=== PATIENT | female | born 1950 | race Caucasian/White ===

== ENCOUNTER → 2016-08-02 | Outpatient (CLI) | payer MEDICARE ==
[2016-08-02 09:26] LABS: ALT 51 U/L (9-52); AST 27 U/L (14-36); Alkaline Phosphatase 58 U/L (38-126); Anion Gap 11 mmol/L; Blood Urea Nitrogen 23 mg/dL (7-17); Calcium 9.6 mg/dL (8.4-10.2); Carbon Dioxide 30 mmol/L (22-30); Chloride 100 mmol/L (98-107); Cholesterol 153 mg/dL (<200); Glucose 103 mg/dL (74-99); HDL Cholesterol 51 mg/dL (40-60); Non-African American GFR(MDRD) >60 (>60 ml/min/1.73 sqM); Potassium 5.1 mmol/L (3.5-5.1); Sodium 141 mmol/L (137-145); Total Bilirubin 1.3 mg/dL (0.2-1.3); Triglycerides 165 mg/dL (<150)
== END | disposition home or self-care (01) ==
LOC: LABWHC1 07:16
PROVIDERS: ATTEND Internal Medicine
DX: Z00.00 Encounter for general adult medical examination without abnormal findings (principal); E78.5 Hyperlipidemia, unspecified; E55.9 Vitamin D deficiency, unspecified
CPT/HCPCS: 36415; 80053; 80061; 82306

== ENCOUNTER → 2017-03-31 | Outpatient (CLI) | payer MEDICARE ==
--- NOTE | 2017-03-31 09:34 | WWHP ---
[facility] - HISTORY AND PHYSICAL DATE OF SERVICE: 03/31/2017 CHIEF COMPLAINT: The patient is here for her routine gynecologic exam and mammogram. HPI: This is a 67-year-old G0 with an LMP of 1999, who is status post ROMAIN for benign reasons. The patient is without gynecologic complaints. PAST MEDICAL HISTORY: Elevated cholesterol, chronic hypertension, diverticulosis, chronic back problems and osteopenia. MEDICATIONS: 1. Atorvastatin 20 mg daily. 2. Lisinopril 10/12.5 mg daily. 3. Aspirin 81 mg daily. 4. Multivitamin 1 daily. 5. Vitamin D 1000 units daily/. 6. Ltkf-uti-fndxwzz pain medications p.r.n. ALLERGIES: Allergies to AMOXICILLIN, SULFA, AUGMENTIN, DOXYCYCLINE, and CIPRO. PAST SURGICAL HISTORY: ROMAIN in 1999, breast biopsy in the past, colonoscopies in 2003 and 2013. 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 SOCIAL HISTORY: She denies tobacco and drug use and has about 3 alcohol containing drinks per week. 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 REVIEW OF SYSTEMS: Weight has been stable. She denies respiratory, cardiac or GI problems. She denies maltreatment or falling. : She denies any significant problems with urinary leakage. PHYSICAL EXAM: Blood pressure 139/85, height 4 feet 9 inches, weight 148 pounds, temperature 98.3, pulse 84. This is a short-statured, well-nourished white female who is alert and oriented x3, in no acute distress. HEENT: Within normal limits. NECK: Supple without mass or thyromegaly. CHEST AND LUNGS: Clear to auscultation. HEART: Regular rate and rhythm. Breasts are without mass or discharge. There is central nipple inversion, which she states she has had this for many years. Axillary exam is negative for adenopathy. BACK: Negative for CVA tenderness. ABDOMEN: Mildly obese, soft, nontender, without palpable masses. PELVIC EXAM: External genitalia reveals moderate atrophy without lesions. Vagina reveals gypt-iq-svqhqdlk atrophy without lesions. There is no evidence of prolapse. Bimanual exam is negative for mass or tenderness. Rectovaginal exam is negative for mass or tenderness and is negative for occult blood. EXTREMITIES: Nontender. IMPRESSION: 1. A 67-year-old menopausal female, status post ROMAIN for benign reasons with normal gynecologic exam. 2. History of osteopenia. PLAN: 1. Pap smears have been discontinued. 2. Self breast examination was discussed. 3. Mammogram will be done today. 4. Osteoporosis prevention was discussed. She states she had a bone density test in 2016, which she believes showed osteopenia and this was done through Dr. Enciso. 5. She did get a flu shot just recently. 6. She will return in 1 year. MMODL / IJN: [id number] /
--- NOTE | 2017-03-31 10:50 | MM ---
Reason for exam: screening (asymptomatic). Last mammogram was performed 1 year ago. History: Patient is postmenopausal and is nulliparous. Benign left US cyst aspiration of the left breast, October 25, 2007. Benign US left CoreBiopsy of both breasts, October 25, 2007. Took estrogen for 3 years beginning at age 49. Physical Findings: A clinical breast exam by your physician is recommended on an annual basis and results should be correlated with mammographic findings. MG 3D Screening Mammo W/Cad Bilateral CC and MLO view(s) were taken. Prior study comparison: March 25, 2016, bilateral MG 3d screening mammo w/cad. February 27, 2015, bilateral MG screening mammo w CAD. The breast tissue is heterogeneously dense. This may lower the sensitivity of mammography. Previous mammotome biopsy in the left breast. There is no discrete abnormality. ASSESSMENT: Benign, BI-RAD 2 RECOMMENDATION: Routine screening mammogram of both breasts in 1 year.
== END ==
LOC: WWCWWP 08:24
PROVIDERS: ATTEND Obstetrics & Gynecology
DX: Z12.31 Encounter for screening mammogram for malignant neoplasm of breast (principal)
CPT/HCPCS: 77063; G0202

== ENCOUNTER → 2017-08-17 | Outpatient (CLI) | payer MEDICARE ==
[2017-08-17 07:34] LABS: Basophils % (A) 0 %; Eosinophils # (A) 0.4 k/uL (0-0.7); Eosinophils % (A) 5 %; HCT 44.5 % (34.0-46.0); HGB 14.4 gm/dL (11.4-16.0); Lymphocytes # (A) 1.7 k/uL (1.0-4.8); Lymphocytes % (A) 22 %; MCH 30.2 pg (25.0-35.0); MCHC 32.4 g/dL (31.0-37.0); MCV 93.2 fL (80.0-100.0); Mean Platelet Volume 6.9; Monocytes # (A) 0.4 k/uL (0-1.0); Monocytes % (A) 5 %; Neutrophils % (A) 66 %; Platelet Count 204 k/uL (150-450); RBC 4.78 m/uL (3.80-5.40); RDW 12.3 % (11.5-15.5); WBC 7.6 k/uL (3.8-10.6)
[2017-08-17 07:46] LABS: ALT 29 U/L (9-52); AST 19 U/L (14-36); Alkaline Phosphatase 63 U/L (38-126); Anion Gap 13 mmol/L; Blood Urea Nitrogen 19 mg/dL (7-17); Calcium 9.6 mg/dL (8.4-10.2); Carbon Dioxide 31 mmol/L (22-30); Chloride 100 mmol/L (98-107); Cholesterol 138 mg/dL (<200); Glucose 122 mg/dL (74-99); HDL Cholesterol 52 mg/dL (40-60); LDL Cholesterol,Calculated 65 mg/dL (0-99); Potassium 4.6 mmol/L (3.5-5.1); Sodium 144 mmol/L (137-145); Total Bilirubin 1.2 mg/dL (0.2-1.3); Total Protein 6.5 g/dL (6.3-8.2); Triglycerides 104 mg/dL (<150)
== END | disposition home or self-care (01) ==
LOC: LABWHC1 07:06
PROVIDERS: ATTEND Internal Medicine
DX: Z00.00 Encounter for general adult medical examination without abnormal findings (principal); E78.5 Hyperlipidemia, unspecified; I10 Essential (primary) hypertension; E55.9 Vitamin D deficiency, unspecified
CPT/HCPCS: 36415; 80053; 80061; 82306; 85025

== ENCOUNTER → 2018-03-11 | Outpatient (CLI) | payer MEDICARE ==
--- NOTE | 2018-03-11 10:15 | US ---
EXAMINATION TYPE: US abdomen complete DATE OF EXAM: 03/11/2018 COMPARISON: US 08/30/2015, CT 02/06/2014 CLINICAL HISTORY: R10.9 ABD PAIN. Indigestion, RUQ pain EXAM MEASUREMENTS: Liver Length: 15.9 cm Gallbladder Wall: 0.2 cm CBD: 0.4 cm Spleen: 7.8 cm Right Kidney: 11.4 x 3.4 x 4.0 cm Left Kidney: 9.8 x 4.3 x 3.7 cm Pancreas: Anechoic area visualized within the pancreatic head measuring 0.9 x 0.5 x 0.7 cm Liver: Cystic area visualized left lobe measuring 1.4 x 1.1 x 1.2 cm Gallbladder: wnl Evidence for sonographic Neri's sign: No CBD: wnl Spleen: Prominent hyperechoic area visualized measuring 0.6 x 0.4 x 0.5 Right Kidney: No hydronephrosis or masses seen Left Kidney: No hydronephrosis or masses seen Upper IVC: wnl Abd Aorta: wnl as visualized, slightly limited due to bowel gas Images of pancreas show nonspecific 7 mm anechoic area possible thin-walled cyst or pseudocyst in the pancreatic head not clearly seen on prior CT. Visualized portion of aorta shows no aneurysmal change . IVC is seen near hepatic dome. Visualized liver is heterogeneous with 1.2 cm simple appearing cyst left hepatic lobe redemonstrated. Gallbladder is seen without shadowing mobile gallstones. Common bile duct measures within normal escobar its. Both kidneys are normal in size. No suspicious solid or cystic mass or hydronephrosis is present bila terally on images saved. Heterogeneous normal sized spleen is present. IMPRESSION: No suspicious acute finding is seen to account for patient's symptoms. Possible new 7 mm cyst or a thin-walled cystic lesion in region of pancreatic head could reflect small pseudocyst. Cons ider further investigation with pancreatic protocol CT or MRI to further evaluate and characterize.
== END ==
LOC: RADUSWWP 07:56
PROVIDERS: ATTEND Internal Medicine
DX: R10.9 Unspecified abdominal pain (principal)
CPT/HCPCS: 76700

== ENCOUNTER → 2018-04-27 | Outpatient (CLI) | payer MEDICARE ==
[2018-04-27 09:03] VITALS: BP 119/75; PULSE 80; TEMP 97.6; BMI 30.9
--- NOTE | 2018-04-27 09:40 | P.HPOB ---
History of Present Illness H&P Date: 04/27/18 Chief Complaint: The patient is here for her routine gynecologic exam and mammogram. This is a 68-year-old G0 with an LMP of 1999. She is status post ROMAIN for uterine fibroids. The patient is without gynecologic complaints. Review of Systems She has lost 5 pounds over the last year. She denies respiratory, cardiac and G.I. problems. She denies maltreatment or problems with falling. : she denies any significant problems with urinary leakage. Past Medical History Past Medical History: Hyperlipidemia, Hypertension Additional Past Medical History / Comment(s): DIVERTICULOSIS. 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 She is status post hysterectomy for uterine fibroids. History of Any Multi-Drug Resistant Organisms: None Reported Past Surgical History: Hysterectomy (ROMAIN in 1999) Additional Past Surgical History / Comment(s): Colonoscopy 2013 (2nd). 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 - Past Family History Sister(s) Family Medical History: Cancer (Cervical cancer) Additional Family Medical History / Comment(s): Another sister had uterine fibroids. Medications and Allergies Home Medications Medication Instructions Recorded Confirmed Type Aspirin EC [Ecotrin] 81 mg PO DAILY 03/27/14 04/27/18 History Atorvastatin [Lipitor] 20 mg PO HS 03/27/14 04/27/18 History Multivitamins, Thera [Multivitamin] 1 each PO DAILY 03/27/14 04/27/18 History Lisinopril 10 mg PO DAILY 07/24/15 04/27/18 History Cholecalciferol [Vitamin D3] 1,000 unit PO DAILY 04/27/18 04/27/18 History Allergies Allergy/AdvReac Type Severity Reaction Status Date / Time amoxicillin [Amoxicillin] Allergy Unknown Diarrhea Verified 04/27/18 08:59 Penicillins Allergy Unknown Unknown Verified 04/27/18 08:59 amoxicillin trihydrate Allergy Unknown Verified 04/27/18 08:59 [From Augmentin] doxycycline Allergy Unknown Verified 04/27/18 08:59 phenazopyridine HCl Allergy Unknown Verified 04/27/18 08:59 [From Pyridium] potassium clavulanate Allergy Unknown Verified 04/27/18 08:59 [From Augmentin] Sulfa (Sulfonamide Allergy Unknown Verified 04/27/18 08:59 Antibiotics) Exam Vital Signs Temp Pulse BP 04/27/18 09:00 97.6 F 80 119/75 Intake and Output 04/26/18 04/27/18 04/27/18 22:59 06:59 14:59 Other: Weight 64.864 kg Height 4'9", weight 143 pounds, BMI 30.9. This is a short statured well-nourished white female who is alert and oriented times 3 in no acute distress. HEENT: Within normal limits. NECK: Supple without mass or thyromegaly. CHEST AND LUNGS: Clear to auscultation. HEART: Regular rate and rhythm. BREASTS: Are without mass or discharge. There is bilateral central nipple inversion which she states this has been that way for many years. AXILLARY EXAM: Negative for adenopathy. BACK: Negative for CVA tenderness. ABDOMEN: Soft, nontender, without palpable masses. PELVIC EXAM: External genitalia appears normal mild to moderate atrophy. Vagina appears normal with moderate atrophy. There is no evidence of prolapse. Bimanual examination is negative for mass or tenderness. RECTAL EXAM: Rectovaginal exam is negative for mass or tenderness and is negative for occult blood. There is moderate stool in the rectum. EXTREMITIES: Nontender. IMPRESSION: 1. 68-year-old menopausal female status post ROMAIN for benign reasons with normal gynecologic exam. 2. History of osteopenia, followed by Dr. Enciso PLAN: 1. Pap smears have been discontinued. 2. Self breast awareness was discussed with the patient. 3. Screening mammogram will be done today. 4. Osteoporosis prevention was discussed. She will continue to have bone density testing done through Dr. Enciso as she has done in the past. 5. She did receive for flu shot this fall. She also received her pneumonia vaccination. 6. She will return in one year.
--- NOTE | 2018-04-27 12:59 | MM ---
Reason for exam: screening (asymptomatic). Last mammogram was performed 1 year and 1 month ago. History: Patient is postmenopausal and is nulliparous. Benign left US cyst aspiration of the left breast, October 25, 2007. Benign US left CoreBiopsy of both breasts, October 25, 2007. Took estrogen for 3 years beginning at age 49. Physical Findings: A clinical breast exam by your physician is recommended on an annual basis and results should be correlated with mammographic findings. MG 3D Screening Mammo W/Cad Bilateral CC and MLO view(s) were taken. Prior study comparison: March 31, 2017, bilateral MG 3d screening mammo w/cad. March 25, 2016, bilateral MG 3d screening mammo w/cad. The breast tissue is heterogeneously dense. This may lower the sensitivity of mammography. There are benign appearing round dystrophic calcifications bilaterally. Previous mammotome biopsy in the left breast. There is no discrete abnormality. ASSESSMENT: Benign, BI-RAD 2 RECOMMENDATION: Routine screening mammogram of both breasts in 1 year.
== END | disposition home or self-care (01) ==
LOC: WWCWWP 08:35
PROVIDERS: ATTEND Obstetrics & Gynecology
DX: Z12.31 Encounter for screening mammogram for malignant neoplasm of breast (principal)
CPT/HCPCS: 77063; 77067

== ENCOUNTER → 2018-05-01 | Outpatient (CLI) | payer MEDICARE ==
--- NOTE | 2018-05-03 00:36 | MR ---
EXAMINATION TYPE: MR pancreas wo/w con DATE OF EXAM: 05/01/2018 COMPARISON: CT scan 02/06/2014. Ultrasound abdomen 03/11/2018. HISTORY: pancreatic cyst CONTRAST: Standard multiplanar, multisequence MRI departmental protocol utilizing 6.5 mL intravenous Gadavist g adolinium contrast. FINDINGS: The gallbladder has normal size and contour. I see no filling defect. Bile ducts are not di lated. There are multiple variable sized cysts in the head body and tail of the pancreas. The largest is towards the tail of the pancreas and measures 13 mm. There are 3 cysts near the tail of the pancr eas that measure 6 to 7 mm. There are several small cysts in the head of the pancreas and the largest measures 12 x 8 mm. The pancreatic duct is not dilated. The spleen shows no focal defect. Liver show s a 13 mm cyst in the anterior left lobe. There is no adrenal mass. Kidneys show no hydronephrosis. There is no sign of retroperitoneal adenopa thy. There is no evidence of ascites. Stomach appears normal. I see no pathologic enhancement. I see no evidence of a solid pancreatic mass. Kidneys show satisfactory contrast opacification. There is no hydronephrosis. IMPRESSION: Multiple simple cysts in the head body and tail of the pancreas. These are probably pseudocysts. No e vidence of solid pancreatic mass. No dilated ducts. The cysts appear new compared to old CT scan of . The appearance is consistent with old inflammatory disease.
== END ==
LOC: RADMRIMAIN 11:43
PROVIDERS: ATTEND Internal Medicine
DX: K86.2 Cyst of pancreas (principal)
CPT/HCPCS: 74183; A9585

== ENCOUNTER 2018-05-13 09:51 | Emergency (ER) | payer MEDICARE ==
[2018-05-13 09:59] VITALS: RESP 16
--- NOTE | 2018-05-13 10:19 | ED ---
General Adult HPI - General Chief complaint: Abdominal Pain Stated complaint: poss med reaction Source: patient Mode of arrival: ambulatory Limitations: no limitations - History of Present Illness Initial comments: Dictation was produced using [employer] dictation software. please excuse any grammatical, word or spelling errors. Chief Complaint: 68-year-old female with past medical history of pancreatic pseudocyst presents with epigastric abdominal pain. History of Present Illness: Patient is 68-year-old female past medical history of dyslipidemia, hypertension, pancreatic pseudocyst presents with epigastric pain. Patient states the pain began yesterday. 4 days ago patient was seen at a urgent care for which she was diagnosed with urinary tract infection based on urinary white blood cells. She was started on a seven- day course of Macrobid. She states that she follow up with her culture results and they were negative. Patient has been on Macrobid for approximately 3 days. Patient is taking Macrobid for however has never experienced any side effects. Patient states that the pain as epigastric radiating to her upper thoracic back area. She describes the pain as burning in sensation. No exacerbating or mitigating factors. The ROS documented in this emergency department record has been reviewed and confirmed by me. Those systems with pertinent positive or negative responses have been documented in the HPI. All other systems are other negative and/or noncontributory. - Related Data Home Medications Medication Instructions Recorded Confirmed Aspirin EC [Ecotrin] 81 mg PO DAILY 03/27/14 05/13/18 Atorvastatin [Lipitor] 20 mg PO HS 03/27/14 05/13/18 Multivitamins, Thera [Multivitamin] 1 tab PO DAILY 03/27/14 05/13/18 Lisinopril 10 mg PO DAILY 07/24/15 05/13/18 Cholecalciferol [Vitamin D3] 1,000 unit PO DAILY 04/27/18 05/13/18 Nitrofurantoin Monohyd/M-Cryst 100 mg PO Q12HR 05/13/18 05/13/18 [Macrobid] Allergies Allergy/AdvReac Type Severity Reaction Status Date / Time amoxicillin [Amoxicillin] Allergy Unknown Diarrhea Verified 05/13/18 10:29 Penicillins Allergy Unknown Unknown Verified 05/13/18 10:29 amoxicillin trihydrate Allergy Unknown Verified 05/13/18 10:29 [From Augmentin] doxycycline Allergy Unknown Verified 05/13/18 10:29 phenazopyridine HCl Allergy Unknown Verified 05/13/18 10:29 [From Pyridium] potassium clavulanate Allergy Unknown Verified 05/13/18 10:29 [From Augmentin] Sulfa (Sulfonamide Allergy Unknown Verified 05/13/18 10:29 Antibiotics) Review of Systems ROS Statement: Those systems with pertinent positive or pertinent negative responses have been documented in the HPI. ROS Other: All systems not noted in ROS Statement are negative. Past Medical History Past Medical History: Hyperlipidemia, Hypertension Additional Past Medical History / Comment(s): DIVERTICULOSIS. 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 She is status post hysterectomy for uterine fibroids. History of Any Multi-Drug Resistant Organisms: None Reported Past Surgical History: Hysterectomy Additional Past Surgical History / Comment(s): Colonoscopy 2013 (2nd). Past Anesthesia/Blood Transfusion Reactions: No Reported Reaction Past Psychological History: No Psychological Hx Reported Smoking Status: Never smoker Past Alcohol Use History: Occasional Past Drug Use History: None Reported - Past Family History Sister(s) Family Medical History: Cancer (Cervical cancer) Additional Family Medical History / Comment(s): Another sister had uterine fibroids. General Exam - General Exam Comments Initial Comments: PHYSICAL EXAM: General Impression: Alert and oriented x3, not in acute distress HEENT: Normocephalic atraumatic, extra-ocular movements intact, pupils equal and reactive to light bilaterally, mucous membranes moist. Cardiovascular: Heart regular rate and rhythm, S1&S2 audible, no murmurs, rubs or gallops Chest: Lungs clear to auscultation bilaterally, no rhonchi, no wheeze, no rales Abdomen: Bowel sounds present, abdomen soft, non-tender, non-distended, no organomegaly Musculoskeletal: Pulses present and equal in all extremities, no peripheral edema Motor: Power 5/5 bilaterally, no focal deficits noted Neurological: CN II-XII grossly intact, no focal motor or sensory deficits noted Skin: Intact with no visualized rashes Psych: Normal affect and mood Limitations: no limitations Course Vital Signs 05/13/18 09:55 Temperature 98.4 F Pulse Rate 82 Respiratory 16 Rate Blood Pressure 150/78 O2 Sat by Pulse 98 Oximetry Medical Decision Making - Medical Decision Making ED course: 68-year-old female with chief complaint of epigastric abdominal pain that radiates to the back. She does have a history of pancreatic pseudocyst. 4 days ago she was started on Macrobid for urinary white blood cells. Vital signs upon arrival are within acceptable limits. Patient reports that she checked her culture results which were negative.Laboratory evaluation obtained. CBC, CMP, lipase, urinalysis is all within normal limits. Patient's glucose is elevated at 194. Patient does have a non-gap alkalosis that is mild. Patient however not having any nausea or vomiting or diarrhea symptoms. Discussed patient that her labs appear normal. More history was obtained. Patient states that she has some burning pain to her left back is worse with movement. Her symptoms aren't typical for cardiac process. Cardiac enzymes are negative. EKG was obtained showing nonspecific T- wave changes. 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 Patient told to stop using her Macrobid. She still to follow-up with her primary care physician. Bicycle back to the emergency department with worsening symptoms. Patient understandable agreeable to plan. Patient is agreeable to take Tylenol urine symptoms. EKG interpretation: Ventricular rate 75, normal sinus rhythm, KS interval 142, care is 82, QTc 442. No KS prolongation, no QTC prolongation, nonspecific T- wave inversion in aVL Overall, this EKG is unremarkable - Lab Data Result diagrams: 05/13/18 10:24 05/13/18 10:24 Lab Results 05/13/18 05/13/18 05/13/18 Range/Units 10:24 10:24 10:24 WBC 6.0 (3.8-10.6) k/uL RBC 4.81 (3.80-5.40) m/uL Hgb 15.1 (11.4-16.0) gm/dL Hct 44.7 (34.0-46.0) % MCV 92.9 (80.0-100.0) fL MCH 31.4 (25.0-35.0) pg MCHC 33.8 (31.0-37.0) g/dL RDW 12.9 (11.5-15.5) % Plt Count 220 (150-450) k/uL Neutrophils % 66 % Lymphocytes % 22 % Monocytes % 5 % Eosinophils % 5 % Basophils % 0 % Neutrophils # 4.0 (1.3-7.7) k/uL Lymphocytes # 1.3 (1.0-4.8) k/uL Monocytes # 0.3 (0-1.0) k/uL Eosinophils # 0.3 (0-0.7) k/uL Basophils # 0.0 (0-0.2) k/uL Sodium 140 (137-145) mmol/L Potassium 4.7 (3.5-5.1) mmol/L Chloride 101 (98-107) mmol/L Carbon Dioxide 32 H (22-30) mmol/L Anion Gap 7 mmol/L BUN 22 H (7-17) mg/dL Creatinine 0.75 (0.52-1.04) mg/dL Est GFR (CKD-EPI)AfAm >90 (>60 ml/min/1.73 sqM) Est GFR (CKD-EPI)NonAf 82 (>60 ml/min/1.73 sqM) Glucose 194 H (74-99) mg/dL Calcium 10.1 (8.4-10.2) mg/dL Total Bilirubin 0.9 (0.2-1.3) mg/dL AST 24 (14-36) U/L ALT 34 (9-52) U/L Alkaline Phosphatase 52 (38-126) U/L Troponin I <0.012 (0.000-0.034) ng/mL Total Protein 7.2 (6.3-8.2) g/dL Albumin 4.3 (3.5-5.0) g/dL Lipase 39 (23-300) U/L Urine Color Urine Appearance (Clear) Urine pH (5.0-8.0) Ur Specific [place] (1.001-1.035) Urine Protein (Negative) Urine Glucose (UA) (Negative) Urine Ketones (Negative) Urine Blood (Negative) Urine Nitrite (Negative) Urine Bilirubin (Negative) Urine Urobilinogen (<2.0) mg/dL Ur Leukocyte Esterase (Negative) 05/13/18 Range/Units 10:48 WBC (3.8-10.6) k/uL RBC (3.80-5.40) m/uL Hgb (11.4-16.0) gm/dL Hct (34.0-46.0) % MCV (80.0-100.0) fL MCH (25.0-35.0) pg MCHC (31.0-37.0) g/dL RDW (11.5-15.5) % Plt Count (150-450) k/uL Neutrophils % % Lymphocytes % % Monocytes % % Eosinophils % % Basophils % % Neutrophils # (1.3-7.7) k/uL Lymphocytes # (1.0-4.8) k/uL Monocytes # (0-1.0) k/uL Eosinophils # (0-0.7) k/uL Basophils # (0-0.2) k/uL Sodium (137-145) mmol/L Potassium (3.5-5.1) mmol/L Chloride (98-107) mmol/L Carbon Dioxide (22-30) mmol/L Anion Gap mmol/L BUN (7-17) mg/dL Creatinine (0.52-1.04) mg/dL Est GFR (CKD-EPI)AfAm (>60 ml/min/1.73 sqM) Est GFR (CKD-EPI)NonAf (>60 ml/min/1.73 sqM) Glucose (74-99) mg/dL Calcium (8.4-10.2) mg/dL Total Bilirubin (0.2-1.3) mg/dL AST (14-36) U/L ALT (9-52) U/L Alkaline Phosphatase (38-126) U/L Troponin I (0.000-0.034) ng/mL Total Protein (6.3-8.2) g/dL Albumin (3.5-5.0) g/dL Lipase (23-300) U/L Urine Color Light Yellow Urine Appearance Clear (Clear) Urine pH 5.5 (5.0-8.0) Ur Specific [place] 1.012 (1.001-1.035) Urine Protein Negative (Negative) Urine Glucose (UA) 1+ H (Negative) Urine Ketones Negative (Negative) Urine Blood Negative (Negative) Urine Nitrite Negative (Negative) Urine Bilirubin Negative (Negative) Urine Urobilinogen <2.0 (<2.0) mg/dL Ur Leukocyte Esterase Negative (Negative) Disposition Clinical Impression: Medication side effect Disposition: HOME SELF-CARE Condition: Good Is patient prescribed a controlled substance at d/c from ED?: No Referrals: Dean Enciso MD [Primary Care Provider] - 1-2 days Time of Disposition: 12:14
[2018-05-13 10:45] LABS: Basophils % (A) 0 %; Eosinophils # (A) 0.3 k/uL (0-0.7); Eosinophils % (A) 5 %; HCT 44.7 % (34.0-46.0); HGB 15.1 gm/dL (11.4-16.0); Lymphocytes # (A) 1.3 k/uL (1.0-4.8); Lymphocytes % (A) 22 %; MCH 31.4 pg (25.0-35.0); MCHC 33.8 g/dL (31.0-37.0); MCV 92.9 fL (80.0-100.0); Mean Platelet Volume 7.2; Monocytes # (A) 0.3 k/uL (0-1.0); Monocytes % (A) 5 %; Neutrophils % (A) 66 %; Platelet Count 220 k/uL (150-450); RBC 4.81 m/uL (3.80-5.40); RDW 12.9 % (11.5-15.5)
[2018-05-13 11:05] LABS: ALT 34 U/L (9-52); AST 24 U/L (14-36); Albumin 4.3 g/dL (3.5-5.0); Alkaline Phosphatase 52 U/L (38-126); Anion Gap 7 mmol/L; Blood Urea Nitrogen 22 mg/dL (7-17); Calcium 10.1 mg/dL (8.4-10.2); Carbon Dioxide 32 mmol/L (22-30); Chloride 101 mmol/L (98-107); Glucose 194 mg/dL (74-99); Lipase 39 U/L (23-300); Potassium 4.7 mmol/L (3.5-5.1); Sodium 140 mmol/L (137-145); Total Bilirubin 0.9 mg/dL (0.2-1.3); Total Protein 7.2 g/dL (6.3-8.2)
[2018-05-13 11:20] LABS: Appearance,Urine Clear (Clear); Bilirubin,Urine Negative (Negative); Blood,Urine Negative (Negative); Color,Urine Light Yellow; Glucose,Urine (UA) 1+ (Negative); Ketones,Urine Negative (Negative); Leukocyte Esterase,Urine Negative (Negative); Nitrite,Urine Negative (Negative); PH, Urine 5.5 (5.0-8.0); Protein,Urine Negative (Negative); Specific Gravity,Urine 1.012 (1.001-1.035); Urobilinogen,Urine <2.0 mg/dL (<2.0)
[2018-05-13 12:40] VITALS: BP 124/70; PULSE 78; TEMP 97.8
== END 2018-05-13 12:40 | disposition home or self-care (01) ==
LOC: EC 09:51
DX: R10.13 Epigastric pain (principal); E87.3 Alkalosis; T37.8X5A Adverse effect of other specified systemic anti-infectives and antiparasitics, initial encounter; E78.5 Hyperlipidemia, unspecified; I10 Essential (primary) hypertension; Z87.19 Personal history of other diseases of the digestive system; Z87.42 Personal history of other diseases of the female genital tract; Z90.710 Acquired absence of both cervix and uterus; Z98.890 Other specified postprocedural states; Z79.82 Long term (current) use of aspirin; Z79.899 Other long term (current) drug therapy; Z88.0 Allergy status to penicillin; Z88.1 Allergy status to other antibiotic agents; Z88.2 Allergy status to sulfonamides; Z88.8 Allergy status to other drugs, medicaments and biological substances
CPT/HCPCS: 36415; 80053; 81003; 83690; 84484; 85025; 87086; 93005; 99284

== ENCOUNTER → 2018-07-13 | Outpatient (CLI) | payer MEDICARE ==
--- NOTE | 2018-07-13 18:44 | MR ---
EXAMINATION TYPE: MR lumbar spine wo con DATE OF EXAM: 07/13/2018 COMPARISON: Prior MRI lumbar spine 05/12/2015 HISTORY: Back pain radiating into buttocks TECHNIQUE: Multiplanar, multisequence images of the lumbar spine were acquired. L1-L2: Normal disc appearance without desiccation. No herniation, protrusion or disc bulging. No ca nal stenosis is present. Foramina are patent bilaterally. L2-L3: There is facet arthropathy change. No significant central stenosis. No significant foraminal e ncroachment. L3-L4: Posterior broad-based disc bulge causes mild anterior mass effect on the thecal sac. Facet art hropathy causes posterior lateral mass effect on the thecal sac, circumferential disc bulge encroache s somewhat on the right neural foramen. No significant central stenosis. L4-L5: Facet arthropathy with hypertrophy of the ligamentum flavum is present causing posterior later al mass effect on the thecal sac, mild lateral recess encroachment. No significant foraminal encroach ment. No central stenosis. L5-S1: Similar findings, there is loss of disc height and signal, posterior broad-based disc bulge is minimal. There is facet arthropathy with hypertrophy of the ligamentum flavum. Circumferential exten neno of endplate disc complex encroaches on the neural foramina. Lumbar segments are intact. No paraspinal masses are identified. Conus medullaris has a normal appe arance. Lumbar vertebral bodies show preserved height. Minimal anterolisthesis grade 1 L3-4. There is spondylosis with endplate discogenic marrow signal change at L5-S1, L3-4 greater than L2-3. L1 shows hemangioma as on prior. Disc heights fairly well maintained as on prior. IMPRESSION: Degenerative disc disease is not significantly changed. Multilevel facet arthropathy. Neural foramina l encroachment similar to prior exam.
== END | disposition home or self-care (01) ==
LOC: RADMRIMAIN 16:46
PROVIDERS: ATTEND Internal Medicine
DX: M51.36 Other intervertebral disc degeneration, lumbar region (principal); M46.86 Other specified inflammatory spondylopathies, lumbar region
CPT/HCPCS: 72148

== ENCOUNTER → 2018-07-14 | Outpatient (CLI) | payer MEDICARE ==
[2018-07-14 07:50] LABS: Blood Urea Nitrogen 27 mg/dL (7-17)
--- NOTE | 2018-07-14 09:42 | CT ---
EXAMINATION TYPE: CT abdomen pelvis w con DATE OF EXAM: 07/14/2018 COMPARISON: 02/06/2014 HISTORY: 68-year-old female LLQ pain TECHNIQUE: Contiguous axial scanning of the abdomen and pelvis following administration of 100 ml Iso jennifer 300 IV contrast. Delayed images through the kidneys and coronal/sagittal reconstructions perform ed. CT DLP: 851 mGycm Automated exposure control for dose reduction was used. FINDINGS: Heart normal size without pericardial effusion. Some strandy areas of atelectasis or scarring at the lung bases. There may be some minimal emphysematous change. No pleural effusion. Tiny hiatal hernia. Couple peripherally located areas of hypervascularity in the liver are unchanged and suggest areas of vascular shunting. Stable 1.3 cm cyst segment 3 left liver lobe. Portal venous system is patent. No biliary ductal dilatation. Gallbladder, adrenal glands, kidneys, spleen within normal limits. There is mild fatty atrophy of the pancreatic body and head. There is a new 1 cm cystic lesion at the junction of the pancreatic tail and body not seen previously. No suspicious enhancing masses. No dilated small bowel, free fluid, or free air. Normal appendix. Oral contrast progressed to the descending colon. There is sigmoid diverticulosis with focal wall thi ckening and mild surrounding inflammatory fat stranding at the mid sigmoid, for example, axial image 55. No mesenteric or retroperitoneal lymphadenopathy. Bladder urine distended. There is a new peripherally enhancing region adjacent to the right lateral m argin of the mid to distal sigmoid measuring approximately 2.3 x 1.7 cm, refer to axial images 59-62 and coronal image 53. This is near or at the region of the right fallopian tube. Some intrinsic fluid and tiny focus of air are present. There is some mild surrounding inflammation here. No pelvic lymphadenopathy. Uterus surgically absent. Both ovaries are visualized. Bones: Facet arthropathy lower lumbar spine and endplate spondylosis lower thoracic spine. No osseous destructive process. IMPRESSION: 1. SIGMOID DIVERTICULOSIS WITH FINDINGS SUGGESTING MILD ACUTE DIVERTICULITIS INVOLVING THE MIDSIGMOID . 2. ALONG THE RIGHT LATERAL WALL OF THE MID TO DISTAL SIGMOID, THERE IS A SECOND AREA OF INFLAMMATION CENTERED AROUND EITHER AN INFLAMED 2.3 CM DIVERTICULUM VERSUS A SMALL, PROBABLY CHRONIC, DIVERTICULAR ABSCESS. THIS AREA IS NEW COMPARED TO 02/06/2014 AND LOCATED NEAR OR AT THE REGION OF THE RIGHT FA LLOPIAN TUBE. CONSIDER IMAGING FOLLOW-UP WITH TREATMENT. DIRECT VISUALIZATION OF THE SIGMOID COLON AL SO RECOMMENDED FOLLOWING SUCCESSFUL TREATMENT. 3. NEW 1 CM CYSTIC LESION AT THE JUNCTION OF THE PANCREATIC TAIL AND BODY. SIX-MONTH FOLLOW-UP PANCRE MRI WITH MRCP RECOMMENDED. 4. SMALL HIATAL HERNIA.
== END | disposition home or self-care (01) ==
LOC: RADCTMAIN 07:03
PROVIDERS: ATTEND Internal Medicine
DX: K57.30 Diverticulosis of large intestine without perforation or abscess without bleeding (principal); K44.9 Diaphragmatic hernia without obstruction or gangrene; R10.9 Unspecified abdominal pain
CPT/HCPCS: 82565; 84520; 74177; 36415; Q9967

== ENCOUNTER 2018-07-20 08:19 | Inpatient (IN) | payer MEDICARE ==
[2018-07-20] MEDS ORDERED: SODIUM CHLORIDE 0.9% 1,000 ML IV STA (09:06)
--- NOTE | 2018-07-20 09:14 | ED ---
General Adult HPI - General Source: patient, RN notes reviewed Mode of arrival: ambulatory Limitations: no limitations <Albert Negrete - Last Filed: 07/20/18 11:41> <Yoseph Moran - Last Filed: 07/20/18 12:05> - General Chief complaint: Urogenital Stated complaint: HEMATURIA Time Seen by Provider: 07/20/18 08:55 - History of Present Illness Initial comments: Patient 68-year-old female presented to the emergency room today with a chief complaint of increased lower abdominal pain. She also states that she seems blood. Urine this morning. She admits to a history of diverticulitis. States she has been on ciprofloxacin for the past 6 days. Patient states she was on Flagyl but had to stop this as she broke out in a rash. She admits symptoms started approximately a month ago similar diverticulitis that she's had in the past and saw her family doctor for this and was on antibiotics. Patient states that she still having the same lower abdominal pain but noticed blood today and his reason for coming here to the emergency room. She currently rates her pain 5/10 but states she does not want anything for pain. Denies any other complaints at this time. Patient denies any recent fever, chills, shortness of breath, chest pain, back pain, numbness or tingling, dysuria or hematuria, headaches or visual changes, or any other complaints. (Albert Negrete) - Related Data Home Medications Medication Instructions Recorded Confirmed Aspirin EC [Ecotrin] 81 mg PO DAILY 03/27/14 07/20/18 Atorvastatin [Lipitor] 20 mg PO HS 03/27/14 07/20/18 Multivitamins, Thera [Multivitamin] 1 tab PO DAILY 03/27/14 07/20/18 Lisinopril 10 mg PO DAILY 07/24/15 07/20/18 Cholecalciferol [Vitamin D3] 1,000 unit PO DAILY 04/27/18 07/20/18 Ascorbic Acid [Vitamin C] 500 mg PO DAILY 07/20/18 07/20/18 Allergies Allergy/AdvReac Type Severity Reaction Status Date / Time amoxicillin [Amoxicillin] Allergy Unknown Diarrhea Verified 07/20/18 10:57 Penicillins Allergy Unknown Unknown Verified 07/20/18 10:57 amoxicillin trihydrate Allergy Unknown Verified 07/20/18 10:57 [From Augmentin] doxycycline Allergy Unknown Verified 07/20/18 10:57 metronidazole [From Flagyl] Allergy Rash/Hives Verified 07/20/18 10:57 nitrofurantoin Allergy Rash/Hives Verified 07/20/18 10:57 [From Macrobid] phenazopyridine HCl Allergy Unknown Verified 07/20/18 10:57 [From Pyridium] potassium clavulanate Allergy Unknown Verified 07/20/18 10:57 [From Augmentin] Sulfa (Sulfonamide Allergy Unknown Verified 07/20/18 10:57 Antibiotics) ciprofloxacin [From Cipro] AdvReac Joint Pain Verified 07/20/18 11:48 Review of Systems ROS Other: All systems not noted in ROS Statement are negative. <Albert Negrete - Last Filed: 07/20/18 11:41> ROS Other: All systems not noted in ROS Statement are negative. <Yoseph Moran - Last Filed: 07/20/18 12:05> ROS Statement: Those systems with pertinent positive or pertinent negative responses have been documented in the HPI. Past Medical History Past Medical History: Hyperlipidemia, Hypertension Additional Past Medical History / Comment(s): DIVERTICULOSIS. 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 cysts on pancreas PAST [employer] HISTORY: She has no history of STDs. She is status post hysterectomy for uterine fibroids. History of Any Multi-Drug Resistant Organisms: None Reported Past Surgical History: Hysterectomy Additional Past Surgical History / Comment(s): Colonoscopy 2014 (2nd). Past Anesthesia/Blood Transfusion Reactions: No Reported Reaction Past Psychological History: No Psychological Hx Reported Smoking Status: Never smoker Past Alcohol Use History: Occasional Past Drug Use History: None Reported - Past Family History Sister(s) Family Medical History: Cancer (Cervical cancer) Additional Family Medical History / Comment(s): Another sister had uterine fibroids. <Albert Negrete - Last Filed: 07/20/18 11:41> General Exam Limitations: no limitations <Albert Negrete - Last Filed: 07/20/18 11:41> <Yoseph Moran - Last Filed: 07/20/18 12:05> - General Exam Comments Initial Comments: General: The patient is awake and alert, in no distress, and does not appear acutely ill. Eye: There is normal conjunctiva bilaterally. No signs of icterus. Ears, nose, mouth and throat: There are moist mucous membranes and no oral lesions. Neck: The neck is supple, there is no tenderness or JVD. Cardiovascular: There is a regular rate and rhythm. No murmur, rub or gallop is appreciated. Respiratory: Lungs are clear to auscultation, respirations are non-labored, breath sounds are equal. No wheezes, stridor, rales, or rhonchi. Gastrointestinal: Abdomen soft on palpation. Mild tenderness left lower quadrant. No rebound, guarding or CVA tenderness. Musculoskeletal: Normal ROM, no tenderness. Neurological: A&O x 3. CN II-XII intact, There are no obvious motor or sensory deficits. Coordination appears grossly intact. Speech is normal. Skin: Skin is warm and dry and no rashes or lesions are noted. Psychiatric: Cooperative, appropriate mood & affect, normal judgment. (Albert Negrete) Course <Albert Negrete - Last Filed: 07/20/18 11:41> <Yoseph Moran - Last Filed: 07/20/18 12:05> Vital Signs 07/20/18 07/20/18 08:46 11:31 Temperature 98.4 F Pulse Rate 98 87 Respiratory 18 16 Rate Blood Pressure 147/86 131/72 O2 Sat by Pulse 96 98 Oximetry - Reevaluation(s) Reevaluation #1: 07/20/18 12:01 PA supervision: I proceeded [id number] evaluation patient did discuss findings with her. Patient does have diverticulitis did present with hematuria this morning. His CAT scan evidence of adhesion of the bowel to bladder wall. Impending fistula is considered. I did discuss the case with Dr. Grady the patient will be admitted with consultation by Dr. Reyna (Ysoeph Moran) Medical Decision Making - Lab Data Result diagrams: 07/20/18 09:35 07/20/18 09:35 <Albert Negrete - Last Filed: 07/20/18 11:41> - Lab Data Result diagrams: 07/20/18 09:35 07/20/18 09:35 <Yoseph Moran - Last Filed: 07/20/18 12:05> - Medical Decision Making Patient reexamined shows no signs of distress. States still having some discomfort in the lower abdomen. Patient be treated for diverticulitis currently on antibiotics of ciprofloxacin. Patient was advised by her physician that she may need to come for IV antibiotics as symptoms are not improving. Patient's CT shows improving sigmoid diverticulitis. There is no urinary bladder wall is probably area of chronic diverticular disease and urinary bladder wall adhesions. Case discussed with attending physician Dr. Moran did see patient at bedside. Patient will be admitted to the hospital for consult to surgery. (Albert Negrete) - Lab Data Lab Results 07/20/18 07/20/18 07/20/18 Range/Units 09:35 09:35 09:35 WBC 6.8 (3.8-10.6) k/uL RBC 4.78 (3.80-5.40) m/uL Hgb 14.9 (11.4-16.0) gm/dL Hct 43.8 (34.0-46.0) % MCV 91.5 (80.0-100.0) fL MCH 31.1 (25.0-35.0) pg MCHC 34.0 (31.0-37.0) g/dL RDW 13.4 (11.5-15.5) % Plt Count 249 (150-450) k/uL Neutrophils % 66 % Lymphocytes % 21 % Monocytes % 6 % Eosinophils % 4 % Basophils % 0 % Neutrophils # 4.5 (1.3-7.7) k/uL Lymphocytes # 1.5 (1.0-4.8) k/uL Monocytes # 0.4 (0-1.0) k/uL Eosinophils # 0.3 (0-0.7) k/uL Basophils # 0.0 (0-0.2) k/uL PT (9.0-12.0) sec INR (<1.2) APTT (22.0-30.0) sec Sodium 140 (137-145) mmol/L Potassium 4.3 (3.5-5.1) mmol/L Chloride 104 (98-107) mmol/L Carbon Dioxide 28 (22-30) mmol/L Anion Gap 8 mmol/L BUN 14 (7-17) mg/dL Creatinine 0.67 (0.52-1.04) mg/dL Est GFR (CKD-EPI)AfAm >90 (>60 ml/min/1.73 sqM) Est GFR (CKD-EPI)NonAf >90 (>60 ml/min/1.73 sqM) Glucose 117 H (74-99) mg/dL Plasma Lactic Acid Winston 1.3 (0.7-2.0) mmol/L Calcium 10.0 (8.4-10.2) mg/dL Total Bilirubin 0.7 (0.2-1.3) mg/dL AST 23 (14-36) U/L ALT 36 (9-52) U/L Alkaline Phosphatase 59 (38-126) U/L Total Protein 6.8 (6.3-8.2) g/dL Albumin 4.2 (3.5-5.0) g/dL Urine Color Urine Appearance (Clear) Urine pH (5.0-8.0) Ur Specific [place] (1.001-1.035) Urine Protein (Negative) Urine Glucose (UA) (Negative) Urine Ketones (Negative) Urine Blood (Negative) Urine Nitrite (Negative) Urine Bilirubin (Negative) Urine Urobilinogen (<2.0) mg/dL Ur Leukocyte Esterase (Negative) Urine RBC (0-5) /hpf Urine WBC (0-5) /hpf Urine Bacteria (None) /hpf Urine Mucus (None) /hpf 07/20/18 07/20/18 Range/Units 09:35 09:35 WBC (3.8-10.6) k/uL RBC (3.80-5.40) m/uL Hgb (11.4-16.0) gm/dL Hct (34.0-46.0) % MCV (80.0-100.0) fL MCH (25.0-35.0) pg MCHC (31.0-37.0) g/dL RDW (11.5-15.5) % Plt Count (150-450) k/uL Neutrophils % % Lymphocytes % % Monocytes % % Eosinophils % % Basophils % % Neutrophils # (1.3-7.7) k/uL Lymphocytes # (1.0-4.8) k/uL Monocytes # (0-1.0) k/uL Eosinophils # (0-0.7) k/uL Basophils # (0-0.2) k/uL PT 9.5 (9.0-12.0) sec INR 0.9 (<1.2) APTT 24.6 (22.0-30.0) sec Sodium (137-145) mmol/L Potassium (3.5-5.1) mmol/L Chloride (98-107) mmol/L Carbon Dioxide (22-30) mmol/L Anion Gap mmol/L BUN (7-17) mg/dL Creatinine (0.52-1.04) mg/dL Est GFR (CKD-EPI)AfAm (>60 ml/min/1.73 sqM) Est GFR (CKD-EPI)NonAf (>60 ml/min/1.73 sqM) Glucose (74-99) mg/dL Plasma Lactic Acid Winston (0.7-2.0) mmol/L Calcium (8.4-10.2) mg/dL Total Bilirubin (0.2-1.3) mg/dL AST (14-36) U/L ALT (9-52) U/L Alkaline Phosphatase (38-126) U/L Total Protein (6.3-8.2) g/dL Albumin (3.5-5.0) g/dL Urine Color Light Yellow Urine Appearance Clear (Clear) Urine pH 5.5 (5.0-8.0) Ur Specific [place] 1.007 (1.001-1.035) Urine Protein Negative (Negative) Urine Glucose (UA) Negative (Negative) Urine Ketones Negative (Negative) Urine Blood Moderate H (Negative) Urine Nitrite Negative (Negative) Urine Bilirubin Negative (Negative) Urine Urobilinogen <2.0 (<2.0) mg/dL Ur Leukocyte Esterase Large H (Negative) Urine RBC 11 H (0-5) /hpf Urine WBC 59 H (0-5) /hpf Urine Bacteria Rare H (None) /hpf Urine Mucus Rare H (None) /hpf Disposition Is patient prescribed a controlled substance at d/c from ED?: No Time of Disposition: 11:46 <Albert Negrete - Last Filed: 07/20/18 11:41> <Yoseph Moran - Last Filed: 07/20/18 12:05> Clinical Impression: Diverticulitis, Failure of outpatient treatment Disposition: ADMITTED IP TO THIS [facility] Condition: Good
[2018-07-20 09:56] LABS: Basophils % (A) 0 %; Eosinophils # (A) 0.3 k/uL (0-0.7); Eosinophils % (A) 4 %; HCT 43.8 % (34.0-46.0); HGB 14.9 gm/dL (11.4-16.0); Lymphocytes # (A) 1.5 k/uL (1.0-4.8); Lymphocytes % (A) 21 %; MCH 31.1 pg (25.0-35.0); MCV 91.5 fL (80.0-100.0); Mean Platelet Volume 6.9; Monocytes # (A) 0.4 k/uL (0-1.0); Monocytes % (A) 6 %; Neutrophils # (A) 4.5 k/uL (1.3-7.7); Neutrophils % (A) 66 %; Platelet Count 249 k/uL (150-450); RBC 4.78 m/uL (3.80-5.40); RDW 13.4 % (11.5-15.5); WBC 6.8 k/uL (3.8-10.6)
[2018-07-20 10:02] LABS: Appearance,Urine Clear (Clear); Bacteria,Urine Rare /hpf; Bilirubin,Urine Negative (Negative); Blood,Urine Moderate (Negative); Color,Urine Light Yellow; Glucose,Urine (UA) Negative (Negative); Ketones,Urine Negative (Negative); Leukocyte Esterase,Urine Large (Negative); Mucus,Urine Rare /hpf; Nitrite,Urine Negative (Negative); PH, Urine 5.5 (5.0-8.0); Protein,Urine Negative (Negative); RBC,Urine 11 /hpf (0-5); Specific Gravity,Urine 1.007 (1.001-1.035); Urobilinogen,Urine <2.0 mg/dL (<2.0)
[2018-07-20 10:04] LABS: INR 0.9 (<1.2); Partial Thromboplastin Time 24.6 sec (22.0-30.0); Prothrombin Time 9.5 sec (9.0-12.0)
[2018-07-20 10:05] LABS: ALT 36 U/L (9-52); AST 23 U/L (14-36); Albumin 4.2 g/dL (3.5-5.0); Alkaline Phosphatase 59 U/L (38-126); Anion Gap 8 mmol/L; Blood Urea Nitrogen 14 mg/dL (7-17); Carbon Dioxide 28 mmol/L (22-30); Chloride 104 mmol/L (98-107); Glucose 117 mg/dL (74-99); Potassium 4.3 mmol/L (3.5-5.1); Sodium 140 mmol/L (137-145); Total Bilirubin 0.7 mg/dL (0.2-1.3); Total Protein 6.8 g/dL (6.3-8.2)
--- NOTE | 2018-07-20 10:47 | CT ---
EXAMINATION TYPE: CT abdomen pelvis w con DATE OF EXAM: 07/20/2018 COMPARISON: 07/14/2018 HISTORY: Gross hematuria and pelvic pain. CT DLP: 604.2 mGycm CONTRAST: CT scan of the abdomen and pelvis is performed without Oral Contrast and with IV Contrast, patient in jected with 100 mL of Isovue 300. FINDINGS: LUNG BASES-: No visible nodule. No infiltrate. Small hiatal hernia. LIVER/GB: No calcified gallstones. Simple cyst left hepatic lobe. Mild fatty hepatic infiltration. Biliary tree is of normal caliber. PANCREAS: No inflammation. Cystic lesion pancreatic body measuring 9.8 mm. No additional pancreatic lesions noted. SPLEEN: No splenic enlargement. No lesion seen. ADRENALS: No nodule. No thickening. KIDNEYS/BLADDER: No hydronephrosis. No nephrolithiasis. No distinct renal mass. Thickening of the urinary bladder wall possibly related to chronic area of inflammation sigmoid colon which resides dir ectly adjacent to the urinary bladder. BOWEL: Normal appendix. Improving features of sigmoid diverticulitis. Again noted adjacent to the uri nary bladder wall is a probable area of chronic diverticular disease with urinary bladder wall adhesi on. Impending fistulous communication should be considered clinically. No fistula is currently visual ized. GENITAL ORGANS: No gross abnormality. LYMPH NODES: No greater than 1cm abdominal or pelvic lymph nodes are appreciated. AORTA: No significant abnormality. OSSEOUS STRUCTURES: No significant abnormality is seen. OTHER: No significant additional abnormality is seen. IMPRESSION: 1. Improving features of sigmoid diverticulitis. Again noted adjacent to the urinary bladder wall is a probable area of chronic diverticular disease with urinary bladder wall adhesion. Impending fistulo us communication should be considered clinically. No fistula is currently visualized. 2. Urinary bladder wall thickening at the site of adhesion. 3. Nonspecific cystic pancreatic lesion. 4. Fatty liver with cystic hepatic change.
[2018-07-20] MEDS ORDERED: LEVOFLOXACIN 500MG-D5W PMX 500 MG in DEXTROSE/WATER 1 100ML.BAG IVPB STA (11:35)
[2018-07-20] MEDS ORDERED: MORPHINE SULFATE 4 MG/ML SYRINGE IV PRN (11:36)
[2018-07-20] MEDS ORDERED: ONDANSETRON 4 MG/2 ML VIAL IVP PRN (11:36)
[2018-07-20] MEDS ORDERED: SODIUM CHLORIDE 0.9% 1,000 ML IV ONE (11:36)
[2018-07-20] MEDS ORDERED: NALOXONE 0.4 MG/ML 1 ML VIAL IV PRN (11:36)
--- NOTE | 2018-07-20 15:46 | P.GSCN ---
History of Present Illness Consult date: 07/20/18 Reason for Consult: Diverticulitis History of present illness: Patient minute to the hospital with lower abdominal pain. Patient was treated for suspected diverticulitis in May. She was given Cipro at that time. Patient follow-up with her primary care physician in mid June with similar symptoms of lower abdominal pain. CAT scan was then ordered which confirmed diverticulitis. She took Cipro again from last through this Thursday. She was having a lot of side effects from her Cipro and a change in the prescription was scheduled to begin her symptoms increased and she came to the hospital. Describes nausea but no vomiting. Some constipation. No rectal bleeding. Last colonoscopy 2013 and she did have polyps at that time. Yesterday had a small bowel movement. She's been on liquids for the last several days. She came to the hospital with ongoing lower abdominal pain slightly to the right of midline and also some urinary symptoms. Last night she said she identified some blood in her urine and some mucus as well. Denies pneumaturia. She had a repeat CAT scan performed today. This was compared to the study from 07/14. There is now a small pericolonic air collection to the right of midline adjacent to the dome of the bladder. There is no air within the bladder however. Developing fistula was theorized. 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 Review of Systems The patient denies any acute changes in vision or hearing, no dysphagia or odynophagia, no chest pain or shortness of breath, no headache, no runny nose, no rectal bleeding or melena, no unexplained weight loss Past Medical History Past Medical History: Hyperlipidemia, Hypertension Additional Past Medical History / Comment(s): Diverticulitis, occasional low back pain, pancreatic cyst History of Any Multi-Drug Resistant Organisms: None Reported Past Surgical History: Hysterectomy Additional Past Surgical History / Comment(s): Colonoscopies/benign polypectomy , R carpal tunnel release/ganglion cystectomy, hysterectomy d/t fibroids. Past Anesthesia/Blood Transfusion Reactions: No Reported Reaction Smoking Status: Never smoker - Past Family History Sister(s) Family Medical History: Cancer Additional Family Medical History / Comment(s): Another sister had uterine fibroids. Mother Family Medical History: Dementia Additional Family Medical History / Comment(s): Mother of complications from her dementia at the age of 89yrs. Father Family Medical History: Coronary Artery Disease (CAD), Myocardial Infarction (RI ) Additional Family Medical History / Comment(s): Father at the age of 55yrs from heart complications. He had previously had a RI Medications and Allergies Home Medications Medication Instructions Recorded Confirmed Type Aspirin EC [Ecotrin] 81 mg PO DAILY 03/27/14 07/20/18 History Atorvastatin [Lipitor] 20 mg PO HS 03/27/14 07/20/18 History Multivitamins, Thera [Multivitamin] 1 tab PO DAILY 03/27/14 07/20/18 History Lisinopril 10 mg PO DAILY 07/24/15 07/20/18 History Cholecalciferol [Vitamin D3] 1,000 unit PO DAILY 04/27/18 07/20/18 History Ascorbic Acid [Vitamin C] 500 mg PO DAILY 07/20/18 07/20/18 History Allergies Allergy/AdvReac Type Severity Reaction Status Date / Time amoxicillin [Amoxicillin] Allergy Unknown Diarrhea Verified 07/20/18 10:57 metronidazole [From Flagyl] Allergy Rash/Hives Verified 07/20/18 10:57 nitrofurantoin Allergy Rash/Hives Verified 07/20/18 10:57 [From Macrobid] amoxicillin trihydrate AdvReac Severe Diarrhea Verified 07/20/18 12:37 [From Augmentin] doxycycline AdvReac Severe Diarrhea Verified 07/20/18 12:37 Penicillins AdvReac Severe Diarrhea Verified 07/20/18 12:37 phenazopyridine HCl AdvReac Severe Unknown Verified 07/20/18 12:37 [From Pyridium] potassium clavulanate AdvReac Severe Diarrhea Verified 07/20/18 12:35 [From Augmentin] Sulfa (Sulfonamide AdvReac Severe Diarrhea Verified 07/20/18 12:37 Antibiotics) ciprofloxacin [From Cipro] AdvReac Joint Pain Verified 07/20/18 11:48 Surgical - Exam Vital Signs Temp Pulse Resp BP Pulse Ox 98.4 F 98 18 147/86 96 07/20/18 08:46 07/20/18 08:46 07/20/18 08:46 07/20/18 08:46 07/20/18 08:46 Physical exam: General: Well-developed, well-nourished HEENT: Normocephalic, sclerae nonicteric Abdomen: Mild suprapubic tenderness, nondistended Extremities: No edema Neuro: Alert and oriented Results - Labs 07/20/18 09:35 07/20/18 09:35 Abnormal Lab Results - Last 24 Hours (Table) 07/20/18 07/20/18 Range/Units 09:35 09:35 Glucose 117 H (74-99) mg/dL Urine Blood Moderate H (Negative) Ur Leukocyte Esterase Large H (Negative) Urine RBC 11 H (0-5) /hpf Urine WBC 59 H (0-5) /hpf Urine Bacteria Rare H (None) /hpf Urine Mucus Rare H (None) /hpf Diabetes panel 07/20/18 Range/Units 09:35 Sodium 140 (137-145) mmol/L Potassium 4.3 (3.5-5.1) mmol/L Chloride 104 (98-107) mmol/L Carbon Dioxide 28 (22-30) mmol/L BUN 14 (7-17) mg/dL Creatinine 0.67 (0.52-1.04) mg/dL Glucose 117 H (74-99) mg/dL Calcium 10.0 (8.4-10.2) mg/dL AST 23 (14-36) U/L ALT 36 (9-52) U/L Alkaline Phosphatase 59 (38-126) U/L Total Protein 6.8 (6.3-8.2) g/dL Albumin 4.2 (3.5-5.0) g/dL Calcium panel 07/20/18 Range/Units 09:35 Calcium 10.0 (8.4-10.2) mg/dL Albumin 4.2 (3.5-5.0) g/dL Pituitary panel 07/20/18 Range/Units 09:35 Sodium 140 (137-145) mmol/L Potassium 4.3 (3.5-5.1) mmol/L Chloride 104 (98-107) mmol/L Carbon Dioxide 28 (22-30) mmol/L BUN 14 (7-17) mg/dL Creatinine 0.67 (0.52-1.04) mg/dL Glucose 117 H (74-99) mg/dL Calcium 10.0 (8.4-10.2) mg/dL Adrenal panel 07/20/18 Range/Units 09:35 Sodium 140 (137-145) mmol/L Potassium 4.3 (3.5-5.1) mmol/L Chloride 104 (98-107) mmol/L Carbon Dioxide 28 (22-30) mmol/L BUN 14 (7-17) mg/dL Creatinine 0.67 (0.52-1.04) mg/dL Glucose 117 H (74-99) mg/dL Calcium 10.0 (8.4-10.2) mg/dL Total Bilirubin 0.7 (0.2-1.3) mg/dL AST 23 (14-36) U/L ALT 36 (9-52) U/L Alkaline Phosphatase 59 (38-126) U/L Total Protein 6.8 (6.3-8.2) g/dL Albumin 4.2 (3.5-5.0) g/dL Assessment and Plan (1) Diverticulitis Narrative/Plan: CAT scan findings and clinical scenario discussed in detail with the patient and her . At this time agree with liquid diet only. Await infectious disease recommendations regarding IV antibiotics. Hopefully with the use of antibiotics can settle this case of diverticulitis down to the point that a colonoscopy can be performed on a semi-electively basis. Following that we'll likely recommend sigmoid resection. We'll monitor her urinary symptoms in the meanwhile. Current Visit: Yes Status: Acute Code(s): K57.92 - DVTRCLI OF INTEST, PART UNSP, W/O PERF OR ABSCESS W/O BLEED SNOMED Code(s): 021575583
[2018-07-20] MEDS: ACETAMINOPHEN TAB 325 MG TAB PO PRN ×2 (15:49→21:49)
--- NOTE | 2018-07-20 15:49 | P.HPIM ---
History of Present Illness H&P Date: 07/20/18 The patient is a 68 yo F with a PMH of HTN, HLD, and diverticulosis with multiple bouts of diverticulitis presented to the ED after noticing blood in her urine. The patient notes that for the past few weeks, she has been experiencing a sharp/burning lower abdominal pain associated with diarrhea. She was evaluated by her PCP and underwent a CT scan of abdomen on 07/14/18 which revealed diverticulitis and she was started on Cipro and Flagyl though due to lapse in communication, she was only taking Ciprofloxacin. After a few doses, she developed joint pains and contacted her PCP who then switched her Cefdinir ( though the patient hadn't filled the prescription yet). This morning, she continued to have a 5/10 abdominal pain when she noticed her urine to be pink which prompted her to come to the ED. She denied fever, chills, dysuria, chest pain, SOB, nausea, or vomiting. She endorsed diarrhea with the abdominal pain which is typical of her prior bouts of diverticulitis. In the ED the patient had a comprehensive w/u with Abd/pelvis CT which revealed diverticulitis with impending bladder fistula formation. UA revealed moderate blood, large LE, 11 RBCs, and 59 WBCs. CBC showed a WBC 6.8 and Hgb 14.9. She was subsequently admitted to Medicine for failure of outpatient therapy. Review of Systems Pertinent positives and negatives as discussed in HPI, a complete review of systems was performed and all other systems are negative. Past Medical History Past Medical History: Hyperlipidemia, Hypertension Additional Past Medical History / Comment(s): Diverticulitis, occasional low back pain, pancreatic cyst History of Any Multi-Drug Resistant Organisms: None Reported Past Surgical History: Hysterectomy Additional Past Surgical History / Comment(s): Colonoscopies/benign polypectomy , R carpal tunnel release/ganglion cystectomy, hysterectomy d/t fibroids. Past Anesthesia/Blood Transfusion Reactions: No Reported Reaction Smoking Status: Never smoker - Past Family History Sister(s) Family Medical History: Cancer Additional Family Medical History / Comment(s): Another sister had uterine fibroids. Mother Family Medical History: Dementia Additional Family Medical History / Comment(s): Mother of complications from her dementia at the age of 89yrs. Father Family Medical History: Coronary Artery Disease (CAD), Myocardial Infarction (CT ) Additional Family Medical History / Comment(s): Father at the age of 55yrs from heart complications. He had previously had a CT Medications and Allergies Home Medications Medication Instructions Recorded Confirmed Type Aspirin EC [Ecotrin] 81 mg PO DAILY 03/27/14 07/20/18 History Atorvastatin [Lipitor] 20 mg PO HS 03/27/14 07/20/18 History Multivitamins, Thera [Multivitamin] 1 tab PO DAILY 03/27/14 07/20/18 History Lisinopril 10 mg PO DAILY 07/24/15 07/20/18 History Cholecalciferol [Vitamin D3] 1,000 unit PO DAILY 04/27/18 07/20/18 History Ascorbic Acid [Vitamin C] 500 mg PO DAILY 07/20/18 07/20/18 History Allergies Allergy/AdvReac Type Severity Reaction Status Date / Time amoxicillin [Amoxicillin] Allergy Unknown Diarrhea Verified 07/20/18 10:57 metronidazole [From Flagyl] Allergy Rash/Hives Verified 07/20/18 10:57 nitrofurantoin Allergy Rash/Hives Verified 07/20/18 10:57 [From Macrobid] amoxicillin trihydrate AdvReac Severe Diarrhea Verified 07/20/18 12:37 [From Augmentin] doxycycline AdvReac Severe Diarrhea Verified 07/20/18 12:37 Penicillins AdvReac Severe Diarrhea Verified 07/20/18 12:37 phenazopyridine HCl AdvReac Severe Unknown Verified 07/20/18 12:37 [From Pyridium] potassium clavulanate AdvReac Severe Diarrhea Verified 07/20/18 12:35 [From Augmentin] Sulfa (Sulfonamide AdvReac Severe Diarrhea Verified 07/20/18 12:37 Antibiotics) ciprofloxacin [From Cipro] AdvReac Joint Pain Verified 07/20/18 11:48 Physical Exam Vitals: Vital Signs Temp Pulse Pulse Resp BP BP Pulse Ox 07/20/18 12:45 97.9 F 74 18 145/83 97 07/20/18 12:19 98.6 F 07/20/18 11:31 87 16 131/72 98 07/20/18 08:46 98.4 F 98 18 147/86 96 Intake and Output 07/20/18 07/20/18 07/20/18 06:59 14:59 22:59 Other: # Voids 1 Weight 63.049 kg General: [non toxic], [no distress], [appears at stated age], [normal weight] Derm: [no unusual rashes/lesions] [no unusual ecchymoses], [warm], [dry] Head: [atraumatic], [normocephalic], [symmetric] Eyes: [EOMI], [no lid lag], [anicteric sclera], [pupils equal round reactive to light] ENT: [Nose and ears atraumatic], [no thrush], [no pharyngeal erythema] Neck: [No thyromegaly], [no cervical lymphadenopathy], [trachea midline], [ supple] Mouth: [no lip lesion], [mucus membranes moist] Cardiovascular: [S1S2 reg], [no murmur], [positive posterior tibial pulse bilateral], [no edema], [capillary refill less than 2 seconds] Lungs: [CTA bilateral], [no rhonchi, no rales] , [no accessory muscle use] Abdominal: [soft], [mild suprapubic tenderness], [no guarding], [no appreciable organomegaly], [normal bowel sounds] Ext: [no gross muscle atrophy], [muscle strength 5 out of 5 in all 4 extremities grossly], [no contractures], Neuro: [ CN II-XI grossly intact], [light touch intact all 4 extremities], [ finger to nose within normal limits], Psych: [Alert], [oriented], [appropriate affect] Results CBC & Chem 7: 07/20/18 09:35 07/20/18 09:35 Labs: Abnormal Lab Results - Last 24 Hours (Table) 07/20/18 07/20/18 Range/Units 09:35 09:35 Glucose 117 H (74-99) mg/dL Urine Blood Moderate H (Negative) Ur Leukocyte Esterase Large H (Negative) Urine RBC 11 H (0-5) /hpf Urine WBC 59 H (0-5) /hpf Urine Bacteria Rare H (None) /hpf Urine Mucus Rare H (None) /hpf Thrombosis Risk Factor Assmnt - Choose All That Apply Any of the Below Risk Factors Present?: Yes Each Factor Represents 1 point: Obesity (BMI >25) Other Risk Factors: Yes Each Risk Factor Represents 2 Points: Age 61-74 years Other congenital or acquired thrombophilia - If yes, enter type in comment: No Thrombosis Risk Factor Assessment Total Risk Factor Score: 3 Thrombosis Risk Factor Assessment Level: Moderate Risk Assessment and Plan Plan: Sigmoid diverticulitis w/ impending bladder fistula formation -Clear liquid diet for now -C/w NS 100 cc/hr -The patient is allergic to flagyl (hives) and possibly Cipro. Will start on single-agent Ertapenem 1 g qd. -ID and Surgery consults UTI, complicated -Start patient on Ertapenem. Will f/u Urine cultures. HTN, HLD -Resume home meds DVT//GI prophylaxis -Heparin -Protonix The patient is admitted with an anticipated greater than 2 midnight stay for evaluation of diverticulitis CODE STATUS:Full-code Discussed with: Patient Anticipated discharge date: 07/22/[address]: Home A total of 60 minutes was spent on the care of this complex patient more than 50 % of the time was spent in counseling and care coordination.
[2018-07-20] MEDS: HEPARIN SODIUM,PORCINE 5,000 UNIT/ML 1 ML VIAL SQ SCH ×2 (16:36→23:22)
[2018-07-20] MEDS: ERTAPENEM 1 GM in SODIUM CHLORIDE 0.9% 50 ML IVPB SCH (16:36)
[2018-07-20] MEDS ORDERED: ATORVASTATIN 20 MG TAB PO SCH (21:00)
[2018-07-21 06:21] LABS: Basophils % (A) 0 %; Eosinophils # (A) 0.3 k/uL (0-0.7); Eosinophils % (A) 7 %; HCT 40.3 % (34.0-46.0); HGB 12.7 gm/dL (11.4-16.0); Lymphocytes # (A) 1.7 k/uL (1.0-4.8); Lymphocytes % (A) 34 %; MCH 29.8 pg (25.0-35.0); MCHC 31.6 g/dL (31.0-37.0); MCV 94.4 fL (80.0-100.0); Mean Platelet Volume 6.3; Monocytes # (A) 0.3 k/uL (0-1.0); Monocytes % (A) 6 %; Neutrophils # (A) 2.6 k/uL (1.3-7.7); Neutrophils % (A) 49 %; Platelet Count 236 k/uL (150-450); RBC 4.27 m/uL (3.80-5.40); RDW 13.6 % (11.5-15.5); WBC 5.2 k/uL (3.8-10.6)
[2018-07-21 06:39] LABS: ALT 41 U/L (9-52); AST 26 U/L (14-36); Albumin 3.4 g/dL (3.5-5.0); Alkaline Phosphatase 51 U/L (38-126); Anion Gap 3 mmol/L; Blood Urea Nitrogen 9 mg/dL (7-17); Calcium 8.7 mg/dL (8.4-10.2); Carbon Dioxide 29 mmol/L (22-30); Chloride 109 mmol/L (98-107); Glucose 96 mg/dL (74-99); Potassium 4.3 mmol/L (3.5-5.1); Sodium 141 mmol/L (137-145); Total Bilirubin 0.8 mg/dL (0.2-1.3); Total Protein 5.7 g/dL (6.3-8.2)
[2018-07-21] MEDS: ACETAMINOPHEN TAB 325 MG TAB PO PRN ×2 (07:37→13:33)
--- NOTE | 2018-07-21 07:55 | CONS ---
CONSULTATION DATE OF SERVICE: 07/20/2018 REASON FOR CONSULTATION: Acute complicated sigmoid diverticulitis and antibiotic recommendation. HISTORY OF PRESENT ILLNESS: The patient is a 68-year-old female who apparently has been dealing with episode of acute sigmoid diverticulitis for more than a month now. The patient says she was initially treated with oral Cipro for complaint of left-sided abdominal pain, but the pain persisted and the patient did have a CT of abdomen and pelvis that was suggestive of acute diverticulitis and the patient was advised Cipro and Flagyl. However, the patient says she could not take the Flagyl because of side effects. The patient subsequently started having hematuria. With these symptoms, the patient was brought into the ER where the patient did have a CT of abdomen and pelvis which did show some improving features of sigmoid diverticulitis. However, again noticed adjacent to the bladder wall is a probable area of chronic diverticular disease with is a bladder wall adhesion. Impending fistulous communication should be considered. The patient subsequently has been admitted to the hospital. She was started on Invanz because of her multiple antibiotic allergies. ID was consulted for further recommendation regarding antibiotics. REVIEW OF SYSTEMS: Positive points have been mentioned in the HPI. Rest of the systems has been negative. PAST MEDICAL HISTORY: Diverticulitis, hypertension, hyperlipidemia, chronic back pain, pancreatitis. PAST SURGICAL HISTORY: Hysterectomy, colonoscopy, benign polypectomy, right carpal tunnel release, hysterectomy. SOCIAL HISTORY: No history of smoking, drinking or drug use. FAMILY HISTORY: with history of uterine fibroids. Mother history of dementia. Father history coronary artery disease. ALLERGIES: Allergies to AMOXICILLIN, METRONIDAZOLE, NITROFURANTOIN, DOXYCYCLINE, PENICILLIN, most of them with diarrhea or rash. MEDICATIONS: The patient is currently on Tylenol, aspirin, Lipitor, Invanz 1 gram daily, heparin, Zestril, Narcan and Zofran. PHYSICAL EXAMINATION: On examination, blood pressure 142/75 with a pulse of 74, temperature is 97.6. She is 98% on room air. General description is an elderly female lying in bed in no distress. No tachypnea or accessory muscle of respiration use. HEENT examination shows no pallor or scleral icterus. Oral mucous membrane is dry. No pharyngeal erythema or thrush. NECK: Trachea central. No thyromegaly. LUNGS: Unlabored breathing, clear to auscultation anteriorly. No wheeze or crackle. HEART: S1, S2. Regular rate and rhythm. No added sounds. ABDOMEN: Soft, nontender. No guarding, no rigidity. No organomegaly. EXTREMITIES: No edema of feet. SKIN EXAMINATION: No rash or mass palpable. NEUROLOGICAL: Patient is awake, alert, oriented x3. Mood and affect normal. LABS: Hemoglobin is 14.9, white count 6.8 with a BUN of 14, creatinine 0.67. Electrolytes have been normal. Liver enzymes are normal. UA has moderate blood, large leukocyte esterase. CT of abdomen and pelvis report as mentioned above. DIAGNOSTIC IMPRESSION AND PLAN: Patient with acute complicated sigmoid diverticulitis in this patient with concern for possible fistulous communication with the bladder with evidence of hematuria, but the patient denies passing any gas through urethra or any fecal matter in this who does have multiple antibiotic allergies that will limit the number of antibiotics that could be safely used mostly GI side effect. However, the patient seemed to be reluctant to take antibiotics. PLAN: 1. Invanz 1 gram IV piggyback. 2. Recommend obtaining a midline for outpatient IV Invanz 1 gram daily for at least 2 weeks. 3. Once antibiotic arranged and the patient has shown clinical improvement she will be able to go home from ID standpoint. Thank you for this consultation. Will follow this patient along with you. MMODL / IJN: [id number] /
--- NOTE | 2018-07-21 08:31 | P.PN ---
Subjective Progress Note Date: 07/21/18 Principal diagnosis: Diverticulitis Patient did well last night. Her pain is improved. No more urinary symptoms. Cultures pending. Today's labs are pending. She is afebrile. Tolerating clears. Small bowel movement and small amount of flatus. Objective - Vital Signs Vital signs: Vital Signs Temp 97.9 F 07/20/18 23:30 Pulse 72 07/20/18 23:30 Resp 16 07/20/18 23:30 BP 118/66 07/20/18 23:30 Pulse Ox 96 07/20/18 23:30 Intake & Output 07/20/18 07/21/18 07/21/18 18:59 06:59 18:59 Output Total 500 Balance -500 Weight 63.049 kg Output: Urine 500 Other: # Voids 1 2 - Exam Abdomen: Soft, nondistended, mild suprapubic tenderness - Labs CBC & Chem 7: 07/21/18 06:10 07/21/18 06:10 Labs: Abnormal Lab Results - Last 24 Hours (Table) 07/20/18 07/20/18 07/21/18 Range/Units 09:35 09:35 06:10 Chloride 109 H (98-107) mmol/L Glucose 117 H (74-99) mg/dL Total Protein 5.7 L (6.3-8.2) g/dL Albumin 3.4 L (3.5-5.0) g/dL Urine Blood Moderate H (Negative) Ur Leukocyte Esterase Large H (Negative) Urine RBC 11 H (0-5) /hpf Urine WBC 59 H (0-5) /hpf Urine Bacteria Rare H (None) /hpf Urine Mucus Rare H (None) /hpf Microbiology - Last 24 Hours (Table) 07/20/18 09:35 Urine Culture - Preliminary Urine,Voided Assessment and Plan (1) Diverticulitis Narrative/Plan: Continue antibiotics. Agree with plans for outpatient IV antibiotics. Will increase diet to full liquids. Will plan follow-up CAT scan 10-14 days postdischarge. Patient I will further discuss semi-elective sigmoid resection postdischarge. Current Visit: Yes Status: Acute Code(s): K57.92 - DVTRCLI OF INTEST, PART UNSP, W/O PERF OR ABSCESS W/O BLEED SNOMED Code(s): 026796932
[2018-07-21] MEDS: HEPARIN SODIUM,PORCINE 5,000 UNIT/ML 1 ML VIAL SQ SCH ×2 (08:57→16:30)
[2018-07-21] MEDS: ERTAPENEM 1 GM in SODIUM CHLORIDE 0.9% 50 ML IVPB SCH (08:58)
[2018-07-21] MEDS ORDERED: ASPIRIN 81 MG PO SCH (09:00)
[2018-07-21] MEDS ORDERED: LISINOPRIL 10 MG TAB PO SCH (09:00)
[2018-07-21 10:19] VITALS: TEMP 98
[2018-07-21] MEDS ORDERED: LEVOFLOXACIN 500MG-D5W PMX 500 MG in DEXTROSE/WATER 1 100ML.BAG IVPB SCH (12:00)
[2018-07-21 12:58] VITALS: BP 132/70; PULSE 71; RESP 20
--- NOTE | 2018-07-21 15:51 | P.DS ---
Providers Date of admission: 07/20/18 11:43 Expected date of discharge: 07/21/18 Attending physician: Laurie Parsons MD Consults: 07/20/18 11:36 Consult Physician Stat Consulting Provider: Albert Reyna Consult Reason/Comments: Diverticulitis Do you want consulting provider notified?: Yes 07/20/18 13:40 Consult Physician Stat Consulting Provider: Todd Ruiz Consult Reason/Comments: infection multiple antibiotic allergeis/ adverse reactions Do you want consulting provider notified?: Yes Consult Physician Urgent Consulting Provider: Todd Ruiz Consult Reason/Comments: UTI Do you want consulting provider notified?: Yes Primary care physician: [facility] Course: The patient is a 68 yo F with a PMH of HTN, HLD, and diverticulosis with multiple bouts of diverticulitis presented to the ED after noticing blood in her urine. The patient notes that for the past few weeks, she has been experiencing a sharp/burning lower abdominal pain associated with diarrhea. She was evaluated by her PCP and underwent a CT scan of abdomen on 07/14/18 which revealed diverticulitis and she was started on Cipro and Flagyl though due to lapse in communication, she was only taking Ciprofloxacin. After a few doses, she developed joint pains and contacted her PCP who then switched her Cefdinir ( though the patient hadn't filled the prescription yet). This morning, she continued to have a 5/10 abdominal pain when she noticed her urine to be pink which prompted her to come to the ED. She denied fever, chills, dysuria, chest pain, SOB, nausea, or vomiting. In the ED the patient had a comprehensive w/u with Abd/pelvis CT which revealed diverticulitis with impending bladder fistula formation. UA revealed moderate blood, large LE, 11 RBCs, and 59 WBCs. The patient was admitted to the medicine service for diverticulitis and UTI. Infectious disease was consulted and recommended ertapenem 1 g daily for 14 days. Surgery was consulted and recommended continued IV antibiotics with a plan to follow-up computed tomography scan 10-14 days after discharge and a possibility of a semi-elective sigmoid resection post discharged. The patient was seen and examined at the bedside. She was in good spirits and noted that her abdominal pain has resolved and her diarrhea has improved significantly. She tolerated of full liquid diet well. A midline was placed today, and the patient was arranged to receive her IV antibiotics at [facility]. She is presently stable and ready for discharge to home. Physical Examination General: Non-toxic, in no acute distress, appears stated age, normal weight HEENT: NC/AT, anicteric sclerae, moist conjunctiva, no lid-lag, PERRLA Cardiovascular: S1/S2 wnl, no murmurs, rubs, or gallops Lungs: Clear to auscultation, normal respiratory effort, no accessory muscle use Abdominal: Soft, non-tender, non-distended, no guarding, rebound, or rigidity Skin: Warm, dry Extremities: No edema or contractures Psychiatric: Alert and oriented to person, place and time, appropriate affect Neuro: CN II-XII grossly intact, Strength 5/5 in all 4 extremities, Speech intact, Sensation to light touch grossly intact throughout Discharge diagnosis: Sigmoid diverticulitis with impending bladder fistula formation;; hypertension; hyperlipidemia A total of 50 minutes of time were spent preparing this complex discharge summary. Pertinent Studies: As per HPI Procedures: As per HPI Patient Condition at Discharge: Good Plan - Discharge Summary Discharge Rx Participant: No New Discharge Prescriptions: New Ertapenem [INVanz] 1 gm IVPB Q24H #14 bag Continue Multivitamins, Thera [Multivitamin (formulary)] 1 tab PO DAILY Aspirin EC [Ecotrin Low Dose] 81 mg PO DAILY Atorvastatin [Lipitor] 20 mg PO HS Lisinopril 10 mg PO DAILY Cholecalciferol [Vitamin D3] 1,000 unit PO DAILY Ascorbic Acid [Vitamin C] 500 mg PO DAILY Discharge Medication List Aspirin EC [Ecotrin Low Dose] 81 mg PO DAILY 03/27/14 [History] Atorvastatin [Lipitor] 20 mg PO HS 03/27/14 [History] Multivitamins, Thera [Multivitamin (formulary)] 1 tab PO DAILY 03/27/14 [History ] Lisinopril 10 mg PO DAILY 07/24/15 [History] Cholecalciferol [Vitamin D3] 1,000 unit PO DAILY 04/27/18 [History] Ascorbic Acid [Vitamin C] 500 mg PO DAILY 07/20/18 [History] Ertapenem [INVanz] 1 gm IVPB Q24H #14 bag 07/21/18 [Rx] Follow up Appointment(s)/Referral(s): Albert Reyna MD [Medical Doctor] - 07/28/18 4:15 pm Dean Enciso MD [Primary Care Provider] - 07/26/18 9:45 am Todd Ruiz MD [STAFF PHYSICIAN] - 1 Week (OFFICE CLOSED DUE TO COLD SHOULD RESUME HOURS TOMORROW. ) Patient Instructions/Handouts: Diverticulitis (DC), Full Liquid Diet (DC), How to Care for Your Midline Catheter (DC) Activity/Diet/Wound Care/Special Instructions: Continue on full liquids as tolerated; advancing diet to regular slowing when your pain has resolved. Fluids are always encouraged. Practice good hand washing. Your appointment for your IVABX infusion of Invance will be at 12:30 at the [facility] at [facility]. If you have any questions regarding this please contact [phone]. Call your physician or return to ER if you have any questions comments concerns worsening returning symptoms that brought you to the ER, fever 101.1 or higher, not tolerating diet, not tolerating fluids. Discharge Disposition: HOME SELF-CARE
--- NOTE | 2018-07-21 17:16 | PN ---
PROGRESS NOTE DATE OF SERVICE: 07/21/2018. REASON FOR FOLLOWUP: Acute sigmoid diverticulitis with multiple antibiotic allergies. INTERVAL HISTORY: The patient is currently afebrile. She is breathing comfortably. The patient denies having any chest pain or shortness of breath or cough. Abdominal pain has improved. Denies any further hematuria. PHYSICAL EXAMINATION: Blood pressure 132/70 with a pulse of 71, temperature 98. She is 97% on room air. General description is an elderly female up in the room in no distress. RESPIRATORY SYSTEM: Unlabored breathing. Clear to auscultation anteriorly. HEART: S1, S2. Regular rate and rhythm. ABDOMEN: Soft. No tenderness. LABS: Blood culture has been negative. Urine culture negative. White count of 5.2. DIAGNOSTIC IMPRESSION AND PLAN: Patient with acute sigmoid diverticulitis with possible colorectal fistula. No evidence of any fistula communication. Patient's hematuria has resolved. Patient has multiple antibiotic allergies and was not very compliant with oral Cipro or Flagyl, either. Currently doing well on Invanz. She did take it today and will continue with Invanz 1 gram daily for 2 weeks with close outpatient followup. MMODL / IJN: [id number] /
== END 2018-07-21 16:32 | disposition home or self-care (01) | DRG 392 ==
LOC: EC 08:19 → 6PED 11:43
PROVIDERS: ADMIT Internal Medicine; ATTEND Internal Medicine
PROC: 05HF33Z Insertion of Infusion Device into Left Cephalic Vein, Percutaneous Approach (ICD-10-PCS; principal; 2018-07-21 14:00)
DX: K57.32 Diverticulitis of large intestine without perforation or abscess without bleeding (principal); N32.2 Vesical fistula, not elsewhere classified; N39.0 Urinary tract infection, site not specified; E78.5 Hyperlipidemia, unspecified; I10 Essential (primary) hypertension; I25.10 Atherosclerotic heart disease of native coronary artery without angina pectoris; Z79.82 Long term (current) use of aspirin; Z79.899 Other long term (current) drug therapy; Z80.49 Family history of malignant neoplasm of other genital organs; Z82.49 Family history of ischemic heart disease and other diseases of the circulatory system; Z86.010 Personal history of colon polyps; Z88.1 Allergy status to other antibiotic agents; Z88.3 Allergy status to other anti-infective agents; Z90.710 Acquired absence of both cervix and uterus; Z88.0 Allergy status to penicillin; Z88.2 Allergy status to sulfonamides; R31.9 Hematuria, unspecified; N32.89 Other specified disorders of bladder; M54.5 Low back pain; G89.29 Other chronic pain; Z82.0 Family history of epilepsy and other diseases of the nervous system
CPT/HCPCS: 36415; 74177; 80053; 81001; 83605; 85025; 85610; 85730; 87040; 87086; 96360; 96361; 99284

== ENCOUNTER 2018-07-23 09:46 | Emergency (ER) | payer MEDICARE ==
[2018-07-23 09:57] VITALS: RESP 18
[2018-07-23] MEDS ORDERED: SODIUM CHLORIDE 0.9% 1,000 ML IV STA (10:16)
--- NOTE | 2018-07-23 10:23 | ED ---
General Adult HPI <Luis Felipe Esteban - Last Filed: 07/23/18 12:02> - General Source: patient, RN notes reviewed Mode of arrival: ambulatory Limitations: no limitations <Jimbo Momin - Last Filed: 07/23/18 12:57> - General Chief complaint: Recheck/Abnormal Lab/Rx Stated complaint: complications diverticulitis Time Seen by Provider: 07/23/18 10:11 - History of Present Illness Initial comments: 68-year-old female presents emergency department for recheck of her diverticulitis. Patient was admitted and discharged on Thursday. Patient saw Dr. Reyna. Patient states that they discussed the possibility of a fistula at that time and states that this morning she urinated but stool came out. Patient states that she has a mild pain and she had she is on current antibiotic therapy through a midline at home. She reports no recent fevers or chills. She has had slight loose stools in which she believes is related to antibiotics. (Jimbo Momin) - Related Data Home Medications Medication Instructions Recorded Confirmed Aspirin EC [Ecotrin Low Dose] 81 mg PO DAILY 03/27/14 07/23/18 Atorvastatin [Lipitor] 20 mg PO HS 03/27/14 07/23/18 Multivitamins, Thera [Multivitamin 1 tab PO DAILY 03/27/14 07/23/18 (formulary)] Lisinopril 10 mg PO DAILY 07/24/15 07/23/18 Cholecalciferol [Vitamin D3] 1,000 unit PO DAILY 04/27/18 07/23/18 Ascorbic Acid [Vitamin C] 500 mg PO DAILY 07/20/18 07/23/18 Previous Rx's Medication Instructions Recorded Ertapenem [INVanz] 1 gm IVPB Q24H #14 bag 07/21/18 Allergies Allergy/AdvReac Type Severity Reaction Status Date / Time amoxicillin [Amoxicillin] Allergy Unknown Diarrhea Verified 07/23/18 10:29 metronidazole [From Flagyl] Allergy Rash/Hives Verified 07/23/18 10:29 nitrofurantoin Allergy Rash/Hives Verified 07/23/18 10:29 [From Macrobid] amoxicillin trihydrate AdvReac Severe Diarrhea Verified 07/23/18 10:29 [From Augmentin] doxycycline AdvReac Severe Diarrhea Verified 07/23/18 10:29 Penicillins AdvReac Severe Diarrhea Verified 07/23/18 10:29 phenazopyridine HCl AdvReac Severe Unknown Verified 07/23/18 10:29 [From Pyridium] potassium clavulanate AdvReac Severe Diarrhea Verified 07/23/18 10:29 [From Augmentin] Sulfa (Sulfonamide AdvReac Severe Diarrhea Verified 07/23/18 10:29 Antibiotics) ciprofloxacin [From Cipro] AdvReac Joint Pain Verified 07/23/18 10:29 Review of Systems ROS Other: All systems not noted in ROS Statement are negative. <Luis Felipe Esteban - Last Filed: 07/23/18 12:02> ROS Other: All systems not noted in ROS Statement are negative. <Jimbo Momin - Last Filed: 07/23/18 12:57> ROS Statement: Those systems with pertinent positive or pertinent negative responses have been documented in the HPI. Past Medical History Past Medical History: Hyperlipidemia, Hypertension Additional Past Medical History / Comment(s): Diverticulitis, occasional low back pain, pancreatic cyst possible bladder fissure History of Any Multi-Drug Resistant Organisms: None Reported Past Surgical History: Hysterectomy Additional Past Surgical History / Comment(s): Colonoscopies/benign polypectomy , R carpal tunnel release/ganglion cystectomy, hysterectomy d/t fibroids. Past Anesthesia/Blood Transfusion Reactions: No Reported Reaction Past Psychological History: No Psychological Hx Reported Smoking Status: Never smoker Past Alcohol Use History: None Reported Past Drug Use History: None Reported - Past Family History Sister(s) Family Medical History: Cancer Additional Family Medical History / Comment(s): Another sister had uterine fibroids. Mother Family Medical History: Dementia Additional Family Medical History / Comment(s): Mother of complications from her dementia at the age of 89yrs. Father Family Medical History: Coronary Artery Disease (CAD), Myocardial Infarction ([place] ) Additional Family Medical History / Comment(s): Father at the age of 55yrs from heart complications. He had previously had a [place] <Jimbo Momin - Last Filed: 07/23/18 12:57> General Exam Limitations: no limitations General appearance: alert, in no apparent distress Head exam: Present: atraumatic, normocephalic, normal inspection Respiratory exam: Present: normal lung sounds bilaterally. Absent: respiratory distress, wheezes, rales, rhonchi, stridor Cardiovascular Exam: Present: regular rate, normal rhythm, normal heart sounds. Absent: systolic murmur, diastolic murmur, rubs, gallop, clicks GI/Abdominal exam: Present: soft, tenderness (Mild lower abdominal tenderness), normal bowel sounds. Absent: distended, guarding, rebound, rigid Back exam: Absent: CVA tenderness (R), CVA tenderness (L) Neurological exam: Present: alert, oriented X3, CN II-XII intact Skin exam: Present: warm, dry, intact, normal color. Absent: rash <Jimbo Momin - Last Filed: 07/23/18 12:57> Course <Luis Felipe Esteban - Last Filed: 07/23/18 12:02> <Jimbo Momin - Last Filed: 07/23/18 12:57> Vital Signs 07/23/18 09:52 Temperature 98.5 F Pulse Rate 89 Respiratory 18 Rate Blood Pressure 163/84 O2 Sat by Pulse 97 Oximetry - Reevaluation(s) Reevaluation #1: 07/23/18 12:02 Patient was reevaluated by myself, Dr. Esteban. Patient resting comfortably in bed. Abdomen soft with minimal tenderness lower abdomen. Case was discussed in detail with Dr. Damian who is familiar with this patient and will come evaluate. He states this is not to be unexpected and he was suspicious of fistula. (Luis Felipe Esteban) Medical Decision Making - Lab Data Result diagrams: 07/23/18 11:00 07/23/18 11:02 <Luis Felipe Esteban - Last Filed: 07/23/18 12:02> - Lab Data Result diagrams: 07/23/18 11:00 07/23/18 11:02 <Jimbo Momin - Last Filed: 07/23/18 12:57> - Medical Decision Making 60-year-old female presented for recheck of her diverticulitis. 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 Patient is currently on Invanz. Patient was evaluated Dr. Reyna her surgeon emergency Department who states that she can receive her Invanz now, be discharged home with close follow-up. ( Jimbo Momin) - Lab Data Lab Results 07/23/18 07/23/18 07/23/18 Range/Units 10:51 11:00 11:00 WBC 10.6 (3.8-10.6) k/uL RBC 4.89 (3.80-5.40) m/uL Hgb 15.2 (11.4-16.0) gm/dL Hct 45.1 (34.0-46.0) % MCV 92.2 (80.0-100.0) fL MCH 31.0 (25.0-35.0) pg MCHC 33.6 (31.0-37.0) g/dL RDW 13.6 (11.5-15.5) % Plt Count 286 (150-450) k/uL Neutrophils % 78 % Lymphocytes % 13 % Monocytes % 5 % Eosinophils % 3 % Basophils % 0 % Neutrophils # 8.3 H (1.3-7.7) k/uL Lymphocytes # 1.4 (1.0-4.8) k/uL Monocytes # 0.5 (0-1.0) k/uL Eosinophils # 0.3 (0-0.7) k/uL Basophils # 0.0 (0-0.2) k/uL Sodium (137-145) mmol/L Potassium (3.5-5.1) mmol/L Chloride (98-107) mmol/L Carbon Dioxide (22-30) mmol/L Anion Gap mmol/L BUN (7-17) mg/dL Creatinine (0.52-1.04) mg/dL Est GFR (CKD-EPI)AfAm (>60 ml/min/1.73 sqM) Est GFR (CKD-EPI)NonAf (>60 ml/min/1.73 sqM) Glucose (74-99) mg/dL Plasma Lactic Acid Winston 1.1 (0.7-2.0) mmol/L Calcium (8.4-10.2) mg/dL Total Bilirubin (0.2-1.3) mg/dL AST (14-36) U/L ALT (9-52) U/L Alkaline Phosphatase (38-126) U/L Total Protein (6.3-8.2) g/dL Albumin (3.5-5.0) g/dL Lipase (23-300) U/L Urine Color Yellow Urine Appearance Cloudy H (Clear) Urine pH 6.0 (5.0-8.0) Ur Specific [place] 1.004 (1.001-1.035) Urine Protein Negative (Negative) Urine Glucose (UA) Negative (Negative) Urine Ketones Trace H (Negative) Urine Blood Trace H (Negative) Urine Nitrite Negative (Negative) Urine Bilirubin Negative (Negative) Urine Urobilinogen <2.0 (<2.0) mg/dL Ur Leukocyte Esterase Large H (Negative) Urine RBC 1 (0-5) /hpf Urine WBC 15 H (0-5) /hpf Urine WBC Clumps Few H (None) /hpf Ur Squamous Epith Cells <1 (0-4) /hpf Amorphous Sediment Moderate H (None) /hpf Urine Bacteria Rare H (None) /hpf Urine Mucus Rare H (None) /hpf 07/23/18 Range/Units 11:02 WBC (3.8-10.6) k/uL RBC (3.80-5.40) m/uL Hgb (11.4-16.0) gm/dL Hct (34.0-46.0) % MCV (80.0-100.0) fL MCH (25.0-35.0) pg MCHC (31.0-37.0) g/dL RDW (11.5-15.5) % Plt Count (150-450) k/uL Neutrophils % % Lymphocytes % % Monocytes % % Eosinophils % % Basophils % % Neutrophils # (1.3-7.7) k/uL Lymphocytes # (1.0-4.8) k/uL Monocytes # (0-1.0) k/uL Eosinophils # (0-0.7) k/uL Basophils # (0-0.2) k/uL Sodium 140 (137-145) mmol/L Potassium 4.7 (3.5-5.1) mmol/L Chloride 103 (98-107) mmol/L Carbon Dioxide 28 (22-30) mmol/L Anion Gap 9 mmol/L BUN 12 (7-17) mg/dL Creatinine 0.73 (0.52-1.04) mg/dL Est GFR (CKD-EPI)AfAm >90 (>60 ml/min/1.73 sqM) Est GFR (CKD-EPI)NonAf 85 (>60 ml/min/1.73 sqM) Glucose 99 (74-99) mg/dL Plasma Lactic Acid Winston (0.7-2.0) mmol/L Calcium 10.0 (8.4-10.2) mg/dL Total Bilirubin 1.3 (0.2-1.3) mg/dL AST 53 H (14-36) U/L ALT 63 H (9-52) U/L Alkaline Phosphatase 61 (38-126) U/L Total Protein 6.8 (6.3-8.2) g/dL Albumin 4.4 (3.5-5.0) g/dL Lipase 45 (23-300) U/L Urine Color Urine Appearance (Clear) Urine pH (5.0-8.0) Ur Specific [place] (1.001-1.035) Urine Protein (Negative) Urine Glucose (UA) (Negative) Urine Ketones (Negative) Urine Blood (Negative) Urine Nitrite (Negative) Urine Bilirubin (Negative) Urine Urobilinogen (<2.0) mg/dL Ur Leukocyte Esterase (Negative) Urine RBC (0-5) /hpf Urine WBC (0-5) /hpf Urine WBC Clumps (None) /hpf Ur Squamous Epith Cells (0-4) /hpf Amorphous Sediment (None) /hpf Urine Bacteria (None) /hpf Urine Mucus (None) /hpf Disposition <Luis Felipe Esteban - Last Filed: 07/23/18 12:02> Is patient prescribed a controlled substance at d/c from ED?: No <Jimbo Momin - Last Filed: 07/23/18 12:57> Clinical Impression: Diverticulitis Disposition: HOME SELF-CARE Condition: Stable Instructions (If sedation given, give patient instructions): Diverticulitis (ED ) Additional Instructions: Please return to the Emergency Department if symptoms worsen or any other concerns. Referrals: Dean Enciso MD [Primary Care Provider] - 1-2 days Albert Reyna MD [Medical Doctor] - 1-2 days
[2018-07-23 11:20] LABS: Basophils % (A) 0 %; Eosinophils # (A) 0.3 k/uL (0-0.7); Eosinophils % (A) 3 %; HCT 45.1 % (34.0-46.0); HGB 15.2 gm/dL (11.4-16.0); Lymphocytes # (A) 1.4 k/uL (1.0-4.8); Lymphocytes % (A) 13 %; MCHC 33.6 g/dL (31.0-37.0); MCV 92.2 fL (80.0-100.0); Mean Platelet Volume 7.2; Monocytes # (A) 0.5 k/uL (0-1.0); Monocytes % (A) 5 %; Neutrophils # (A) 8.3 k/uL (1.3-7.7); Neutrophils % (A) 78 %; Platelet Count 286 k/uL (150-450); RBC 4.89 m/uL (3.80-5.40); RDW 13.6 % (11.5-15.5); WBC 10.6 k/uL (3.8-10.6)
[2018-07-23 11:29] LABS: Amorphous Sediment,Urine Moderate /hpf; Appearance,Urine Cloudy (Clear); Bacteria,Urine Rare /hpf; Bilirubin,Urine Negative (Negative); Blood,Urine Trace (Negative); Color,Urine Yellow; Glucose,Urine (UA) Negative (Negative); Ketones,Urine Trace (Negative); Leukocyte Esterase,Urine Large (Negative); Mucus,Urine Rare /hpf; Nitrite,Urine Negative (Negative); Protein,Urine Negative (Negative); RBC,Urine 1 /hpf (0-5); Specific Gravity,Urine 1.004 (1.001-1.035); Squamous Epithelial Cell,Urine <1 /hpf (0-4); Urobilinogen,Urine <2.0 mg/dL (<2.0); WBC,Urine 15 /hpf (0-5)
[2018-07-23 11:34] LABS: ALT 63 U/L (9-52); AST 53 U/L (14-36); Albumin 4.4 g/dL (3.5-5.0); Alkaline Phosphatase 61 U/L (38-126); Anion Gap 9 mmol/L; Blood Urea Nitrogen 12 mg/dL (7-17); Carbon Dioxide 28 mmol/L (22-30); Chloride 103 mmol/L (98-107); Glucose 99 mg/dL (74-99); Lipase 45 U/L (23-300); Potassium 4.7 mmol/L (3.5-5.1); Sodium 140 mmol/L (137-145); Total Bilirubin 1.3 mg/dL (0.2-1.3); Total Protein 6.8 g/dL (6.3-8.2)
[2018-07-23] MEDS ORDERED: ERTAPENEM 1 GM in SODIUM CHLORIDE 0.9% 50 ML IVPB STA (12:53)
[2018-07-23] MEDS ORDERED: LOPERAMIDE 2 MG CAP PO STA (12:54)
[2018-07-23] MEDS ORDERED: LORazepam 2 MG/ML INJ IM STA (13:38)
--- NOTE | 2018-07-23 13:46 | P.GSCN ---
History of Present Illness Consult date: 07/23/18 Reason for Consult: Colovesical fistula History of present illness: Patient presents to the ER this morning because of noticing both air and some liquid stool-appearing fluid coming from the bladder. Patient was having diarrhea that began last night. Patient is on IV antibiotics at home for diverticulitis and a suspected developing fistula. Her pain is no different than when she left the hospital and is actually fairly well-controlled. Denies fevers. White blood cell count here as normal. Urinalysis does appear suspicious for fistula or infection. Again she does feel some pneumaturia at this time that she did not feel prior to her recent hospitalization. She is receiving Invanz daily at home. Review of Systems The patient denies any acute changes in vision or hearing, no dysphagia or odynophagia, no chest pain or shortness of breath, no headache, no runny nose, no rectal bleeding or melena, no unexplained weight loss Past Medical History Past Medical History: Hyperlipidemia, Hypertension Additional Past Medical History / Comment(s): Diverticulitis, occasional low back pain, pancreatic cyst possible bladder fissure History of Any Multi-Drug Resistant Organisms: None Reported Past Surgical History: Hysterectomy Additional Past Surgical History / Comment(s): Colonoscopies/benign polypectomy , R carpal tunnel release/ganglion cystectomy, hysterectomy d/t fibroids. Past Anesthesia/Blood Transfusion Reactions: No Reported Reaction Past Psychological History: No Psychological Hx Reported Smoking Status: Never smoker Past Alcohol Use History: None Reported Past Drug Use History: None Reported - Past Family History Sister(s) Family Medical History: Cancer Additional Family Medical History / Comment(s): Another sister had uterine fibroids. Mother Family Medical History: Dementia Additional Family Medical History / Comment(s): Mother of complications from her dementia at the age of 89yrs. Father Family Medical History: Coronary Artery Disease (CAD), Myocardial Infarction ([place] ) Additional Family Medical History / Comment(s): Father at the age of 55yrs from heart complications. He had previously had a [place] Medications and Allergies Home Medications Medication Instructions Recorded Confirmed Type Aspirin EC [Ecotrin Low Dose] 81 mg PO DAILY 03/27/14 07/23/18 History Atorvastatin [Lipitor] 20 mg PO HS 03/27/14 07/23/18 History Multivitamins, Thera [Multivitamin 1 tab PO DAILY 03/27/14 07/23/18 History (formulary)] Lisinopril 10 mg PO DAILY 07/24/15 07/23/18 History Cholecalciferol [Vitamin D3] 1,000 unit PO DAILY 04/27/18 07/23/18 History Ascorbic Acid [Vitamin C] 500 mg PO DAILY 07/20/18 07/23/18 History Ertapenem [INVanz] 1 gm IVPB Q24H #14 bag 07/21/18 07/23/18 Rx Allergies Allergy/AdvReac Type Severity Reaction Status Date / Time amoxicillin [Amoxicillin] Allergy Unknown Diarrhea Verified 07/23/18 10:29 metronidazole [From Flagyl] Allergy Rash/Hives Verified 07/23/18 10:29 nitrofurantoin Allergy Rash/Hives Verified 07/23/18 10:29 [From Macrobid] amoxicillin trihydrate AdvReac Severe Diarrhea Verified 07/23/18 10:29 [From Augmentin] doxycycline AdvReac Severe Diarrhea Verified 07/23/18 10:29 Penicillins AdvReac Severe Diarrhea Verified 07/23/18 10:29 phenazopyridine HCl AdvReac Severe Unknown Verified 07/23/18 10:29 [From Pyridium] potassium clavulanate AdvReac Severe Diarrhea Verified 07/23/18 10:29 [From Augmentin] Sulfa (Sulfonamide AdvReac Severe Diarrhea Verified 07/23/18 10:29 Antibiotics) ciprofloxacin [From Cipro] AdvReac Joint Pain Verified 07/23/18 10:29 Surgical - Exam Vital Signs Temp Pulse Resp BP Pulse Ox 98.5 F 89 18 163/84 97 07/23/18 09:52 07/23/18 09:52 07/23/18 09:52 07/23/18 09:52 07/23/18 09:52 Results - Labs 07/23/18 11:00 07/23/18 11:02 Abnormal Lab Results - Last 24 Hours (Table) 07/23/18 07/23/18 07/23/18 Range/Units 10:51 11:00 11:02 Neutrophils # 8.3 H (1.3-7.7) k/uL AST 53 H (14-36) U/L ALT 63 H (9-52) U/L Urine Appearance Cloudy H (Clear) Urine Ketones Trace H (Negative) Urine Blood Trace H (Negative) Ur Leukocyte Esterase Large H (Negative) Urine WBC 15 H (0-5) /hpf Urine WBC Clumps Few H (None) /hpf Amorphous Sediment Moderate H (None) /hpf Urine Bacteria Rare H (None) /hpf Urine Mucus Rare H (None) /hpf Diabetes panel 07/23/18 Range/Units 11:02 Sodium 140 (137-145) mmol/L Potassium 4.7 (3.5-5.1) mmol/L Chloride 103 (98-107) mmol/L Carbon Dioxide 28 (22-30) mmol/L BUN 12 (7-17) mg/dL Creatinine 0.73 (0.52-1.04) mg/dL Glucose 99 (74-99) mg/dL Calcium 10.0 (8.4-10.2) mg/dL AST 53 H (14-36) U/L ALT 63 H (9-52) U/L Alkaline Phosphatase 61 (38-126) U/L Total Protein 6.8 (6.3-8.2) g/dL Albumin 4.4 (3.5-5.0) g/dL Calcium panel 07/23/18 Range/Units 11:02 Calcium 10.0 (8.4-10.2) mg/dL Albumin 4.4 (3.5-5.0) g/dL Pituitary panel 07/23/18 Range/Units 11:02 Sodium 140 (137-145) mmol/L Potassium 4.7 (3.5-5.1) mmol/L Chloride 103 (98-107) mmol/L Carbon Dioxide 28 (22-30) mmol/L BUN 12 (7-17) mg/dL Creatinine 0.73 (0.52-1.04) mg/dL Glucose 99 (74-99) mg/dL Calcium 10.0 (8.4-10.2) mg/dL Adrenal panel 07/23/18 Range/Units 11:02 Sodium 140 (137-145) mmol/L Potassium 4.7 (3.5-5.1) mmol/L Chloride 103 (98-107) mmol/L Carbon Dioxide 28 (22-30) mmol/L BUN 12 (7-17) mg/dL Creatinine 0.73 (0.52-1.04) mg/dL Glucose 99 (74-99) mg/dL Calcium 10.0 (8.4-10.2) mg/dL Total Bilirubin 1.3 (0.2-1.3) mg/dL AST 53 H (14-36) U/L ALT 63 H (9-52) U/L Alkaline Phosphatase 61 (38-126) U/L Total Protein 6.8 (6.3-8.2) g/dL Albumin 4.4 (3.5-5.0) g/dL Assessment and Plan (1) Diverticulitis Narrative/Plan: Clinical scenario discussed in detail with the patient and her family. Currently already on IV antibiotics. Would like to hold off on urgent surgical intervention as it would likely require Lagos's procedure. We'll continue IV antibiotics at home. No need for admission currently. The patient is actually quite comfortable with the idea being discharged from the emergency department. She will follow-up in the office in 1-2 weeks. Current Visit: Yes Status: Acute Code(s): K57.92 - DVTRCLI OF INTEST, PART UNSP, W/O PERF OR ABSCESS W/O BLEED SNOMED Code(s): 804015561
[2018-07-23 14:34] VITALS: BP 143/76; PULSE 87; TEMP 98.9
== END 2018-07-23 14:33 | disposition home or self-care (01) ==
LOC: EC 09:46
DX: K57.92 Diverticulitis of intestine, part unspecified, without perforation or abscess without bleeding (principal); I10 Essential (primary) hypertension; E78.5 Hyperlipidemia, unspecified; Z79.82 Long term (current) use of aspirin; Z79.899 Other long term (current) drug therapy; Z88.0 Allergy status to penicillin; Z88.1 Allergy status to other antibiotic agents; Z88.2 Allergy status to sulfonamides
CPT/HCPCS: 36415; 80053; 83605; 83690; 85025; 81001; 87040; 87086; 99284; 96365; 96361 ×3; J1335

== ENCOUNTER → 2018-08-10 | Outpatient (CLI) | payer MEDICARE ==
[2018-08-10 16:18] LABS: Blood Urea Nitrogen 18 mg/dL (7-17)
--- NOTE | 2018-08-11 09:52 | CT ---
EXAMINATION TYPE: CT pelvis w con DATE OF EXAM: 08/10/2018 COMPARISON: 07/20/2018 and 07/14/2018 HISTORY: Diverticulitis. Follow-up exam. CT DLP: 578 mGycm Automated exposure control for dose reduction was used. CONTRAST: CT scan of the pelvis was performed with IV Contrast, patient injected with 100ml mL of Isovue 300. [facility] protocol. FINDINGS: The previously seen 1 cm left hepatic cyst is similar to the prior. Mild degree hepatic steatosis is also partially visualized. Visualized portions of the spleen, adrenal glands, gallbladder, and kidney s are unchanged from the prior exams. Within the pancreas there is a 1.0 cm cystic lesion in the pancreatic body without ductal dilatation. Mild pancreatic parenchymal atrophy is noted. This dominant cyst was noted on the prior MRI dated . Multiple smaller cysts at the head of the pancreas are detailed on the prior MRI and better appreciated on that examination. There is continued improvement in degree of the resolving acute diverticulitis in comparison to the p rior of 07/20/2018. There is near complete resolution of the pericolonic fat stranding and adjacent fa scial thickening. No pericolonic abscess or pneumoperitoneum are identified. Uterus appears surgically absent. Ovaries are noted. Abdominal aorta is of normal course and caliber. No dilated bowel is seen. No greater than 1 cm short axis lymph node in the visualized portions of th e abdomen or pelvis. Osseous structures are intact with mild multilevel degenerative change. The prev iously seen urinary bladder wall thickening has resolved. IMPRESSION: 1. NEAR COMPLETE RESOLUTION OF THE PREVIOUSLY SEEN ACUTE DIVERTICULITIS. THERE REMAINS MINIMAL DANDRE LONIC INFILTRATE FAT STRANDING AND SIGMOID BOWEL WALL THICKENING. COLONOSCOPY COULD BE CONSIDERED IF NOT RECENTLY PERFORMED TO EXCLUDE UNDERLYING MUCOSAL NEOPLASM. NO PERICOLONIC ABSCESS OR PNEUMOPERITO NEUM. 2. REDEMONSTRATION OF HEPATIC STEATOSIS, SIMPLE HEPATIC CYST, PANCREATIC CYST FOR WHICH SURVEILLANCE WITH FOLLOW-UP MRCP IN 12 MONTHS IS RECOMMENDED, AND RESOLVED URINARY BLADDER THICKENING THAT WAS LIK KAROLINE REACTIVE.
== END ==
LOC: RADCTMAIN 15:40
PROVIDERS: ATTEND Surgery
DX: K57.92 Diverticulitis of intestine, part unspecified, without perforation or abscess without bleeding (principal); K76.89 Other specified diseases of liver; K86.2 Cyst of pancreas
CPT/HCPCS: 82565; 84520; 72193; 36415; Q9967

== ENCOUNTER → 2018-08-19 | Outpatient (CLI) | payer MEDICARE ==
[2018-08-19 11:15] LABS: HCT 42.5 % (34.0-46.0); MCH 30.8 pg (25.0-35.0); MCHC 32.9 g/dL (31.0-37.0); MCV 93.7 fL (80.0-100.0); Platelet Count 246 k/uL (150-450); RBC 4.53 m/uL (3.80-5.40); RDW 13.6 % (11.5-15.5); WBC 13.2 k/uL (3.8-10.6)
[2018-08-19 11:26] LABS: Potassium 4.6 mmol/L (3.5-5.1)
== END | disposition home or self-care (01) ==
LOC: LABPAT 09:59
PROVIDERS: ATTEND Internal Medicine Geriatric Medicine
DX: Z01.812 Encounter for preprocedural laboratory examination (principal); K57.92 Diverticulitis of intestine, part unspecified, without perforation or abscess without bleeding; Z90.49 Acquired absence of other specified parts of digestive tract
CPT/HCPCS: 36415; 80051; 85027; 86850; 86900; 86901

== ENCOUNTER 2018-08-26 12:46 | Day surgery (SDC) | payer MEDICARE ==
[2018-08-23 13:37] VITALS: BMI 29.8
[~2018-08-26 12:46] MED LIST: LACTATED RINGERS 1,000 ML IV SCH; LIDOCAINE 1% 20 ML VIAL (10MG/ML) FOR IV START INTRADERMA PRN
[2018-08-26 13:17] VITALS: RESP 18; TEMP 98.4
[2018-08-26] MEDS ORDERED: LIDOCAINE 1% INJ 10MG/ML (20 ML MDV) ONE (14:30)
[2018-08-26] MEDS ORDERED: PROPOFOL 10 MG/ML 20 ML VIAL IV ONE (14:30)
--- NOTE | 2018-08-26 14:58 | P.PCN ---
Date of Procedure: 08/26/18 Procedure(s) Performed: PREOPERATIVE DIAGNOSIS: Change in bowel habits, suspected colovesical fistula POSTOPERATIVE DIAGNOSIS: Diverticulosis PROCEDURE: Colonoscopy ANESTHESIA: MAC SURGEON: Albert Reyna M.D. SPECIMENS: None ENDOSCOPIC PROCEDURE: The patient was placed on the endoscopy table in the left decubitus position. The Olympus colonoscope was inserted into the anus and passed under direct visualization to the base of the cecum. The appendiceal orifice was visualized. From that point the scope was slowly withdrawn inspecting all surfaces carefully. There were no neoplastic inflammatory or polypoid lesions throughout the cecum, ascending, transverse, descending, sigmoid and rectum. There was moderate left-sided diverticulosis noted. In the mid sigmoid there was one area where there was a tiny bit of purulence seen at the orifice of one of the diverticulum. This was likely the site of recent fistula formation. Digital rectal examination was normal. Digital vaginal examination likewise normal posteriorly. The patient was taken to the recovery room in stable condition per anesthesia guidelines. RECOMMENDATIONS: We'll proceed with planned sigmoid resection tomorrow.
[2018-08-26 15:43] VITALS: BP 116/76; PULSE 73
[2018-08-26] MEDS ORDERED: LACTATED RINGERS 1,000 ML IV ONE (15:51)
[2018-08-26] MEDS ORDERED: IV FLUID CONTINUATION 1,000 ML IV ONE (15:51)
== END 2018-08-26 15:53 | disposition home or self-care (01) ==
LOC: ORWHC2ENDO 12:46
PROVIDERS: ATTEND Surgery
DX: R19.4 Change in bowel habit (principal); K57.30 Diverticulosis of large intestine without perforation or abscess without bleeding; Z88.1 Allergy status to other antibiotic agents; Z88.0 Allergy status to penicillin; Z88.2 Allergy status to sulfonamides; Z88.8 Allergy status to other drugs, medicaments and biological substances; Z79.82 Long term (current) use of aspirin; Z79.899 Other long term (current) drug therapy; Z82.49 Family history of ischemic heart disease and other diseases of the circulatory system; Z86.010 Personal history of colon polyps; Z80.49 Family history of malignant neoplasm of other genital organs; E78.5 Hyperlipidemia, unspecified
CPT/HCPCS: 45378; J2001; J2704

== ENCOUNTER 2018-08-27 09:08 | Inpatient (IN) | payer MEDICARE ==
[~2018-08-27 09:08] MED LIST changes: +DEXAMETHASONE SOD PHOSPHATE 10 MG/ML 1 ML VIAL IV ONE; +HEPARIN SODIUM,PORCINE 5,000 UNIT/ML 1 ML VIAL SQ ONE; +HYDROmorphone 0.5 MG/0.5 ML SYRINGE IVP PRN; -LACTATED RINGERS 1,000 ML IV SCH; -LIDOCAINE 1% 20 ML VIAL (10MG/ML) FOR IV START INTRADERMA PRN; +MIDAZOLAM 2 MG/2 ML VIAL IV PRN; +ONDANSETRON 4 MG/2 ML VIAL IVP ONE; +ceFAZolin IN SWFI 2 GM/20 ML SYRINGE IVP ONE; +metroNIDAZOLE-NS PMX 500 MG in SALINE 1 100ML.BAG IVPB ONE
[2018-08-27] MEDS ORDERED: ALVIMOPAN 12 MG CAPSULE PO ONE (10:44)
[2018-08-27] MEDS ORDERED: ERTAPENEM 1 GM in SODIUM CHLORIDE 0.9% 50 ML IVPB STA (10:49)
[2018-08-27] MEDS ORDERED: LIDOCAINE 1% 20 ML VIAL (10MG/ML) FOR IV START INTRADERMA ONE (10:50)
[2018-08-27] MEDS: LACTATED RINGERS 1,000 ML IV SCH ×2 (10:50→17:23)
[2018-08-27] MEDS ORDERED: diphenhydrAMINE 50 MG/ML 1 ML VIAL IVP PRN (11:12)
[2018-08-27] MEDS ORDERED: ROPIVACAINE 250 MG, HYDROMORPHONE (PF) 5 MG in SODIUM CHLORIDE 0.9% 200 ML EPIDURAL PRN (11:12)
[2018-08-27] MEDS ORDERED: NALOXONE 0.4 MG/ML 1 ML VIAL IV PRN (11:12)
[2018-08-27] MEDS ORDERED: ONDANSETRON 4 MG/2 ML VIAL IVP PRN (11:12)
[2018-08-27] MEDS ORDERED: NEOSTIGMINE 1 MG/ML 10 ML VIAL ONE (11:13)
[2018-08-27] MEDS ORDERED: SUCCINYLCHOLINE CHLORIDE 100 MG/5 ML SYR IV ONE (11:13)
[2018-08-27] MEDS ORDERED: ePHEDrine SULFATE/0.9% NACL/PF 50 MG/5 ML SYRINGE IV ONE (11:13)
[2018-08-27] MEDS ORDERED: GLYCOPYRROLATE 0.2 MG/ML 2 ML VIAL ONE (11:13)
[2018-08-27] MEDS ORDERED: GLUCAGON 1 MG/ML VIAL ONE (11:13)
[2018-08-27] MEDS ORDERED: LIDOCAINE 1% INJ 10MG/ML (20 ML MDV) ONE (11:13)
[2018-08-27] MEDS ORDERED: ALBUMIN HUMAN 5% (25gm) 500 ML VIAL IVPB ONE (11:13)
[2018-08-27] MEDS ORDERED: fentaNYL (PF) 50 MCG/ML 2 ML AMP ONE (11:13)
[2018-08-27] MEDS ORDERED: PROPOFOL 10 MG/ML 20 ML VIAL IV ONE (11:13)
[2018-08-27] MEDS ORDERED: PHENYLEPHRINE-0.9% NACL SYG 1 MG/10 ML SYRINGE ONE (11:13)
[2018-08-27] MEDS ORDERED: ROCURONIUM BROMIDE 10 MG/ML 10 ML VIAL IV ONE (11:13)
[2018-08-27] MEDS ORDERED: MIDAZOLAM 2 MG/2 ML VIAL ONE (11:13)
[2018-08-27] MEDS ORDERED: LACTATED RINGERS 1,000 ML IV ONE ×4 (12:05→13:39)
[2018-08-27] MEDS ORDERED: HYDROmorphone 1 MG/ML 1 ML SYRINGE IVP PRN (15:11)
[2018-08-27] MEDS ORDERED: METOCLOPRAMIDE 5 MG/ML 2 ML VIAL IVP PRN (15:11)
--- NOTE | 2018-08-27 15:21 | P.OP ---
Date of Procedure: 08/27/18 Procedure(s) Performed: PREOPERATIVE DIAGNOSIS: Colovesical fistula POSTOPERATIVE DIAGNOSIS: Same PROCEDURE: Low anterior resection, mobilization splenic flexure SURGEON: Maribell EBL: 50 mL ANESTHESIA: General COMPLICATIONS: None OPERATIVE PROCEDURE: Patient was placed on the operative table in the supine pos ition. The patient was placed under general anesthesia. The patient was then placed in lithotomy. The abdomen was prepped and draped in usual sterile fashion. A vertical incision was made extending above the umbilicus. This was later lengthened superiorly slightly further for mobilization of the splenic flexure purpose. The fascia was divided as well. The Bookwalter retractor was utilized. The sigmoid colon densely adherent to the anterior lower pelvic wall. This was able to be mobilized using both blunt dissection and electrocautery. An actual visible fistulous communication to the bladder or vaginal cuff was not seen but this appeared to be the site of the abnormality. The area of inflammation was fairly extensive and involved the distal 1/2-2/3 of the sigmoid colon. It should be noted that this patient sigmoid colon was not very redundant. Once I had mobilization down to the proximal rectum I realized that the anticipated staple line proximally would not have sufficient length to reach the pelvis. At that time again the incision was lengthened and the splenic flexure was fully mobilized using electrocautery and the in seal device. No bleeding was encountered during that portion of the procedure. We now had excellent length. I made a small vertical colotomy proximal to the inflamed segment. The dilator was used. Even the 25 EEA dilator was not fitting within the proximal bowel. The patient's bowel overall was relatively narrowed and this did not appear secondary to inflammatory change. Glucagon was utilized as the patient was having some spasticity of the colon. This actually helped fairly significantly. The 25 sizer was then able to be advanced without difficulty. I placed the 25 anvil proximally into the bowel. The sharp adapter was connected to the anvil. The bowel was then divided using a linear 75 stapler. The anvil was brought out just adjacent to the staple line using the sharp adapter. Later a 3-0 silk pursestring was placed at the exit site of the anvil. The mesentery of the sigmoid colon was divided using the in seal device. Once we reached the rectum the rectum was divided using a contour stapler. The area was irrigated. No bleeding was seen. The stapler was then inserted into the anus and brought up to the staple line. The obturator was brought out just anterior to the staple line. The 2 portions of the stapler were connected to one another and subsequently tightened and fired. The bowel was clamped proximal to the anastomosis. The rigid sigmoidoscope was utilized to fill the anastomotic site nicely with air. There was saline in the pelvis at this time. No evidence of leak was seen. The abdomen was irrigated with saline. The liver, stomach, visualized colon, and small bowel appeared normal. The midline fascia was then reapproximated using 3 separate double-stranded #1 PDS sutures. The subcutaneous tissues were closed using 3-0 Vicryl sutures. The skin was then closed using jose. Sterile dressings and an abdominal binder were then applied. DISPOSITION: Stable to recovery room
[2018-08-27] MEDS: D5-0.45% NACL WITH KCL 20MEQ/L 1,000 ML IV SCH (17:41)
[2018-08-27] MEDS: HEPARIN SODIUM,PORCINE 5,000 UNIT/ML 1 ML VIAL SQ SCH (17:42)
[2018-08-27] MEDS: ALVIMOPAN 12 MG CAPSULE PO SCH (21:28)
[2018-08-27] MEDS: FAMOTIDINE 20 MG/2 ML VIAL IV SCH (21:28)
[2018-08-28] MEDS: HEPARIN SODIUM,PORCINE 5,000 UNIT/ML 1 ML VIAL SQ SCH ×4 (00:27→23:27)
[2018-08-28] MEDS: D5-0.45% NACL WITH KCL 20MEQ/L 1,000 ML IV SCH ×2 (00:28→08:58)
[2018-08-28] MEDS: FAMOTIDINE 20 MG/2 ML VIAL IV SCH ×2 (08:58→19:59)
[2018-08-28] MEDS: ALVIMOPAN 12 MG CAPSULE PO SCH ×2 (08:58→19:58)
--- NOTE | 2018-08-28 09:29 | P.PN ---
Progress Note - Text Progress Note Date: 08/28/18 This is a 68-year-old female who is status post low anterior resection for colovesical fistula. Patient is doing fairly well. She has minimal colitis of pain. On exam her vital signs are stable. Her abdomen soft. Incision site is clean dry and intact. There is no evidence of bowel function. Status post low anterior section. Patient will continue sips of clears. Her epidural will continue. She'll be observed closely.
[2018-08-28 09:38] LABS: Basophils % (A) 0 %; Eosinophils % (A) 0 %; HCT 38.1 % (34.0-46.0); HGB 12.3 gm/dL (11.4-16.0); Lymphocytes % (A) 6 %; MCH 31.3 pg (25.0-35.0); MCHC 32.3 g/dL (31.0-37.0); Mean Platelet Volume 7.2; Monocytes # (A) 0.8 k/uL (0-1.0); Monocytes % (A) 5 %; Neutrophils # (A) 13.8 k/uL (1.3-7.7); Neutrophils % (A) 88 %; Platelet Count 239 k/uL (150-450); RBC 3.93 m/uL (3.80-5.40); RDW 13.6 % (11.5-15.5); WBC 15.7 k/uL (3.8-10.6)
[2018-08-28 10:10] LABS: Calcium 8.8 mg/dL (8.4-10.2); Potassium 5.6 mmol/L (3.5-5.1)
[2018-08-28] MEDS ORDERED: ENALAPRILAT 1.25 MG/ML 1 ML VIAL IVP PRN (11:10)
[2018-08-28] MEDS ORDERED: hydrOXYzine HCL 50 MG/ML 1 ML VIAL IM PRN (11:10)
[2018-08-28] MEDS: DEXTROSE 5%-0.45% NACL 1,000 ML IV SCH ×2 (13:00→22:29)
--- NOTE | 2018-08-28 13:16 | P.CONS ---
History of Present Illness - Reason for Consult Consult date: 08/28/18 Medical management - History of Present Illness This is a 68-year-old female patient of Dr. Jackson with past medical history of hypertension, hyperlipidemia, diverticulitis. Patient had a recent hospitalization in June for diverticulitis. She has now been brought in under the care of Dr. Reyna status post low anterior resection for colovesical fistula. Patient denies having any nausea. She does complain of some reflux which she is on Pepcid. Epidural remains in place as well as Roberto catheter. SCDs in place for DVT prophylaxis. Incentive spirometry in place. Review of Systems All systems: negative Constitutional: Denies anorexia, Denies chills, Denies fever, Denies weakness, Denies weight loss Eyes: denies blurred vision, denies pain Ears, nose, mouth and throat: Denies dysphagia, Denies headache, Denies nasal congestion, Denies nasal discharge, Denies sore throat, Denies vertigo Cardiovascular: Denies chest pain, Denies decreased exercise tolerance, Denies dyspnea on exertion, Denies lightheadedness, Denies shortness of breath, Denies syncope Respiratory: Denies cough, Denies cough with sputum, Denies dyspnea, Denies exc essive sputum, Denies hemoptysis, Denies home oxygen, Denies wheezing Gastrointestinal: Reports dyspepsia, Reports heartburn, Denies abdominal pain, Denies diarrhea, Denies nausea, Denies vomiting Genitourinary: Denies dysuria, Denies hematuria Musculoskeletal: Denies frequent falls, Denies myalgias Integumentary: Reports wounds, Denies pruritus, Denies rash Neurological: Denies aphasia, Denies change in mentation, Denies change in speech, Denies confusion, Denies head injury, Denies headaches, Denies numbness, Denies seizures, Denies weakness Psychiatric: Denies anxiety, Denies depression Endocrine: Denies fatigue, Denies weight change Past Medical History Past Medical History: Hyperlipidemia, Hypertension Additional Past Medical History / Comment(s): Diverticulitis, occasional low back pain, 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 Past Anesthesia/Blood Transfusion Reactions: No Reported Reaction Past Psychological History: No Psychological Hx Reported Additional Psychological History / Comment(s): Pt resides with her spouse. She is independent. Smoking Status: Never smoker Past Alcohol Use History: Rare Additional Past Alcohol Use History / Comment(s): The patient has been a lifelong nonsmoker, no illicit drug use, no marijuana use, no alcohol use. Past Drug Use History: None Reported - Past Family History Sister(s) Family Medical History: Cancer Additional Family Medical History / Comment(s): Another sister had uterine fibroids. Mother Family Medical History: Dementia Additional Family Medical History / Comment(s): Mother of complications from her dementia at the age of 89yrs. Father Family Medical History: Coronary Artery Disease (CAD), Myocardial Infarction ([place]) Additional Family Medical History / Comment(s): Father at the age of 55yrs from heart complications. He had previously had a [place] Medications and Allergies Home Medications Medication Instructions Recorded Confirmed Type Aspirin EC [Ecotrin Low Dose] 81 mg PO DAILY 03/27/14 08/27/18 History Atorvastatin [Lipitor] 20 mg PO HS 03/27/14 08/27/18 History Multivitamins, Thera [Multivitamin 1 tab PO DAILY 03/27/14 08/27/18 History (formulary)] Lisinopril 10 mg PO DAILY 07/24/15 08/27/18 History Cholecalciferol [Vitamin D3] 1,000 unit PO DAILY 04/27/18 08/27/18 History Ascorbic Acid [Vitamin C] 500 mg PO DAILY 07/20/18 08/27/18 History Allergies Allergy/AdvReac Type Severity Reaction Status Date / Time amoxicillin [Amoxicillin] Allergy Unknown Diarrhea Verified 08/27/18 15:57 metronidazole [From Flagyl] Allergy Rash/Hives Verified 08/27/18 15:57 nitrofurantoin Allergy Rash/Hives Verified 08/27/18 15:57 [From Macrobid] amoxicillin trihydrate AdvReac Severe Diarrhea Verified 08/27/18 15:57 [From Augmentin] doxycycline AdvReac Severe Diarrhea Verified 08/27/18 15:57 Penicillins AdvReac Severe Diarrhea Verified 08/27/18 15:57 phenazopyridine HCl AdvReac Severe Unknown Verified 08/27/18 15:57 [From Pyridium] potassium clavulanate AdvReac Severe Diarrhea Verified 08/27/18 15:57 [From Augmentin] Sulfa (Sulfonamide AdvReac Severe Diarrhea Verified 08/27/18 15:57 Antibiotics) ciprofloxacin [From Cipro] AdvReac Joint Pain Verified 08/27/18 15:57 Physical Exam Vitals: Vital Signs Temp Pulse Pulse Resp BP Pulse Ox 08/28/18 07:50 97.7 F 103 H 99/62 93 L 08/28/18 05:30 92 90/60 08/28/18 00:10 98.9 F 100 16 96/53 93 L 08/27/18 19:55 97.5 F L 95 14 100/63 99 08/27/18 18:15 87 101/64 08/27/18 18:00 91 99/62 08/27/18 17:45 92 103/65 08/27/18 17:30 89 96/50 08/27/18 17:15 92 104/56 08/27/18 16:45 92 106/65 08/27/18 16:00 93 108/66 08/27/18 15:56 91 16 109/56 95 08/27/18 15:41 87 16 109/55 100 08/27/18 15:30 92 108/66 08/27/18 15:26 88 16 115/59 100 08/27/18 15:15 97.5 F L 96 16 105/65 93 L 08/27/18 15:11 89 16 118/58 100 08/27/18 14:56 97.9 F 83 14 116/58 100 Intake and Output 08/27/18 08/28/18 08/28/18 22:59 06:59 14:59 Intake Total 645 1250 95 Output Total 40 525 Balance 605 725 95 Intake: IV 405 Intake, IV Titration 1250 95 Amount D5-0.45% NaCl with KCl 1250 20Meq/l 1,000 ml @ 125 mls/hr IV .Q8H [facility] Rx#: [id number] Ropivacaine 250 mg 95 Hydromorphone (Pf) 5 mg In Sodium Chloride 0.9% 200 ml @ Per Protocol EPIDURAL .Q0M PRN Rx#: [id number] Oral 240 Output: Urine 40 525 Other: Voiding Method Indwelling Catheter Indwelling Catheter Gen: This is a 68-year-old female. She is resting in bed appears to be comfortable and in no acute distress. Family members are at bedside. HEENT: Head is atraumatic, normocephalic. Pupils equal, round. Sclerae is anicteric. NECK: Supple. No JVD. No lymphadenopathy. No thyromegaly. LUNGS: Clear to auscultation. No wheezes or rhonchi. No intercostal retractio ns. HEART: Regular rate and rhythm. No murmur. ABDOMEN: Soft. Bowel sounds are hypoactive. No masses. Mild generalized tenderness. EXTREMITIES: No pedal edema. No calf tenderness. SCDs in place. NEUROLOGICAL: Patient is awake, alert and oriented x3. Cranial nerves 2 through 12 are grossly intact. Results CBC & Chem 7: 08/28/18 09:11 08/28/18 09:11 Labs: Abnormal Lab Results - Last 24 Hours (Table) 08/28/18 08/28/18 Range/Units 09:11 09:11 WBC 15.7 H (3.8-10.6) k/uL Neutrophils # 13.8 H (1.3-7.7) k/uL Sodium 134 L (137-145) mmol/L Potassium 5.6 H (3.5-5.1) mmol/L Glucose 147 H (74-99) mg/dL Assessment and Plan Plan: 1. Colovesical fistula status post low anterior resection, postop day #1. Patient is currently on epidural for pain control, Robreto catheter in place, clear liquid diet, incentive spirometry. 2. Hypertension. Blood pressures are currently on the low side and lisinopril 10 mg daily will be held for now. 3. Hyperlipidemia. Patient is normally on Lipitor 20 mg at bedtime, on hold. 4. GI prophylaxis. Pepcid IV twice daily. 5. DVT prophylaxis. SCDs, early ambulation. Discharge plan: home Impression and plan of care have been directed as dictated by the signing physician. Nabila Morley nurse practitioner acting as scribe for signing physician.
--- NOTE | 2018-08-28 19:16 | P.PN ---
Progress Note - Text Progress Note Date: 08/28/18 Postoperative day #1 status post low anterior resection ,epidural catheter pl aced for postoperative analgesia, patient doing well epidural site okay, patient currently on combination of epidural infusion solution of Ropivacaine 0.0625% and Dilaudid 20 g per mL the infusion rate at 6 ml per hour , patient had no motor deficit ,epidural site okay , vital signs stable ,VAS 2-3/10 , Assessment and plan= post operative day #1 patient doing well ,pain well controlled , there is no anesthesia related complications
[2018-08-29 08:53] LABS: Anion Gap 5 mmol/L; Blood Urea Nitrogen 13 mg/dL (7-17); Calcium 8.6 mg/dL (8.4-10.2); Carbon Dioxide 26 mmol/L (22-30); Chloride 104 mmol/L (98-107); Glucose 96 mg/dL (74-99); Potassium 4.3 mmol/L (3.5-5.1); Sodium 135 mmol/L (137-145)
[2018-08-29] MEDS: ALVIMOPAN 12 MG CAPSULE PO SCH ×2 (08:53→21:07)
[2018-08-29] MEDS: HEPARIN SODIUM,PORCINE 5,000 UNIT/ML 1 ML VIAL SQ SCH ×3 (08:53→23:26)
[2018-08-29] MEDS: FAMOTIDINE 20 MG/2 ML VIAL IV SCH ×2 (08:53→21:07)
[2018-08-29 08:56] LABS: Basophils % (A) 0 %; Eosinophils # (A) 0.1 k/uL (0-0.7); Eosinophils % (A) 0 %; HCT 35.3 % (34.0-46.0); HGB 11.3 gm/dL (11.4-16.0); Lymphocytes % (A) 8 %; MCH 30.5 pg (25.0-35.0); MCHC 31.9 g/dL (31.0-37.0); MCV 95.7 fL (80.0-100.0); Mean Platelet Volume 6.8; Monocytes # (A) 1.1 k/uL (0-1.0); Monocytes % (A) 9 %; Neutrophils # (A) 10.9 k/uL (1.3-7.7); Neutrophils % (A) 82 %; Platelet Count 221 k/uL (150-450); RBC 3.69 m/uL (3.80-5.40); RDW 13.7 % (11.5-15.5); WBC 13.2 k/uL (3.8-10.6)
[2018-08-29] MEDS: LACTATED RINGERS 1,000 ML IV SCH (11:15)
[2018-08-29] MEDS: DEXTROSE 5%-0.45% NACL 1,000 ML IV SCH (11:27)
--- NOTE | 2018-08-29 11:58 | P.PN ---
Progress Note - Text Progress Note Date: 08/29/18 The patient is doing well. She still has had no bowel function. She is tolerating clears. On exam her vital signs are stable. Her abdomen soft. Incision site is clean dry intact. Epidural catheter will remain in until tomorrow. Dr. Damian will reevaluate the patient and. She'll continue clear liquids.
--- NOTE | 2018-08-29 12:17 | P.PN ---
Progress Note - Text Progress Note Date: 08/29/18 Postoperative day #2 , status post low anterior resection ,epidural catheter placed for postoperative analgesia, patient doing well epidural site okay, patient currently on combination of epidural infusion solution of Ropivacaine 0.0625% and Dilaudid 20 g per mL the infusion rate at 6 ml per hour , patient had no motor deficit ,epidural site okay , vital signs stable ,VAS 2- 3/10 , Assessment and plan= post operative day #2 , patient doing well ,pain well controlled , there is no anesthesia related complications
--- NOTE | 2018-08-29 14:54 | P.PN ---
Subjective This is a 68-year-old female patient of Dr. Jackson with past medical history of hypertension, hyperlipidemia, diverticulitis. Patient had a recent hospitalization in June for diverticulitis. She has now been brought in under the care of Dr. Reyna status post low anterior resection for colovesical fistula. Patient denies having any nausea. She does complain of some reflux which she is on Pepcid. Epidural remains in place as well as Roberto catheter. SCDs in place for DVT prophylaxis. Incentive spirometry in place. 08/29: Patient evaluated today, noted to be resting in bed comfortably, she reports pain is better controlled today, she continues with the epidural catheter for pain management. Patient has been ambulating in the hallway, she denies passing gas or having a bowel movement yet, bowel sounds are active, dressing shows some shadow drainge, abdomen is soft. She is tolerating a clear liquid diet without nausea or vomiting. WBCs 13.2, sodium 135, potassium 4.3, BUN 13, creatinine 0.78. She remains afebrile, heart rate in the 80s, blood pressure 109/65, 92% on room air. Incentive spirometer encouraged. Objective - Vital Signs Vital signs: Vital Signs Temp 98.3 F 08/29/18 07:20 Pulse 84 08/29/18 08:58 Resp 18 08/29/18 08:58 BP 109/65 08/29/18 07:20 Pulse Ox 92 L 08/29/18 07:20 Intake & Output 08/28/18 08/29/18 08/29/18 17:59 06:59 18:59 Intake Total 700 Output Total 900 Balance -200 Intake: Intake, IV Titration 700 Amount Dextrose 5%-0.45% NaCl 1, 000 ml @ 100 mls/hr IV . Q10H [facility] Rx#:[id number] Ropivacaine 250 mg Hydromorphone (Pf) 5 mg In Sodium Chloride 0.9% 200 ml @ Per Protocol EPIDURAL .Q0M PRN Rx#: [id number] Sodium Chloride 0.9% 1, 700 000 ml @ 100 mls/hr IV . Q10H [facility] Rx#:[id number] Oral Output: Urine 900 Uretheral (Roberto) Other: Voiding Method Indwelling Catheter - Exam Gen: This is a 68-year-old female. She is resting in bed appears to be comfortable and in no acute distress. HEENT: Head is atraumatic, normocephalic. Pupils equal, round. Sclerae is anicteric. NECK: Supple. No JVD. No lymphadenopathy. No thyromegaly. LUNGS: Clear to auscultation. No wheezes or rhonchi. No intercostal retractions. HEART: Regular rate and rhythm. No murmur. ABDOMEN: Soft. Bowel sounds are active. No masses. Mild generalized tenderness. Shadow drainage noted to dressing. Abdominal binder in place. EXTREMITIES: No pedal edema. No calf tenderness. SCDs in place. NEUROLOGICAL: Patient is awake, alert and oriented x3. Cranial nerves 2 through 12 are grossly intact. - Labs CBC & Chem 7: 08/29/18 08:01 08/29/18 08:01 Labs: Abnormal Lab Results - Last 24 Hours (Table) 08/29/18 08/29/18 Range/Units 08:01 08:01 WBC 13.2 H (3.8-10.6) k/uL RBC 3.69 L (3.80-5.40) m/uL Hgb 11.3 L (11.4-16.0) gm/dL Neutrophils # 10.9 H (1.3-7.7) k/uL Monocytes # 1.1 H (0-1.0) k/uL Sodium 135 L (137-145) mmol/L Assessment and Plan Plan: 1. Colovesical fistula status post low anterior resection, postop day #2. Patient is currently on epidural for pain control, Roberto catheter in place, clear liquid diet, incentive spirometry, and ambulation. 2. Hypertension. Continue Vasotec 1.25 mg IV push every 6 when necessary for SBP >160 3. Hyperlipidemia. Patient is normally on Lipitor 20 mg at bedtime, still on hold. 4. GI prophylaxis. Pepcid IV twice daily. 5. DVT prophylaxis. SCDs, early ambulation.
[2018-08-29] MEDS: SODIUM CHLORIDE 0.9% 1,000 ML IV SCH ×2 (19:01→21:08)
[2018-08-30] MEDS: LACTATED RINGERS 1,000 ML IV SCH (01:22)
[2018-08-30 08:14] LABS: Basophils % (A) 0 %; Eosinophils # (A) 0.2 k/uL (0-0.7); Eosinophils % (A) 2 %; HCT 35.3 % (34.0-46.0); HGB 11.5 gm/dL (11.4-16.0); Lymphocytes # (A) 1.2 k/uL (1.0-4.8); Lymphocytes % (A) 11 %; MCH 31.2 pg (25.0-35.0); MCHC 32.6 g/dL (31.0-37.0); MCV 95.5 fL (80.0-100.0); Mean Platelet Volume 7.5; Monocytes # (A) 0.8 k/uL (0-1.0); Monocytes % (A) 7 %; Neutrophils # (A) 8.8 k/uL (1.3-7.7); Neutrophils % (A) 80 %; Platelet Count 201 k/uL (150-450); RDW 13.5 % (11.5-15.5)
[2018-08-30 08:22] LABS: Sodium 139 mmol/L (137-145)
[2018-08-30 08:24] LABS: Anion Gap 5 mmol/L; Blood Urea Nitrogen 8 mg/dL (7-17); Carbon Dioxide 30 mmol/L (22-30); Chloride 104 mmol/L (98-107); Glucose 85 mg/dL (74-99); Potassium 4.4 mmol/L (3.5-5.1)
--- NOTE | 2018-08-30 09:08 | P.PN ---
Progress Note - Text Progress Note Date: 08/30/18 Postoperative day #3 , status post low anterior resection ,epidural catheter placed for postoperative analgesia, patient doing well epidural site okay, patient currently on combination of epidural infusion solution of Ropivacaine 0.0625% and Dilaudid 20 g per mL the infusion rate at 6 ml per hour , patient had no motor deficit ,epidural site okay , vital signs stable ,VAS 2- 3/10 , Assessment and plan= post operative day #3 , patient doing well ,pain well c ontrolled , there is no anesthesia related complications, discontinue epidural catheter to the afternoon or tomorrow morning
[2018-08-30] MEDS: ALVIMOPAN 12 MG CAPSULE PO SCH ×2 (09:50→20:51)
[2018-08-30] MEDS: HEPARIN SODIUM,PORCINE 5,000 UNIT/ML 1 ML VIAL SQ SCH ×2 (09:50→16:17)
[2018-08-30] MEDS: SODIUM CHLORIDE 0.9% 1,000 ML IV SCH ×3 (11:48→21:37)
[2018-08-30] MEDS: FAMOTIDINE 20 MG/2 ML VIAL IV SCH ×2 (11:48→20:51)
--- NOTE | 2018-08-30 12:04 | P.PN ---
Subjective Progress Note Date: 08/30/18 This is a 68-year-old female patient of Dr. Jackson with past medical history of hypertension, hyperlipidemia, diverticulitis. Patient had a recent hospitalization in June for diverticulitis. She has now been brought in under the care of Dr. Reyna status post low anterior resection for colovesical fistula. Patient denies having any nausea. She does complain of some reflux which she is on Pepcid. Epidural remains in place as well as Roberto catheter. SCDs in place for DVT prophylaxis. Incentive spirometry in place. 08/29: Patient evaluated today, noted to be resting in bed comfortably, she reports pain is better controlled today, she continues with the epidural catheter for pain management. Patient has been ambulating in the hallway, she denies passing gas or having a bowel movement yet, bowel sounds are active, dressing shows some shadow drainge, abdomen is soft. She is tolerating a clear liquid diet without nausea or vomiting. WBCs 13.2, sodium 135, potassium 4.3, BUN 13, creatinine 0.78. She remains afebrile, heart rate in the 80s, blood pressure 109/65, 92% on room air. Incentive spirometer encouraged. 08/30: The patient states she is not passing any gas but is burping quite frequently. She is taking pop and clear liquids only. She has positive bowel sounds and abdomen has mild generalized tenderness. She is complaining of gastric reflux and she is on Pepcid IV twice daily. Epidural and Roberto catheter remain in place. She has been afebrile, pulse ox 93% on room air, blood pressure 105/71, heart rate running in the 90s. White count is 11, hemoglobin 11.5, creatinine 0.77. Review Of Systems: Constitutional: No fever, no chills, no night sweats. No weight change. No weakness, fatigue or lethargy. No daytime sleepiness. EENT: No headache. No blurred vision or double vision, no loss of vision. No loss of Hearing, no ringing in the ears, no dizziness. No nasal drainage or congestion. No epistaxis. No sore throat. Lungs: No shortness of breath, cough, no sputum production. No wheezing. Cardiovascular: No chest pain, no lower extremity edema. No palpitations. No paroxysmal nocturnal dyspnea. No orthopnea. No lightheadedness or dizziness. No syncopal episodes. Abdominal: Reports abdominal pain. No nausea, vomiting. No diarrhea. No constipation. No bloody or tarry stools. Genitourinary: No dysuria, increased frequency, urgency. No urinary retention. Musculoskeletal: No myalgias. No muscle weakness, no gait dysfunction, no frequent falls. No back pain. No neck pain. Integumentary: Reports wounds, no lesions. No rash or pruritus. No unusual bruising. No change in hair or nails. Neurologic: No aphasia. No facial droop. No change in mentation. No head injury. No headache. No paralysis. No paresthesia. Psychiatric: No depression. No anxiety. No mood swings. Endocrine: No abnormal blood sugars. No weight change. No excessive sweating or thirst. No cold intolerance. No weight change. Objective - Vital Signs Vital signs: Vital Signs Temp 98.1 F 08/30/18 07:13 Pulse 92 08/30/18 07:13 Resp 14 08/30/18 00:24 BP 105/71 08/30/18 07:13 Pulse Ox 93 L 08/30/18 09:05 Intake & Output 08/29/18 08/30/18 08/30/18 18:59 06:59 18:59 Intake Total 700 1240 Output Total 900 550 Balance -200 690 Intake: Intake, IV Titration 700 1000 Amount Sodium Chloride 0.9% 1, 700 1000 000 ml @ 100 mls/hr IV . Q10H [facility] Rx#:[id number] Oral 240 Output: Urine 900 550 Other: Voiding Method Indwelling Catheter Indwelling Catheter Indwelling Catheter - Exam Gen: This is a 68-year-old female. She is resting in a recliner and appears to be comfortable and in no acute distress. HEENT: Head is atraumatic, normocephalic. Pupils equal, round. Sclerae is anicteric. NECK: Supple. No JVD. No lymphadenopathy. No thyromegaly. LUNGS: Clear to auscultation. No wheezes or rhonchi. No intercostal retractions. HEART: Regular rate and rhythm. No murmur. ABDOMEN: Soft. Bowel sounds are active. No masses. Mild generalized tenderness. Abdominal binder in place. EXTREMITIES: No pedal edema. No calf tenderness. SCDs in place. NEUROLOGICAL: Patient is awake, alert and oriented x3. Cranial nerves 2 through 12 are grossly intact. - Labs CBC & Chem 7: 08/30/18 06:40 08/30/18 06:40 Labs: Abnormal Lab Results - Last 24 Hours (Table) 08/30/18 Range/Units 06:40 WBC 11.0 H (3.8-10.6) k/uL RBC 3.70 L (3.80-5.40) m/uL Neutrophils # 8.8 H (1.3-7.7) k/uL Assessment and Plan Plan: 1. Colovesical fistula status post low anterior resection, postop day #3. Patient is currently on epidural for pain control, Roberto catheter in place, clear liquid diet, incentive spirometry. 2. Hypertension. Blood pressures are currently on the low side and lisinopril 10 mg daily will be held for now. Continue Vasotec IV as needed for systolic blood pressure greater than 160. 3. Hyperlipidemia. Patient is normally on Lipitor 20 mg at bedtime, on hold. 4. GI prophylaxis. Pepcid IV twice daily. 5. DVT prophylaxis. SCDs, early ambulation. Discharge plan: home Impression and plan of care have been directed as dictated by the signing physician. Nabila Morley nurse practitioner acting as scribe for signing physician.
--- NOTE | 2018-08-30 14:43 | P.PN ---
<Edna Redd Gareth - Last Filed: 08/30/18 14:35> Subjective Progress Note Date: 08/30/18 HISTORY OF PRESENT ILLNESS: 68-year-old female who underwent low anterior resection secondary to colovesicular fistula. She is POD #3. She states her pain is tolerable at this time. Denies passing flatus or BM. She reports heartburn and a lot of burping. Epidural is infusing. Patient has been up ambulating in the hallway. PHYSICAL EXAM: VITAL SIGNS: Currently stable. GENERAL: Well-developed in no acute distress. HEENT: No sclera icterus. Extraocular movements grossly intact. Moist buccal mucosa. Head is atraumatic, normocephalic. Hears conversational speech. No nasal d rainage. NECK: Supple without lymphadenopathy. CHEST: Non-labored respirations and equal bilateral excursions. CARDIOVASCULAR: Regular rate with regular rhythm. Palpable 2+ radial pulses. ABDOMEN: Soft. Nondistended. Dressing to abdomen with old bloody drainage. Positive bowel sounds. MUSCULOSKELETAL: No clubbing, cyanosis or edema. NEUROLOGIC: No focal or lateralizing signs. Cranial nerves II through XII grossly intact. PSYCH: Appropriate affect. Alert and oriented to person, place and time. SKIN: Well perfused. Good skin turgor. ASSESSMENT: 1. Colovesicular fistula, s/p low anterior resection PLAN: 1. Discontinue epidural 4 hours after last dose of heparin 2. Discontinue orourke catheter 3. Continue Entereg. Continue Reglan IV PRN. Continue Pepcid IV BID 4. Continue clear liquid diet until patient begins passing flatus 5. Increase activity as tolerated Nurse practitioner note has been reviewed by physician. Signing provider agrees with the documented findings, assessment, and plan of care. Objective - Vital Signs Vital signs: Vital Signs Temp 98.1 F 08/30/18 07:13 Pulse 92 08/30/18 07:13 Resp 14 08/30/18 00:24 BP 105/71 08/30/18 07:13 Pulse Ox 93 L 08/30/18 09:05 Intake & Output 08/29/18 08/30/18 08/30/18 18:59 06:59 18:59 Intake Total 700 1240 Output Total 900 550 720 Balance -200 690 -720 Intake: Intake, IV Titration 700 1000 Amount Sodium Chloride 0.9% 1, 700 1000 000 ml @ 100 mls/hr IV . Q10H [facility] Rx#:[id number] Oral 240 Output: Urine 900 550 720 Uretheral ([place]ke) 720 Other: Voiding Method Indwelling Catheter Indwelling Catheter Indwelling Catheter - Labs CBC & Chem 7: 08/30/18 06:40 08/30/18 06:40 Labs: Abnormal Lab Results - Last 24 Hours (Table) 08/30/18 Range/Units 06:40 WBC 11.0 H (3.8-10.6) k/uL RBC 3.70 L (3.80-5.40) m/uL Neutrophils # 8.8 H (1.3-7.7) k/uL <Albert Reyna - Last Filed: 08/30/18 17:22> Subjective As above. Patient doing well. Remove epidural today. Orourke catheter will come out tomorrow. Advance diet to full liquids. More gum chewing. More ambulation. Objective - Vital Signs Vital signs: Vital Signs Temp 98.3 F 08/30/18 14:54 Pulse 83 08/30/18 14:54 Resp 14 08/30/18 00:24 BP 136/73 08/30/18 14:54 Pulse Ox 95 08/30/18 14:54 Intake & Output 08/29/18 08/30/18 08/30/18 18:59 06:59 18:59 Intake Total 700 1240 800 Output Total 900 550 720 Balance -200 690 80 Intake: IV 800 Sodium Chloride 0.9% 1, 800 000 ml @ 100 mls/hr IV . Q10H [facility] Rx#:[id number] Intake, IV Titration 700 1000 Amount Sodium Chloride 0.9% 1, 700 1000 000 ml @ 100 mls/hr IV . Q10H [facility] Rx#:[id number] Oral 240 Output: Urine 900 550 720 Uretheral ([place]) 720 Other: Voiding Method Indwelling Catheter Indwelling Catheter Indwelling Catheter - Labs CBC & Chem 7: 08/30/18 06:40 08/30/18 06:40 Labs: Abnormal Lab Results - Last 24 Hours (Table) 08/30/18 Range/Units 06:40 WBC 11.0 H (3.8-10.6) k/uL RBC 3.70 L (3.80-5.40) m/uL Neutrophils # 8.8 H (1.3-7.7) k/uL
[2018-08-30] MEDS ORDERED: METOCLOPRAMIDE 5 MG/ML 2 ML VIAL IVP SCH (18:00)
[2018-08-30] MEDS: HYDROcodone/APAP 7.5-325MG 1 EACH TAB PO PRN ×2 (18:37→22:35)
[2018-08-30] MEDS: KETOROLAC 30 MG/ML 1 ML VIAL IVP SCH (19:19)
[2018-08-31] MEDS: KETOROLAC 30 MG/ML 1 ML VIAL IVP SCH ×5 (00:57→23:58)
[2018-08-31] MEDS: HEPARIN SODIUM,PORCINE 5,000 UNIT/ML 1 ML VIAL SQ SCH ×4 (00:58→23:58)
[2018-08-31] MEDS: LACTATED RINGERS 1,000 ML IV SCH (07:14)
[2018-08-31] MEDS: ALVIMOPAN 12 MG CAPSULE PO SCH ×2 (07:16→21:23)
[2018-08-31] MEDS: FAMOTIDINE 20 MG/2 ML VIAL IV SCH ×2 (07:16→21:23)
[2018-08-31] MEDS: SODIUM CHLORIDE 0.9% 1,000 ML IV SCH ×2 (07:16→22:18)
[2018-08-31] MEDS: HYDROcodone/APAP 7.5-325MG 1 EACH TAB PO PRN ×4 (09:52→22:22)
--- NOTE | 2018-08-31 11:40 | P.PN ---
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 She is POD #4. Patient reports passing flatus this morning. No BM. tolerating full liquid diet. Denies nausea. Epidural has been discontinued. Pain is tolerable at this time. WBC 11.0. Hemoglobin 11.5. PHYSICAL EXAM: VITAL SIGNS: Currently stable. GENERAL: Well-developed in no acute distress. HEENT: No sclera icterus. Extraocular movements grossly intact. Moist buccal mucosa. Head is atraumatic, normocephalic. Hears conversational speech. No nasal drainage. NECK: Supple without lymphadenopathy. CHEST: Non-labored respirations and equal bilateral excursions. CARDIOVASCULAR: Regular rate with regular rhythm. Palpable 2+ radial pulses. ABDOMEN: Soft. Nondistended. Dressing to abdomen noted. Positive bowel sounds. MUSCULOSKELETAL: No clubbing, cyanosis or edema. NEUROLOGIC: No focal or lateralizing signs. Cranial nerves II through XII grossly intact. PSYCH: Appropriate affect. Alert and oriented to person, place and time. SKIN: Well perfused. Good skin turgor. ASSESSMENT: 1. Colovesicular fistula, s/p low anterior resection PLAN: 1. Discontinue Roberto catheter 3. Continue Entereg. Continue Reglan IV PRN. Continue Pepcid IV BID 4. Continue full liquid diet 5. Increase activity as tolerated Nurse practitioner note has been reviewed by physician. Signing provider agrees with the documented findings, assessment, and plan of care. Objective - Vital Signs Vital signs: Vital Signs Temp 98.4 F 08/31/18 07:00 Pulse 78 08/31/18 07:00 Resp 12 08/31/18 07:00 BP 164/50 08/31/18 07:00 Pulse Ox 95 08/31/18 07:00 Intake & Output 08/30/18 08/31/18 08/31/18 18:59 06:59 18:59 Intake Total 800 Output Total 720 800 750 Balance 80 -800 -750 Intake: IV 800 Sodium Chloride 0.9% 1, 800 000 ml @ 100 mls/hr IV . Q10H [facility] Rx#:[id number] Output: Urine 720 800 750 Uretheral (Roberto) 720 750 Other: Voiding Method Indwelling Catheter Indwelling Catheter Indwelling Catheter # Voids 2 # Bowel Movements 1 - Labs CBC & Chem 7: 08/30/18 06:40 08/30/18 06:40 <Albert Reyna - Last Filed: 08/31/18 16:11> Subjective Patient doing well today. She had multiple loose stools. Tolerating diet. Pain is 4 out of 10. Labs not ordered today. We'll recheck labs tomorrow. Ambulate. Objective - Vital Signs Vital signs: Vital Signs Temp 98.6 F 08/31/18 15:00 Pulse 76 08/31/18 15:00 Resp 12 08/31/18 15:00 BP 162/84 08/31/18 15:00 Pulse Ox 95 08/31/18 15:00 Intake & Output 08/30/18 08/31/18 08/31/18 18:59 06:59 18:59 Intake Total 800 Output Total 720 800 750 Balance 80 -800 -750 Intake: IV 800 Sodium Chloride 0.9% 1, 800 000 ml @ 100 mls/hr IV . Q10H [facility] Rx#:[id number] Output: Urine 720 800 750 Uretheral (Roberto) 720 750 Other: Voiding Method Indwelling Catheter Indwelling Catheter Toilet # Voids 2 # Bowel Movements 1 - Labs CBC & Chem 7: 08/30/18 06:40 08/30/18 06:40
--- NOTE | 2018-08-31 14:49 | P.PN ---
Subjective Progress Note Date: 08/31/18 This is a 68-year-old female patient of Dr. Jackson with past medical history of hypertension, hyperlipidemia, diverticulitis. Patient had a recent hospitalization in June for diverticulitis. She has now been brought in under the care of Dr. Reyna status post low anterior resection for colovesical fistula. Patient denies having any nausea. She does complain of some reflux which she is on Pepcid. Epidural remains in place as well as Roberto catheter. SCDs in place for DVT prophylaxis. Incentive spirometry in place. 08/29: Patient evaluated today, noted to be resting in bed comfortably, she reports pain is better controlled today, she continues with the epidural catheter for pain management. Patient has been ambulating in the hallway, she denies passing gas or having a bowel movement yet, bowel sounds are active, dressing shows some shadow drainge, abdomen is soft. She is tolerating a clear liquid diet without nausea or vomiting. WBCs 13.2, sodium 135, potassium 4.3, BUN 13, creatinine 0.78. She remains afebrile, heart rate in the 80s, blood pressure 109/65, 92% on room air. Incentive spirometer encouraged. 08/30: The patient states she is not passing any gas but is burping quite frequently. She is taking pop and clear liquids only. She has positive bowel sounds and abdomen has mild generalized tenderness. She is complaining of gastric reflux and she is on Pepcid IV twice daily. Epidural and Roberto catheter remain in place. She has been afebrile, pulse ox 93% on room air, blood pressure 105/71, heart rate running in the 90s. White count is 11, hemoglobin 11.5, creatinine 0.77. 08/31: Patient is currently on full liquid diet and tolerating. She states she did pass gas and bowel movement this morning. Patient's epidural has been discontinued. Her pain is mostly controlled. Recommended the patient start taking yogurt. She has been afebrile, blood pressure 164/50, pulse ox 95% on room air, heart rate running in the 60s and 70s. White count is 11, hemoglobin 11.5, basic metabolic within normal limits. Roberto catheter to be removed today. Review Of Systems: Constitutional: No fever, no chills, no night sweats. No weight change. No weakness, fatigue or lethargy. EENT: No headache. No blurred vision or double vision, no loss of vision. No loss of Hearing, no ringing in the ears, no dizziness. No nasal drainage or congestion. No epistaxis. No sore throat. Lungs: No shortness of breath, cough, no sputum production. No wheezing. Cardiovascular: No chest pain, no lower extremity edema. No palpitations. No paroxysmal nocturnal dyspnea. No orthopnea. No lightheadedness or dizziness. No syncopal episodes. Abdominal: Reports abdominal pain. No nausea, vomiting. No diarrhea. No constipation. No bloody or tarry stools. Genitourinary: No dysuria, increased frequency, urgency. No urinary retention. Musculoskeletal: No myalgias. No muscle weakness, no gait dysfunction, no frequent falls. No back pain. No neck pain. Integumentary: Reports wounds, no lesions. No rash or pruritus. No unusual bruising. No change in hair or nails. Neurologic: No aphasia. No facial droop. No change in mentation. No head injury. No headache. No paralysis. No paresthesia. Psychiatric: No depression. No anxiety. No mood swings. Endocrine: No abnormal blood sugars. No weight change. No excessive sweating or thirst. No cold intolerance. No weight change. Objective - Vital Signs Vital signs: Vital Signs Temp 98.4 F 08/31/18 07:00 Pulse 78 08/31/18 07:00 Resp 12 08/31/18 07:00 BP 164/50 08/31/18 07:00 Pulse Ox 95 08/31/18 07:00 Intake & Output 08/30/18 08/31/18 08/31/18 18:59 06:59 18:59 Intake Total 800 Output Total 720 800 750 Balance 80 -800 -750 Intake: IV 800 Sodium Chloride 0.9% 1, 800 000 ml @ 100 mls/hr IV . Q10H [facility] Rx#:[id number] Output: Urine 720 800 750 Uretheral (Roberto) 720 750 Other: Voiding Method Indwelling Catheter Indwelling Catheter Indwelling Catheter - Exam Gen: This is a 68-year-old female. She is resting in a recliner and appears to be comfortable and in no acute distress. HEENT: Head is atraumatic, normocephalic. Pupils equal, round. Sclerae is anicteric. NECK: Supple. No JVD. No lymphadenopathy. No thyromegaly. LUNGS: Clear to auscultation. No wheezes or rhonchi. No intercostal retractions. HEART: Regular rate and rhythm. No murmur. ABDOMEN: Soft. Bowel sounds are active. No masses. Mild generalized tenderness. EXTREMITIES: No pedal edema. No calf tenderness. SCDs in place. NEUROLOGICAL: Patient is awake, alert and oriented x3. Cranial nerves 2 through 12 are grossly intact. - Labs CBC & Chem 7: 08/30/18 06:40 08/30/18 06:40 Assessment and Plan Plan: 1. Colovesical fistula status post low anterior resection, postop day #4. Epidural discontinued, Roberto catheter to be removed, full liquid diet to start at dinner, continue incentive spirometry. 2. Hypertension. Blood pressures are currently on the low side and lisinopril 10 mg daily will be held for now. Continue Vasotec IV as needed for systolic blood pressure greater than 160. 3. Hyperlipidemia. Patient is normally on Lipitor 20 mg at bedtime, on hold. 4. GI prophylaxis. Pepcid IV twice daily. 5. DVT prophylaxis. SCDs, early ambulation. Discharge plan: home Impression and plan of care have been directed as dictated by the signing physician. Nabila Morley nurse practitioner acting as scribe for signing physician.
[2018-08-31] MEDS: LISINOPRIL 10 MG TAB PO SCH (17:03)
[2018-09-01] MEDS: KETOROLAC 30 MG/ML 1 ML VIAL IVP SCH ×2 (05:55→12:21)
[2018-09-01] MEDS: HYDROcodone/APAP 7.5-325MG 1 EACH TAB PO PRN ×4 (05:56→21:00)
[2018-09-01] MEDS: LACTATED RINGERS 1,000 ML IV SCH (05:59)
[2018-09-01 07:32] LABS: Basophils % (A) 0 %; Eosinophils # (A) 0.6 k/uL (0-0.7); Eosinophils % (A) 7 %; HCT 35.7 % (34.0-46.0); HGB 11.6 gm/dL (11.4-16.0); Lymphocytes % (A) 12 %; MCH 30.7 pg (25.0-35.0); MCHC 32.6 g/dL (31.0-37.0); MCV 94.2 fL (80.0-100.0); Mean Platelet Volume 7.4; Monocytes # (A) 0.6 k/uL (0-1.0); Monocytes % (A) 7 %; Neutrophils # (A) 6.3 k/uL (1.3-7.7); Neutrophils % (A) 73 %; Platelet Count 213 k/uL (150-450); RBC 3.79 m/uL (3.80-5.40); RDW 13.5 % (11.5-15.5); WBC 8.6 k/uL (3.8-10.6)
[2018-09-01 07:48] LABS: Anion Gap 4 mmol/L; Blood Urea Nitrogen 6 mg/dL (7-17); Calcium 8.9 mg/dL (8.4-10.2); Carbon Dioxide 33 mmol/L (22-30); Chloride 103 mmol/L (98-107); Glucose 98 mg/dL (74-99); Potassium 3.8 mmol/L (3.5-5.1); Sodium 140 mmol/L (137-145)
[2018-09-01] MEDS: FAMOTIDINE 20 MG/2 ML VIAL IV SCH (08:32)
[2018-09-01] MEDS: ALVIMOPAN 12 MG CAPSULE PO SCH ×3 (08:33→20:34)
[2018-09-01] MEDS: LISINOPRIL 10 MG TAB PO SCH (08:33)
[2018-09-01] MEDS: HEPARIN SODIUM,PORCINE 5,000 UNIT/ML 1 ML VIAL SQ SCH ×3 (08:33→23:16)
[2018-09-01] MEDS: SODIUM CHLORIDE 0.9% 1,000 ML IV SCH (08:39)
--- NOTE | 2018-09-01 12:12 | P.PN ---
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 She is POD #5. Patient reports having multiple episodes of loose stools yesterday evening. She reports 3 loose stools this morning, but states overall it is improving. Tolerating low fiber diet. She did report some very mild nausea this morning, but states it may be secondary to the pain medications. Pain is tolerable at this time. WBC 8.6. Hemoglobin 11.6. She has been ambulating in the hallway. Vital signs are stable. PHYSICAL EXAM: VITAL SIGNS: Currently stable. GENERAL: Well-developed in no acute distress. HEENT: No sclera icterus. Extraocular movements grossly intact. Moist buccal mucosa. Head is atraumatic, normocephalic. Hears conversational speech. No nasal drainage. NECK: Supple without lymphadenopathy. CHEST: Non-labored respirations and equal bilateral excursions. CARDIOVASCULAR: Regular rate with regular rhythm. Palpable 2+ radial pulses. ABDOMEN: Soft. Nondistended. Dressing to abdomen noted. Positive bowel sounds. MUSCULOSKELETAL: No clubbing, cyanosis or edema. NEUROLOGIC: No focal or lateralizing signs. Cranial nerves II through XII grossly intact. PSYCH: Appropriate affect. Alert and oriented to person, place and time. SKIN: Well perfused. Good skin turgor. ASSESSMENT: 1. Colovesicular fistula, s/p low anterior resection PLAN: 1. Hold Entereg secondary to multiple loose stools 2. Patient may shower. Change dressing post shower 3. Continue low fiber diet. Patient encouraged to eat something small prior to taking [place]. Patient instructed to notify staff if nausea persists or worsens 4. Activity as tolerated. Patient encouraged to be OOB and ambulatory 5. Incentive spirometry Nurse practitioner note has been reviewed by physician. Signing provider agrees with the documented findings, assessment, and plan of care. Objective - Vital Signs Vital signs: Vital Signs Temp 97.4 F L 09/01/18 07:00 Pulse 99 09/01/18 07:00 Resp 18 09/01/18 08:00 BP 137/77 09/01/18 07:00 Pulse Ox 98 09/01/18 00:26 Intake & Output 0309/01/18 09/01/18 18:59 06:59 18:59 Intake Total 1620 Output Total 750 Balance -750 1620 Intake: Oral 1620 Output: Urine 750 Uretheral (Roberto) 750 Other: Voiding Method Toilet Toilet Toilet # Voids 2 # Bowel Movements 1 - Labs CBC & Chem 7: 09/01/18 06:54 09/01/18 06:54 Labs: Abnormal Lab Results - Last 24 Hours (Table) 09/01/18 09/01/18 Range/Units 06:54 06:54 RBC 3.79 L (3.80-5.40) m/uL Carbon Dioxide 33 H (22-30) mmol/L BUN 6 L (7-17) mg/dL <Albert Reyna - Last Filed: 09/01/18 18:36> Subjective As above. Patient doing well today. Continue low fiber diet. Ambulate. Antic ipate probable discharge tomorrow. Objective - Vital Signs Vital signs: Vital Signs Temp 98.7 F 09/01/18 15:00 Pulse 77 09/01/18 15:00 Resp 16 09/01/18 15:57 BP 143/79 09/01/18 15:00 Pulse Ox 96 09/01/18 15:00 Intake & Output 08/31/18 09/01/18 09/01/18 18:59 06:59 18:59 Intake Total 1620 Output Total 750 Balance -750 1620 Intake: Oral 1620 Output: Urine 750 Uretheral (Roberto) 750 Other: Voiding Method Toilet Toilet Toilet # Voids 2 2 # Bowel Movements 1 - Labs CBC & Chem 7: 09/01/18 06:54 09/01/18 06:54 Labs: Abnormal Lab Results - Last 24 Hours (Table) 09/01/18 09/01/18 Range/Units 06:54 06:54 RBC 3.79 L (3.80-5.40) m/uL Carbon Dioxide 33 H (22-30) mmol/L BUN 6 L (7-17) mg/dL
--- NOTE | 2018-09-01 14:02 | P.PN ---
Subjective Progress Note Date: 09/01/18 This is a 68-year-old female patient of Dr. Jackson with past medical history of hypertension, hyperlipidemia, diverticulitis. Patient had a recent hospitalization in June for diverticulitis. She has now been brought in under the care of Dr. Reyna status post low anterior resection for colovesical fistula. Patient denies having any nausea. She does complain of some reflux which she is on Pepcid. Epidural remains in place as well as Roberto catheter. SCDs in place for DVT prophylaxis. Incentive spirometry in place. 08/29: Patient evaluated today, noted to be resting in bed comfortably, she reports pain is better controlled today, she continues with the epidural catheter for pain management. Patient has been ambulating in the hallway, she denies passing gas or having a bowel movement yet, bowel sounds are active, dressing shows some shadow drainge, abdomen is soft. She is tolerating a clear liquid diet without nausea or vomiting. WBCs 13.2, sodium 135, potassium 4.3, BUN 13, creatinine 0.78. She remains afebrile, heart rate in the 80s, blood pressure 109/65, 92% on room air. Incentive spirometer encouraged. 08/30: The patient states she is not passing any gas but is burping quite frequently. She is taking pop and clear liquids only. She has positive bowel sounds and abdomen has mild generalized tenderness. She is complaining of gastric reflux and she is on Pepcid IV twice daily. Epidural and Roberto catheter remain in place. She has been afebrile, pulse ox 93% on room air, blood pressure 105/71, heart rate running in the 90s. White count is 11, hemoglobin 11.5, creatinine 0.77. 08/31: Patient is currently on full liquid diet and tolerating. She states she did pass gas and bowel movement this morning. Patient's epidural has been discontinued. Her pain is mostly controlled. Recommended the patient start taking yogurt. She has been afebrile, blood pressure 164/50, pulse ox 95% on room air, heart rate running in the 60s and 70s. White count is 11, hemoglobin 11.5, basic metabolic within normal limits. Roberto catheter to be removed today. 09/01: Patient has been afebrile, blood pressure 137/77, pulse ox 98% on room air, pulse running between 70s and 90s. The patient states that she has a little bit nauseated but thinks this is related to [place]. She is burping quite a bit today. She has had a bowel movement and passing flatus. She is currently on a low fiber diet. Lisinopril was resumed yesterday afternoon due to blood pressure rising. Sodium 141, chloride 3.8, CO2 33, chloride 103, BUN 6 and creatinine 0.77. White count 8.6, hemoglobin 11.6 and platelet count 213. Anticipate the patient will be ready for discharge next 24-48 hours. Review Of Systems: Constitutional: No fever, no chills, no night sweats. No weight change. No weakness, fatigue or lethargy. EENT: No headache. No blurred vision or double vision, no loss of vision. No loss of Hearing, no ringing in the ears, no dizziness. No nasal drainage or congestion. No epistaxis. No sore throat. Lungs: No shortness of breath, cough, no sputum production. No wheezing. Cardiovascular: No chest pain, no lower extremity edema. No palpitations. No paroxysmal nocturnal dyspnea. No orthopnea. No lightheadedness or dizziness. No syncopal episodes. Abdominal: Reports abdominal pain. No nausea, vomiting. No diarrhea. No constipation. No bloody or tarry stools. Genitourinary: No dysuria, increased frequency, urgency. No urinary retention. Musculoskeletal: No myalgias. No muscle weakness, no gait dysfunction, no frequent falls. No back pain. No neck pain. Integumentary: Reports wounds, no lesions. No rash or pruritus. No unusual bruising. No change in hair or nails. Neurologic: No aphasia. No facial droop. No change in mentation. No head injury. No headache. No paralysis. No paresthesia. Psychiatric: No depression. No anxiety. No mood swings. Endocrine: No abnormal blood sugars. No weight change. No excessive sweating or thirst. No cold intolerance. No weight change. Objective - Vital Signs Vital signs: Vital Signs Temp 97.4 F L 09/01/18 07:00 Pulse 99 09/01/18 07:00 Resp 18 09/01/18 08:00 BP 137/77 09/01/18 07:00 Pulse Ox 98 09/01/18 00:26 Intake & Output 08/31/18 09/01/18 09/01/18 18:59 06:59 18:59 Intake Total 1620 Output Total 750 Balance -750 1620 Intake: Oral 1620 Output: Urine 750 Uretheral (Roberto) 750 Other: Voiding Method Toilet Toilet Toilet # Voids 2 # Bowel Movements 1 - Exam Gen: This is a 68-year-old female. She is resting in a recliner and appears to be comfortable and in no acute distress. HEENT: Head is atraumatic, normocephalic. Pupils equal, round. Sclerae is anicteric. NECK: Supple. No JVD. No lymphadenopathy. No thyromegaly. LUNGS: Clear to auscultation. No wheezes or rhonchi. No intercostal retractions. HEART: Regular rate and rhythm. No murmur. ABDOMEN: Soft. Bowel sounds are active. No masses. Mild generalized tenderness. Dressing in place EXTREMITIES: No pedal edema. No calf tenderness. SCDs in place. NEUROLOGICAL: Patient is awake, alert and oriented x3. Cranial nerves 2 through 12 are grossly intact. - Labs CBC & Chem 7: 09/01/18 06:54 09/01/18 06:54 Labs: Abnormal Lab Results - Last 24 Hours (Table) 09/01/18 09/01/18 Range/Units 06:54 06:54 RBC 3.79 L (3.80-5.40) m/uL Carbon Dioxide 33 H (22-30) mmol/L BUN 6 L (7-17) mg/dL Assessment and Plan Plan: 1. Colovesical fistula status post low anterior resection, postop day #4. Epidural discontinued, Roberto catheter removed, full liquid diet to start at dinner, continue incentive spirometry. 2. Hypertension. Patient has been resumed on lisinopril 10 mg daily. Continue Vasotec IV as needed for systolic blood pressure greater than 160. 3. Hyperlipidemia. Patient is normally on Lipitor 20 mg at bedtime, on hold. 4. GI prophylaxis. Pepcid IV twice daily. 5. DVT prophylaxis. SCDs, early ambulation. Discharge plan: home in the next 24-48 hours Impression and plan of care have been directed as dictated by the signing physician. Nabila Morley nurse practitioner acting as scribe for signing physician.
[2018-09-01] MEDS ORDERED: diphenhydrAMINE 25 MG CAP PO PRN (15:08)
[2018-09-01] MEDS: FAMOTIDINE 20 MG TAB PO SCH (20:39)
[2018-09-02] MEDS: HYDROcodone/APAP 7.5-325MG 1 EACH TAB PO PRN ×3 (02:25→13:44)
[2018-09-02] MEDS: LISINOPRIL 10 MG TAB PO SCH (07:26)
[2018-09-02] MEDS: HEPARIN SODIUM,PORCINE 5,000 UNIT/ML 1 ML VIAL SQ SCH (07:26)
[2018-09-02] MEDS: ALVIMOPAN 12 MG CAPSULE PO SCH (07:27)
[2018-09-02] MEDS: FAMOTIDINE 20 MG TAB PO SCH (07:27)
[2018-09-02 07:50] VITALS: RESP 16
--- NOTE | 2018-09-02 12:47 | P.DS ---
<Edna Redd - Last Filed: 09/02/18 12:44> Providers Expected date of discharge: 09/02/18 Hospital Course: 68-year-old female who underwent low anterior resection secondary to colovesicular fistula. Patient did well postoperatively without any immediate complications. She has been tolerating oral intake and having bowel movements. Pain controlled with oral medications. Hemodynamically stable. WBC within normal limits. She is stable for discharge home today. Please see EMR for further hospital course details. Discharge diagnosis: 1. Colovesicular fistula, s/p low anterior resection Nurse practitioner note has been reviewed by physician. Signing provider agrees with the documented findings, assessment, and plan of care. Patient Condition at Discharge: Stable Plan - Discharge Summary Discharge Rx Participant: No New Discharge Prescriptions: New HYDROcodone/APAP 7.5-325MG [[place] 7.5-325] 1 tab PO Q4H PRN 3 Days #18 tab PRN Reason: Pain Docusate [Colace] 100 mg PO BID PRN #30 capsule PRN Reason: Constipation Continue Multivitamins, Thera [Multivitamin (formulary)] 1 tab PO DAILY Aspirin EC [Ecotrin Low Dose] 81 mg PO DAILY Atorvastatin [Lipitor] 20 mg PO HS Lisinopril 10 mg PO DAILY Cholecalciferol [Vitamin D3] 1,000 unit PO DAILY Ascorbic Acid [Vitamin C] 500 mg PO DAILY Discharge Medication List Aspirin EC [Ecotrin Low Dose] 81 mg PO DAILY 03/27/14 [History] Atorvastatin [Lipitor] 20 mg PO HS 03/27/14 [History] Multivitamins, Thera [Multivitamin (formulary)] 1 tab PO DAILY 03/27/14 [History] Lisinopril 10 mg PO DAILY 07/24/15 [History] Cholecalciferol [Vitamin D3] 1,000 unit PO DAILY 04/27/18 [History] Ascorbic Acid [Vitamin C] 500 mg PO DAILY 07/20/18 [History] Docusate [Colace] 100 mg PO BID PRN #30 capsule 09/02/18 [Rx] HYDROcodone/APAP 7.5-325MG [[place] 7.5-325] 1 tab PO Q4H PRN 3 Days #18 tab 09/02/18 [Rx] Follow up Appointment(s)/Referral(s): Albert Reyna MD [Medical Doctor] - 09/09/18 9:45 am Zelalem Jackson MD [Primary Care Provider] - 1 Week (Office is closed. Please call to set up appt.) Patient Instructions/Handouts: Diverticulitis (DC), Bowel Resection (DC) Activity/Diet/Wound Care/Special Instructions: Start probiotic at home. Sport socks for lower extremity edema. Low fiber diet. No driving while taking [place] No lifting over 10 pounds You may shower. No soaking or tub baths Very light activity until you are reevaluated at your follow up appointment with your surgeon Discharge Disposition: HOME SELF-CARE <Albert Reyna - Last Filed: 09/02/18 17:49> Providers Date of admission: 08/27/18 09:08 Attending physician: Albert Reyna Consults: 08/27/18 15:11 Consult Physician Routine Consulting Provider: Zelalem Jackson Consult Reason/Comments: Medical management Do you want consulting provider notified?: Yes Primary care physician: Zelalem Jackson Hospital Course: As above. Patient doing well at this time. Tolerating diet. She was discharged prior to my evaluation today. Follow-up one week.
[2018-09-02 14:39] VITALS: BP 157/81; PULSE 77; TEMP 99.1
--- NOTE | 2018-09-02 15:05 | P.PN ---
Subjective Progress Note Date: 09/02/18 This is a 68-year-old female patient of Dr. Jackson with past medical history of hypertension, hyperlipidemia, diverticulitis. Patient had a recent hospitalization in June for diverticulitis. She has now been brought in under the care of Dr. Reyna status post low anterior resection for colovesical fistula. Patient denies having any nausea. She does complain of some reflux which she is on Pepcid. Epidural remains in place as well as Roberto catheter. SCDs in place for DVT prophylaxis. Incentive spirometry in place. 08/29: Patient evaluated today, noted to be resting in bed comfortably, she reports pain is better controlled today, she continues with the epidural catheter for pain management. Patient has been ambulating in the hallway, she denies passing gas or having a bowel movement yet, bowel sounds are active, dressing shows some shadow drainge, abdomen is soft. She is tolerating a clear liquid diet without nausea or vomiting. WBCs 13.2, sodium 135, potassium 4.3, BUN 13, creatinine 0.78. She remains afebrile, heart rate in the 80s, blood pressure 109/65, 92% on room air. Incentive spirometer encouraged. 08/30: The patient states she is not passing any gas but is burping quite frequently. She is taking pop and clear liquids only. She has positive bowel sounds and abdomen has mild generalized tenderness. She is complaining of gastric reflux and she is on Pepcid IV twice daily. Epidural and Roberto catheter remain in place. She has been afebrile, pulse ox 93% on room air, blood pressure 105/71, heart rate running in the 90s. White count is 11, hemoglobin 11.5, creatinine 0.77. 08/31: Patient is currently on full liquid diet and tolerating. She states she did pass gas and bowel movement this morning. Patient's epidural has been discontinued. Her pain is mostly controlled. Recommended the patient start taking yogurt. She has been afebrile, blood pressure 164/50, pulse ox 95% on room air, heart rate running in the 60s and 70s. White count is 11, hemoglobin 11.5, basic metabolic within normal limits. Roberto catheter to be removed today. 09/01: Patient has been afebrile, blood pressure 137/77, pulse ox 98% on room air, pulse running between 70s and 90s. The patient states that she has a little bit nauseated but thinks this is related to [place]. She is burping quite a bit today. She has had a bowel movement and passing flatus. She is currently on a low fiber diet. Lisinopril was resumed yesterday afternoon due to blood pressure rising. Sodium 141, chloride 3.8, CO2 33, chloride 103, BUN 6 and creatinine 0.77. White count 8.6, hemoglobin 11.6 and platelet count 213. Anticipate the patient will be ready for discharge next 24-48 hours. 09/02: Patient is tolerating her diet. She denies any nausea. She states she's had 4 small bowel movements this morning. She denies having any fever or chills. No cough. She states she is feeling a little bit better each day. She has been afebrile, heart rate running in 70s and 80s, blood pressure 147/75, pulse ox 96% on room air. Anticipate she'll be ready for discharge later today. Review Of Systems: Constitutional: No fever, no chills, no night sweats. No weight change. No wea kness, fatigue or lethargy. EENT: No headache. No blurred vision or double vision, no loss of vision. No loss of Hearing, no ringing in the ears, no dizziness. No nasal drainage or congestion. No epistaxis. No sore throat. Lungs: No shortness of breath, cough, no sputum production. No wheezing. Cardiovascular: No chest pain, no lower extremity edema. No palpitations. No paroxysmal nocturnal dyspnea. No orthopnea. No lightheadedness or dizziness. No syncopal episodes. Abdominal: denies abdominal pain. No nausea, vomiting. No diarrhea. No constipation. No bloody or tarry stools. Genitourinary: No dysuria, increased frequency, urgency. No urinary retention. Musculoskeletal: No myalgias. No muscle weakness, no gait dysfunction, no frequent falls. No back pain. No neck pain. Integumentary: Reports wounds, no lesions. No rash or pruritus. No unusual bruising. No change in hair or nails. Neurologic: No aphasia. No facial droop. No change in mentation. No head injury. No headache. No paralysis. No paresthesia. Psychiatric: No depression. No anxiety. No mood swings. Endocrine: No abnormal blood sugars. No weight change. No excessive sweating or thirst. No cold intolerance. No weight change. Objective - Vital Signs Vital signs: Vital Signs Temp 99.2 F 09/02/18 06:57 Pulse 78 09/02/18 06:57 Resp 16 09/02/18 06:57 BP 147/75 09/02/18 06:57 Pulse Ox 96 09/02/18 06:57 Intake & Output 09/01/18 09/02/18 09/02/18 18:59 06:59 18:59 Intake Total 1080 Balance 1080 Intake: Oral 1080 Other: Voiding Method Toilet Toilet Toilet # Voids 2 2 1 - Exam Gen: This is a 68-year-old female. She is resting in a recliner. HEENT: Head is atraumatic, normocephalic. Pupils equal, round. Sclerae is an icteric. NECK: Supple. No JVD. No lymphadenopathy. No thyromegaly. LUNGS: Clear to auscultation. No wheezes or rhonchi. No intercostal retractions. HEART: Regular rate and rhythm. No murmur. ABDOMEN: Soft. Bowel sounds are active. No masses. Mild generalized tenderness. Dressing in place EXTREMITIES: No pedal edema. No calf tenderness. SCDs in place. NEUROLOGICAL: Patient is awake, alert and oriented x3. Cranial nerves 2 through 12 are grossly intact. - Labs CBC & Chem 7: 09/01/18 06:54 09/01/18 06:54 Assessment and Plan Plan: 1. Colovesical fistula status post low anterior resection, postop day #6. Epidural discontinued, Roberto catheter removed, continue incentive spirometry. 2. Hypertension. Patient has been resumed on lisinopril 10 mg daily. Continue Vasotec IV as needed for systolic blood pressure greater than 160. 3. Hyperlipidemia. Patient is normally on Lipitor 20 mg at bedtime, on hold. 4. GI prophylaxis. Pepcid IV twice daily. 5. DVT prophylaxis. SCDs, early ambulation. Discharge plan: home Impression and plan of care have been directed as dictated by the signing ph ysician. Nabila Morley nurse practitioner acting as scribe for signing physician.
[2018-09-02 15:27] VITALS: BMI 29.1
== END 2018-09-02 16:57 | disposition home or self-care (01) | DRG 982 ==
LOC: 2ORMAIN 09:08 → 4SSUR 14:41
PROVIDERS: ADMIT Surgery; ATTEND Surgery
PROC: 0DTN0ZZ Resection of Sigmoid Colon, Open Approach (ICD-10-PCS; principal; 2018-08-27 11:00)
DX: N32.1 Vesicointestinal fistula (principal); K57.92 Diverticulitis of intestine, part unspecified, without perforation or abscess without bleeding; E78.5 Hyperlipidemia, unspecified; I10 Essential (primary) hypertension; K21.9 Gastro-esophageal reflux disease without esophagitis; R11.0 Nausea; Z79.82 Long term (current) use of aspirin; Z79.899 Other long term (current) drug therapy; Z88.0 Allergy status to penicillin; Z88.1 Allergy status to other antibiotic agents; Z88.2 Allergy status to sulfonamides; Z88.8 Allergy status to other drugs, medicaments and biological substances; Z82.49 Family history of ischemic heart disease and other diseases of the circulatory system; Z80.9 Family history of malignant neoplasm, unspecified; Z82.0 Family history of epilepsy and other diseases of the nervous system; Z90.710 Acquired absence of both cervix and uterus
CPT/HCPCS: 36410; 76937; 80048; 85025; 86850; 86900; 86901; 88307; 94760

== ENCOUNTER → 2019-01-10 | Outpatient (CLI) | payer MEDICARE ==
[2019-01-10 14:54] VITALS: BP 165/81; PULSE 74; RESP 16
--- NOTE | 2019-01-10 16:04 | P.PAINCN ---
History of Present Illness - Reason for Consult Consult date: 01/10/19 - History of Present Illness This is a 68-year-old female patient referred by Dr. Vitale for chronic pain in low back with radiation to bilateral buttocks, right greater than left. Patient has been taking medications from primary care physician including [id number] Tylenol and Aleve medications with some relief. Patient denies adverse drug effects from medications. Patient also denies new-onset weakness, bowel/bladder incontinence, or any other signs or symptoms of cauda equina syndrome. There are no signs of acute intoxication, and no indications of medication diversion or overuse. She has had pain in the low back radiating to the buttocks for about 4 years. Pain began without any inciting event. Pain is worse with walking, sitting, overexertion. No relieving factors identified. She was evaluated [facility] and underwent some lumbar injections with some benefit approximately 3 years ago. She has also undergone bilateral greater trochanter injections, last done about 6 months ago with some benefit. She went to physical therapy over 1 year ago, and does home exercise program intermittently. Patient HAS NOT had surgery. In addition to above, 13-point review of systems is also negative for chest pain, shortness of breath, changes in vision, changes in hearing, new onset weakness, abdominal pain, diarrhea, extreme fatigue, malaise, fever, skin changes, homicidal or suicidal ideation, or bowel or bladder incontinence. Vital Signs: Reviewed in EMR GENERAL: Well appearing, in no acute distress PSYCH: Mood and affect is appropriate. Awake, alert, and oriented SKIN: Skin color, texture, turgor normal, no rashes or lesions HEENT: Normocephalic, atraumatic. EOM intact CV: No pedal edema RESP: Respirations are unlabored, no audible wheezing GI: Abdomen non-distended MUSCULOSKELETAL: Bilateral upper and lower extremity strength is normal and symmetric. No atrophy or tone abnormalities are noted. Lumbar spine: Straight leg raising in the sitting position is negative for radicular pain. No pain to palpation over the lumbar spine and paraspinous muscles. Negative for pain with facet loading and back extension/rotation. Normal range of motion without pain reproduction Buttocks: Tenderness to palpation over the PSIS, Alex test is positive bilaterally. Tenderness over bilateral ischial tuberosities Extremities: Peripheral joint ROM is full and pain free without obvious instability or laxity in all four extremities. No edema or skin discolorations noted. Gait: Gait is normal NEUR: Bilateral lower extremity coordination and muscle stretch reflexes are physiologic and symmetric. Negative clonus. No loss of sensation is noted. Cranial nerves are grossly intact. Imaging: MRI lumbar spine done on 07/13/2018 and Gerardo French shows multilevel facet arthropathy as well as disc bulges with mild neuroforaminal narrowing. Assessment: 1. Bilateral sacroiliitis 2. Bilateral ischial bursitis 3. Lumbar spondylosis without radiculopathy or myelopathy Plan: 1. Procedure: Will schedule bilateral SI joint injections. We discussed that this could potentially provide the patient with 3-4 months of relief, however if it gives her significant relief that is not sustained, would consider bilateral SI joint radiofrequency ablation. If no significant benefit from this, would consider bilateral ischial tuberosity bursa injections. 2. Counseling: The patient was counseled extensively on BODY MASS INDEX, EXERCISE. Specifically, the patient was instructed regarding the importance of weight control, and exercise in the context of both chronic pain and overall health. 3. Consultations: None 4. Investigations: MRI lumbar spine reviewed 5. Medications: H and can continue when necessary Tylenol and Aleve 6. Disposition: For procedure . 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 Bowel resection - August 2018 Past Anesthesia/Blood Transfusion Reactions: No Reported Reaction Past Psychological History: No Psychological Hx Reported Additional Psychological History / Comment(s): Pt resides with her spouse. She is independent. Smoking Status: Never smoker Past Alcohol Use History: Rare Additional Past Alcohol Use History / Comment(s): The patient has been a lifelong nonsmoker, no illicit drug use, no marijuana use, no alcohol use. Past Drug Use History: None Reported - Past Family History Sister(s) Family Medical History: Cancer Additional Family Medical History / Comment(s): Another sister had uterine fibroids. Mother Family Medical History: Dementia Additional Family Medical History / Comment(s): Mother of complications from her dementia at the age of 89yrs. Father Family Medical History: Coronary Artery Disease (CAD), Myocardial Infarction (WA) Additional Family Medical History / Comment(s): Father at the age of 55yrs from heart complications. He had previously had a [place] Medications and Allergies Home Medications Medication Instructions Recorded Confirmed Type Aspirin EC [Ecotrin Low Dose] 81 mg PO DAILY 03/27/14 08/27/18 History Atorvastatin [Lipitor] 20 mg PO HS 03/27/14 08/27/18 History Multivitamins, Thera [Multivitamin 1 tab PO DAILY 03/27/14 08/27/18 History (formulary)] Lisinopril 10 mg PO DAILY 07/24/15 08/27/18 History Cholecalciferol [Vitamin D3 (25 1,000 unit PO DAILY 04/27/18 08/27/18 History Mcg = 1000 Iu)] Ascorbic Acid [Vitamin C] 500 mg PO DAILY 07/20/18 08/27/18 History Docusate [Colace] 100 mg PO BID PRN #30 capsule 09/02/18 Rx HYDROcodone/APAP 7.5-325MG [Heiskell 1 tab PO Q4H PRN 3 Days #18 tab 09/02/18 Rx 7.5-325] Allergies Allergy/AdvReac Type Severity Reaction Status Date / Time amoxicillin [Amoxicillin] Allergy Unknown Diarrhea Verified 01/10/19 14:38 metronidazole [From Flagyl] Allergy Rash/Hives Verified 01/10/19 14:38 nitrofurantoin Allergy Rash/Hives Verified 01/10/19 14:38 [From Macrobid] amoxicillin trihydrate AdvReac Severe Diarrhea Verified 01/10/19 14:38 [From Augmentin] doxycycline AdvReac Severe Diarrhea Verified 01/10/19 14:38 Penicillins AdvReac Severe Diarrhea Verified 01/10/19 14:38 phenazopyridine HCl AdvReac Severe Unknown Verified 01/10/19 14:38 [From Pyridium] potassium clavulanate AdvReac Severe Diarrhea Verified 01/10/19 14:38 [From Augmentin] Sulfa (Sulfonamide AdvReac Severe Diarrhea Verified 01/10/19 14:38 Antibiotics) ciprofloxacin [From Cipro] AdvReac Joint Pain Verified 01/10/19 14:38 Physical Exam Vitals: Vital Signs Pulse Resp BP 01/10/19 14:39 74 16 165/81 Intake and Output 01/10/19 01/10/19 01/10/19 06:59 14:59 22:59 Other: Weight 60.781 kg PQRS Measure Charge Sheet Measure #130: Documentation of Current Meds in Medical Chart: Patient's medications documented in chart Measure #226: Tobacco Use: Screen & Cessation Intervention: Pt not a tobacco user Measure #111: Pneumonia Vaccination: Pneumococcal vaccine administered or previously received Measure #47: Advance Care Plan: Advance care planning discussed & documented, pt chose/unable to give Measure #412: Opioid Treatment Agreement: No documentation of signed opioid treatment agreement Measure #317: Preventitive Care & Scrn High Bld Press & F/U: Pre-hypertensive or hypertensive BP documented, pt will f/u with PCP Measure #128: Body Mass Index (BMI) Screening & Follow-up: BMI documented ABOVE normal parameters - f/u documented Measure #131: Pain Assessment & Follow-up: Pain positive & plan documented, Follow-up scheduled Measure #431: Unhealthy Alcohol Use Preventative Care & Scrn: Patient not identified as an unhealthy alcohol user PQRS Narrative: Smoking Status Never smoker Blood Pressure 165/81 Pain Intensity [Bilateral 5 Lower Back] Scale Used Numeric (1 - 10) Hx Alcohol Use (MH) Yes: social Home Medications: Ambulatory Orders Aspirin EC [Ecotrin Low Dose] 81 mg PO DAILY 03/27/14 Atorvastatin [Lipitor] 20 mg PO HS 03/27/14 Multivitamins, Thera [Multivitamin (formulary)] 1 tab PO DAILY 03/27/14 Lisinopril 10 mg PO DAILY 07/24/15 Cholecalciferol [Vitamin D3 (25 Mcg = 1000 Iu)] 1,000 unit PO DAILY 04/27/18 Ascorbic Acid [Vitamin C] 500 mg PO DAILY 07/20/18 Docusate [Colace] 100 mg PO BID PRN #30 capsule 09/02/18 HYDROcodone/APAP 7.5-325MG [Heiskell 7.5-325] 1 tab PO Q4H PRN 3 Days #18 tab 09/02/18
== END | disposition home or self-care (01) ==
LOC: PNWHC3 13:23
PROVIDERS: ATTEND Anesthesiology
DX: M46.1 Sacroiliitis, not elsewhere classified (principal); M47.816 Spondylosis without myelopathy or radiculopathy, lumbar region; M70.72 Other bursitis of hip, left hip; M70.71 Other bursitis of hip, right hip; E78.5 Hyperlipidemia, unspecified; Z79.82 Long term (current) use of aspirin; Z79.899 Other long term (current) drug therapy; Z88.0 Allergy status to penicillin; Z88.1 Allergy status to other antibiotic agents; Z88.2 Allergy status to sulfonamides; Z88.6 Allergy status to analgesic agent; Z88.8 Allergy status to other drugs, medicaments and biological substances
CPT/HCPCS: 99211

== ENCOUNTER → 2019-01-24 | Day surgery (SDC) | payer MEDICARE ==
[2019-01-19 11:59] VITALS: BMI 29.0
[~2019-01-24] MED LIST changes: -DEXAMETHASONE SOD PHOSPHATE 10 MG/ML 1 ML VIAL IV ONE; -HEPARIN SODIUM,PORCINE 5,000 UNIT/ML 1 ML VIAL SQ ONE; -HYDROmorphone 0.5 MG/0.5 ML SYRINGE IVP PRN; +IV FLUID CONTINUATION 1,000 ML IV ONE; +LACTATED RINGERS 1,000 ML IV SCH; -MIDAZOLAM 2 MG/2 ML VIAL IV PRN; -ONDANSETRON 4 MG/2 ML VIAL IVP ONE; -ceFAZolin IN SWFI 2 GM/20 ML SYRINGE IVP ONE; -metroNIDAZOLE-NS PMX 500 MG in SALINE 1 100ML.BAG IVPB ONE
[2019-01-24 10:23] VITALS: RESP 16; TEMP 97.9
[2019-01-24 11:36] VITALS: PULSE 70
--- NOTE | 2019-01-24 11:40 | P.PCN ---
Date of Procedure: 01/24/19 Procedure(s) Performed: Preoperative diagnoses: bilateral sacroilitis Postoperative diagnoses: bilateral sacroilitis. Procedure: bilateral sacroiliac joint steroid injection under fluoroscopic guidance. Surgeon: Guillermo Vieyra MD Anesthesia: [2 mL of 1% lidocaine and IV sedation per hospital guidelines] Fluoroscopy was used for the procedure and fluoroscopic images were saved to the radiology portion of the patient's chart. EBL: None Procedure indication: The patient had a history of severe chronic low back pain, diagnosed with sacroiliitis unresponsive to conservative treatment. Procedure description: The patient was seen and identified in the preoperative holding area, risks and benefits and alternative of the procedure and possible complications discussed with the patient, and patient agreed with the preceding, patient signed the consent, an IV was started, and vital signs were monitored and were stable throughout the procedure, patient was placed in the prone position on table and the lumbosacral area was prepped and draped with a sterile fashion, vital signs were closely monitored during the procedure, the fluoroscopy camera was placed in the contralateral oblique view on the bilateral sacroiliac joint and the lower part of the joint was identified . Then the skin and subcutaneous tissue was anesthetized using 2 mL of 1% lidocaine then a 22- gauge Quincke-type spinal needle advanced slowly under fluoroscopy and placed in the posterior and inferior border of the right sacroiliac joint, placement confirmed with AP and lateral view, and after appropriate needle placement confirmed and after negative aspiration for heme, 1 mL of Isovue 200 was injected revealing intra-articular spread. Then a solution consisting of 2 ml of ropivacaine 0.5% and 40 mg of Kenalog injected after negative aspiration, no paresthesia during the injection, no resistance to injection, and the needle was removed. The procedure was then repeated on the left side. Total of 80 mg of Kenalog was used for the procedure. Patient tolerated the procedure well without any complication. The patient was returned to supine position after the back was cleaned and a Band-Aid applied, the patient was transported to recovery room in stable condition and monitored for 30 minutes before being discharged home. The patient will follow up with the pain clinic in a few weeks
[2019-01-24 11:55] VITALS: BP 109/71
--- NOTE | 2019-01-24 11:57 | FL ---
EXAMINATION TYPE: FL guided pain mgmt statistic DATE OF EXAM: 01/24/2019 HISTORY: Flouroscopy time 20 seconds of fluoroscopy provided. IMPRESSION: 1. Fluoroscopy time.
== END ==
LOC: ORPAIN 08:44
PROVIDERS: ATTEND Anesthesiology
DX: G89.29 Other chronic pain (principal); M46.1 Sacroiliitis, not elsewhere classified; M70.72 Other bursitis of hip, left hip; M70.71 Other bursitis of hip, right hip; M47.816 Spondylosis without myelopathy or radiculopathy, lumbar region; E78.5 Hyperlipidemia, unspecified; I10 Essential (primary) hypertension; Z87.19 Personal history of other diseases of the digestive system; Z86.010 Personal history of colon polyps; Z90.49 Acquired absence of other specified parts of digestive tract; Z90.710 Acquired absence of both cervix and uterus; Z79.82 Long term (current) use of aspirin; Z79.899 Other long term (current) drug therapy; Z79.891 Long term (current) use of opiate analgesic; Z88.1 Allergy status to other antibiotic agents; Z88.0 Allergy status to penicillin; Z88.2 Allergy status to sulfonamides; Z88.8 Allergy status to other drugs, medicaments and biological substances; Z82.49 Family history of ischemic heart disease and other diseases of the circulatory system
CPT/HCPCS: J2250; J3301; J3010; Q9966; G0260; 99152; 99153

== ENCOUNTER → 2019-02-14 | Outpatient (CLI) | payer MEDICARE ==
[2019-02-14 11:39] VITALS: BP 143/68; PULSE 77; RESP 16
--- NOTE | 2019-02-14 12:12 | P.PAINPG ---
Subjective Progress Note Date: 02/14/19 This is a follow-up visit for this 68 years old female, with a chronic history of severe low back pain patient diagnosed with bilateral sacroiliitis and lumbar spondylosis with lumbar facet arthropathy, trochanteric bursitis, recently we have done bilateral sacroiliac joint steroid injections under fluoroscopy, patient reported that she had good pain relief, she is able to ambulate without any difficulty, she had minimal pain, she denies any motor or sensory deficit she denies any fever or night sweats which she denies any change in the bowel movements or urination. Objective - Vital Signs Vital signs: Vital Signs Temp Pulse 77 02/14/19 11:31 Resp 16 02/14/19 11:31 BP 143/68 02/14/19 11:31 Pulse Ox 99 02/14/19 11:31 Intake & Output 02/13/19 02/14/19 02/14/19 18:59 06:59 18:59 Weight 59.874 kg - Exam Physical Examinations : -Constitutiona : Cooperative , not in acute distress . -HEENT : nech : supple , no Lymphadenopathy , normal thyroid size . eyes : no ptosis , no icterus, no photophobia . ENT : normal of hearing , normal oropharynx , no Thrush . - Respiratory : Chest clear to auscultations Bilaterally , no wheezing , no Rhonchi . - Cardiovascula : regular rate and rhythem , S1 , S2 , no S3 , no S4. - Gastrointestina : abdomen soft no tenderness , bowel sounds , no organomegally . - Genitourinary : Defferred . - neurologic : Cranial nerve II to XII intact , no focal neurological deffecit . -psychatric : alert , oriented X 3 , appropriate affect , intact judgment and insight . -Lymphatic : no Lymphadenopathy . - musculoskeltal : Lumber spine moter stegnth lower extremities ,thigh and legs 5/5 Right side , 5/5 Left side deep tendon reflexes : normal Knee Jerk , normal ankle Jerk lumber facet Loading Test = negative bilaterally Range of motion of the lumbar spine Flexion 60 degrees, extension 30 degrees strait leg raising test = negative bilaterally Fabere test = negative bilaterally no tenderness over the Sacroiliac j oint on the R and L sides [place] test negative bilaterally. Seated flexion test negative bilaterally. Mild tenderness over the left trochanteric bursa Assessment and Plan Plan: Assessment AND PLAN= bilateral sacroiliitis Lumbar spondylosis with lumbar facet arthropathy. Left trochanteric bursitis. Patient had good result after bilateral sacroiliac joint steroid injection, pain improve significantly, Discussed with patient the option of doing a left trochanteric bursa steroid injection versus conservative treatment, Patient preferred to follow up in the pain clinic when necessary and she will use NSAID [id number] as needed Time with Patient: Less than 30 PQRS Measure Charge Sheet Measure #130: Documentation of Current Meds in Medical Chart: Patient's medications documented in chart Measure #226: Tobacco Use: Screen & Cessation Intervention: Pt not a tobacco user Measure #111: Pneumonia Vaccination: Pneumococcal vaccine administered or previously received Measure #47: Advance Care Plan: Advance care planning discussed & documented, pt chose/unable to give Measure #412: Opioid Treatment Agreement: No documentation of signed opioid treatment agreement Measure #408: Opioid Therapy Follow-up Evaluation: Patient had NO f/u eval minimum every 3 months during opioid therapy Measure #317: Preventitive Care & Scrn High Bld Press & F/U: Pre-hypertensive or hypertensive BP documented, pt will f/u with PCP Measure #128: Body Mass Index (BMI) Screening & Follow-up: BMI documented ABOVE normal parameters - f/u documented Measure #131: Pain Assessment & Follow-up: Pain positive & plan documented, Follow-up scheduled Measure #431: Unhealthy Alcohol Use Preventative Care & Scrn: Patient not identified as an unhealthy alcohol user PQRS Narrative: Smoking Status Never smoker Blood Pressure 143/68 Pain Intensity [Lower Buttock] 2 Hx Alcohol Use (MH) Yes: social Home Medications: Ambulatory Orders Aspirin EC [Ecotrin Low Dose] 81 mg PO DAILY 03/27/14 Atorvastatin [Lipitor] 20 mg PO HS 03/27/14 Multivitamins, Thera [Multivitamin (formulary)] 1 tab PO DAILY 03/27/14 Lisinopril 10 mg PO DAILY 07/24/15 Cholecalciferol [Vitamin D3 (25 Mcg = 1000 Iu)] 1,000 unit PO DAILY 04/27/18 Controlled Substance Measures - Controlled Substance Measures Is patient prescribed a controlled substance at discharge?: No
== END | disposition home or self-care (01) ==
LOC: PNWHC3 11:22
PROVIDERS: ATTEND Specialist
DX: M46.1 Sacroiliitis, not elsewhere classified (principal); M47.816 Spondylosis without myelopathy or radiculopathy, lumbar region; M46.96 Unspecified inflammatory spondylopathy, lumbar region; M70.62 Trochanteric bursitis, left hip; Z79.82 Long term (current) use of aspirin; Z79.899 Other long term (current) drug therapy
CPT/HCPCS: 99211

== ENCOUNTER → 2019-04-11 | Outpatient (CLI) | payer MEDICARE ==
[2019-04-11 08:02] LABS: Basophils % (A) 0 %; Eosinophils # (A) 0.6 k/uL (0-0.7); Eosinophils % (A) 9 %; HCT 42.6 % (34.0-46.0); Lymphocytes # (A) 1.9 k/uL (1.0-4.8); Lymphocytes % (A) 28 %; MCH 31.7 pg (25.0-35.0); MCHC 32.9 g/dL (31.0-37.0); MCV 96.2 fL (80.0-100.0); Mean Platelet Volume 6.5; Monocytes # (A) 0.4 k/uL (0-1.0); Monocytes % (A) 6 %; Neutrophils # (A) 3.6 k/uL (1.3-7.7); Neutrophils % (A) 54 %; Platelet Count 229 k/uL (150-450); RBC 4.43 m/uL (3.80-5.40); RDW 13.4 % (11.5-15.5); WBC 6.8 k/uL (3.8-10.6)
[2019-04-11 11:40] LABS: Hemoglobin A1C 5.8 % (4.0-6.0)
[2019-04-11 13:03] LABS: African American GFR (CKD) 87.2 (60.0-200.0); Albumin 4.1 g/dL (3.80-4.90); Albumin/Globulin Ratio 2.56 (1.60-3.17); Calcium 9.4 mg/dL (8.7-10.3); Chol/HDL Ratio 2.8; Globulin 1.6 g/dL (1.6-3.3); LDL Cholesterol,Calculated 65.6 mg/dL (0.0-131.0); Non-African American GFR(CKD) 75.2 (60.0-200.0); Total Protein 5.7 g/dL (6.2-8.2); VLDL Calculation 26.4 mg/dL (5.00-40.00)
== END | disposition home or self-care (01) ==
LOC: LABWHC1 07:06
PROVIDERS: ATTEND Internal Medicine Geriatric Medicine
DX: Z00.00 Encounter for general adult medical examination without abnormal findings (principal); I10 Essential (primary) hypertension; R79.9 Abnormal finding of blood chemistry, unspecified
CPT/HCPCS: 36415; 80053; 80061; 83036; 84443; 85025

== ENCOUNTER → 2019-06-13 | Outpatient (CLI) | payer OTHER ==
--- NOTE | 2019-06-13 15:16 | XR ---
Cervical spine HISTORY: Neck pain 7 views of the cervical spine No comparisons There is multilevel facet arthropathy present. Cervical vertebral bodies show preserved height. There is anterolisthesis grade 1 C5-6, retrolisthesis grade 1 C4-5. Disc spaces are relatively maintained. Mild multilevel spondylosis. No significant foraminal encroachment with exception of C5-6 on the lef t shows some mild encroachment. No fracture or subluxation. Prevertebral soft tissues are normal. IMPRESSION: Degenerative disc disease, facet arthropathy.
--- NOTE | 2019-06-13 15:20 | XR ---
Left shoulder HISTORY: Left shoulder pain 3 views of the left shoulder Distal acromion is downturned. Arthropathy is present at the acromioclavicular joint. Mild spurring i nferior glenoid. Left lung apex as visualized is normal. No fracture or dislocation. IMPRESSION: Osteoarthritis left acromion clavicular joint, correlate for impingement.
== END | disposition home or self-care (01) ==
LOC: RADXRMAIN 12:09
PROVIDERS: ATTEND Internal Medicine Geriatric Medicine
DX: M50.30 Other cervical disc degeneration, unspecified cervical region (principal); M46.92 Unspecified inflammatory spondylopathy, cervical region; M19.012 Primary osteoarthritis, left shoulder
CPT/HCPCS: 72050

== ENCOUNTER → 2019-06-21 | Outpatient (CLI) | payer MEDICARE ==
[2019-06-21 10:18] VITALS: BP 156/80; PULSE 77; RESP 16; TEMP 97.9
--- NOTE | 2019-06-21 11:10 | P.HPOB ---
History of Present Illness H&P Date: 06/21/19 Chief Complaint: The patient is here for her routine gynecologic exam and ma mmogram. This is a 69-year-old G0 with an LMP of 1999. She is status post ROMAIN for uterine fibroids. The patient is without gynecologic complaints. Review of Systems She has lost about 9 pounds over the past year. She believes most of the weight loss was related to her colon surgery done for diverticulitis. She denies respiratory, cardiac and G.I. problems. She denies maltreatment or problems with falling. : She is infrequently has slight urinary leakage with coughing or sneezing or if she does not to the bathroom in time. Past Medical History Past Medical History: Hyperlipidemia, Hypertension Additional Past Medical History / Comment(s): Diverticulosis, occasional low back pain, pancreatic cyst. 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 History of Any Multi-Drug Resistant Organisms: None Reported Past Surgical History: Bowel Resection, Hysterectomy Additional Past Surgical History / Comment(s): Colonoscopies(last 2018), R carpal tunnel release/ganglion cystectomy, ROMAIN for fibroids(1999). Bowel resection - August 2018 Past Anesthesia/Blood Transfusion Reactions: No Reported Reaction Past Psychological History: No Psychological Hx Reported Additional Psychological History / Comment(s): Pt resides with her spouse. She is independent. Smoking Status: Never smoker Past Alcohol Use History: Occasional (3. Weak) Additional Past Alcohol Use History / Comment(s): The patient has been a lifelong nonsmoker, no illicit drug use, no marijuana use, no alcohol use. Past Drug Use History: None Reported Additional History: She has been since 1969, but is not sexually active. 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 - Past Family History Sister(s) Family Medical History: Cancer Additional Family Medical History / Comment(s): Cervical cancer. Another sister had uterine fibroids. Mother Family Medical History: Dementia Additional Family Medical History / Comment(s): Mother of complications from her dementia at the age of 89yrs. Father Family Medical History: Coronary Artery Disease (CAD), Myocardial Infarction (ID) Additional Family Medical History / Comment(s): Father at the age of 55yrs from heart complications. He had previously had a ID Medications and Allergies Home Medications Medication Instructions Recorded Confirmed Type Aspirin EC [Ecotrin Low Dose] 81 mg PO DAILY 03/27/14 06/21/19 History Atorvastatin [Lipitor] 20 mg PO HS 03/27/14 06/21/19 History Multivitamins, Thera [Multivitamin 1 tab PO DAILY 03/27/14 06/21/19 History (formulary)] Lisinopril 10 mg PO DAILY 07/24/15 06/21/19 History Cholecalciferol [Vitamin D3 (25 1,000 unit PO DAILY 04/27/18 06/21/19 History Mcg = 1000 Iu)] Allergies Allergy/AdvReac Type Severity Reaction Status Date / Time amoxicillin [Amoxicillin] Allergy Unknown Diarrhea Verified 06/21/19 10:19 metronidazole [From Flagyl] Allergy Rash/Hives Verified 06/21/19 10:19 nitrofurantoin Allergy Rash/Hives Verified 06/21/19 10:19 [From Macrobid] amoxicillin trihydrate AdvReac Severe Diarrhea Verified 06/21/19 10:19 [From Augmentin] doxycycline AdvReac Severe Diarrhea Verified 06/21/19 10:19 Penicillins AdvReac Severe Diarrhea Verified 06/21/19 10:19 phenazopyridine HCl AdvReac Severe Unknown Verified 06/21/19 10:19 [From Pyridium] potassium clavulanate AdvReac Severe Diarrhea Verified 06/21/19 10:19 [From Augmentin] Sulfa (Sulfonamide AdvReac Severe Diarrhea Verified 06/21/19 10:19 Antibiotics) ciprofloxacin [From Cipro] AdvReac Joint Pain Verified 06/21/19 10:19 Exam Vital Signs Temp Pulse Resp BP Pulse Ox 06/21/19 10:12 97.9 F 77 16 156/80 99 Intake and Output 06/20/19 06/21/19 06/21/19 22:59 06:59 14:59 Other: Weight 63.049 kg Height 4 feet 9 inches, weight 139 pounds, BMI 30.1. This is a well-developed well-nourished short statured White female who is alert and oriented times 3 in no acute distress. HEENT: Within normal limits. NECK: Supple without mass or thyromegaly. CHEST AND LUNGS: Clear to auscultation. HEART: Regular rate and rhythm. BREASTS: Are without mass or discharge. Bilateral central nipple inversion is noted and the patient states she has had this most of her life. AXILLARY EXAM: Negative for adenopathy. BACK: Negative for CVA tenderness. ABDOMEN: Soft, nontender, without palpable masses. PELVIC EXAM: External genitalia appears normal with mild atrophy. Vagina appears normal of mild atrophy. There is no evidence of prolapse. Bimanual examination is negative for mass or tenderness. RECTAL EXAM: Rectovaginal exam is negative for mass or tenderness and is negative for occult blood. EXTREMITIES: Nontender. IMPRESSION: 1. 69-year-old menopausal female status post ROMAIN for benign reasons with normal gynecologic exam. 2. History of osteopenia. PLAN: 1. Pap smears have been discontinued. 2. Self breast awareness was discussed with the patient. 3. Screening mammogram will be done today. 4. Osteoporosis prevention was discussed. I have stressed the importance of adequate calcium, vitamin D and regular exercise. Recommended amounts of calcium and vitamin D were also discussed. She is no longer seeing Dr. Enciso and will no longer be doing bone density testing through him. She believes her last one was about 1-1/2 years ago. I have recommended that she do bone density test approximately 2-3 years after her last one. The order slip was given to the patient for this. 5. She did receive her flu shot this fall. 6. The patient was advised to return in 1-2 years for her well woman examination.
--- NOTE | 2019-06-23 14:32 | MM ---
Reason for exam: screening (asymptomatic). Last mammogram was performed 1 year and 2 months ago. History: Patient is postmenopausal and is nulliparous. Benign left US cyst aspiration of the left breast, October 25, 2007. Benign US left CoreBiopsy of both breasts, October 25, 2007. Took estrogen for 3 years beginning at age 49. Physical Findings: A clinical breast exam by your physician is recommended on an annual basis and results should be correlated with mammographic findings. MG 3D Screening Mammo W/Cad Bilateral CC and MLO view(s) were taken. Prior study comparison: April 27, 2018, bilateral MG 3d screening mammo w/cad. March 31, 2017, bilateral MG 3d screening mammo w/cad. The breast tissue is heterogeneously dense. This may lower the sensitivity of mammography. Previous mammotome biopsy in the left breast. 3D images suggest possible increasing underlying nodularity superior left breast. No clear persisting abnormality on the CC view. ASSESSMENT: Incomplete: need additional imaging evaluation, BI-RAD 0 RECOMMENDATION: Special view mammogram of the left breast. (3D) If lesion persists on supplemental views, image directed ultrasound is recommended. [facility] will attempt to contact patient to return for supplemental views and ultrasound if indicated.
== END | disposition home or self-care (01) ==
LOC: WWCWWP 09:43
PROVIDERS: ATTEND Obstetrics & Gynecology
DX: Z12.31 Encounter for screening mammogram for malignant neoplasm of breast (principal)
CPT/HCPCS: 77063; 77067

== ENCOUNTER → 2019-07-07 | Outpatient (CLI) | payer MEDICARE ==
--- NOTE | 2019-07-07 11:22 | MM ---
Reason for exam: additional evaluation requested from abnormal screening. Last mammogram was performed 1 month ago. History: Patient is postmenopausal and is nulliparous. Benign left US cyst aspiration of the left breast, October 25, 2007. Benign US left CoreBiopsy of both breasts, October 25, 2007. Took estrogen for 3 years beginning at age 49. Physical Findings: Nurse did not find any significant physical abnormalities on exam. MG 3D Work Up W/Cad LT Spot compression CC, spot compression MLO, and LM view(s) were taken of the left breast. Prior study comparison: June 21, 2019, bilateral MG 3d screening mammo w/cad. April 27, 2018, bilateral MG 3d screening mammo w/cad. The breast tissue is heterogeneously dense. This may lower the sensitivity of mammography. Left architectural distortion improves on spot CC but persists on ML and spot compression MLO 6cm from nipple. Ultrasound wll be performed. These results were verbally communicated with the patient and result sheet given to the patient on 07/07/19. ASSESSMENT: Incomplete: need additional imaging evaluation, BI-RAD 0 RECOMMENDATION: Ultrasound of the left breast. (upper outer quadrant)
--- NOTE | 2019-07-07 11:24 | USB ---
Reason for exam: additional evaluation requested from abnormal screening. History: Patient is postmenopausal and is nulliparous. Benign left US cyst aspiration of the left breast, October 25, 2007. Benign US left CoreBiopsy of both breasts, October 25, 2007. Took estrogen for 3 years beginning at age 49. US Breast Workup Limited LT Technologist: Kathia Arora Left limited breast ultrasound including focal area of concern, retroareolar and axilla demonstrates clump of ducts at 12 o'clock and a 1.3 x 0.5 x 1.7cm cluster of cysts at 12 o'clock. These results were verbally communicated with the patient and result sheet given to the patient on 07/07/19. ASSESSMENT: Probably benign, BI-RAD 3 RECOMMENDATION: Follow-up diagnostic mammogram of the left breast in 6 months.
--- NOTE | 2019-07-12 09:59 | P.PN ---
Progress Note - Text Progress Note Date: 07/12/19 OUTPATIENT FOLLOW-UP NOTE TEST(S)/RESULTS: The patient had a left breast workup following a mammogram done on 06/21/2019. The left breast workup done on 07/07/2019 was probably benign. The recommendation was for a follow-up diagnostic left mammogram in 6 months. METHOD OF NOTIFICATION: The patient was notified of this result verbally at the time of her workup on 07/07/2019. PATIENT COMMENTS: DIAGNOSIS: Probably benign left breast workup. DISCUSSION: PLAN: The order slip for a left diagnostic mammogram to be done in December 2019 was mailed to the patient.
== END | disposition home or self-care (01) ==
LOC: RADMAMWWP 08:57
PROVIDERS: ATTEND Obstetrics & Gynecology
DX: R92.8 Other abnormal and inconclusive findings on diagnostic imaging of breast (principal)
CPT/HCPCS: 77065; 76642; G0279; 77061

== ENCOUNTER → 2019-11-04 | Outpatient (CLI) | payer MEDICARE ==
[2019-11-04 09:36] LABS: Basophils % (A) 0 %; Eosinophils # (A) 0.5 k/uL (0-0.7); Eosinophils % (A) 8 %; HCT 46.1 % (34.0-46.0); HGB 14.5 gm/dL (11.4-16.0); Lymphocytes # (A) 1.7 k/uL (1.0-4.8); Lymphocytes % (A) 28 %; MCH 30.4 pg (25.0-35.0); MCHC 31.5 g/dL (31.0-37.0); MCV 96.3 fL (80.0-100.0); Mean Platelet Volume 7.8; Monocytes # (A) 0.3 k/uL (0-1.0); Monocytes % (A) 5 %; Neutrophils # (A) 3.4 k/uL (1.3-7.7); Neutrophils % (A) 56 %; Platelet Count 213 k/uL (150-450); RBC 4.79 m/uL (3.80-5.40); RDW 12.8 % (11.5-15.5); WBC 6.1 k/uL (3.8-10.6)
[2019-11-04 15:38] LABS: African American GFR (CKD) 87.2 (60.0-200.0); Albumin 4.3 g/dL (3.80-4.90); Albumin/Globulin Ratio 2.26 (1.60-3.17); Anion Gap 12.3 mmol/L (4.00-12.00); BUN/Creat Ratio 28.75 Ratio (12.00-20.00); Calcium 9.8 mg/dL (8.7-10.3); Carbon Dioxide 29.7 mmol/L (21.6-31.8); Chol/HDL Ratio 2.71; Globulin 1.9 g/dL (1.6-3.3); LDL Cholesterol,Calculated 58.8 mg/dL (0.0-131.0); Non-African American GFR(CKD) 75.2 (60.0-200.0); Total Bilirubin 1.5 mg/dL (0.3-1.2); Total Protein 6.2 g/dL (6.2-8.2); VLDL Calculation 28.2 mg/dL (5.00-40.00)
[2019-11-04 16:41] LABS: Hemoglobin A1C 5.8 % (4.0-6.0)
== END | disposition home or self-care (01) ==
LOC: LABWHC1 08:05
PROVIDERS: ATTEND Internal Medicine Geriatric Medicine
DX: E78.5 Hyperlipidemia, unspecified (principal); R73.9 Hyperglycemia, unspecified; K63.2 Fistula of intestine
CPT/HCPCS: 36415; 80053; 80061; 83036; 85025

== ENCOUNTER → 2020-03-26 | Outpatient (CLI) | payer MEDICARE ==
--- NOTE | 2020-03-26 14:50 | US ---
EXAMINATION TYPE: US pelvic complete DATE OF EXAM: 03/26/2020 COMPARISON: CT 07/20/2018 CLINICAL HISTORY: R10.2 Pelvic Pain. Pelvic pain x 1 week, frequency; uterus removed 1999; colon rese ction 2018 due to diverticulitis. TECHNIQUE: TV US. Transabdominal sonographic images of the pelvis were acquired; patient deferred T V US. Date of LMP: 1999 EXAM MEASUREMENTS: Uterus: surgically removed Endometrial Stripe: surgically removed Right Ovary: 1.4 x 1.7 x 1.1 cm Left Ovary: not well seen, approximately = 2.0 x 1.3 x 1.4cm. 1. Right Ovary: appears wnl 2. Left Ovary: left ovary ovary not well seen Spectral, color and waveform doppler imaging shows good arterial and venous flow within the right o vary; there is no evidence for ovarian torsion. Left ovary not seen with certainty. 3. Bilateral Adnexa: wnl 4. Posterior cul-de-sac: wnl 5. Bladder: appears well distended pre void, but abnormal post void volume = 91.7ml. Patient was not able to hold full bladder, thus ovaries were assessed immediately. IMPRESSION: 1. No definite acute process.
== END | disposition home or self-care (01) ==
LOC: RADUSWWP 13:58
PROVIDERS: ATTEND Internal Medicine Geriatric Medicine
DX: R10.2 Pelvic and perineal pain (principal)
CPT/HCPCS: 76856

== ENCOUNTER → 2020-03-28 | Outpatient (CLI) | payer MEDICARE ==
[2020-03-28 09:34] VITALS: BP 158/84; PULSE 86; RESP 18; TEMP 98.4
--- NOTE | 2020-03-28 10:07 | P.PAINPG ---
Subjective Progress Note Date: 03/28/20 This is a follow-up visit for this 70 years old female, with a chronic history of severe low back pain patient diagnosed with bilateral sacroiliitis and lumbar spondylosis with lumbar facet arthropathy, trochanteric bursitis, one year ago we have done bilateral sacroiliac joint steroid injections under fluoroscopy, patient reported that she had good pain relief, she is able to ambulate without any difficulty, and she had excellent relief for several months, currently the pain came back and she is having severe low back pain, mostly in the buttock area and radiated to the hips, she denies any motor or sensory deficit she denies any fever or night sweats which she denies any change in the bowel move ments or urination. Objective - Vital Signs Vital signs: Vital Signs Temp 98.4 F 03/28/20 09:31 Pulse 86 03/28/20 09:31 Resp 18 03/28/20 09:31 BP 158/84 03/28/20 09:31 Pulse Ox 98 03/28/20 09:31 - Exam Physical Examinations : -Constitutiona : Cooperative , not in acute distress . -HEENT : nech : supple , no Lymphadenopathy , normal thyroid size . : eyes : no ptosis , no icterus, no photophobia . - neurologic : Cranial nerve II to XII intact , no focal neurological deffecit . -psychatric : alert , oriented X 3 , appropriate affect , intact judgment and insight . -Lymphatic : no Lymphadenopathy . - musculoskeltal : Lumber spine moter stegnth lower extremities ,thigh and legs 5/5 Right side , 5/5 Left side deep tendon reflexes : normal Knee Jerk , normal ankle Jerk lumber facet Loading Test =positive Right , positive Left Range of motion of the lumbar spine Flexion 30 degrees, extension 10 degrees strait leg raising test = negative bilaterally Fabere test= negative bilaterally . tenderness over the Sacroiliac joint on the Right , and Left sides Gaenslen test= positive right ,and positive left . Seated flexion test= positive right ,and positive Left . Mild tenderness over the trochanteric bursa bilaterally Assessment and Plan Plan: Assessment AND PLAN= bilateral sacroiliitis Lumbar spondylosis with lumbar facet arthropathy. Left trochanteric bursitis. Patient could benefit from bilateral sacroiliac joint steroid injection. Time with Patient: Less than 30 PQRS Measure Charge Sheet Measure #130: Documentation of Current Meds in Medical Chart: Patient's medications documented in chart Measure #226: Tobacco Use: Screen & Cessation Intervention: Pt not a tobacco user Measure #111: Pneumonia Vaccination: Pneumococcal vaccine NOT administered or previously given Measure #412: Opioid Treatment Agreement: No documentation of signed opioid treatment agreement Measure #408: Opioid Therapy Follow-up Evaluation: Patient had NO f/u eval minimum every 3 months during opioid therapy Measure #317: Preventitive Care & Scrn High Bld Press & F/U: Pre-hypertensive or hypertensive BP documented, pt will f/u with PCP Measure #128: Body Mass Index (BMI) Screening & Follow-up: BMI documented ABOVE normal parameters - f/u documented Measure #131: Pain Assessment & Follow-up: Pain positive & plan documented, Follow-up scheduled Measure #431: Unhealthy Alcohol Use Preventative Care & Scrn: Patient not i dentified as an unhealthy alcohol user PQRS Narrative: Smoking Status Never smoker Blood Pressure 158/84 Pain Intensity [Lower Back] 6 Scale Used Numeric (1 - 10) Hx Alcohol Use (MH) Yes: social Home Medications: Ambulatory Orders Aspirin EC [Ecotrin Low Dose] 81 mg PO DAILY 03/27/14 Atorvastatin [Lipitor] 20 mg PO HS 03/27/14 Multivitamins, Thera [Multivitamin (formulary)] 1 tab PO DAILY 03/27/14 lisinopriL [Lisinopril] 10 mg PO DAILY 07/24/15 Cholecalciferol [Vitamin D3 (25 Mcg = 1000 Iu)] 1,000 unit PO DAILY 04/27/18 Acetaminophen [Tylenol Extra Strength] 500 mg PO Q6H PRN 03/21/20 Ibuprofen [Motrin Ib] 200 - 400 mg PO Q6H PRN 03/21/20 Controlled Substance Measures - Controlled Substance Measures Is patient prescribed a controlled substance at discharge?: No
== END | disposition home or self-care (01) ==
LOC: PNWHC3 09:22
PROVIDERS: ATTEND Specialist
DX: M47.816 Spondylosis without myelopathy or radiculopathy, lumbar region (principal); M46.1 Sacroiliitis, not elsewhere classified; M70.62 Trochanteric bursitis, left hip; Z79.83 Long term (current) use of bisphosphonates; Z79.899 Other long term (current) drug therapy; Z79.3 Long term (current) use of hormonal contraceptives
CPT/HCPCS: 99211

== ENCOUNTER → 2020-04-17 | Day surgery (SDC) | payer MEDICARE ==
[2020-04-13 15:59] VITALS: BMI 29.8
[~2020-04-17] MED LIST changes: +IOPAMIDOL M200 10 ML VIAL ONE; -IV FLUID CONTINUATION 1,000 ML IV ONE; +ROPIVACAINE 5MG/ML 20ML VIAL ONE; +methylPREDNISolone ACETATE 40 MG/ML 1 ML VIAL ONE
[2020-04-17 09:48] VITALS: TEMP 98.6
--- NOTE | 2020-04-17 10:05 | P.PCN ---
Date of Procedure: 04/17/20 Description of Procedure: Procedure: Sacroiliac joint injection bilateral Preoperative diagnosis: Sacroiliitis Postoperative diagnosis: Sacroiliitis Imaging: Fluoroscopy was used, images where saved to the medical record Complications: none Anesthesia: 1% lidocaine 5cc (local only) Description of the procedure: procedure risk and benefits discussed with the patient, including but not limited, risk of infection and bleeding, and allergic reaction to the medication and incomplete pain relief. Patient agreed and signed consent. Patient was taken to the room and placed in a prone position. Chlorhexidine was used to cleanse the skin. Under sterile conditions patient skin was anesthetized 1% lidocaine. Subcutaneous tissues were also anesthetized with a total 5 mL of 1% lidocaine. After that, a 25-gauge spinal needle was advanced through the anesthetized location under fluoroscopic guidance. Needle was advanced into the inferior p ortion of the sacroiliac joint. IV contrast was used to confirm spread within the joint. After adequate spread was achieved, 2.5 ML's of 0.5% ropivacaine with 40 mg of depomedrol was injected into the joint (20 mg in each joint). Patient tolerated the procedure well. Sent to the recovery room in stable condition. Patient will follow up as directed.
[2020-04-17 10:10] VITALS: BP 124/76; PULSE 85; RESP 17
--- NOTE | 2020-04-17 14:59 | FL ---
EXAMINATION TYPE: FL guided pain mgmt statistic DATE OF EXAM: 04/17/2020 CLINICAL HISTORY: Bilateral sacroiliac joint pain. TECHNIQUE: Fluoroscopy. COMPARISON: None. FINDINGS: Fluoroscopic guidance was provided during pain relief procedure performed by Dr. Nash. A total of 4 seconds of fluoroscopic time was utilized during the procedure and 2 spot images are ac quired. Images acquired shows needle localization at the level of inferior aspect of bilateral sacro iliac joints. IMPRESSION: As Above.
== END ==
LOC: ORPAIN 09:17
PROVIDERS: ATTEND Hospitalist
DX: M46.1 Sacroiliitis, not elsewhere classified (principal); Z90.710 Acquired absence of both cervix and uterus
CPT/HCPCS: J1030; Q9966; J2795; G0260

== ENCOUNTER → 2020-05-04 | Outpatient (CLI) | payer MEDICARE ==
--- NOTE | 2020-05-05 02:29 | MR ---
EXAMINATION TYPE: MR cervical spine wo con DATE OF EXAM: 05/04/2020 COMPARISON: None HISTORY: Neck pain, headaches, BUE numbness. Multiplanar multiecho imaging of the cervical spine was performed without contrast. Cervical vertebra have normal alignment. Disc spaces are fairly normal for age. Cervical spinal cord appears normal. There is no spinal stenosis. There is no evidence of cervical disc herniation. The po sterior elements are intact. There is mild hypertrophic multilevel facet arthropathy. There is 6 mm m ixed signal focus in the central gricelda. This has peripheral low signal and intermediate central signal on the T2 images. This also has peripheral low signal on the T1 images. This could be hemosiderin.. There is no mass effect. The remainder of exam is unremarkable. IMPRESSION: Cervical spine appears fairly normal for age. There is ordinary mild multilevel facet arthropathy. No spinal stenosis or cervical disc herniation. Small mixed signal lesion in the central gricelda could be a focus of old hemorrhagic lacunar infarct or vascular malformation.
== END | disposition home or self-care (01) ==
LOC: RADMRIMAIN 16:40
PROVIDERS: ATTEND Orthopaedic Surgery
DX: M47.812 Spondylosis without myelopathy or radiculopathy, cervical region (principal)
CPT/HCPCS: 72141

== ENCOUNTER → 2020-05-08 | Outpatient (CLI) | payer MEDICARE ==
[2020-05-08 14:55] LABS: African American GFR (CKD) 75.1 (60.0-200.0); Albumin 4.3 g/dL (3.80-4.90); Albumin/Globulin Ratio 2.39 (1.60-3.17); Anion Gap 6.8 mmol/L (4.00-12.00); BUN/Creat Ratio 24.44 Ratio (12.00-20.00); Calcium 9.9 mg/dL (8.7-10.3); Carbon Dioxide 30.2 mmol/L (21.6-31.8); Chol/HDL Ratio 2.9; Globulin 1.8 g/dL (1.6-3.3); LDL Cholesterol,Calculated 64.2 mg/dL (0.0-131.0); Non-African American GFR(CKD) 64.8 (60.0-200.0); Potassium 4.7 mmol/L (3.5-5.5); Total Bilirubin 1.4 mg/dL (0.2-1.2); Total Protein 6.1 g/dL (6.2-8.2); VLDL Calculation 34.8 mg/dL (5.00-40.00)
[2020-05-08 17:25] LABS: Hemoglobin A1C 5.9 % (4.0-6.0)
== END | disposition home or self-care (01) ==
LOC: LABWHC1 07:36
PROVIDERS: ATTEND Internal Medicine Geriatric Medicine
DX: E78.5 Hyperlipidemia, unspecified (principal); R73.9 Hyperglycemia, unspecified
CPT/HCPCS: 36415; 80053; 80061; 83036

== ENCOUNTER → 2020-08-13 | Outpatient (CLI) | payer MEDICARE ==
[2020-08-13 10:15] VITALS: BP 128/75; PULSE 73; RESP 18; TEMP 98.2
--- NOTE | 2020-08-13 10:23 | P.PN ---
Subjective Progress Note Date: 08/13/20 This is a 70-year-old lady with history of chronic lower back pain with radiation to the right leg down to the the patient had bilateral sacroiliac joint steroid injection on March however she did not feel improvement until April as she states. The patient then moved to a different house in June which exacerbated her back pain. Her more intense pain starts in the right buttock area and goes down to the right ankle. Her last MRI showed facet arthropathy and neuroforaminal stenosis at the L5-S1 level. Patient denies new-onset weakness, bowel/bladder incontinence, or any other signs or symptoms of cauda equina syndrome. There are no signs of acute into xication, and no indications of medication diversion or overuse. In addition to above, 13-point review of systems is also negative for chest pain, shortness of breath, changes in vision, changes in hearing, new onset weakness, abdominal pain, diarrhea, extreme fatigue, malaise, fever, skin changes, homicidal or suicidal ideation, or bowel or bladder incontinence. Vital Signs: Reviewed in EMR Gen: AAOx3, NAD HEENT: PERRLA,hearing grossly normal Pulm: resp unlabored Neck: supple, trachea midline Neuro exam of the lower extremities: Normal and symmetrical knee reflexes, absent ankle reflex bilaterally. Normal muscle strength bilaterally in the lower extremities. Straight leg raising test: Tripp's test: Range of motion of the lumbar spine: Facet loading test: Negative bilaterally Tenderness in the paravertebral musculature: No tenderness in the back area Neuro: CN II-XII grossly intact, Imaging: Reviewed in EMR/chart Assessment: Right lumbar radiculitis Lumbar DDD Lumbar spondylosis without radiculopathy Plan: 1. Explanation: Opioid and psychological risk scores were reviewed. Diagnoses, prognoses, and multiple treatment options including but not limited to physical therapy, interventional therapies, adjuvant medical therapies, narcotic medication therapies, and surgery were discussed with the patient and all questions were answered to the patient's satisfaction. 2. Opioid agreement: Signed with the patient and the patient is warned not to use opioids while driving or before driving and not to combine opioids with benzodiazepines or alcohol. 3. Counseling: The patient was counseled extensively on SMOKING CESSATION, BODY MASS INDEX, EXERCISE. Specifically, the patient was instructed regarding the importance of smoking cessation, obesity, and exercise in the context of both chronic pain and overall health. 4. Procedures: The patient may benefit from getting lumbar epidural steroid injection at the L4 5 or L5-S1 level in the right paramedian approach under fluoroscopic guidance however there is delay this procedure until 2 weeks after her second dose of Covid 19 vaccine. 5. Consultations: None 6. Investigations: None 7. Medications: None 8. Disposition: Proceed with the above-mentioned procedure 9. Maps were reviewed and were appropriate. Objective - Vital Signs Vital signs: Vital Signs Temp 98.2 F 08/13/20 10:09 Pulse 73 08/13/20 10:09 Resp 18 08/13/20 10:09 BP 128/75 08/13/20 10:09 Pulse Ox 97 08/13/20 10:09
== END | disposition home or self-care (01) ==
LOC: PNWHC3 09:54
PROVIDERS: ATTEND Anesthesiology
DX: M47.26 Other spondylosis with radiculopathy, lumbar region (principal); M51.16 Intervertebral disc disorders with radiculopathy, lumbar region
CPT/HCPCS: 99211

== ENCOUNTER → 2020-08-28 | Outpatient (CLI) | payer MEDICARE ==
--- NOTE | 2020-08-28 10:08 | MM ---
Reason for exam: additional evaluation requested from prior study. Last mammogram was performed 7 months ago. History: Patient is postmenopausal and is nulliparous. Benign left US cyst aspiration of the left breast, October 25, 2007. Benign US left CoreBiopsy of both breasts, October 25, 2007. Took estrogen for 3 years beginning at age 49. Physical Findings: Nurse did not find any significant physical abnormalities on exam. MG 3D Diag Mammo W/Cad ABEBA Bilateral CC and MLO view(s) were taken. Prior study comparison: January 20, 2020, left breast MG 3d diag mammo w/cad LT. July 07, 2019, left breast MG 3d work up w/cad LT. The breast tissue is heterogeneously dense. This may lower the sensitivity of mammography. No significant new findings when compared with previous films. These results were verbally communicated with the patient and result sheet given to the patient on 08/28/20. ASSESSMENT: Benign, BI-RAD 2 RECOMMENDATION: Routine screening mammogram of both breasts in 1 year.
== END ==
LOC: RADMAMWWP 08:47
PROVIDERS: ATTEND Obstetrics & Gynecology
DX: R92.8 Other abnormal and inconclusive findings on diagnostic imaging of breast (principal)
CPT/HCPCS: 77066; G0279; 77062

== ENCOUNTER 2020-09-18 07:53 | Day surgery (SDC) | payer MEDICARE ==
[~2020-09-18 07:53] MED LIST changes: -IOPAMIDOL M200 10 ML VIAL ONE; -ROPIVACAINE 5MG/ML 20ML VIAL ONE; -methylPREDNISolone ACETATE 40 MG/ML 1 ML VIAL ONE
[2020-09-18 08:17] VITALS: TEMP 98.8
[2020-09-18] MEDS ORDERED: methylPREDNISolone ACETATE 40 MG/ML 1 ML VIAL ONE (08:34)
[2020-09-18] MEDS ORDERED: ROPIVACAINE 5MG/ML 20ML VIAL ONE (08:34)
[2020-09-18] MEDS ORDERED: fentaNYL (PF) 50 MCG/ML 2 ML AMP ONE (08:34)
[2020-09-18] MEDS ORDERED: IOPAMIDOL M200 10 ML VIAL ONE (08:34)
[2020-09-18] MEDS ORDERED: MIDAZOLAM 2 MG/2 ML VIAL ONE (08:34)
--- NOTE | 2020-09-18 08:50 | P.PCN ---
Date of Procedure: 09/18/20 Surgeon: Tammy Gan Pathology: none sent Condition: stable Disposition: PACU Description of Procedure: PREOPERATIVE DIAGNOSIS: 1-Lumbar radiculopathy 2- Lumber Degenerative Disc Diseases. POSTOPERATIVE DIAGNOSIS: 1-Lumbar radiculopathy. 2-Lumbar Degenerative Disc Diseases PROCEDURE 1. Lumbar epidural steroid injection under fluoroscopic guidance at the L5-S1 level in the right paramedian approach. 2. Lumbar epidurogram. ANESTHESIA: Local with 1% lidocaine; and IV moderate conscious sedation with Versed and fentanyl EBL: Minimal PROCEDURE INDICATION: The patient with low back pain and radiculitis symptoms unresponsive to conservative treatment. Fluoroscopy was used to optimize visualization of the needle placement and to maximize safety. PROCEDURE DESCRIPTION / TECHNIQUE: The patient was seen and identified in the preoperative area. Risks, benefits, complications including but not limited to infections ,bleeding ,allergic reaction to the medications ,nerve damage and not complete pain relief , and alternatives were discussed with the patient. The patient agreed to proceed with the procedure and signed the consent. IV was started, and vital signs were stable. Patient was taken to the OR and time out was completed. The patient was placed in the prone position on procedure table and a pillow was placed under the abdomen to reduce lumbar lordosis. The lumbosacral area was prepped and draped in the usual sterile fashion with ChloraPrep.Patient was closely monitored during the procedure. Conscious sedation was used during the procedure to decrease patients anxiety. Vital signs were monitered during the entire procedure. Using anterior-posterior fluoroscopy, the L5-S1 interlaminar space was identified and the skin over this site was marked and then infiltrated with 1% lidocaine subcutaneously. Subsequently, a 20-gauge Tuohy epidural needle was inserted and advanced toward the epidural space using the Loss of resistance to air technique and guided by AP and lateral fluoroscopy. The correct needle position in the epidural space was verified with the injection of 1 mL of the water soluble contrast dye Omnipaque 180 contrast and observing an excellent epidurogram with the epidural spread of the dye, after negative aspiration for blood and CSF and in the absence of paresthesias. Again after negative aspiration, a 8 ml mixture containing 40 mg of Kenalog and 5 ml of preservative free Normal Saline, and 2 ml of preservative free ropivacaine 0.5% solution was injected and a washout of epidurogram was seen. Needle was withdrawn intact, skin was cleansed, and bandages were applied. patient tolerated procedure well and was transferred to PACU in stable condition.A copy of the needle placement picture was saved to the fluoroscopy machine. COMPLICATIONS: None DISPOSITION / PLANS: The patient was placed in a supine position and transferred to the recovery area in a stable condition for observation. There was no evidence of lower extremity motor or sensory deficit after the procedure. Patient was discharged from the recovery room after meeting discharge criteria. Home discharge instructions were given to the patient by the staff. The patient was reexamined prior to discharge. The patient will schedule a follow up in the clinic in 2-4 weeks.
[2020-09-18] MEDS ORDERED: IV FLUID CONTINUATION 750 ML IV ONE (08:57)
[2020-09-18 09:08] VITALS: RESP 20
[2020-09-18 09:28] VITALS: BP 99/60; PULSE 68
--- NOTE | 2020-09-18 14:34 | FL ---
Fluoroscopy HISTORY: Pain 5 seconds fluoroscopy time supplied to the referring clinician. 2 intraoperative C-arm images docume nt the procedure. See dictated report from anesthesia.
== END 2020-09-18 09:27 | disposition home or self-care (01) ==
LOC: ORPAIN 07:53
PROVIDERS: ATTEND Anesthesiology
DX: M51.16 Intervertebral disc disorders with radiculopathy, lumbar region (principal); I10 Essential (primary) hypertension
CPT/HCPCS: 62323; J2250; J1030; J3010; Q9966; J2795

== ENCOUNTER 2020-10-11 06:48 | Day surgery (SDC) | payer MEDICARE ==
[2020-10-09 09:20] VITALS: BMI 29.4
[2020-10-11] MEDS ORDERED: LACTATED RINGERS 1,000 ML IV SCH (07:00)
[2020-10-11 07:08] VITALS: TEMP 97.8
[2020-10-11] MEDS ORDERED: LACTATED RINGERS 1,000 ML IV ONE (07:09)
[2020-10-11] MEDS ORDERED: LIDOCAINE 1% (10MG/ML) FOR IV START INTRADERMA ONE (07:09)
[2020-10-11] MEDS ORDERED: IOPAMIDOL M200 10 ML VIAL ONE (07:40)
[2020-10-11] MEDS ORDERED: methylPREDNISolone ACETATE 40 MG/ML 1 ML VIAL ONE (07:40)
[2020-10-11] MEDS ORDERED: MIDAZOLAM 2 MG/2 ML VIAL ONE (07:40)
[2020-10-11] MEDS ORDERED: fentaNYL (PF) 50 MCG/ML 2 ML AMP ONE (07:40)
--- NOTE | 2020-10-11 07:56 | P.PCN ---
Date of Procedure: 10/11/20 Procedure(s) Performed: PREOPERATIVE DIAGNOSIS: 1- Lumbar Degenerative Disc Diseases 2-Lumbar radiculopathy POSTOPERATIVE DIAGNOSIS: Same as preop diagnosis. PROCEDURE 1. Lumbar epidural steroid injection under fluoroscopic guidance at the L4-5 level. (Fluoroscopy imaging was available in radiology department) 2. Lumbar epidurogram. ANESTHESIA: Local with 1% lidocaine 3 ml and , moderate sedation with intravenous Versed 2 mg ,and fentanyle 50 Mcg EBL: Minimal PROCEDURE INDICATION: The patient with low back pain and radiculitis symptoms unresponsive to conservative treatment. Fluoroscopy was used to optimize visualization of the needle placement and to maximize safety. PROCEDURE DESCRIPTION / TECHNIQUE: The patient was seen and identified in the preoperative area. Risks, benefits, complications including but not limited to infections ,bleeding ,allergic reaction to the medications ,nerve damage and not complete pain releife , and alternatives were discussed with the patient. The patient agreed to proceed with the procedure and signed the consent. IV was started, and vital signs were stable. Patient was taken to the OR and time out was completed. The patient was placed in the prone position on procedure table and a pillow was placed under the abdomen to reduce lumbar lordosis. The lumbosacral area was prepped and draped in the usual sterile fashion.ere closely monitored during the procedure. Conscious sedation was used during the procedure to decrease patients anxiety. Vital signs was monitered during the entire procedure. Using anterior-posterior fluoroscopy, the L4-5 interlaminar space was identified and the skin over this site was marked and then infiltrated with 1% lidocaine subcutaneously. Subsequently, a 20-gauge Tuohy epidural needle was inserted and advanced toward the epidural space using the ``Loss of resistance technique and guided by AP and lateral fluoroscopy. The correct needle position in the epidural space was verified with the injection of 2 mL of the water soluble contrast dye Isovue 200 contrast and observing an excellent epidurogram with the epidural spread of the dye, after negative aspiration for blood and CSF and in the absence of paresthesias. Again after negative aspiration, a 6 ml mixture containing 40 mg of Depo-medrol , and 2 ml of preservative free Normal Saline, and 2 ml of preservative free lidocaine 1% solution was injected and a washout of epidurogram was seen. Needle was withdrawn intact, skin was cleansed, and bandages were applied. COMPLICATIONS: None DISPOSITION / PLANS: The patient was placed in a supine position and transferred to the recovery area in a stable condition for observation. There was no evidence of lower extremity motor or sensory deficit after the procedure. Patient was discharged from the recovery room after meeting discharge criteria. Home discharge instructions were given to the patient by the staff. The patient was reexamined prior to discharge. The patient will schedule a follow up in the clinic in 2-4 weeks.
[2020-10-11 08:18] VITALS: BP 110/64; PULSE 63; RESP 14
[2020-10-11] MEDS ORDERED: IV FLUID CONTINUATION 1,000 ML IV ONE (08:18)
--- NOTE | 2020-10-11 09:42 | FL ---
Fluoroscopy HISTORY: Pain 3 seconds fluoroscopy time supplied to the referring clinician. 1 intraoperative C-arm images docume nt the procedure. See dictated report from anesthesia.
== END 2020-10-11 08:28 | disposition home or self-care (01) ==
LOC: ORPAIN 06:48
PROVIDERS: ATTEND Specialist
DX: M51.16 Intervertebral disc disorders with radiculopathy, lumbar region (principal); Z88.1 Allergy status to other antibiotic agents; Z88.8 Allergy status to other drugs, medicaments and biological substances
CPT/HCPCS: 62323; J2250; J1030; J3010; Q9966

== ENCOUNTER → 2020-11-01 | Outpatient (CLI) | payer MEDICARE ==
--- NOTE | 2020-11-01 13:39 | XR ---
EXAMINATION TYPE: XR thoracic spine complete DATE OF EXAM: 11/01/2020 COMPARISON: NONE HISTORY: Pain TECHNIQUE: 3 views submitted FINDINGS: Alignment is anatomic. There is no compression deformities. Hypertrophic and degenerative change of the spine. No compression deformities. Subsegmental changes involving the right lower lobe. IMPRESSION: 1. Moderate to severe multilevel degenerative disc disease. 2. Frontal view there is subsegmental patchy consolidation along the right heart border consider foll ow-up chest x-ray.
== END | disposition home or self-care (01) ==
LOC: RADXRMAIN 13:06
PROVIDERS: ATTEND Internal Medicine Geriatric Medicine
DX: M51.34 Other intervertebral disc degeneration, thoracic region (principal)
CPT/HCPCS: 72072

== ENCOUNTER → 2020-11-07 | Outpatient (CLI) | payer MEDICARE ==
--- NOTE | 2020-11-07 10:16 | P.PN ---
Subjective Progress Note Date: 11/07/20 This is a 7-year-old lady with history of chronic lower back pain and radia tion down the right leg. The patient had epidural steroid injections and right sacroiliac joint steroid injection which helped her significantly. Her pain has improved by at least 60% as she states. She does get fluctuations in her pain. She tries to walk at least 1 mile every day. Physical therapy a few years ago. Patient denies new-onset weakness, bowel/bladder incontinence, or any other si gns or symptoms of cauda equina syndrome. There are no signs of acute intoxication, and no indications of medication diversion or overuse. In addition to above, 13-point review of systems is also negative for chest pain, shortness of breath, changes in vision, changes in hearing, new onset weakness, abdominal pain, diarrhea, extreme fatigue, malaise, fever, skin changes, homicidal or suicidal ideation, or bowel or bladder incontinence. Vital Signs: Reviewed in EMR Gen: AAOx3, NAD HEENT: PERRLA,hearing grossly normal Pulm: resp unlabored Neck: supple, trachea midline Neuro exam of the lower extremities: Normal bilaterally Straight leg raising test: Negative bilaterally Tripp's test: Range of motion of the lumbar spine: Facet loading test: Tenderness in the paravertebral musculature: Soft tenderness in the lumbar paravertebral musculature Neuro: CN II-XII grossly intact, Imaging: Reviewed in EMR/chart Assessment: Lumbar DDD Right lumbar radiculopathy Lumbar spondylosis without myelopathy Plan: 1. Explanation: Opioid and psychological risk scores were reviewed. Diagnoses, prognoses, and multiple treatment options including but not limited to physical therapy, interventional therapies, adjuvant medical therapies, narcotic medication therapies, and surgery were discussed with the patient and all questions were answered to the patient's satisfaction. 2. Opioid agreement: Signed with the patient and the patient is warned not to use opioids while driving or before driving and not to combine opioids with benzodiazepines or alcohol. 3. Counseling: The patient was counseled extensively on SMOKING CESSATION, BODY MASS INDEX, EXERCISE. Specifically, the patient was instructed regarding the importance of smoking cessation, obesity, and exercise in the context of both chronic pain and overall health. 4. Procedures: None for now 5. Consultations: None 6. Investigations: None 7. Medications: None prescribed 8. Disposition: Return to clinic as needed. When the patient gets any exacerbation of her pain and depending on her symptoms we'll decide what type of injection will be of benefit to her. 9. Maps were reviewed and were appropriate.
== END ==
CPT/HCPCS: 99211

== ENCOUNTER → 2020-12-06 | Outpatient (CLI) | payer MEDICARE ==
--- NOTE | 2020-12-07 06:48 | MR ---
EXAMINATION TYPE: MR thoracic spine wo con DATE OF EXAM: 12/06/2020 COMPARISON: Thoracic spine x-ray November 01, 2020 HISTORY: Mid back pain for 2 years. TECHNIQUE: Multiplanar, multisequence imaging of thoracic spine is performed without contrast FINDINGS: Spinal cord shows normal course, caliber, and signal as it courses the thoracic spine. Ve rtebral body heights and alignment are satisfactory. Disc space heights fairly well maintained. Mild to moderate multilevel anterior spurring. There is hemangioma involving the superior T10 vertebral s agittal image 10 and central L1 vertebra. No large posterior disc herniations identified on sagittal images. Review of the axial images shows no significant spinal canal stenosis or neural foraminal narrowing a t any thoracic level. Visualized portion of the thorax and upper abdomen show no suspicious incident al abnormality. IMPRESSION: [id number] multilevel spurring. No significant disc herniation.
== END | disposition home or self-care (01) ==
LOC: RADMRIMAIN 16:32
PROVIDERS: ATTEND Internal Medicine Geriatric Medicine
DX: M46.04 Spinal enthesopathy, thoracic region (principal)
CPT/HCPCS: 72146

== ENCOUNTER → 2021-01-04 | Outpatient (CLI) | payer MEDICARE ==
[2021-01-04 15:14] LABS: Basophils # (A) 0.01 X 10*3/uL (0.00-0.10); Basophils % (A) 0.2 %; Eosinophils # (A) 0.39 X 10*3/uL (0.04-0.35); Eosinophils % (A) 7.4 %; HGB 13.9 g/dL (12.0-15.0); Lymphocytes # (A) 1.81 X 10*3/uL (0.90-5.00); Lymphocytes % (A) 34.3 %; MCH 31.6 pg (27.0-32.0); MCHC 32.3 g/dL (32.0-37.0); MCV 97.7 fL (80.0-97.0); Mean Platelet Volume 10.6 fL (9.5-12.2); Monocytes # (A) 0.52 X 10*3/uL (0.20-1.00); Monocytes % (A) 9.9 %; Neutrophils # (A) 2.53 X 10*3/uL (1.80-7.70); Platelet Count 203 X 10*3/uL (140-440); RDW 12.5 % (11.5-14.5); WBC 5.27 X 10*3/uL (4.50-10.00)
[2021-01-04 18:56] LABS: Hemoglobin A1C 5.6 % (4.0-6.0)
[2021-01-04 22:57] LABS: African American GFR (CKD) 86.6 (60.0-200.0); Albumin 4.4 g/dL (3.80-4.90); Albumin/Globulin Ratio 2.59 (1.60-3.17); Anion Gap 9.4 mmol/L (4.00-12.00); BUN/Creat Ratio 32.5 Ratio (12.00-20.00); Calcium 9.4 mg/dL (8.7-10.3); Carbon Dioxide 28.6 mmol/L (21.6-31.8); Chol/HDL Ratio 2.63; Globulin 1.7 g/dL (1.6-3.3); LDL Cholesterol,Calculated 53.6 mg/dL (0.0-131.0); Non-African American GFR(CKD) 74.7 (60.0-200.0); Potassium 5.3 mmol/L (3.5-5.5); Total Bilirubin 1.3 mg/dL (0.3-1.2); Total Protein 6.1 g/dL (6.2-8.2); VLDL Calculation 26.4 mg/dL (5.00-40.00)
[2021-01-04 23:06] LABS: T4, Free (Free Thyroxine) 1.1 ng/dL (0.80-1.80)
== END | disposition home or self-care (01) ==
LOC: LABWHC1 08:58
PROVIDERS: ATTEND Internal Medicine Geriatric Medicine
DX: B02.9 Zoster without complications (principal); E78.5 Hyperlipidemia, unspecified; R73.9 Hyperglycemia, unspecified; E03.9 Hypothyroidism, unspecified
CPT/HCPCS: 36415; 80053; 80061; 83036; 84439; 84443; 85025

== ENCOUNTER → 2021-05-31 | Outpatient (CLI) | payer MEDICARE ==
--- NOTE | 2021-05-31 16:12 | BD ---
EXAMINATION TYPE: Axial Bone Density DATE OF EXAM: 05/31/2021 COMPARISON: NONE CLINICAL HISTORY: Height: 56.5 IN Weight: 140 LBS FRAX RISK QUESTIONS: Family History (Parent hip fracture): YES MOTHER RISK FACTORS HISTORY OF: Active: YES Postmenopausal woman: PARTIAL HYST AGE 50 Take estrogen and/or progesterone medications: NOT NOW TOOK FOR 1 YEAR MEDICATIONS: Additional Medications: MULTI VIT, VIT D, CALCIUM, LISINOPRIL, ATORVASTATIN, GABAPENTIN, EYE DROPS EXAM MEASUREMENTS: Bone mineral densitometry was performed using the [employer]. Bone mineral density as measured about the Lumbar spine is: ----- L1-L4(G/cm2): 1.091 T Score Values are as follows: ----- L2: -1.2 ----- L3: -0.8 ----- L4: -0.5 ----- L1-L4: -0.7 Bone mineral density BASELINE Bone mineral density about the R hip (g/cm2): 0.717 Bone mineral density about the L hip (g/cm2): 0.771 T Score values are as follows: -----R Neck: -2.3 -----L Neck: -1.9 -----R Total: -0.8 -----L Total: -0.2 Bone mineral density BASELINE IMPRESSION: Osteopenia (T Score between -2.5 and -1). There is slightly increased risk of fracture and the patient may be considered for treatment. Re-Screen 2-5 years. NOTE: T-SCORE=SD OF THE YOUNG ADULT MEAN.
== END | disposition home or self-care (01) ==
LOC: RADBDWWP 08:34
PROVIDERS: ATTEND Internal Medicine Geriatric Medicine
DX: M81.0 Age-related osteoporosis without current pathological fracture (principal); M85.80 Other specified disorders of bone density and structure, unspecified site
CPT/HCPCS: 77080

== ENCOUNTER → 2021-10-15 | Outpatient (CLI) | payer MEDICARE ==
[2021-10-15 14:08] VITALS: BP 149/79; PULSE 74; RESP 12; TEMP 98.4
--- NOTE | 2021-10-15 14:47 | P.HPOB ---
History of Present Illness H&P Date: 10/15/21 Chief Complaint: The patient is here for her routine gynecologic exam and ma mmogram. This is a 71-year-old G0 with an LMP of 1999. The patient is status post ROMAIN for uterine fibroids. The patient is without gynecologic complaints. Review of Systems The patient has lost 5 pounds over the last 2 years. She denies respiratory, cardiac, or G.I. problems. Past Medical History Past Medical History: Hyperlipidemia, Hypertension Additional Past Medical History / Comment(s): Diverticulosis, low back pain, pancreatic cyst,shingles 3-2019. 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 History of Any Multi-Drug Resistant Organisms: None Reported Past Surgical History: Bowel Resection, Hysterectomy Additional Past Surgical History / Comment(s): Colonoscopies(last 2018), R carpal tunnel release/ganglion cystectomy, ROMAIN for fibroids(1999). Bowel resection - August 2018, PA[facility] PROCEDURE Past Anesthesia/Blood Transfusion Reactions: No Reported Reaction Past Psychological History: No Psychological Hx Reported Additional Psychological History / Comment(s): Pt resides with her spouse. She is independent. Smoking Status: Never smoker Past Alcohol Use History: Occasional (2 per week) Additional Past Alcohol Use History / Comment(s): The patient has been a lifelong nonsmoker, no illicit drug use, no marijuana use Past Drug Use History: None Reported Additional History: She has been since 1970 but is not sexually active. 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 She currently works remotely. - Past Family History Mother Family Medical History: Dementia Additional Family Medical History / Comment(s): Mother of complications from her dementia at the age of 89yrs. Father Family Medical History: Coronary Artery Disease (CAD), Myocardial Infarction (WA) Additional Family Medical History / Comment(s): Father at the age of 55yrs from heart complications. He had previously had a [place] Medications and Allergies Home Medications Medication Instructions Recorded Confirmed Type Aspirin EC [Ecotrin Low Dose] 81 mg PO DAILY 03/27/14 10/15/21 History Atorvastatin [Lipitor] 20 mg PO HS 03/27/14 10/15/21 History Multivitamins, Thera [Multivitamin 1 tab PO DAILY 03/27/14 10/15/21 History (formulary)] lisinopriL [Lisinopril] 10 mg PO DAILY 07/24/15 10/15/21 History Cholecalciferol [Vitamin D3 (25 1,000 unit PO DAILY 04/27/18 10/15/21 History Mcg = 1000 Iu)] Acetaminophen [Tylenol Extra 500 mg PO Q6H PRN 03/21/20 10/15/21 History Strength] Ascorbic Acid [Vitamin C] 500 mg PO DAILY 09/14/20 10/15/21 History Latanoprost/Pf [Latanoprost 0.005% 1 drop BOTH EYES HS 09/14/20 10/15/21 History Eye Drop] Timolol Maleate/Pf [Timoptic 0.25% 1 drop BOTH EYES DAILY 09/14/20 10/15/21 History Ocudose] Allergies Allergy/AdvReac Type Severity Reaction Status Date / Time amoxicillin [Amoxicillin] Allergy Unknown Diarrhea Verified 10/15/21 13:57 metronidazole [From Flagyl] Allergy Rash/Hives Verified 10/15/21 13:57 nitrofurantoin Allergy Rash/Hives Verified 10/15/21 13:57 [From Macrobid] amoxicillin trihydrate AdvReac Severe Diarrhea Verified 10/15/21 13:57 [From Augmentin] doxycycline AdvReac Severe Diarrhea Verified 10/15/21 13:57 Penicillins AdvReac Severe Diarrhea Verified 10/15/21 13:57 phenazopyridine HCl AdvReac Severe jittery Verified 10/15/21 13:57 [From Pyridium] feeling potassium clavulanate AdvReac Severe Diarrhea Verified 10/15/21 13:57 [From Augmentin] Sulfa (Sulfonamide AdvReac Severe Diarrhea Verified 10/15/21 13:57 Antibiotics) ciprofloxacin [From Cipro] AdvReac Joint Pain Verified 10/15/21 13:57 Exam Vital Signs Temp Pulse Resp BP Pulse Ox 10/15/21 14:00 98.4 F 74 12 149/79 99 Intake and Output 10/14/21 10/15/21 10/15/21 22:59 06:59 14:59 Other: Weight 60.781 kg Height 4 feet 8 inches, weight 134 pounds, BMI 30.0. This is a short statured well-nourished white female who is alert and oriented times 3 in no acute distress. HEENT: Within normal limits. NECK: Supple without mass or thyromegaly. CHEST AND LUNGS: Clear to auscultation. HEART: Regular rate and rhythm. BREASTS: Are without mass or discharge. Nipples are inverted bilaterally. The patient states it has been this way for many years. AXILLARY EXAM: Negative for adenopathy. BACK: Negative for CVA tenderness. ABDOMEN: Soft, nontender, without palpable masses. PELVIC EXAM: External genitalia appears normal with mild to moderate atrophy. Vagina appears normal with mild to moderate atrophy. There is no evidence of prolapse. Bimanual examination is negative for mass or tenderness. RECTAL EXAM: Rectovaginal exam is negative for mass or tenderness and is negative for occult blood. EXTREMITIES: Nontender. IMPRESSION: 1. 71-year-old menopausal female status post ROMAIN for benign reasons, with normal gynecologic exam. 2. History of osteopenia. PLAN: 1. Pap smears have been discontinued. 2. Self breast awareness was discussed with the patient. We have also discussed symptoms associated with inflammatory breast cancer. 3. Screening mammogram will be done today. 4. Osteoporosis prevention was discussed. I have stressed the importance of adequate calcium, vitamin D and regular exercise. Recommended amounts of calcium and vitamin D were also discussed. Bone density done on 05/31/2021 showed osteopenia. We will plan on repeating bone density testing in approximately 1-1/2-2 years. 5. She has completed her Covid vaccination and has received 2 booster shots. 6. The patient was advised to return in 1-2 years for her well woman ex amination.
--- NOTE | 2021-10-16 14:18 | MM ---
Reason for exam: screening (asymptomatic). Last mammogram was performed 1 year and 2 months ago. History: Patient is postmenopausal and is nulliparous. Benign left US cyst aspiration of the left breast, October 25, 2007. Benign US left CoreBiopsy of both breasts, October 25, 2007. Took estrogen for 3 years beginning at age 49. Physical Findings: A clinical breast exam by your physician is recommended on an annual basis and results should be correlated with mammographic findings. MG 3D Screening Mammo W/Cad Bilateral CC and MLO view(s) were taken. Prior study comparison: August 28, 2020, bilateral MG 3d diag mammo w/cad ABEBA. January 20, 2020, left breast MG 3d diag mammo w/cad LT. The breast tissue is heterogeneously dense. This may lower the sensitivity of mammography. There are benign appearing round, dystrophic calcifications bilaterally. Previous mammotome biopsy in the left breast. There is no discrete abnormality. ASSESSMENT: Benign, BI-RAD 2 RECOMMENDATION: Routine screening mammogram of both breasts in 1 year.
== END | disposition home or self-care (01) ==
LOC: WWCWWP 13:44
PROVIDERS: ATTEND Obstetrics & Gynecology
DX: Z12.31 Encounter for screening mammogram for malignant neoplasm of breast (principal)
CPT/HCPCS: 77063; 77067

== ENCOUNTER → 2022-01-22 | Outpatient (CLI) | payer MEDICARE ==
[2022-01-22 10:29] LABS: Basophils # (A) 0 X 10*3/uL (0.00-0.10); Basophils % (A) 0 %; Eosinophils # (A) 0 X 10*3/uL (0.04-0.35); Eosinophils % (A) 0 %; HCT 45.6 % (37.2-46.3); Immature Grans, Automated 0.4 %; Lymphocytes % (A) 18.1 %; MCH 31.2 pg (27.0-32.0); MCHC 32.9 g/dL (32.0-37.0); MCV 94.8 fL (80.0-97.0); Mean Platelet Volume 10.3 fL (9.5-12.2); Monocytes # (A) 0.62 X 10*3/uL (0.20-1.00); Monocytes % (A) 8.6 %; NRBC Per 100 WBC 0 /100 WBCS (0.0-0.0); Neutrophils # (A) 5.23 X 10*3/uL (1.80-7.70); Neutrophils % (A) 72.9 %; Platelet Count 243 X 10*3/uL (140-440); RBC 4.81 X 10*6/uL (4.10-5.20); RDW 12.6 % (11.5-14.5); WBC 7.18 X 10*3/uL (4.50-10.00)
[2022-01-22 10:46] LABS: ALT 23 U/L (8-44); AST 15 U/L (13-35); African American GFR (CKD) 79.8 (60.0-200.0); Albumin 4.3 g/dL (3.8-4.9); Albumin/Globulin Ratio 2.01 (1.60-3.17); Alkaline Phosphatase 54 U/L (41-126); BUN/Creat Ratio 32.43 Ratio (12.00-20.00); Blood Urea Nitrogen 27.6 mg/dL (9.0-27.0); Calcium 9.5 mg/dL (8.7-10.3); Carbon Dioxide 28.6 mmol/L (20.0-27.5); Chloride 102 mmol/L (96-109); Chol/HDL Ratio 2.75 Ratio; Globulin 2.1 g/dL (1.6-3.3); Glucose 128 mg/dL (70-110); LDL Cholesterol,Calculated 77.9 mg/dL (0.0-131.0); Non-African American GFR(CKD) 68.8 (60.0-200.0); Potassium 5.3 mmol/L (3.5-5.5); Sodium 139 mmol/L (135-145); Total Protein 6.4 g/dL (6.2-8.2)
== END | disposition home or self-care (01) ==
LOC: LABWHC1 06:58
PROVIDERS: ATTEND Internal Medicine Geriatric Medicine
DX: M79.2 Neuralgia and neuritis, unspecified (principal); E78.5 Hyperlipidemia, unspecified; R73.9 Hyperglycemia, unspecified
CPT/HCPCS: 36415; 80053; 80061; 83036; 84443; 85025

== ENCOUNTER → 2022-05-27 | Outpatient (CLI) | payer MEDICARE ==
[2022-05-27 10:44] LABS: Basophils # (A) 0.01 X 10*3/uL (0.00-0.10); Basophils % (A) 0.2 %; Eosinophils # (A) 0.54 X 10*3/uL (0.04-0.35); Eosinophils % (A) 9.4 %; HCT 44.6 % (37.2-46.3); HGB 14.7 g/dL (12.0-15.0); Immature Grans, Automated 0.3 %; Lymphocytes # (A) 1.86 X 10*3/uL (0.90-5.00); Lymphocytes % (A) 32.3 %; MCH 32.1 pg (27.0-32.0); MCV 97.4 fL (80.0-97.0); Mean Platelet Volume 9.9 fL (9.5-12.2); Monocytes # (A) 0.48 X 10*3/uL (0.20-1.00); Monocytes % (A) 8.3 %; NRBC Per 100 WBC 0 /100 WBCS (0.0-0.0); Neutrophils # (A) 2.85 X 10*3/uL (1.80-7.70); Neutrophils % (A) 49.5 %; Platelet Count 236 X 10*3/uL (140-440); RBC 4.58 X 10*6/uL (4.10-5.20); RDW 12.6 % (11.5-14.5); WBC 5.76 X 10*3/uL (4.50-10.00)
[2022-05-27 11:02] LABS: ALT 27 U/L (8-44); AST 18 U/L (13-35); African American GFR (CKD) 85.4 (60.0-200.0); Albumin 4.4 g/dL (3.8-4.9); Alkaline Phosphatase 55 U/L (41-126); Blood Urea Nitrogen 19.2 mg/dL (9.0-27.0); Calcium 9.8 mg/dL (8.7-10.3); Carbon Dioxide 28.8 mmol/L (20.0-27.5); Chloride 100 mmol/L (96-109); Chol/HDL Ratio 2.77 Ratio; Glucose 117 mg/dL (70-110); LDL Cholesterol,Calculated 71.1 mg/dL (0.0-131.0); Non-African American GFR(CKD) 73.7 (60.0-200.0); Potassium 4.7 mmol/L (3.5-5.5); Sodium 139 mmol/L (135-145); Total Protein 6.4 g/dL (6.2-8.2)
== END | disposition home or self-care (01) ==
LOC: LABWHC1 06:57
PROVIDERS: ATTEND Internal Medicine Geriatric Medicine
DX: E78.5 Hyperlipidemia, unspecified (principal); G62.9 Polyneuropathy, unspecified; R73.9 Hyperglycemia, unspecified
CPT/HCPCS: 36415; 80053; 80061; 83036; 84443; 85025

== ENCOUNTER 2022-09-30 07:16 | Day surgery (SDC) | payer MEDICARE ==
[2022-09-30 07:43] VITALS: TEMP 98
[2022-09-30] MEDS ORDERED: ROPIVACAINE 5 MG/ML 20 ML AMPULE ONE (08:03)
[2022-09-30] MEDS ORDERED: MIDAZOLAM 2 MG/2 ML VIAL ONE (08:03)
[2022-09-30] MEDS ORDERED: IOPAMIDOL M200 10 ML VIAL ONE (08:03)
[2022-09-30] MEDS ORDERED: methylPREDNISolone ACETATE 40 MG/ML 1 ML VIAL ONE (08:03)
[2022-09-30] MEDS ORDERED: fentaNYL (PF) 50 MCG/ML 2 ML AMP ONE (08:03)
[2022-09-30] MEDS ORDERED: LACTATED RINGERS 1,000 ML IV ONE (08:22)
--- NOTE | 2022-09-30 08:32 | P.PCN ---
Date of Procedure: 09/30/22 Description of Procedure: Procedure: Sacroiliac joint injection bilateral Preoperative diagnosis: Sacroiliitis Postoperative diagnosis: Sacroiliitis Imaging: Fluoroscopy was used, images where saved to the medical record Complications: none ANESTHESIA: Medication Administered by: Nurse Sedation Type: Moderate sedation Sedation Supervision start time: 808 Sedation Supervision end time: 815 Description of the procedure: procedure risk and benefits discussed with the patient, including but not limited, risk of infection and bleeding, and allergic reaction to the medication and incomplete pain relief. Patient agreed and signed consent. Patient was taken to the room and placed in a prone position. Chlorhexidine was used to cleanse the skin. Under sterile conditions patient skin was anesthetized 1% lidocaine. Subcutaneous tissues were also anesthetized with a total 5 mL of 1% lidocaine. After that, a 22-gauge spinal needle was advanced through the anesthetized location under fluoroscopic guidance. Needle was advanced into the inferior portion of the sacroiliac joint. IV contrast was used to confirm spread within the joint. After adequate spread was achieved, 2.5 ML's of 0.5% ropivacaine with 40 mg of depomedrol was injected into the joint (steroid split between both sides if bilateral). Patient tolerated the procedure well. Sent to the recovery room in stable condition. Patient will follow up as directed.
[2022-09-30 08:41] VITALS: BP 109/66; PULSE 63; RESP 16
--- NOTE | 2022-09-30 09:03 | FL ---
EXAMINATION TYPE: FL guided pain mgmt statistic DATE OF EXAM: 09/30/2022 HISTORY: Fluoroscopy time 6 seconds of fluoroscopy provided. [id number]. IMPRESSION: 1. Fluoroscopy time.
== END 2022-09-30 08:45 | disposition home or self-care (01) ==
LOC: ORPAIN 07:16
PROVIDERS: ATTEND Hospitalist
DX: M46.1 Sacroiliitis, not elsewhere classified (principal); Z88.8 Allergy status to other drugs, medicaments and biological substances
CPT/HCPCS: J2250; J1030; J3010; Q9966; J2795; G0260

== ENCOUNTER → 2022-10-21 | Outpatient (CLI) | payer MEDICARE ==
[2022-10-21 10:40] VITALS: BP 135/79; PULSE 68; RESP 17; TEMP 97.9
--- NOTE | 2022-10-21 11:50 | P.HPOB ---
History of Present Illness H&P Date: 10/21/22 Chief Complaint: The patient is here for her routine gynecologic exam and ma mmogram. This is a 72-year-old G0 with an LMP of 1999. She is status post RMOAIN for uterine fibroids. She is without gynecologic complaints. Review of Systems The patient has gained 3 pounds over the last year. She denies respiratory, cardiac, or G.I. problems. Past Medical History Past Medical History: Hyperlipidemia, Hypertension Additional Past Medical History / Comment(s): Diverticulosis, low back pain, pancreatic cyst,shingles 3-2019. 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 History of Any Multi-Drug Resistant Organisms: None Reported Past Surgical History: Bowel Resection, Hysterectomy Additional Past Surgical History / Comment(s): Colonoscopies(last 2018), R carpal tunnel release/ganglion cystectomy, ROMAIN for fibroids(1999). Bowel resection - August 2018, PAIN CLINIC PROCEDURE Past Anesthesia/Blood Transfusion Reactions: No Reported Reaction Past Psychological History: No Psychological Hx Reported Additional Psychological History / Comment(s): Pt resides with her spouse. She is independent. Smoking Status: Never smoker Past Alcohol Use History: Occasional (2 per week) Additional Past Alcohol Use History / Comment(s): The patient has been a lifelong nonsmoker, no illicit drug use, no marijuana use Past Drug Use History: None Reported Additional History: She has been since 1970 but is not sexually active. 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 - Past Family History Mother Family Medical History: Dementia Additional Family Medical History / Comment(s): Mother of complications from her dementia at the age of 89yrs. Father Family Medical History: Coronary Artery Disease (CAD), Myocardial Infarction (AK) Additional Family Medical History / Comment(s): Father at the age of 55yrs from heart complications. He had previously had a AK Medications and Allergies Home Medications Medication Instructions Recorded Confirmed Type Aspirin EC [Ecotrin Low Dose] 81 mg PO DAILY 03/27/14 10/21/22 History Atorvastatin [Lipitor] 20 mg PO HS 03/27/14 10/21/22 History Multivitamins, Thera [Multivitamin 1 tab PO DAILY 03/27/14 10/21/22 History (formulary)] lisinopriL [Lisinopril] 10 mg PO DAILY 07/24/15 10/21/22 History Cholecalciferol [Vitamin D3 (25 1,000 unit PO DAILY 04/27/18 10/21/22 History Mcg = 1000 Iu)] Acetaminophen [Tylenol Extra 500 mg PO Q6H PRN 03/21/20 10/21/22 History Strength] Ascorbic Acid [Vitamin C] 500 mg PO DAILY 09/14/20 10/21/22 History Latanoprost/Pf [Latanoprost 0.005% 1 drop BOTH EYES HS 09/14/20 10/21/22 History Eye Drop] Timolol Maleate/Pf [Timoptic 0.25% 1 drop BOTH EYES DAILY 09/14/20 10/21/22 History Ocudose] Allergies Allergy/AdvReac Type Severity Reaction Status Date / Time amoxicillin [Amoxicillin] Allergy Unknown Diarrhea Verified 10/21/22 10:37 metronidazole [From Flagyl] Allergy Rash/Hives Verified 10/21/22 10:37 nitrofurantoin Allergy Rash/Hives Verified 10/21/22 10:37 [From Macrobid] amoxicillin trihydrate AdvReac Severe Diarrhea Verified 10/21/22 10:37 [From Augmentin] doxycycline AdvReac Severe Diarrhea Verified 10/21/22 10:37 Penicillins AdvReac Severe Diarrhea Verified 10/21/22 10:37 phenazopyridine HCl AdvReac Severe jittery Verified 10/21/22 10:37 [From Pyridium] feeling potassium clavulanate AdvReac Severe Diarrhea Verified 10/21/22 10:37 [From Augmentin] Sulfa (Sulfonamide AdvReac Severe Diarrhea Verified 10/21/22 10:37 Antibiotics) ciprofloxacin [From Cipro] AdvReac Joint Pain Verified 10/21/22 10:37 Exam Vital Signs Temp Pulse Resp BP Pulse Ox 10/21/22 10:37 97.9 F 68 17 135/79 98 Intake and Output 10/20/22 10/21/22 10/21/22 22:59 06:59 14:59 Other: Weight 62.142 kg Height 4 feet 8 inches, weight 137 pounds, BMI 30.7. This is a well-developed well-nourished white female who is alert and oriented times 3 in no acute distress. HEENT: Within normal limits. NECK: Supple without mass or thyromegaly. CHEST AND LUNGS: Clear to auscultation. HEART: Regular rate and rhythm. BREASTS: Are without mass or discharge. There is bilateral nipple inversion which the patient states she has had most of her life. AXILLARY EXAM: Negative for adenopathy. BACK: Negative for CVA tenderness. ABDOMEN: Soft, nontender, without palpable masses. PELVIC EXAM: External genitalia appears normal with mild to moderate atrophy. Vagina appears normal with mild to moderate atrophy. There is no evidence of prolapse. Bimanual examination is negative for mass or tenderness. RECTAL EXAM: Rectovaginal exam is negative for mass or tenderness and is negative for occult blood. EXTREMITIES: Nontender. IMPRESSION: 1. 72-year-old menopausal female status post ROMAIN for benign reasons, with normal gynecologic exam. 2. History of osteopenia. PLAN: 1. Pap smears have been discontinued. 2. Self breast awareness was discussed with the patient. We have also discussed symptoms associated with inflammatory breast cancer. 3. Screening mammogram was done today. 4. Osteoporosis prevention was discussed. I have stressed the importance of adequate calcium, vitamin D and regular exercise. Recommended amounts of calcium and vitamin D were also discussed. We will plan on doing a bone density test next year since her last one was on 05/31/2021. 5. The patient was advised to return in 1-2 years for her well woman examination.
--- NOTE | 2022-10-22 09:33 | MM ---
Reason for Exam: Screening (asymptomatic). Last mammogram was performed 1 year(s) and 1 month(s) ago. Patient History: Menarche at age 11. Patient has no children. Hysterectomy at age 49. Postmenopausal. Estrogen for 3 years from age 49 until age 52. 10/25/2007, Benign Cyst Aspiration on the left side. 10/25/2007, Bilateral Benign Core Biopsy. Risk Values: Mary 5 year model risk: 2.5%. NCI Lifetime model risk: 6.6%. Prior Study Comparison: 01/20/2020 Left Diagnostic Mammogram, [facility]. 08/28/2020 Bilateral Diagnostic Mammogram, [facility]. 10/15/2021 Bilateral Screening Mammogram, [facility]. Tissue Density: The breast tissue is heterogeneously dense. This may lower the sensitivity of mammography. Findings: Analyzed By CAD. Mammotome biopsy clip in the left breast upper outer aspect is redemonstrated. There are some scattered benign-appearing tiny round calcifications throughout the bilateral breasts redemonstrated. There is no suspicious new group of microcalcifications or new suspicious mass in either breast. Overall Assessment: Benign, BI-RAD 2 Management: Screening Mammogram of both breasts in 1 year. . Patient should continue monthly self-breast exams. A clinical breast exam by your physician is recommended on an annual basis. This exam should not preclude additional follow-up of suspicious palpable abnormalities. Note on Mary scores and lifetime risk: 1. A Mary score greater than 3% is considered moderate risk. If this is the case, consider specialist referral to assess eligibility for a risk reducing agent. 2. If overall lifetime risk for the development of breast cancer is 20% or higher, the patient may qualify for future screening with alternating mammogram and breast MRI. Electronically signed and approved by: Roberto Carlos Nicole M.D.
== END | disposition home or self-care (01) ==
LOC: RADMAMWWP 10:14
PROVIDERS: ATTEND Obstetrics & Gynecology
DX: Z12.31 Encounter for screening mammogram for malignant neoplasm of breast (principal); Z78.0 Asymptomatic menopausal state
CPT/HCPCS: 77063; 77067

== ENCOUNTER 2022-11-01 18:42 | Inpatient (IN) | payer MEDICARE ==
[2022-11-01] MEDS ORDERED: SODIUM CHLORIDE 0.9% 1,000 ML IV STA (20:22)
[2022-11-01] MEDS ORDERED: ONDANSETRON 4 MG/2 ML VIAL IVP STA (20:22)
[2022-11-01] MEDS ORDERED: diphenhydrAMINE 50 MG/ML 1 ML VIAL IVP STA (20:22)
[2022-11-01] MEDS ORDERED: SODIUM CHLORIDE 0.9% 500 ML 500 ML IV STA (20:22)
--- NOTE | 2022-11-01 20:23 | ED ---
Dizziness HPI - General Chief Complaint: Dizziness Stated Complaint: Dizzy Time Seen by Provider: 11/01/22 19:51 Source: patient, RN notes reviewed, old records reviewed Mode of arrival: wheelchair Limitations: no limitations - History of Present Illness Initial Comments: This 72-year-old female to the emergency department for evaluation of dizziness son onset of vertiginous room spinning nausea and the symptoms began at dinner tonight. The symptoms persisted at home that she was feeding her dog she began to fall and prolonged and unable to maintain her balance. Patient was then brought to the hospital by her who states patient cannot stand up without assistance patient does suffer from high blood pressure high cholesterol and no history of CVA or ME. No travel history sick contacts no trauma no fever. Patient has no history of similar complaint MD Complaint: dizziness, lightheadedness, difficulty walking -: hour(s) Timing: sudden onset Description: sense of movement, "room spinning", lightheadedness History of Same: No History of Trauma: No Severity: severe Worsens With: movement Associated Symptoms: ataxia - Related Data Home Medications Medication Instructions Recorded Confirmed Aspirin EC [Ecotrin Low Dose] 81 mg PO DAILY 03/27/14 11/01/22 Atorvastatin [Lipitor] 20 mg PO HS 03/27/14 11/01/22 Multivitamins, Thera [Multivitamin 1 tab PO DAILY 03/27/14 11/01/22 (formulary)] lisinopriL [Lisinopril] 10 mg PO DAILY 07/24/15 11/01/22 Latanoprost/Pf [Latanoprost 0.005% 1 drop BOTH EYES HS 09/14/20 11/01/22 Eye Drop] Cholecalciferol [Vitamin D3 (25 25 mcg PO DAILY 11/01/22 11/01/22 Mcg = 1000 Iu)] timoloL maleate [timoloL maleate 1 applic BOTH EYES DAILY 11/01/22 11/01/22 0.25%] Previous Rx's Medication Instructions Recorded Famotidine [Pepcid] 20 mg PO BID #14 tablet 11/02/22 Fluticasone Nasal Startex [Flonase 1 spray EA NOSTRIL DAILY #16 gm 11/02/22 Nasal Startex] Meclizine [Antivert] 25 mg PO TID #30 tab 11/02/22 methylPREDNISolone Dose Pack 4 mg PO DIRECTED #21 tab 11/02/22 [Medrol Dose Pack] Allergies Allergy/AdvReac Type Severity Reaction Status Date / Time amoxicillin [Amoxicillin] Allergy Unknown Diarrhea Verified 11/01/22 21:58 metronidazole [From Flagyl] Allergy Rash/Hives Verified 11/01/22 21:58 nitrofurantoin Allergy Rash/Hives Verified 11/01/22 21:58 [From Macrobid] amoxicillin trihydrate AdvReac Severe Diarrhea Verified 11/01/22 21:58 [From Augmentin] doxycycline AdvReac Severe Diarrhea Verified 11/01/22 21:58 Penicillins AdvReac Severe Diarrhea Verified 11/01/22 21:58 phenazopyridine HCl AdvReac Severe jittery Verified 11/01/22 21:58 [From Pyridium] feeling potassium clavulanate AdvReac Severe Diarrhea Verified 11/01/22 21:58 [From Augmentin] Sulfa (Sulfonamide AdvReac Severe Diarrhea Verified 11/01/22 21:58 Antibiotics) ciprofloxacin [From Cipro] AdvReac Joint Pain Verified 11/01/22 21:58 Review of Systems ROS Statement: Those systems with pertinent positive or pertinent negative responses have been documented in the HPI. ROS Other: All systems not noted in ROS Statement are negative. Past Medical History Past Medical History: Hyperlipidemia, Hypertension Additional Past Medical History / Comment(s): Diverticulosis, low back pain, pancreatic cyst,shingles -2019. 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 History of Any Multi-Drug Resistant Organisms: None Reported Past Surgical History: Bowel Resection, Hysterectomy Additional Past Surgical History / Comment(s): Colonoscopies(last 2018), R carpal tunnel release/ganglion cystectomy, ROMAIN for fibroids(1999). Bowel resection - August 2018, PAIN CLINIC PROCEDURE Past Anesthesia/Blood Transfusion Reactions: No Reported Reaction Past Psychological History: No Psychological Hx Reported Smoking Status: Never smoker Past Alcohol Use History: Occasional Past Drug Use History: None Reported - Past Family History Mother Family Medical History: Dementia Additional Family Medical History / Comment(s): Mother of complications from her dementia at the age of 89yrs. Father Family Medical History: Coronary Artery Disease (CAD), Myocardial Infarction (ME) Additional Family Medical History / Comment(s): Father at the age of 55yrs from heart complications. He had previously had a ME General Exam Limitations: no limitations General appearance: alert, in no apparent distress Head exam: Present: atraumatic, normocephalic, normal inspection Eye exam: Present: normal appearance, PERRL, EOMI, nystagmus. Absent: scleral icterus, conjunctival injection, periorbital swelling ENT exam: Present: normal exam, mucous membranes moist Neck exam: Present: normal inspection. Absent: tenderness, meningismus, lymphadenopathy Respiratory exam: Present: normal lung sounds bilaterally. Absent: respiratory distress, wheezes, rales, rhonchi, stridor Cardiovascular Exam: Present: regular rate, normal rhythm, normal heart sounds. Absent: systolic murmur, diastolic murmur, rubs, gallop, clicks GI/Abdominal exam: Present: soft, normal bowel sounds. Absent: distended, tenderness, guarding, rebound, rigid Extremities exam: Present: normal inspection, full ROM, normal capillary refill. Absent: tenderness, pedal edema, joint swelling, calf tenderness Back exam: Present: normal inspection Neurological exam: Present: alert, oriented X3, CN II-XII intact Psychiatric exam: Present: normal affect, normal mood Skin exam: Present: warm, dry, intact, normal color. Absent: rash Course Vital Signs 11/01/22 11/01/22 11/01/22 18:47 20:14 20:30 Temperature 97.7 F Pulse Rate 73 85 Pulse Rate [ Pulse Oximetery ] Respiratory 18 18 Rate Blood Pressure 183/88 182/96 182/96 Blood Pressure [Left Arm] O2 Sat by Pulse 97 97 Oximetry 11/01/22 11/01/22 11/01/22 21:00 21:30 22:00 Temperature Pulse Rate 80 79 79 Pulse Rate [ Pulse Oximetery ] Respiratory 12 16 18 Rate Blood Pressure 159/82 155/80 141/76 Blood Pressure [Left Arm] O2 Sat by Pulse 99 97 Oximetry 11/01/22 11/01/22 11/01/22 22:36 23:00 23:11 Temperature 97.9 F Pulse Rate 93 92 84 Pulse Rate [ Pulse Oximetery ] Respiratory 16 20 18 Rate Blood Pressure 151/77 151/77 142/74 Blood Pressure [Left Arm] O2 Sat by Pulse 96 94 L 94 L Oximetry 11/01/22 11/02/22 11/02/22 23:56 00:00 01:00 Temperature 97.9 F Pulse Rate 83 92 Pulse Rate [ 88 Pulse Oximetery ] Respiratory 16 16 40 H Rate Blood Pressure 138/72 124/62 Blood Pressure 138/72 [Left Arm] O2 Sat by Pulse 95 94 L 95 Oximetry 11/02/22 11/02/22 11/02/22 02:00 02:04 03:00 Temperature 97.9 F Pulse Rate 72 80 Pulse Rate [ 88 Pulse Oximetery ] Respiratory 15 16 18 Rate Blood Pressure 116/55 148/75 Blood Pressure 138/72 [Left Arm] O2 Sat by Pulse 94 L 95 95 Oximetry 11/02/22 11/02/22 11/02/22 03:20 04:00 05:00 Temperature 98 F Pulse Rate 73 67 Pulse Rate [ 76 Pulse Oximetery ] Respiratory 18 16 15 Rate Blood Pressure 123/62 129/70 Blood Pressure 148/75 [Left Arm] O2 Sat by Pulse 97 94 L 93 L Oximetry 11/02/22 11/02/22 11/02/22 06:00 07:00 07:09 Temperature Pulse Rate 72 67 68 Pulse Rate [ Pulse Oximetery ] Respiratory 16 13 18 Rate Blood Pressure 126/62 Blood Pressure [Left Arm] O2 Sat by Pulse 94 L 99 Oximetry 11/02/22 11/02/22 11/02/22 08:00 08:38 09:00 Temperature 98.6 F Pulse Rate 71 71 69 Pulse Rate [ Pulse Oximetery ] Respiratory 9 L 18 16 Rate Blood Pressure 150/81 150/81 Blood Pressure [Left Arm] O2 Sat by Pulse 98 96 Oximetry 11/02/22 11/02/22 11/02/22 10:00 11:00 12:00 Temperature Pulse Rate 72 67 68 Pulse Rate [ Pulse Oximetery ] Respiratory 18 18 16 Rate Blood Pressure 139/74 142/72 132/80 Blood Pressure [Left Arm] O2 Sat by Pulse 98 98 97 Oximetry 11/02/22 11/02/22 11/02/22 13:00 14:00 15:00 Temperature Pulse Rate 66 64 72 Pulse Rate [ Pulse Oximetery ] Respiratory 16 18 18 Rate Blood Pressure 124/75 126/74 140/68 Blood Pressure [Left Arm] O2 Sat by Pulse 96 96 99 Oximetry - Reevaluation(s) Reevaluation #1: 11/01/22 22:33 Medical records reviewed Reevaluation #2: 11/01/22 22:33 No improvement symptoms patient is unable to amply without ataxia Reevaluation #3: 11/01/22 22:34 Patient informed results questions answered Reevaluation #4: 11/01/22 22:33 Was pt. sent in by a medical professional or institution? @ -no Did you speak to anyone other than the patient for history? @ -no Did you review nursing and triage notes? @ -agree Were old charts reviewed? @ -no Differential Diagnosis? @ -prior EKG interpreted by me (3pts min.)? @ -yes X-rays interpreted by me (1pt min.)? @ -no CT interpreted by me (1pt min.)? @ -no U/S interpreted by me (1pt. min.)? @ -no What testing was considered but not performed? (CT, X-rays, U/S, labs)? Why? @ -no What meds were considered but not given? Why? @ -no Did you discuss the management of the patient with other professionals? @ -no Did you reconcile home meds? @ -no Was smoking cessation discussed for >3mins.? @ -no Was critical care preformed (if so, how long)? @ -no Were there social determinants of health that impacted care today? How? (Homelessness, low income, unemployed, alcoholism, drug addiction, transportation, low edu. Level, literacy, decrease access to med. care, intermediate, rehab)? @ -no Was there de-escalation of care discussed even if they declined? (Discuss DNR or withdrawal of care, Hospice)? @ -no What co-morbidities impacted this encounter? (DM, HTN, Smoking, COPD, CAD, Cancer, CVA, Hep., AIDS, mental health diagnosis, sleep apnea, morbid obesity)? @ -none Was patient admitted / discharged? @ -admit Undiagnosed new problem with uncertain prognosis? @ -no Drug Therapy requiring intensive monitoring for toxicity (Heparin, Nitro, Insulin, Cardizem)? @ -no Were any procedures done? @ -no Diagnosis/symptom? @ -Vertigo Acute, or Chronic, or Acute on Chronic? @ -acute Uncomplicated (without systemic symptoms) or Complicated (systemic symptoms)? @ -uncomplicated Side effects of treatment? @ -no Exacerbation, Progression, or Severe Exacerbation] @ -no Poses a threat to life or bodily function? @ -no Reevaluation #5: 11/01/22 22:33 Differential Altered Mental Status: Hypoglycemia, DKA, hypercapnia, ETOH, overdose, CO poisoning, trauma, myxedema coma, HTN encephalopathy, infection, encephalitis, psychosis, intercranial hemorrhage, hepatic encephalopathy, meningitis, CVA, this is not meant to be an all-inclusive list - Consultations Consultation #1: Spoke with [facility] michael for admission EKG Findings - EKG Comments: EKG Findings:: EKG is sinus 75. AL 150 QRS 90 QTC 414 Medical Decision Making - Medical Decision Making 72-year-old female with persistent vertigo, positive nystagmus and ataxia, concern is for CVA cause of central vertigo. Patient be admitted for neurology evaluation - Lab Data Result diagrams: 11/02/22 05:18 11/02/22 05:18 Lab Results 11/01/22 11/01/22 11/01/22 Range/Units 20:25 20:25 20:25 WBC 8.3 (3.8-10.6) k/uL RBC 4.63 (3.80-5.40) m/uL Hgb 14.9 (11.4-16.0) gm/dL Hct 44.6 (34.0-46.0) % MCV 96.3 (80.0-100.0) fL MCH 32.2 (25.0-35.0) pg MCHC 33.4 (31.0-37.0) g/dL RDW 12.5 (11.5-15.5) % Plt Count 223 (150-450) k/uL MPV 8.0 Neutrophils % 72 % Lymphocytes % 19 % Monocytes % 5 % Eosinophils % 3 % Basophils % 0 % Neutrophils # 5.9 (1.3-7.7) k/uL Lymphocytes # 1.5 (1.0-4.8) k/uL Monocytes # 0.4 (0-1.0) k/uL Eosinophils # 0.3 (0-0.7) k/uL Basophils # 0.0 (0-0.2) k/uL PT 9.8 (9.0-12.0) sec INR 0.9 (<1.2) Sodium 137 (137-145) mmol/L Potassium 4.0 (3.5-5.1) mmol/L Chloride 99 (98-107) mmol/L Carbon Dioxide 29 (22-30) mmol/L Anion Gap 9 mmol/L BUN 22 H (7-17) mg/dL Creatinine 0.71 (0.52-1.04) mg/dL Est GFR (CKD-EPI)AfAm >90 (>60 ml/min/1.73 sqM) Est GFR (CKD-EPI)NonAf 86 (>60 ml/min/1.73 sqM) Glucose 155 H (74-99) mg/dL Calcium 9.4 (8.4-10.2) mg/dL Total Bilirubin 1.1 (0.2-1.3) mg/dL AST 32 (14-36) U/L ALT 41 H (4-34) U/L Alkaline Phosphatase 55 (38-126) U/L Troponin I (0.000-0.034) ng/mL Total Protein 6.8 (6.3-8.2) g/dL Albumin 4.5 (3.5-5.0) g/dL 11/01/22 Range/Units 20:25 WBC (3.8-10.6) k/uL RBC (3.80-5.40) m/uL Hgb (11.4-16.0) gm/dL Hct (34.0-46.0) % MCV (80.0-100.0) fL MCH (25.0-35.0) pg MCHC (31.0-37.0) g/dL RDW (11.5-15.5) % Plt Count (150-450) k/uL MPV Neutrophils % % Lymphocytes % % Monocytes % % Eosinophils % % Basophils % % Neutrophils # (1.3-7.7) k/uL Lymphocytes # (1.0-4.8) k/uL Monocytes # (0-1.0) k/uL Eosinophils # (0-0.7) k/uL Basophils # (0-0.2) k/uL PT (9.0-12.0) sec INR (<1.2) Sodium (137-145) mmol/L Potassium (3.5-5.1) mmol/L Chloride (98-107) mmol/L Carbon Dioxide (22-30) mmol/L Anion Gap mmol/L BUN (7-17) mg/dL Creatinine (0.52-1.04) mg/dL Est GFR (CKD-EPI)AfAm (>60 ml/min/1.73 sqM) Est GFR (CKD-EPI)NonAf (>60 ml/min/1.73 sqM) Glucose (74-99) mg/dL Calcium (8.4-10.2) mg/dL Total Bilirubin (0.2-1.3) mg/dL AST (14-36) U/L ALT (4-34) U/L Alkaline Phosphatase (38-126) U/L Troponin I <0.012 (0.000-0.034) ng/mL Total Protein (6.3-8.2) g/dL Albumin (3.5-5.0) g/dL - Radiology Data Radiology results: report reviewed (CT brain negative for acute disease), image reviewed Disposition Clinical Impression: Vertigo Disposition: ADMITTED IP TO THIS [facility] Condition: Stable Is patient prescribed a controlled substance at d/c from ED?: No Time of Disposition: 20:15
[2022-11-01 20:55] LABS: Basophils % (A) 0 %; Eosinophils # (A) 0.3 k/uL (0-0.7); Eosinophils % (A) 3 %; HCT 44.6 % (34.0-46.0); HGB 14.9 gm/dL (11.4-16.0); Lymphocytes # (A) 1.5 k/uL (1.0-4.8); Lymphocytes % (A) 19 %; MCH 32.2 pg (25.0-35.0); MCHC 33.4 g/dL (31.0-37.0); MCV 96.3 fL (80.0-100.0); Monocytes # (A) 0.4 k/uL (0-1.0); Monocytes % (A) 5 %; Neutrophils # (A) 5.9 k/uL (1.3-7.7); Neutrophils % (A) 72 %; Platelet Count 223 k/uL (150-450); RBC 4.63 m/uL (3.80-5.40); RDW 12.5 % (11.5-15.5); WBC 8.3 k/uL (3.8-10.6)
--- NOTE | 2022-11-01 20:58 | CT ---
EXAMINATION TYPE: CT brain wo con DATE OF EXAM: 11/01/2022 COMPARISON: None HISTORY: dizziness and blurred vision CT DLP: 1141.[address] of the brain was performed. The ventricles, basal cisterns and sulci overlying the cerebral convexities demonstrate mild enlargem ent. There is no evidence for intracranial hemorrhage or sulcal effacement. There is decreased attenuation about the periventricular white matter and deep white matter of both c erebral hemispheres, compatible with chronic small vessel ischemia. Differential diagnosis does inclu de demyelination. No mass effects are seen.No midline shift. Osseous calvarium is intact. If symptoms persist consider MRI. IMPRESSION: 1. Age related atrophic and chronic small vessel ischemic change without acute intracranial process s een at this time.
[2022-11-01 21:10] LABS: INR 0.9 (<1.2); Prothrombin Time 9.8 sec (9.0-12.0)
[2022-11-01 21:43] LABS: ALT 41 U/L (4-34); AST 32 U/L (14-36); African American GFR (CKD) >90 (>60 ml/min/1.73 sqM); Albumin 4.5 g/dL (3.5-5.0); Alkaline Phosphatase 55 U/L (38-126); Anion Gap 9 mmol/L; Blood Urea Nitrogen 22 mg/dL (7-17); Calcium 9.4 mg/dL (8.4-10.2); Carbon Dioxide 29 mmol/L (22-30); Chloride 99 mmol/L (98-107); Glucose 155 mg/dL (74-99); Non-African American GFR(CKD) 86 (>60 ml/min/1.73 sqM); Sodium 137 mmol/L (137-145); Total Bilirubin 1.1 mg/dL (0.2-1.3); Total Protein 6.8 g/dL (6.3-8.2)
[2022-11-01] MEDS ORDERED: NALOXONE 0.4 MG/ML 1 ML VIAL IV PRN (21:48)
[2022-11-01] MEDS ORDERED: ONDANSETRON 4 MG/2 ML VIAL IVP PRN (21:48)
[2022-11-01] MEDS ORDERED: MORPHINE SULFATE 4 MG/ML SYRINGE IV PRN (21:48)
[2022-11-01] MEDS ORDERED: ASPIRIN 325 MG TAB PO STA (22:01)
[2022-11-02] MEDS ORDERED: ACETAMINOPHEN TAB 325 MG TAB PO PRN (01:15)
[2022-11-02 03:20] VITALS: RESP 18
[2022-11-02 05:43] LABS: Basophils % (A) 0 %; Eosinophils # (A) 0.2 k/uL (0-0.7); Eosinophils % (A) 4 %; HCT 38.7 % (34.0-46.0); HGB 12.8 gm/dL (11.4-16.0); Lymphocytes # (A) 1.7 k/uL (1.0-4.8); Lymphocytes % (A) 30 %; MCH 32.4 pg (25.0-35.0); MCHC 33.1 g/dL (31.0-37.0); MCV 97.7 fL (80.0-100.0); Mean Platelet Volume 7.8; Monocytes # (A) 0.4 k/uL (0-1.0); Monocytes % (A) 7 %; Neutrophils # (A) 3.2 k/uL (1.3-7.7); Neutrophils % (A) 56 %; Platelet Count 198 k/uL (150-450); RBC 3.96 m/uL (3.80-5.40); RDW 12.7 % (11.5-15.5); WBC 5.7 k/uL (3.8-10.6)
[2022-11-02 05:57] LABS: ALT 32 U/L (4-34); AST 25 U/L (14-36); African American GFR (CKD) >90 (>60 ml/min/1.73 sqM); Albumin 3.4 g/dL (3.5-5.0); Alkaline Phosphatase 42 U/L (38-126); Anion Gap 7 mmol/L; Blood Urea Nitrogen 23 mg/dL (7-17); Calcium 8.5 mg/dL (8.4-10.2); Carbon Dioxide 29 mmol/L (22-30); Chloride 102 mmol/L (98-107); Glucose 121 mg/dL (74-99); Lipase 35 U/L (23-300); Magnesium 1.8 mg/dL (1.6-2.3); Non-African American GFR(CKD) 80 (>60 ml/min/1.73 sqM); Phosphorus 3.4 mg/dL (2.5-4.5); Potassium 3.7 mmol/L (3.5-5.1); Sodium 138 mmol/L (137-145); Total Bilirubin 0.6 mg/dL (0.2-1.3); Total Protein 5.4 g/dL (6.3-8.2)
[2022-11-02 08:41] VITALS: TEMP 98.6
[2022-11-02] MEDS ORDERED: DEXTROSE 50% SYRINGE 50 ML IVP PRN ×2 (08:45)
[2022-11-02] MEDS ORDERED: MULTIVITAMINS, THERA 1 EACH TAB PO SCH (09:00)
[2022-11-02] MEDS ORDERED: TIMOLOL 0.25% OPHTH DROPS 5 ML BTL BOTH EYES SCH ×2 (09:00)
[2022-11-02] MEDS ORDERED: lisinopriL 10 MG TAB PO SCH (09:00)
[2022-11-02] MEDS ORDERED: CHOLECALCIFEROL 25 MCG (1000 IU) TABLET PO SCH (09:00)
[2022-11-02] MEDS ORDERED: ASPIRIN 325 MG TAB PO SCH (09:00)
[2022-11-02] MEDS ORDERED: INSULIN ASPART (NovoLOG) 100 UNIT/ML VIAL SQ SCH (12:30)
--- NOTE | 2022-11-02 13:29 | P.CNNES ---
History of Present Illness Consult date: 11/02/22 Requesting physician: Alan Salas Reason for Consult: vertigo History of Present Illness: Patient is a 72-year-old female came to the hospital yesterday at 6:42 PM for acute episode of vertigo. Patient states that she was feeling fine yesterday morning. At around 5-6 p.m., she was having dinner at a restaurant, also drank half a bottle of ultralight beer. She started feeling dizzy, lightheaded, and as the time past, she started feeling vertigo with room spinning. Her brought her to the hospital. She denied any slurred speech, facial droop, double vision, blurred vision or loss of vision, or any focal deficits. She did feel wobbly, imbalance because of vertigo. When she was dizzy, she felt slightly nauseated. Vital signs arrival blood pressure 183/88, pulse rate 73, temperature 97.7. Most recent blood pressure 150/81. Blood test shows normal CBC, INR, normal metabolic panel, AST is normal 32 ALT [address] head revealed age-related atrophic and chronic small vessel ischemic changes without acute intracranial process seen. On my review, there is evidence of slight hyperdensity in the left gricelda, suggestive of probable venous angioma. This abnormal signal in the left side of the gricelda was also present in the visualized portion of the brain in the MRI of cervical spine from 05/04/2020. The visualized paranasal sinuses are clear, except for one ethmoid air cell on the left which was opacified. Other sinuses are clear. External auditory canal appears clear. Patient says that this is the first time ever she has developed vertigo. She denies any neck or back pain at this time. Denies any headache. Patient states that she developed tinnitus postoperatively after she underwent surgery for diverticulitis. She saw her primary physician, who referred her to Dr. Chapman, ENT specialist, who performed some testing and said that "not a lot can be done for tinnitus". It is not annoying, or troublesome. There is no hearing loss. Patient does admit to having some sinus pressure, sinus congestion and postnasal dripping. She has hypertension, but well controlled on lisinopril 10 mg. Patient's B12 was normal 885 on 08/04/2014. Patient states that this morning she woke up and felt fine, no more dizziness, but she felt slightly wobbly while walking. She just does not feel like showed walking. However even that has improved. Denies any focal symptoms. Patient does have glaucoma in both eyes and also cataract. Patient's medications include multivitamin, aspirin 81 mg, Lipitor 20 mg, lisinopril 10 mg, vitamin D. Review of Systems Constitutional: Denies chills, Denies fever Eyes: denies blurred vision (Couldn't focus while spinning), denies diplopia, denies pain Ears: bilateral: tinnitus, deny: decreased hearing, ear discharge, earache Ears, nose, mouth and throat: Reports post-nasal drip, Reports sinus pain, Reports sinus pressure, Denies headache, Denies sore throat Cardiovascular: Denies chest pain, Denies shortness of breath Respiratory: Denies cough, Denies excessive sputum Gastrointestinal: Reports nausea, Denies abdominal pain, Denies diarrhea, Denies vomiting Genitourinary: Denies dysuria, Denies hematuria Musculoskeletal: Denies low back pain, Denies myalgias, Denies neck pain Integumentary: Denies pruritus, Denies rash Neurological: Reports as per HPI, Denies motor disturbance, Denies numbness, Denies paralysis, Denies paresthesias, Denies visual changes Psychiatric: Denies anxiety, Denies depression Endocrine: Denies fatigue, Denies weight change Hematologic/Lymphatic: Denies easy bleeding, Denies easy bruising Past Medical History Past Medical History: Hyperlipidemia, Hypertension Additional Past Medical History / Comment(s): Diverticulosis, low back pain, pancreatic cyst,shingles -2019. 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 History of Any Multi-Drug Resistant Organisms: None Reported Past Surgical History: Bowel Resection, Hysterectomy Additional Past Surgical History / Comment(s): Colonoscopies(last 2018), R carpal tunnel release/ganglion cystectomy, ROMAIN for fibroids(1999). Bowel resection - August 2018, PAIN CLINIC PROCEDURE Past Anesthesia/Blood Transfusion Reactions: No Reported Reaction Smoking Status: Never smoker - Past Family History Mother Family Medical History: Dementia Additional Family Medical History / Comment(s): Mother of complications from her dementia at the age of 89yrs. Father Family Medical History: Coronary Artery Disease (CAD), Myocardial Infarction ([place]) Additional Family Medical History / Comment(s): Father at the age of 55yrs from heart complications. He had previously had a ID Medications and Allergies Home Medications Medication Instructions Recorded Confirmed Type Aspirin EC [Ecotrin Low Dose] 81 mg PO DAILY 03/27/14 11/01/22 History Atorvastatin [Lipitor] 20 mg PO HS 03/27/14 11/01/22 History Multivitamins, Thera [Multivitamin 1 tab PO DAILY 03/27/14 11/01/22 History (formulary)] lisinopriL [Lisinopril] 10 mg PO DAILY 07/24/15 11/01/22 History Latanoprost/Pf [Latanoprost 0.005% 1 drop BOTH EYES HS 09/14/20 11/01/22 History Eye Drop] Cholecalciferol [Vitamin D3 (25 25 mcg PO DAILY 11/01/22 11/01/22 History Mcg = 1000 Iu)] timoloL maleate [timoloL maleate 1 applic BOTH EYES DAILY 11/01/22 11/01/22 History 0.25%] Famotidine [Pepcid] 20 mg PO BID #14 tablet 11/02/22 Rx Fluticasone Nasal [place] [Flonase 1 spray EA NOSTRIL DAILY #16 gm 11/02/22 Rx Nasal [place]] Meclizine [Antivert] 25 mg PO TID #30 tab 11/02/22 Rx methylPREDNISolone Dose Pack 4 mg PO DIRECTED #21 tab 11/02/22 Rx [Medrol Dose Pack] Allergies Allergy/AdvReac Type Severity Reaction Status Date / Time amoxicillin [Amoxicillin] Allergy Unknown Diarrhea Verified 11/01/22 21:58 metronidazole [From Flagyl] Allergy Rash/Hives Verified 11/01/22 21:58 nitrofurantoin Allergy Rash/Hives Verified 11/01/22 21:58 [From Macrobid] amoxicillin trihydrate AdvReac Severe Diarrhea Verified 11/01/22 21:58 [From Augmentin] doxycycline AdvReac Severe Diarrhea Verified 11/01/22 21:58 Penicillins AdvReac Severe Diarrhea Verified 11/01/22 21:58 phenazopyridine HCl AdvReac Severe jittery Verified 11/01/22 21:58 [From Pyridium] feeling potassium clavulanate AdvReac Severe Diarrhea Verified 11/01/22 21:58 [From Augmentin] Sulfa (Sulfonamide AdvReac Severe Diarrhea Verified 11/01/22 21:58 Antibiotics) ciprofloxacin [From Cipro] AdvReac Joint Pain Verified 11/01/22 21:58 Physical Examination - Vital Signs Vital Signs: Vital Signs Temp Pulse Pulse Resp BP BP Pulse Ox 11/02/22 07:09 68 18 126/62 99 11/02/22 03:20 98 F 76 18 148/75 97 11/02/22 02:04 97.9 F 88 16 138/72 95 11/01/22 23:56 97.9 F 88 16 138/72 95 11/01/22 23:00 92 20 151/77 94 L 11/01/22 22:36 97.9 F 93 16 151/77 96 11/01/22 22:00 79 18 141/76 11/01/22 21:30 79 16 155/80 97 11/01/22 21:00 80 12 159/82 99 11/01/22 20:30 182/96 11/01/22 20:14 85 18 182/96 97 11/01/22 18:47 97.7 F 73 18 183/88 97 Intake and Output 11/01/22 11/02/22 11/02/22 22:59 06:59 14:59 Intake Total 1580 Balance 1580 Intake: Intake, IV Titration 1040 Amount Sodium Chloride 0.9% 1, 1040 000 ml @ 130 mls/hr IV . Q7H42M STA Rx#:[id number] Oral 540 Other: Voiding Method Toilet # Voids 2 Weight 61.689 kg 61.689 kg Patient is an elderly female, very pleasant, in no acute distress. Patient is alert awake oriented to time place and person. Speech and language functions are normal. Patient can name and repeat very well. No aphasia or dysarthria. Attention, concentration and fund of knowledge is adequate. On cranial nerve examination, pupils are slightly unequal, right slightly bigger than the left. Patient has prominent possible cataract on the right. Both are reacting to light. Her visual ornelas are full on confrontation, with no neglect on double simultaneous stimulation. Extraocular muscles are intact with no nystagmus. Face is symmetric, tongue protrudes to the midline. Palatal elevation and sensation normal, hearing is decreased for finger rubbing and shoulder shrug normal, facial sensation normal. Otlogic examination revealed some wax in the left ear. On muscle strength testing, there is no pronator drift and the strength is normal in arms and legs distally and proximally. Deep tendon reflexes are symmetric 1+ in the upper limbs, 2 at the knees, 1 ankles and plantars downgoing bilaterally. Sensory to touch is equal with no neglect on double simultaneous stimulation. Cerebellar function showed no ataxia for [id number] testing. No dysdiadochokinesia. No ataxia for [id number] testing on either side. Tone and bulk of muscles normal. Gait was checked and normal. Patient felt slightly dizzy when turning around. On general examination, there is no carotid bruit or murmur, S1-S2 audible. Chest is clear on consultation. Abdomen is soft nontender. No organomegaly, b owel sounds present. Peripheral pulses are present. No edema. Results - Laboratory Findings CBC and BMP: 11/02/22 05:18 11/02/22 05:18 Abnormal Lab Findings: Abnormal Labs 11/01/22 11/02/22 20:25 05:18 BUN 22 H 23 H Glucose 155 H 121 H ALT 41 H Total Protein 5.4 L Albumin 3.4 L Assessment and Plan Assessment: * Vertigo, probably due to peripheral vestibular dysfunction. * Chronic tinnitus, with recent sinus pressure, postnasal drip. * Hypertension, slightly worse lately. * Abnormal CT head, with evidence of probable venous angioma left gricelda. This was present on the visualized brain in the cervical spine MRI from 05/04/2020. * Cataract, glaucoma Plan: * Patient's vertigo has resolved. Patient has no focal symptoms. Her neurological examination is nonfocal. * Recommend optimize control of blood pressures to target blood pressure < 130/80. * Patient's CT head showed possibility of venous angioma left pontine region. This was also present in the visualized brain from MRI of the cervical spine from 05/04/2020. Suggest patient follow up with neurosurgeon as an outpatient. Most likely it is benign, no further workup needed. * Lipid panel from 05/27/2022 showed cholesterol 152, LDL 71, HDL 54 triglycerides 130. Continue Lipitor 20 mg daily. * Continue aspirin 81 mg and Lipitor. * TSH normal 1.18 * Hemoglobin A1c 5.8. * Meclizine as needed. * Neurologically clear for discharge. Thank you for the consult.
[2022-11-02 15:14] VITALS: BP 140/68; PULSE 72
--- NOTE | 2022-11-02 16:20 | P.HPIM ---
History of Present Illness H&P Date: 11/02/22 This is a 72 year old female with medical history of hypertension, hyperlipidemia, bowel resection, never smoker. Also history of tinnitus which patient states developed after bowel resection surgery and has been evaluated by ENT outpatient for this. Patient presents to the hospital with complaints of dizziness and room spinning. States she was out to eat yesterday and began to feel dizzy. Patient states she had difficulty ambulating to the car and felt like the room was spinning. Had associated nausea and blurry vision. Came to the hospital for further evaluation. Denies prior history of vertigo, no history of stroke. Denies any focal weakness, denies speech difficulties. No shortness of breath and no cough. Denies chest pain. Patient does report having a post nasal drip and throat tickle for the last few weeks. Reports sinus congestion. Denies fever/chills, denies headache. Has been using over the counter loratidine as needed for this. Brain CT done on admission showing age related atrophic and chronic small vessel ischemic change without acute intracranial seen at this time. Patient is evaluated ambulating to the bathroom with steady gait. Romberg sign was negative during examination. No ataxia noted. No focal weakness. Patients lab work is essentially unremarkable and TSH is within normal limits. Patient will be treated for labrynthitis and supportive care. Neurology consult ation pending. Patient likely can discharge home today and follow up with PCP outpatient. REVIEW OF SYSTEMS: CONSTITUTIONAL: No fever, no malaise, no fatigue. HEENT: No recent visual problems or hearing problems. Denied any sore throat. CARDIOVASCULAR: No chest pain, orthopnea, PND, no palpitations, no syncope. PULMONARY: No shortness of breath, no cough, no hemoptysis. GASTROINTESTINAL: No diarrhea, no nausea, no vomiting, no abdominal pain. NEUROLOGICAL: No headaches, no weakness, no numbness. Reports dizziness and room spinning with unsteady gait. HEMATOLOGICAL: Denies any bleeding or petechiae. GENITOURINARY: Denies any burning micturition, frequency, or urgency. MUSCULOSKELETAL/RHEUMATOLOGICAL: Denies any joint pain, swelling, or any muscle pain. ENDOCRINE: Denies any polyuria or polydipsia. The rest of the 14-point review of systems is negative. PHYSICAL EXAMINATION: GENERAL: The patient is alert and oriented x3, not in any acute distress. Well developed, well nourished. HEENT: Pupils are round and equally reacting to light. EOMI. No scleral icterus. No conjunctival pallor. Normocephalic, atraumatic. No pharyngeal erythema. No thyromegaly. CARDIOVASCULAR: S1 and S2 present. No murmurs, rubs, or gallops. PULMONARY: Chest is clear to auscultation, no wheezing or crackles. ABDOMEN: Soft, nontender, nondistended, normoactive bowel sounds. No palpable organomegaly. MUSCULOSKELETAL: No joint swelling or deformity. EXTREMITIES: No cyanosis, clubbing, or pedal edema. NEUROLOGICAL: Gross neurological examination did not reveal any focal deficits. Negative romberg. SKIN: No rashes. Assessment and Plan Assessment Dizziness and room spinning likely secondary to vertigo and labrynthitis patient is started on medrol dose pack and meclizine as needed Post nasal drip from acute allergic sinusitis will be treated with supportive care History of tinnitus follows with ENT History of hypertension Probable venous angioma left gricelda found on brain CT and also on MRI from 2019 felt to be chronic issue by neurology and recommending neurosurgery follow up on discharge felt to be likely benign. History of hyperlipidemia History of sciatic and follows with pain management Bilateral glaucoma, cataract GI prophylaxis Full Code Plan Discharge home on medrol dose pack and meclizine Follow up with ENT Follow up with neurosurgery Continue same home medication including lisinopril The impression and plan of care has been dictated by Chiqui Joy Nurse Practitioner as directed. Dr. Bao MD I have performed a history and physical examination and medical decision making of this patient, discussed the same with the dictator, and agree with the dictators assessment and plan as written, documented as a scribe. Based on total visit time, I have performed more than 50% of this visit. Past Medical History Past Medical History: Hyperlipidemia, Hypertension Additional Past Medical History / Comment(s): Diverticulosis, low back pain, pancreatic cyst,shingles -2019. 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 History of Any Multi-Drug Resistant Organisms: None Reported Past Surgical History: Bowel Resection, Hysterectomy Additional Past Surgical History / Comment(s): Colonoscopies(last 2018), R carpal tunnel release/ganglion cystectomy, ROMAIN for fibroids(1999). Bowel resection - August 2018, PAIN CLINIC PROCEDURE Past Anesthesia/Blood Transfusion Reactions: No Reported Reaction Smoking Status: Never smoker - Past Family History Mother Family Medical History: Dementia Additional Family Medical History / Comment(s): Mother of complications from her dementia at the age of 89yrs. Father Family Medical History: Coronary Artery Disease (CAD), Myocardial Infarction ([place]) Additional Family Medical History / Comment(s): Father at the age of 55yrs from heart complications. He had previously had a [place] Medications and Allergies Home Medications Medication Instructions Recorded Confirmed Type Aspirin EC [Ecotrin Low Dose] 81 mg PO DAILY 03/27/14 11/01/22 History Atorvastatin [Lipitor] 20 mg PO HS 03/27/14 11/01/22 History Multivitamins, Thera [Multivitamin 1 tab PO DAILY 03/27/14 11/01/22 History (formulary)] lisinopriL [Lisinopril] 10 mg PO DAILY 07/24/15 11/01/22 History Latanoprost/Pf [Latanoprost 0.005% 1 drop BOTH EYES HS 09/14/20 11/01/22 History Eye Drop] Cholecalciferol [Vitamin D3 (25 25 mcg PO DAILY 11/01/22 11/01/22 History Mcg = 1000 Iu)] timoloL maleate [timoloL maleate 1 applic BOTH EYES DAILY 11/01/22 11/01/22 History 0.25%] Famotidine [Pepcid] 20 mg PO BID #14 tablet 11/02/22 Rx Fluticasone Nasal [place] [Flonase 1 spray EA NOSTRIL DAILY #16 gm 11/02/22 Rx Nasal [place]] Meclizine [Antivert] 25 mg PO TID #30 tab 11/02/22 Rx methylPREDNISolone Dose Pack 4 mg PO DIRECTED #21 tab 11/02/22 Rx [Medrol Dose Pack] Allergies Allergy/AdvReac Type Severity Reaction Status Date / Time amoxicillin [Amoxicillin] Allergy Unknown Diarrhea Verified 11/01/22 21:58 metronidazole [From Flagyl] Allergy Rash/Hives Verified 11/01/22 21:58 nitrofurantoin Allergy Rash/Hives Verified 11/01/22 21:58 [From Macrobid] amoxicillin trihydrate AdvReac Severe Diarrhea Verified 11/01/22 21:58 [From Augmentin] doxycycline AdvReac Severe Diarrhea Verified 11/01/22 21:58 Penicillins AdvReac Severe Diarrhea Verified 11/01/22 21:58 phenazopyridine HCl AdvReac Severe jittery Verified 11/01/22 21:58 [From Pyridium] feeling potassium clavulanate AdvReac Severe Diarrhea Verified 11/01/22 21:58 [From Augmentin] Sulfa (Sulfonamide AdvReac Severe Diarrhea Verified 11/01/22 21:58 Antibiotics) ciprofloxacin [From Cipro] AdvReac Joint Pain Verified 11/01/22 21:58 Physical Exam Vitals: Vital Signs Temp Pulse Pulse Resp BP BP Pulse Ox 11/02/22 08:38 98.6 F 71 18 150/81 98 11/02/22 07:09 68 18 126/62 99 11/02/22 03:20 98 F 76 18 148/75 97 11/02/22 02:04 97.9 F 88 16 138/72 95 11/01/22 23:56 97.9 F 88 16 138/72 95 11/01/22 23:00 92 20 151/77 94 L 11/01/22 22:36 97.9 F 93 16 151/77 96 11/01/22 22:00 79 18 141/76 11/01/22 21:30 79 16 155/80 97 11/01/22 21:00 80 12 159/82 99 11/01/22 20:30 182/96 11/01/22 20:14 85 18 182/96 97 11/01/22 18:47 97.7 F 73 18 183/88 97 Intake and Output 11/01/22 11/02/22 11/02/22 22:59 06:59 14:59 Intake Total 1580 Balance 1580 Intake: Intake, IV Titration 1040 Amount Sodium Chloride 0.9% 1, 1040 000 ml @ 130 mls/hr IV . Q7H42M STA Rx#:[id number] Oral 540 Other: Voiding Method Toilet # Voids 2 Weight 61.689 kg 61.689 kg Results CBC & Chem 7: 11/02/22 05:18 11/02/22 05:18 Labs: Abnormal Lab Results - Last 24 Hours (Table) 11/01/22 11/02/22 Range/Units 20:25 05:18 BUN 22 H 23 H (7-17) mg/dL Glucose 155 H 121 H (74-99) mg/dL ALT 41 H (4-34) U/L Total Protein 5.4 L (6.3-8.2) g/dL Albumin 3.4 L (3.5-5.0) g/dL Thrombosis Risk Factor Assmnt - Choose All That Apply Any of the Below Risk Factors Present?: Yes Each Factor Represents 1 point: Obesity (BMI >25) Other Risk Factors: Yes Each Risk Factor Represents 2 Points: Age 61-74 years Other congenital or acquired thrombophilia - If yes, enter type in comment: No Thrombosis Risk Factor Assessment Total Risk Factor Score: 3 Thrombosis Risk Factor Assessment Level: Moderate Risk Assessment and Plan Time with Patient: Less than 30
[2022-11-02] MEDS ORDERED: ATORVASTATIN 80 MG TAB PO SCH (21:00)
[2022-11-02] MEDS ORDERED: LATANOPROST 0.005% OPHTH DROPS 2.5 ML BTL BOTH EYES SCH (21:00)
--- NOTE | 2022-11-02 22:49 | P.DS ---
Providers Date of admission: 11/01/22 21:48 Attending physician: Sánchez Mejia Primary care physician: [facility] Course: Final Diagnosis Dizziness and room spinning likely secondary to vertigo and labyrinthitis patient is started on medrol dose pack and meclizine as needed Post nasal drip from acute allergic sinusitis will be treated with supportive care History of tinnitus follows with ENT History of hypertension Probable venous angioma left gricelda found on brain CT and also on MRI from 2019 felt to be chronic issue by neurology and recommending neurosurgery follow up on discharge felt to be likely benign. History of hyperlipidemia History of sciatic and follows with pain management Bilateral glaucoma, cataract Full Code Discharge Disposition Patient is stable for discharge has been cleared by neurology. Recommending follow up with neurosurgery on discharge. Patient is discharged on medrol dose pack and meclizine as needed. Recommend to follow up with ENT on discharge if symptoms of vertigo persist. Hospital Course This is a 72 year old female with medical history of hypertension, hyperlipidemia, bowel resection, never smoker. Also history of tinnitus which patient states developed after bowel resection surgery and has been evaluated by ENT outpatient for this. Patient presents to the hospital with complaints of dizziness and room spinning. States she was out to eat yesterday and began to feel dizzy. Patient states she had difficulty ambulating to the car and felt like the room was spinning. Had associated nausea and blurry vision. Came to the hospital for further evaluation. Denies prior history of vertigo, no history of stroke. Denies any focal weakness, denies speech difficulties. No shortness of breath and no cough. Denies chest pain. Patient does report having a post nasal drip and throat tickle for the last few weeks. Reports sinus congestion. Denies fever/chills, denies headache. Has been using over the counter loratidine as needed for this. Brain CT done on admission showing age related atrophic and chronic small vessel ischemic change without acute intracranial seen at this time. Patient is evaluated ambulating to the bathroom with steady gait. Romberg sign was negative during examination. No ataxia noted. No focal weakness. Patients lab work is essentially unremarkable and TSH is within normal limits. Patient will be treated for acute labyrinth dysfunction and recommending to discharge home with medrol dose pack and meclizine as needed. Neurology has reviewed brain CT and felt Probable venous angioma left gricelda found on brain CT and also on MRI from 2019 felt to be chronic issue by neurology and recommending neurosurgery follow up on discharge felt to be likely benign. Patient is agreeable to this plan. Has seen Dr. Chapman with ENT services in the past and discussed following up if symptoms of vertigo persist. please see medication reconciliation for a list of current medication. Thank you for allowing us to participate in the care of this patient. The impression and plan of care has been dictated by Chiqui Joy, Nurse Practitioner as directed. Dr. Bao MD I have performed a history and physical examination and medical decision making of this patient, discussed the same with the dictator, and agree with the dictators assessment and plan as written, documented as a scribe. Based on total visit time, I have performed more than 50% of this visit. Patient Condition at Discharge: Stable Plan - Discharge Summary Discharge Rx Participant: No New Discharge Prescriptions: New Meclizine [Antivert] 25 mg PO TID #30 tab Fluticasone Nasal [place] [Flonase Nasal [place]] 1 spray EA NOSTRIL DAILY #16 gm Famotidine [Pepcid] 20 mg PO BID #14 tablet methylPREDNISolone Dose Pack [Medrol Dose Pack] 4 mg PO DIRECTED #21 tab Continue RX: Multivitamins, Thera [Multivitamin (formulary)] 1 tab PO DAILY RX: Aspirin EC [Ecotrin Low Dose] 81 mg PO DAILY RX: Atorvastatin [Lipitor] 20 mg PO HS RX: lisinopriL [Lisinopril] 10 mg PO DAILY RX: Cholecalciferol [Vitamin D3 (25 Mcg = 1000 Iu)] 25 mcg PO DAILY RX: timoloL maleate [timoloL maleate 0.25%] 1 applic BOTH EYES DAILY RX: Latanoprost/Pf [Latanoprost 0.005% Eye Drop] 1 drop BOTH EYES HS Discharge Medication List RX: Aspirin EC [Ecotrin Low Dose] 81 mg PO DAILY 03/27/14 [History] RX: Atorvastatin [Lipitor] 20 mg PO HS 03/27/14 [History] RX: Multivitamins, Thera [Multivitamin (formulary)] 1 tab PO DAILY 03/27/14 [History] RX: lisinopriL [Lisinopril] 10 mg PO DAILY 07/24/15 [History] RX: Latanoprost/Pf [Latanoprost 0.005% Eye Drop] 1 drop BOTH EYES HS 03/26/21 [History] RX: Cholecalciferol [Vitamin D3 (25 Mcg = 1000 Iu)] 25 mcg PO DAILY 11/01/22 [History] RX: timoloL maleate [timoloL maleate 0.25%] 1 applic BOTH EYES DAILY 11/01/22 [History] Famotidine [Pepcid] 20 mg PO BID #14 tablet 11/02/22 [Rx] Fluticasone Nasal [place] [Flonase Nasal [place]] 1 spray EA NOSTRIL DAILY #16 gm 11/02/22 [Rx] Meclizine [Antivert] 25 mg PO TID #30 tab 11/02/22 [Rx] methylPREDNISolone Dose Pack [Medrol Dose Pack] 4 mg PO DIRECTED #21 tab 11/02/22 [Rx] Follow up Appointment(s)/Referral(s): Zelalem Jackson MD [Primary Care Provider] - 1-2 days Johnny Chapman MD [STAFF PHYSICIAN] - 1 Week Activity/Diet/Wound Care/Special Instructions: Continue on meclizine as needed three times a day for vertigo. Complete medrol dose pack Recommend patient to see neurosurgery on discharge Discharge Disposition: HOME SELF-CARE
== END 2022-11-02 15:22 | disposition home or self-care (01) | DRG 149 ==
LOC: EC 18:42 → 3SCARD 21:48
PROVIDERS: ADMIT Hospitalist; ATTEND Hospitalist
DX: H83.2X9 Labyrinthine dysfunction, unspecified ear (principal); Q28.3 Other malformations of cerebral vessels; I10 Essential (primary) hypertension; H83.09 Labyrinthitis, unspecified ear; R09.82 Postnasal drip; J30.9 Allergic rhinitis, unspecified; H93.19 Tinnitus, unspecified ear; H26.9 Unspecified cataract; H40.9 Unspecified glaucoma; E78.00 Pure hypercholesterolemia, unspecified; M54.30 Sciatica, unspecified side; R26.2 Difficulty in walking, not elsewhere classified; H53.8 Other visual disturbances; M54.50 Low back pain, unspecified; Z87.19 Personal history of other diseases of the digestive system; Z79.899 Other long term (current) drug therapy; Z79.82 Long term (current) use of aspirin; Z88.3 Allergy status to other anti-infective agents; Z88.0 Allergy status to penicillin; Z88.1 Allergy status to other antibiotic agents; Z88.8 Allergy status to other drugs, medicaments and biological substances; Z88.2 Allergy status to sulfonamides
CPT/HCPCS: 36415; 70450; 80053; 83036; 83690; 83735; 84100; 84443; 84484; 85025; 85610; 93005; 96361; 96374; 96375; 99285

== ENCOUNTER → 2022-11-27 | Outpatient (CLI) | payer MEDICARE ==
--- NOTE | 2022-11-27 08:46 | MR ---
EXAMINATION TYPE: MR brain wo/w con DATE OF EXAM: 11/27/2022 COMPARISON: CT brain November 01, 2022 HISTORY: Vertigo. Dizziness. Left-sided hearing loss. TECHNIQUE: Multiplanar, multisequence images of the brain and brainstem is performed without and with IV contras t, utilizing 6 mL intravenous Gadavist . FINDINGS: Diffusion weighted images demonstrate no evidence of a recent infarct or other diffusion ab normality. The ventricular system and cisternal spaces are normal in size and appearance. The brain volume is age appropriate. Some scattered areas of T2 hyperintensity throughout the white matter bila terally. Lesions are nonspecific in appearance and distribution. Midline structures demonstrate normal morphology. The craniocervical junction appears within normal limits. In the left gricelda there is 5 mm area of diminished T1 and T2 signal with blooming artifact and T2 star weighted images having adjacent tiny vessels on postcontrast images. Post contrast images ot herwise demonstrate no abnormal enhancement or enhancing masses. The dural venous sinuses appear wong nt. The visualized sinuses are clear and the globes are intact. No abnormal fluid signal in the masto id air cells bilaterally. No suspicious enhancing cerebellopontine angle masses are present bilateral ly. IMPRESSION: 1. There is background mild nonspecific white matter changes presumed product of chronic small vessel ischemic change in patient of this age. 2. In the left aspect of gricelda there is 5 mm round lesion of diminished T1 and T2 signal corresponding to slightly hyperdense area in CT with blooming artifact on T2 star weighted images. Vascular etiolo gy or cryptogenic AVM is suspected. Follow-up advised.
== END | disposition home or self-care (01) ==
LOC: RADMRIMAIN 07:23
PROVIDERS: ATTEND Internal Medicine Geriatric Medicine
DX: R90.82 White matter disease, unspecified (principal); R42 Dizziness and giddiness
CPT/HCPCS: 70553; A9585

== ENCOUNTER → 2023-04-08 | Outpatient (CLI) | payer MEDICARE ==
[2023-04-08 10:59] LABS: Basophils # (A) 0.01 X 10*3/uL (0.00-0.10); Basophils % (A) 0.2 %; Eosinophils % (A) 7.8 %; HCT 44.1 % (37.2-46.3); HGB 14.2 d/dL (12.0-15.0); Lymphocytes # (A) 1.86 X 10*3/uL (0.90-5.00); Lymphocytes % (A) 36.2 %; MCH 31.3 pg (27.0-32.0); MCHC 32.2 d/dL (32.0-37.0); MCV 97.4 FL (80.0-97.0); Mean Platelet Volume 10.7 FL (9.5-12.2); Monocytes # (A) 0.46 X 10*3/uL (0.20-1.00); Monocytes % (A) 8.9 %; NRBC Per 100 WBC 0 X 10*3/uL (0.00-0.01); Neutrophils % (A) 46.7 %; Platelet Count 228 X 10*3/uL (140-440); RBC 4.53 X 10*6/uL (4.10-5.20); RDW 12.5 % (11.5-14.5); WBC 5.14 X 10*3/uL (4.50-10.00)
[2023-04-08 11:18] LABS: ALT 26 U/L (8-44); AST 22 U/L (13-35); Albumin 4.3 d/dL (3.8-4.9); Albumin/Globulin Ratio 2.39 Ratio (1.60-3.17); Alkaline Phosphatase 52 U/L (41-126); BUN/Creat Ratio 31.14 Ratio (12.00-20.00); Blood Urea Nitrogen 21.8 mg/dL (9.0-27.0); Calcium 9.9 mg/dL (8.7-10.3); Carbon Dioxide 28.6 mmol/L (21.6-31.8); Chloride 103 mmol/L (96-109); Chol/HDL Ratio 2.81 Ratio; Globulin 1.8 d/dL (1.6-3.3); Glucose 108 mg/dL (70-110); LDL Cholesterol,Calculated 63.9 mg/dL (0.0-131.0); Sodium 142 mmol/L (135-145); T4, Free (Free Thyroxine) 1.17 ng/dL (0.80-1.80); Total Bilirubin 0.8 mg/dL (0.3-1.2); Total Protein 6.1 d/dL (6.2-8.2)
== END | disposition home or self-care (01) ==
LOC: LABWHC1 07:03
PROVIDERS: ATTEND Internal Medicine Geriatric Medicine
DX: E03.9 Hypothyroidism, unspecified (principal); E78.5 Hyperlipidemia, unspecified; R43.9 Unspecified disturbances of smell and taste
CPT/HCPCS: 36415; 80053; 80061; 83036; 84439; 84443; 85025

== ENCOUNTER → 2023-11-04 | Outpatient (CLI) | payer MEDICARE ==
[2023-11-04 10:54] VITALS: BP 147/82; PULSE 67; RESP 16; TEMP 98.2
--- NOTE | 2023-11-04 11:51 | P.HPOB ---
History of Present Illness H&P Date: 11/04/23 Chief Complaint: The patient is here for her routine gynecologic exam and ma mmogram. This is a 73-year-old G0 with an LMP of 1999. The patient is status post ROMAIN for uterine fibroids. She is without gynecologic complaints. Review of Systems The patient's weight has been stable over the last year. She denies respiratory, cardiac, or G.I. problems. Past Medical History Past Medical History: Hyperlipidemia, Hypertension Additional Past Medical History / Comment(s): Diverticulosis, low back pain, pancreatic cyst,shingles 3-2019. Vertigo 2022, resolved. 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 History of Any Multi-Drug Resistant Organisms: None Reported Past Surgical History: Bowel Resection, Hysterectomy Additional Past Surgical History / Comment(s): Colonoscopies(last 2018), R carpal tunnel release/ganglion cystectomy, ROMAIN for fibroids(1999). Bowel resection - August 2018, PAIN [facility]IN[facility] PROCEDURE Past Anesthesia/Blood Transfusion Reactions: No Reported Reaction Past Psychological History: No Psychological Hx Reported Additional Psychological History / Comment(s): Pt resides with her spouse. She is independent. Smoking Status: Never smoker Past Alcohol Use History: Occasional (0 to 1/week.) Additional Past Alcohol Use History / Comment(s): The patient has been a lifelong nonsmoker, no illicit drug use, no marijuana use Past Drug Use History: None Reported Additional History: She has been since 1970 and is not sexually active. She is retired. - Past Family History Mother Family Medical History: Dementia Additional Family Medical History / Comment(s): Mother of complications from her dementia at the age of 89yrs. Father Family Medical History: Coronary Artery Disease (CAD), Myocardial Infarction (ME) Additional Family Medical History / Comment(s): Father at the age of 55yrs from heart complications. He had previously had a ME Medications and Allergies Home Medications Medication Instructions Recorded Confirmed Type Aspirin EC [Ecotrin Low Dose] 81 mg PO DAILY 03/27/14 11/04/23 History Atorvastatin [Lipitor] 20 mg PO HS 03/27/14 11/04/23 History Multivitamins, Thera [Multivitamin 1 tab PO DAILY 03/27/14 11/04/23 History (formulary)] lisinopriL [Lisinopril] 10 mg PO DAILY 07/24/15 11/04/23 History Latanoprost/Pf [Latanoprost 0.005% 1 drop BOTH EYES HS 09/14/20 11/04/23 History Eye Drop] Cholecalciferol [Vitamin D3 (25 25 mcg PO DAILY 11/01/22 11/04/23 History Mcg = 1000 Iu)] timoloL maleate [timoloL maleate 1 applic BOTH EYES DAILY 11/01/22 11/04/23 History 0.25%] Famotidine [Pepcid] 20 mg PO BID #14 tablet 11/02/22 11/04/23 Rx Fluticasone Nasal [place] [Flonase 1 spray EA NOSTRIL DAILY #16 gm 11/02/22 11/04/23 Rx Nasal [place]] Meclizine [Antivert] 25 mg PO TID #30 tab 11/02/22 11/04/23 Rx Allergies Allergy/AdvReac Type Severity Reaction Status Date / Time amoxicillin [Amoxicillin] Allergy Unknown Diarrhea Verified 11/04/23 10:47 metronidazole [From Flagyl] Allergy Rash/Hives Verified 11/04/23 10:47 nitrofurantoin Allergy Rash/Hives Verified 11/04/23 10:47 [From Macrobid] amoxicillin trihydrate AdvReac Severe Diarrhea Verified 11/04/23 10:47 [From Augmentin] doxycycline AdvReac Severe Diarrhea Verified 11/04/23 10:47 Penicillins AdvReac Severe Diarrhea Verified 11/04/23 10:47 phenazopyridine HCl AdvReac Severe jittery Verified 11/04/23 10:47 [From Pyridium] feeling potassium clavulanate AdvReac Severe Diarrhea Verified 11/04/23 10:47 [From Augmentin] Sulfa (Sulfonamide AdvReac Severe Diarrhea Verified 11/04/23 10:47 Antibiotics) ciprofloxacin [From Cipro] AdvReac Joint Pain Verified 11/04/23 10:47 Exam Vital Signs Temp Pulse Resp BP Pulse Ox 11/04/23 10:48 98.2 F 67 16 147/82 97 Intake and Output 11/03/23 11/04/23 11/04/23 22:59 06:59 14:59 Other: Weight 62.142 kg Height 4 feet 8 inches, weight 137 pounds, BMI 30.7. This is a short statured well-nourished white female who is alert and oriented times 3 in no acute distress. HEENT: Within normal limits. NECK: Supple without mass or thyromegaly. CHEST AND LUNGS: Clear to auscultation. HEART: Regular rate and rhythm. BREASTS: Are without mass or discharge. There is bilateral nipple inversion which the patient states she has had most of her life. AXILLARY EXAM: Negative for adenopathy. BACK: Negative for CVA tenderness. ABDOMEN: Soft, obese, nontender, without palpable masses. PELVIC EXAM: External genitalia appears normal with mild atrophy. Vagina appears normal with mild atrophy. The introitus is small and allows insertion of a pediatric speculum or and index finger. There is no evidence of prolapse. Bimanual examination is negative for mass or tenderness. RECTAL EXAM: Rectovaginal exam is negative for mass or tenderness and is negat anmol for occult blood. EXTREMITIES: Nontender. IMPRESSION: 1. 73-year-old menopausal female status post ROMAIN for benign reasons, with normal gynecologic exam. 2. History of osteopenia. Last bone density test was done on 05/31/2021. PLAN: 1. Pap smears have been discontinued. 2. Self breast awareness was discussed with the patient. We have also discussed symptoms associated with inflammatory breast cancer. 3. Screening mammogram was done today. 4. Osteoporosis prevention was discussed. I have stressed the importance of adequate calcium, vitamin D and regular exercise. Recommended amounts of calcium and vitamin D were also discussed. I have recommended repeating the bone density test and the order slip was given to the patient for this. 5. She believes she is due for her colonoscopy and will be seeing Dr. Reyna for this in the near future. 6. She was advised to return in one year for her annual well woman exam.
--- NOTE | 2023-11-05 18:47 | MM ---
Reason for Exam: Screening (asymptomatic). Last screening mammogram was performed 12 month(s) ago. Patient History: Menarche at age 11. Patient has no children. Hysterectomy at age 49. Postmenopausal. Estrogen for 3 years from age 49 until age 52. 10/25/2007, Benign Cyst Aspiration on the left side. 10/25/2007, Bilateral Benign Core Biopsy. Risk Values: Mary 5 year model risk: 2.5%. NCI Lifetime model risk: 6.2%. Prior Study Comparison: 08/28/2020 Bilateral Diagnostic Mammogram, [facility]. 10/15/2021 Bilateral Screening Mammogram, [facility]. 10/21/2022 Bilateral MG 3D screening mammo w/cad, [facility]. Tissue Density: The breasts are heterogeneously dense, which may obscure small masses. Findings: Analyzed By CAD. Microclip left breast from prior biopsy. A few benign oil cyst calcifications on the left. There is no suspicious group of microcalcifications or new suspicious mass in either breast. Overall Assessment: Benign, BI-RAD 2 Management: Screening Mammogram of both breasts in 1 year. . Patient should continue monthly self-breast exams. A clinical breast exam by your physician is recommended on an annual basis. This exam should not preclude additional follow-up of suspicious palpable abnormalities. Note on Mary scores and lifetime risk: 1. A Mary score greater than 3% is considered moderate risk. If this is the case, consider specialist referral to assess eligibility for a risk reducing agent. 2. If overall lifetime risk for the development of breast cancer is 20% or higher, the patient may qualify for future screening with alternating mammogram and breast MRI. Electronically signed and approved by: Stephani Cruz M.D. Radiologist
== END ==
LOC: WWCWWP 10:31
PROVIDERS: ATTEND Obstetrics & Gynecology
DX: Z12.31 Encounter for screening mammogram for malignant neoplasm of breast (principal); Z87.39 Personal history of other diseases of the musculoskeletal system and connective tissue; Z90.710 Acquired absence of both cervix and uterus; Z88.0 Allergy status to penicillin; Z88.6 Allergy status to analgesic agent; Z88.2 Allergy status to sulfonamides; Z88.1 Allergy status to other antibiotic agents; Z88.8 Allergy status to other drugs, medicaments and biological substances; Z78.0 Asymptomatic menopausal state
CPT/HCPCS: 77063; 77067

== ENCOUNTER → 2023-11-18 | Outpatient (CLI) | payer MEDICARE ==
[2023-11-18 10:46] VITALS: BP 146/83; PULSE 68; RESP 16; TEMP 96.9
--- NOTE | 2023-11-18 13:25 | P.PAINPG ---
PQRS Measure Charge Sheet Comment: A 72 yr old female with a history of severe and chronic LBP x years secondary to lumbar DDD and spondylosis with facet arthropathy without myelopathy presents today for evaluation s/p BL SI injection. Pt states she experienced 100 % pain relief x 1 yr s/p procedure. Pain level is provoked at 6 /10 in intensity, constant, localized in the lumbar spine, predominantly axial, achy in character w shooting towards the BL glute, R groin and occasionally the RLE. Pain is provoked by sitting for periods of 1 hr or more. Pain is alleviated with PT in the past, physician guided home stretching regimen daily since Sep 2023, injections in the past, heat, ice, meds, topical, repositioning and rest. Oswestry axial pain score of 25. Interventional pain procedures completed include LESIs, BL SI injections x3 Patient is currently on Tylenol ES, Lidoderm Patient denies any side effects of the medication(s), denies excessive drowsiness or sleepiness, denies suicidal ideation and reports that the current pain medication is helping to control the pain and improve activities of daily living. Patient denies any motor or sensory deficits. Patient denies any fever or night sweats, denies any change in the bowel movements or urination. Physical Examination: -Constitutional: Cooperative. Not in acute distress . - Neurologic: Cranial nerve II to XII intact. No focal neurological deficits. - Psychatric: Alert & oriented x 3. Matching mood & appropriate affect. Judgment and insight intact. - Musculoskeletal: Cervical spine: Muscle bulk/ tone/ strength in the bilateral upper extremities normal Vertebral body tenderness to palpation over Spurling test positive Distraction test positive Facet loading test positive TTP Thoracic spine Muscle bulk / tone/ strength in the bilateral paraspinal muscles normal Vertebral body tender to palpation over Facet loading test positive TTP Lumbar spine: Motor bulk/ tone/ strength lower extremities , thigh and legs : 5/5 Deep tendon reflexes : Normal Knee Jerk. Normal Ankle Jerk . Vertebral body tenderness to palpation over Lumbar Facet Loading Test positive Straight Leg Raise: positive at 30 degrees right side/ left side Gaenslen's Test positive Sacral spine : Severe tenderness over the Sacroiliac joint: right side / left side Range of motion: Flexion of the lumbar spine <60 degrees Range of motion: Extension of the lumbar spine <20 degrees Gaenslen's Test positive right side > left side Alex test: positive right side / left side Thigh Thrust Test positive right side / left side Sacral Thrust Test positive right side / left side Assessment and plan: Chronic LBP secondary to lumbar DDD, spondylosis with facet arthropathy without myelopathy, BL Sacroiliitis Recommendation of BL SI injection. May need a series of injections for optimal pain relief Risks, benefits of procedure discussed and pt verbalized und erstanding. Admits to anticoagulant use or medical history of diabetes. Protocol for discontinuation/ continuation of medications kanchan procedure discussed. All questions answered. I have spent less than 30 minutes on patient care today. Dr Bailey was available by phone for the evaluation of this patient. The time was used to review the medical records including relevant urine studies and Prescription history (MAPs), review of the available imaging, evaluation and examination of the patient, coordination of care with the medical staff and if applicable referring physicians, as well as creation of the medical record PQRS Narrative: Smoking Status Never smoker Hx Alcohol Use (MH) Yes: social Home Medications: Ambulatory Orders Aspirin EC [Ecotrin Low Dose] 81 mg PO DAILY 03/27/14 Atorvastatin [Lipitor] 20 mg PO HS 03/27/14 Multivitamins, Thera [Multivitamin (formulary)] 1 tab PO DAILY 03/27/14 lisinopriL [Lisinopril] 10 mg PO DAILY 07/24/15 Latanoprost/Pf [Latanoprost 0.005% Eye Drop] 1 drop BOTH EYES HS 09/14/20 Cholecalciferol [Vitamin D3 (25 Mcg = 1000 Iu)] 25 mcg PO DAILY 11/01/22 timoloL maleate [timoloL maleate 0.25%] 1 applic BOTH EYES DAILY 11/01/22 Famotidine [Pepcid] 20 mg PO BID #14 tablet 11/02/22 Fluticasone Nasal [place] [Flonase Nasal [place]] 1 spray EA NOSTRIL DAILY #16 gm 11/02/22 Meclizine [Antivert] 25 mg PO TID #30 tab 11/02/22 Controlled Substance Measures - Controlled Substance Measures Is patient prescribed a controlled substance at discharge?: No
== END ==
LOC: PNWHC3 09:29
PROVIDERS: ATTEND Specialist
DX: M46.1 Sacroiliitis, not elsewhere classified (principal); M50.30 Other cervical disc degeneration, unspecified cervical region; M54.30 Sciatica, unspecified side; M51.36 Other intervertebral disc degeneration, lumbar region; M47.816 Spondylosis without myelopathy or radiculopathy, lumbar region; Z88.0 Allergy status to penicillin; Z88.8 Allergy status to other drugs, medicaments and biological substances; Z88.6 Allergy status to analgesic agent; Z88.1 Allergy status to other antibiotic agents; Z88.2 Allergy status to sulfonamides
CPT/HCPCS: 99211

== ENCOUNTER 2023-12-01 08:54 | Day surgery (SDC) | payer MEDICARE ==
[2023-12-01 09:16] VITALS: TEMP 97.2
--- NOTE | 2023-12-01 09:31 | P.PCN ---
Date of Procedure: 12/01/23 Description of Procedure: Procedure: Sacroiliac joint injection bilateral Preoperative diagnosis: Sacroiliitis Postoperative diagnosis: Sacroiliitis Imaging: Fluoroscopy was used, images where saved to the medical record Complications: none ANESTHESIA: local only Description of the procedure: procedure risk and benefits discussed with the patient, including but not limited, risk of infection and bleeding, and allergic reaction to the medication and incomplete pain relief. Patient agreed and signed consent. Patient was taken to the room and placed in a prone position. Chlorhexidine was used to cleanse the skin. right: Under sterile conditions patient skin was anesthetized 1% lidocaine. Subcutaneous tissues were also anesthetized with a total 5 mL of 1% lidocaine. After that, a 22-gauge spinal needle was advanced through the anesthetized location under fluoroscopic guidance. Needle was advanced into the inferior portion of the sacroiliac joint. IV contrast was used to confirm spread within the joint. After adequate spread was achieved, 2.5 ML's of 0.5% ropivacaine with 20 mg of depomedrol was injected into the joint. left: Under sterile conditions patient skin was anesthetized 1% lidocaine. Subcutaneous tissues were also anesthetized with a total 5 mL of 1% lidocaine. After that, a 22-gauge spinal needle was advanced through the anesthetized location under fluoroscopic guidance. Needle was advanced into the inferior portion of the sacroiliac joint. IV contrast was used to confirm spread within the joint. After adequate spread was achieved, 2.5 ML's of 0.5% ropivacaine with 20 mg of depomedrol was injected into the joint. Patient tolerated the procedure well. Sent to the recovery room in stable condi tion. Patient will follow up as directed.
[2023-12-01] MEDS ORDERED: IOPAMIDOL M200 10 ML VIAL ONE (09:34)
[2023-12-01] MEDS ORDERED: methylPREDNISolone ACETATE 40 MG/ML 1 ML VIAL ONE (09:34)
[2023-12-01] MEDS ORDERED: ROPIVACAINE 5MG/ML 20ML VIAL ONE (09:34)
[2023-12-01 09:46] VITALS: RESP 18
[2023-12-01 10:04] VITALS: BP 144/75; PULSE 65
--- NOTE | 2023-12-01 10:09 | FL ---
EXAMINATION TYPE: FL guided pain mgmt statistic DATE OF EXAM: 12/01/2023 HISTORY: Fluoroscopy time Total dose area product (DAP) in uGy*m?, mGy*cm? (or similar): 0.33896 IMPRESSION: 1. Fluoroscopy time.
== END 2023-12-01 10:05 | disposition home or self-care (01) ==
LOC: ORPAIN 08:54
PROVIDERS: ATTEND Hospitalist
DX: M46.1 Sacroiliitis, not elsewhere classified (principal); Z79.82 Long term (current) use of aspirin; Z88.2 Allergy status to sulfonamides; Z88.0 Allergy status to penicillin; Z88.8 Allergy status to other drugs, medicaments and biological substances
CPT/HCPCS: Q9966; J2795; J1010; G0260

== ENCOUNTER → 2024-01-11 | Outpatient (CLI) | payer MEDICARE ==
[2024-01-11 10:19] VITALS: BP 127/74; PULSE 66; RESP 16
--- NOTE | 2024-01-11 10:57 | XR ---
EXAM TYPE: LUMBAR SPINE X RAY SERIES COMPARISON: NONE HISTORY: Pain TECHNIQUE: 4 views are submitted. FINDINGS: Alignment is anatomic. The pedicles are intact. The transverse processes are intact. There is a di ffuse osteopenia. Multilevel mild hypertrophic and degenerative disc disease. Facet arthropathy level s L3-S1. Bilateral SI joint hypertrophic arthropathy. Enthesophytes involving the iliac crest. Sugges tion of surgical sutures in the pelvis partially included in the [id number] correlate clinically. IMPRESSION: 1. Diffuse osteopenia with multilevel mild degenerative disc disease. 2. More advanced facet arthropathy lower lumbar spine with suspected foraminal encroachment.
--- NOTE | 2024-01-11 15:02 | P.PAINPG ---
Objective - Vital Signs Vital signs: Vital Signs Temp Pulse 66 01/11/24 10:16 Resp 16 01/11/24 10:16 BP 127/74 01/11/24 10:16 Pulse Ox 94 L 01/11/24 10:16 FiO2 Intake & Output 01/10/24 01/11/24 01/11/24 18:59 06:59 18:59 Weight 61.689 kg PQRS Measure Charge Sheet Mode of Arrival: Ambulatory Comment: A 73 yr old female with a history of severe and chronic LBP x years secondary to lumbar DDD and spondylosis with facet arthropathy without myelopathy presents today for evaluation s/p BL SI injection #2. Pt states she experienced 75 % pain relief x 2 wks s/p procedure. Pain level is provoked at 7 /10 in intensity, constant, localized in the lumbar spine, predominantly axial, achy in character w shooting towards the back of the RLE. Pain is provoked by over activity. Pain is alleviated with PT in 2018, physician guided home stretching regimen daily since Sep 2023, walking > 3 mi 5 times weekly, injections in the past, heat, ice, meds, topical, repositioning and rest. Oswestry axial pain score of 24. Interventional pain procedures completed include LESIs, BL SI injections x3 Patient is currently on Tylenol ES, Lidoderm Patient denies any side effects of the medication(s), denies excessive drowsiness or sleepiness, denies suicidal ideation and reports that the current pain medication is helping to control the pain and improve activities of daily living. Patient denies any motor or sensory deficits. Patient denies any fever or night sweats, denies any change in the bowel movements or urination. Physical Examination: -Constitutional: Cooperative. Not in acute distress . - Neurologic: Cranial nerve II to XII intact. No focal neurological deficits. - Psychatric: Alert & oriented x 3. Matching mood & appropriate affect. Judgment and insight intact. - Musculoskeletal: Cervical spine: Muscle bulk/ tone/ strength in the bilateral upper extremities normal Vertebral body tenderness to palpation over Spurling test positive Distraction test positive Facet loading test positive TTP Thoracic spine Muscle bulk / tone/ strength in the bilateral paraspinal muscles normal Vertebral body tender to palpation over Facet loading test positive TTP Lumbar spine: Motor bulk/ tone/ strength lower extremities , thigh and legs : 5/5 Deep tendon reflexes : Normal Knee Jerk. Normal Ankle Jerk . Vertebral body tenderness to palpation over L5 Lumbar Facet Loading Test positive Straight Leg Raise: positive at 30 degrees right side/ left side Gaenslen's Test positive Sacral spine : Severe tenderness over the Sacroiliac joint: right side / left side Range of motion: Flexion of the lumbar spine <60 degrees Range of motion: Extension of the lumbar spine <20 degrees Gaenslen's Test positive right side > left side Alex test: positive right side / left side Thigh Thrust Test positive right side / left side Sacral Thrust Test positive right side / left side Imaging: MRI lumbar spine from 2019 reviewed Assessment and plan: Chronic LBP secondary to lumbar DDD, spondylosis with facet arthropathy without myelopathy, BL Sacroiliitis Recommendation of lumbar x ray M54.16. All questions answered. I have spent less than 30 minutes on patient care today. Dr Bailey was available by phone for the evaluation of this patient. The time was used to review the medical records including relevant urine studies and Prescription history (MAPs), review of the available imaging, evaluation and examination of the patient, coordination of care with the medical staff and if applicable referring physicians, as well as creation of the medical record - Pain Location Bilateral Lower Back Non-Pharmacological Interventions: Heat, Ice, Inactivity, Position/Reposition Pharmacological Interventions: Epidural, PRN Medication, Topical Medication PQRS Narrative: Smoking Status Never smoker Blood Pressure 127/74 Pain Intensity [Bilateral 7 Lower Back] Scale Used Numeric (1 - 10) Hx Alcohol Use (MH) Yes: social Home Medications: Ambulatory Orders Aspirin EC [Ecotrin Low Dose] 81 mg PO DAILY 03/27/14 Atorvastatin [Lipitor] 20 mg PO HS 03/27/14 Multivitamins, Thera [Multivitamin (formulary)] 1 tab PO DAILY 03/27/14 lisinopriL [Lisinopril] 20 mg PO DAILY 07/24/15 Latanoprost/Pf [Latanoprost 0.005% Eye Drop] 1 drop BOTH EYES HS 09/14/20 Cholecalciferol [Vitamin D3 (25 Mcg = 1000 Iu)] 25 mcg PO DAILY 11/01/22 timoloL maleate [timoloL maleate 0.25%] 1 applic BOTH EYES DAILY 11/01/22 Famotidine [Pepcid] 20 mg PO BID PRN 11/27/23 Fluticasone Nasal [place] [Flonase Nasal [place]] 1 spray EA NOSTRIL DAILY PRN 11/27/23 Controlled Substance Measures - Controlled Substance Measures Is patient prescribed a controlled substance at discharge?: No
== END ==
LOC: PNWHC3 09:59
PROVIDERS: ATTEND Specialist
DX: M46.1 Sacroiliitis, not elsewhere classified (principal); M51.16 Intervertebral disc disorders with radiculopathy, lumbar region; M47.26 Other spondylosis with radiculopathy, lumbar region; M85.80 Other specified disorders of bone density and structure, unspecified site; Z88.0 Allergy status to penicillin; Z88.8 Allergy status to other drugs, medicaments and biological substances; Z88.6 Allergy status to analgesic agent; Z88.1 Allergy status to other antibiotic agents; Z88.2 Allergy status to sulfonamides
CPT/HCPCS: 72100; G0463; 99211

== ENCOUNTER → 2024-01-20 | Outpatient (CLI) | payer MEDICARE ==
[2024-01-20 10:32] LABS: Basophils # (A) 0.01 X 10*3/uL (0.00-0.10); Basophils % (A) 0.2 %; Eosinophils # (A) 1.06 X 10*3/uL (0.04-0.35); Eosinophils % (A) 17.8 %; HCT 42.5 % (37.2-46.3); HGB 13.8 g/dL (12.0-15.0); Lymphocytes # (A) 1.66 X 10*3/uL (0.90-5.00); Lymphocytes % (A) 27.9 %; MCH 32.2 pg (27.0-32.0); MCHC 32.5 g/dL (32.0-37.0); MCV 99.1 FL (80.0-97.0); Mean Platelet Volume 10.6 FL (9.5-12.2); Monocytes # (A) 0.54 X 10*3/uL (0.20-1.00); Monocytes % (A) 9.1 %; NRBC Per 100 WBC 0 X 10*3/uL (0.00-0.01); Neutrophils # (A) 2.66 X 10*3/uL (1.80-7.70); Neutrophils % (A) 44.7 %; Platelet Count 201 X 10*3/uL (140-440); RBC 4.29 X 10*6/uL (4.10-5.20); RDW 12.3 % (11.5-14.5); WBC 5.95 X 10*3/uL (4.50-10.00)
[2024-01-20 10:51] LABS: ALT 27 U/L (8-44); AST 23 U/L (13-35); Albumin 4.2 g/dL (3.8-4.9); Albumin/Globulin Ratio 2.47 Ratio (1.60-3.17); Alkaline Phosphatase 48 U/L (41-126); BUN/Creat Ratio 32.43 Ratio (12.00-20.00); Blood Urea Nitrogen 22.7 mg/dL (9.0-27.0); Calcium 9.8 mg/dL (8.7-10.3); Chloride 102 mmol/L (96-109); Chol/HDL Ratio 2.52 Ratio; Globulin 1.7 g/dL (1.6-3.3); Glucose 120 mg/dL (70-110); LDL Cholesterol,Calculated 66.6 mg/dL (0.0-131.0); Potassium 5.3 mmol/L (3.5-5.5); Sodium 141 mmol/L (135-145); T4, Free (Free Thyroxine) 1.24 ng/dL (0.80-1.80); Total Bilirubin 0.6 mg/dL (0.3-1.2); Total Protein 5.9 g/dL (6.2-8.2)
== END | disposition home or self-care (01) ==
LOC: LABWHC1 07:01
PROVIDERS: ATTEND Internal Medicine Geriatric Medicine
DX: E03.9 Hypothyroidism, unspecified (principal); E78.5 Hyperlipidemia, unspecified; D64.9 Anemia, unspecified; R73.9 Hyperglycemia, unspecified
CPT/HCPCS: 36415; 80053; 80061; 83036; 84439; 84443; 85025

== ENCOUNTER → 2024-02-04 | Outpatient (CLI) | payer MEDICARE ==
--- NOTE | 2024-02-29 15:31 | MR ---
Patient Jenny Larson ID [id number] Order # EXAMINATION TYPE: MR lumbar spine wo con DATE OF EXAM: 02/04/2024 COMPARISON: No comparison available on downtime PACS. HISTORY: Degenerative disc change, low back pain CONTRAST: 0 mL intravenous Gadavist. TECHNIQUE: Multiplanar, multisequence images of the lumbar spine were acquired. FINDINGS: Mild disc desiccation is present at L3-4 through L5-S1. Disc heights are preserved. Cord t erminates at the L1-2 level. L5-S1: No significant disc bulge or disc herniation. No spinal canal stenosis. Some ligamentum flavu m laxity is present. Severe bilateral foraminal stenosis is present. L4-L5: Minimal disc bulge is present with anterior thecal sac contact. No spinal canal stenosis. No foraminal stenosis. Facet hypertrophy and ligamentum flavum laxity is present with mild posterior l ateral thecal sac contact.. L3-L4: Minimal disc bulge is present with anterior thecal sac contact No spinal canal stenosis. No foraminal stenosis. Facet hypertrophy and ligamentum flavum laxity is posterior lateral thecal sac c ompression.. L2-L3: No significant disc bulge or disc herniation. No spinal canal stenosis. No foraminal stenosi s. L1-L2: No significant disc bulge or disc herniation. No spinal canal stenosis. No foraminal stenosi s. T12-L1: No significant disc bulge or disc herniation. No spinal canal stenosis. No foraminal stenos is. IMPRESSION: 1. Ligamentum flavum laxity with posterior lateral thecal sac compression at L3-4 and to a lesser deg ree L4-5. No spinal canal stenosis. 2. Mild disc desiccation L3-4 through L5-S1
== END | disposition home or self-care (01) ==
LOC: RADMRIMAIN 11:30
PROVIDERS: ATTEND Specialist
DX: M51.17 Intervertebral disc disorders with radiculopathy, lumbosacral region (principal)
CPT/HCPCS: 72148

== ENCOUNTER → 2024-02-10 | Outpatient (CLI) | payer MEDICARE | LOC: PNWHC3 10:00 | PROVIDERS: ATTEND Specialist | DX: M54.16 Radiculopathy, lumbar region | CPT/HCPCS: 99211 ==

== ENCOUNTER 2024-03-03 09:15 | Day surgery (SDC) | payer MEDICARE ==
[2024-03-03 09:37] VITALS: RESP 16; TEMP 98.2
[2024-03-03 09:48] LABS: Glucose,Whole Blood 179 mg/dL (70-110)
[2024-03-03] MEDS ORDERED: IOPAMIDOL M200 10 ML VIAL ONE (10:03)
[2024-03-03] MEDS ORDERED: methylPREDNISolone ACETATE 40 MG/ML 1 ML VIAL ONE (10:03)
--- NOTE | 2024-03-03 10:12 | P.PCN ---
Date of Procedure: 03/03/24 Procedure(s) Performed: PREOPERATIVE DIAGNOSIS: 1- Lumbar Degenerative Disc Diseases 2-Lumbar spondylosis with Facet arthropathy without myelopathy. POSTOPERATIVE DIAGNOSIS: 1-lumbar degenerative disc disease. 2-lumbar spondylosis with facet arthropathy without myelopathy. PROCEDURE 1. Lumbar epidural steroid injection under fluoroscopic guidance at the L3-4 level. (Fluoroscopy imaging was available in radiology department) 2. Lumbar epidurogram. ANESTHESIA: Lidocaine 1% 3 and then only. EBL: Minimal PROCEDURE INDICATION: The patient with low back pain and radiculitis symptoms unresponsive to conservative treatment. Fluoroscopy was used to optimize visualization of the needle placement and to maximize safety. PROCEDURE DESCRIPTION / TECHNIQUE: The patient was seen and identified in the preoperative area. Risks, benefits, complications including but not limited to infections ,bleeding ,allergic reaction to the medications ,nerve damage and not complete pain releife , and alternatives were discussed with the patient. The patient agreed to proceed with the procedure and signed the consent, and vital signs were stable. Patient was taken to the OR and time out was completed. The patient was placed in the prone position on procedure table and a pillow was placed under the abdomen to reduce lumbar lordosis. The lumbosacral area was prepped and draped in the usual sterile fashion.ere closely monitored during the procedure. Vital signs was monitered during the entire procedure. Using anterior-posterior fluoroscopy, the L3-4 interlaminar space was identified and the skin over this site was marked and then infiltrated with 1% lidocaine subcutaneously. Subsequently, a 18-gauge Tuohy epidural needle was inserted and advanced toward the epidural space using the ``Loss of resistance technique and guided by AP and lateral fluoroscopy. The correct needle position in the epidural space was verified with the injection of 2 mL of the water soluble contrast dye Isovue 200 contrast and observing an excellent epidurogram with the epidural spread of the dye, after negative aspiration for blood and CSF and in the absence of paresthesias. Again after negative aspiration, a 6 ml mixture containing 40 mg of Depo-medrol ( Preservetive Free ), and 2 ml of preservative free Normal Saline, and 2 ml of preservative free lidocaine 1% solution was injected and a washout of epidurogram was seen. Needle was withdrawn intact, skin was cleansed, and bandages were applied. COMPLICATIONS: None DISPOSITION / PLANS: The patient was placed in a supine position and transferred to the recovery area in a stable condition for observation. There was no em dence of lower extremity motor or sensory deficit after the procedure. Patient was discharged from the recovery room after meeting discharge criteria. Home discharge instructions were given to the patient by the staff. The patient was reexamined prior to discharge. The patient will schedule a follow up in the clinic in 2-4 weeks.
[2024-03-03 10:39] VITALS: BP 143/80; PULSE 71
--- NOTE | 2024-03-24 10:36 | FL ---
EXAMINATION TYPE: FL guided pain mgmt statistic DATE OF EXAM: 03/03/2024 10:18 AM COMPARISON: Pre Operative Images if available both CT/MRI or plain film CLINICAL INDICATION: Female, 74 years old with history of PAIN; TECHNIQUE: FL guided pain mgmt statistic, multiple fluoroscopic images provided for procedure. Total fluoroscopy time: 2.8 seconds Total submitted images to PACS: 1 DAP: 0.60261 mGym2 Gycm2 uGym2 cGycm2 or equivalent. FINDINGS: Fluoroscopic images during injection for pain management demonstrate multilevel degeneration changes throughout the spine. No evidence for fracture. No acute process identified. IMPRESSION: 1. No evidence for intraoperative complication. 2. Please see the operative/procedural note for further details. [facility], , 03/24/2024 10:33 AM
== END 2024-03-03 10:43 | disposition home or self-care (01) ==
LOC: ORPAIN 09:15
PROVIDERS: ATTEND Specialist
DX: M47.816 Spondylosis without myelopathy or radiculopathy, lumbar region (principal); M51.36 Other intervertebral disc degeneration, lumbar region
CPT/HCPCS: 62323

== ENCOUNTER → 2024-03-31 | Outpatient (CLI) | payer MEDICARE ==
[2024-03-31 10:35] VITALS: BP 120/72; PULSE 62; RESP 16; TEMP 99.2
--- NOTE | 2024-03-31 14:44 | P.PAINPG ---
PQRS Measure Charge Sheet Comment: A 74 yr old female with a history of severe and chronic LBP x years secondary to lumbar DDD and spondylosis with facet arthropathy without myelopathy presents today for evaluation s/p KINZA L3-L4 #1. Pt states she experienced 60 % pain relief x 4 wks s/p procedure. Pain level is provoked at 4 /10 in intensity, constant, localized in the lumbar spine, predominantly axial, achy in character w shooting towards the hips. Pain is provoked by over activity. Pain is alleviated with PT in 2019, physician guided home stretching regimen daily since Sep 2023, walking > 3 mi 5 times weekly, injections in the past, heat, ice, meds, topical, repositioning and rest. Interventional pain procedures completed include LESIs, BL SI injections x3, KINZA L3-L4 x1 Patient is currently on Tylenol ES, Lidoderm Patient denies any side effects of the medication(s), denies excessive drowsiness or sleepiness, denies suicidal ideation and reports that the current pain medication is helping to control the pain and improve activities of daily living. Patient denies any motor or sensory deficits. Patient denies any fever or night sweats, denies any change in the bowel movements or urination. Physical Examination: -Constitutional: Cooperative. Not in acute distress . - Neurologic: Cranial nerve II to XII intact. No focal neurological deficits. - Psychatric: Alert & oriented x 3. Matching mood & appropriate affect. Judgment and insight intact. - Musculoskeletal: Cervical spine: Muscle bulk/ tone/ strength in the bilateral upper extremities normal Vertebral body tenderness to palpation over Spurling test positive Distraction test positive Facet loading test positive TTP Thoracic spine Muscle bulk / tone/ strength in the bilateral paraspinal muscles normal Vertebral body tender to palpation over Facet loading test positive TTP Lumbar spine: Motor bulk/ tone/ strength lower extremities , thigh and legs : 5/5 Deep tendon reflexes : Normal Knee Jerk. Normal Ankle Jerk . Vertebral body tenderness to palpation over L5 Neal test positive BL L5-S1 Lumbar Facet Loading Test positive Straight Leg Raise: positive at 30 degrees right side/ left side Gaenslen's Test positive Sacral spine : Severe tenderness over the Sacroiliac joint: right side / left side Range of motion: Flexion of the lumbar spine <60 degrees Range of motion: Extension of the lumbar spine <20 degrees Gaenslen's Test positive right side > left side Alex test: positive right side / left side Thigh Thrust Test positive right side / left side Sacral Thrust Test positive right side / left side Imaging: MRI non contrast lumbar spine from 02/04/24 reviewed Assessment and plan: Chronic LBP secondary to lumbar radiculopathy, spondylosis with facet art hropathy without myelopathy, BL Sacroiliitis Recommendation of KINZA L5-S1 #2. PT x 6 wks script and physician guided home exercise instructions provided. Risks, benefits of procedure discussed and pt verbalized understanding. Protocol for discontinuation/ continuation of medications kanchan procedure discussed. All questions answered. I have spent less than 30 minutes on patient care today. Dr Bailey was available by phone for the evaluation of this patient. The time was used to review the medical records including relevant urine studies and Prescription history (MAPs), review of the available imaging, evaluation and examination of the patient, coordination of care with the medical staff and if applicable referring physicians, as well as creation of the medical record PQRS Narrative: Smoking Status Never smoker Hx Alcohol Use (MH) Yes: social Home Medications: Ambulatory Orders Aspirin EC [Ecotrin Low Dose] 81 mg PO DAILY 03/27/14 Atorvastatin [Lipitor] 20 mg PO HS 03/27/14 Multivitamins, Thera [Multivitamin (formulary)] 1 tab PO DAILY 03/27/14 lisinopriL [Lisinopril] 20 mg PO DAILY 07/24/15 Latanoprost/Pf [Latanoprost 0.005% Eye Drop] 1 drop BOTH EYES HS 09/14/20 Cholecalciferol [Vitamin D3 (25 Mcg = 1000 Iu)] 25 mcg PO DAILY 11/01/22 timoloL maleate [timoloL maleate 0.25%] 1 applic BOTH EYES DAILY 11/01/22 Famotidine [Pepcid] 20 mg PO BID PRN 11/27/23 Fluticasone Nasal [place] [Flonase Nasal [place]] 1 spray EA NOSTRIL DAILY PRN 11/27/23 metFORMIN HCL 500 mg PO BID 03/01/24 Controlled Substance Measures - Controlled Substance Measures Is patient prescribed a controlled substance at discharge?: No
== END | disposition home or self-care (01) ==
LOC: PNWHC3 10:06
PROVIDERS: ATTEND Specialist
DX: M54.16 Radiculopathy, lumbar region
CPT/HCPCS: 99211

== ENCOUNTER → 2024-04-04 | Outpatient (CLI) | payer MEDICARE ==
--- NOTE | 2024-04-06 22:43 | BD ---
EXAMINATION TYPE: Axial Bone Density DATE OF EXAM: 04/04/2024 CLINICAL HISTORY: 74 years old Female. ICD-10 CODE: Z78.0 ASYMPTOMATIC MENOPAUSAL STATE Height: 57" Weight: 133lbs FRAX RISK QUESTIONS: Alcohol (3 or more units per day): No Family History (Parent hip fracture): Yes, Mother Glucocorticoids (More than 3mos): No (Ex: prednisone, prednisolone, methylprednisolone, dexamethasone, and hydrocortisone). History of Fracture in Adulthood: No Secondary Osteoporosis: 1. Type 1 Diabetes: No 2. Hyperthyroidism: No 3. Menopause before 45: No 4. Malnutrition: No 5. Chronic liver disease: No Rheumatoid Arthritis: No Current Tobacco Use: No RISK FACTORS HISTORY OF: Hip Fracture (Right/Left): No Spine Fracture: No History of Wrist Fracture: No Surgery to Spine/Hip(right/left)/Wrist (right/left): No MEDICATIONS: Thyroid Medications: No Osteoporosis Medications: No EXAM MEASUREMENTS: Bone mineral densitometry was performed using the [employer] System. Bone mineral density as measured about the Lumbar spine is: ----- L1-L4(G/cm2): 1.107 T Score Values are as follows: ----- L1: -1.0 ----- L2: -1.4 ----- L3: -0.6 ----- L4: 0.2 ----- L1-L4: -0.6 Z Score Values are as follows: ----- L1: 0.9 ----- L2: 0.5 ----- L3: 1.3 ----- L4: 2.1 ----- L1-L4: 1.3 Bone mineral density has: increased 1.5% since study of: 05/31/2021 Bone mineral density about the R hip (g/cm2): 0.938 Bone mineral density about the L hip (g/cm2): 1.005 T Score values are as follows: -----R Neck: -2.2 -----L Neck: -1.9 -----R Total: -0.6 -----L Total: 0.0 Z Score values are as follows: -----R Neck: -0.3 -----L Neck: 0.1 -----R Total: 1.2 -----L Total: 1.8 Bone mineral density has: increased 3.0% since study of: 05/31/2021 FRAX%s: The graph provided illustrates a 24.7% chance for a major osteoporotic fx and a 13.6% chance for the hips probability for fx in 10 years time. IMPRESSION: Osteopenia (T Score between -2.5 and -1). There is slightly increased risk of fracture and the patient may be considered for treatment. Re-Screen 2-5 years. NOTE: T-SCORE=SD OF THE YOUNG ADULT MEAN. [facility], , 04/06/2024 10:41 PM
== END | disposition home or self-care (01) ==
LOC: RADBDWWP 11:26
PROVIDERS: ATTEND Obstetrics & Gynecology
DX: Z78.0 Asymptomatic menopausal state
CPT/HCPCS: 77080

== ENCOUNTER 2024-04-28 09:21 | Day surgery (SDC) | payer MEDICARE ==
[2024-04-28 09:40] VITALS: TEMP 97.2
[2024-04-28 09:50] LABS: Glucose,Whole Blood 135 mg/dL (70-110)
[2024-04-28] MEDS ORDERED: methylPREDNISolone ACETATE 80 MG/ML 1 ML VIAL ONE (10:10)
[2024-04-28] MEDS ORDERED: ROPIVACAINE 5MG/ML 20ML VIAL ONE (10:10)
[2024-04-28] MEDS ORDERED: IOPAMIDOL M300 15ML VIAL ONE (10:10)
--- NOTE | 2024-04-28 10:34 | P.PCN ---
Description of Procedure: PREOPERATIVE DIAGNOSIS: 1- Lumbar Degenerative Disc Diseases 2-Lumbar spondylosis with Facet arthropathy without myelopathy. 3-lumbar spinal stenosis POSTOPERATIVE DIAGNOSIS: 1-lumbar degenerative disc disease. 2-lumbar spondylosis with facet arthropathy without myelopathy. 3-lumbar spinal stenosis. PROCEDURE Injection of radio contrast material into L5-S1 interspace, interpretation of epidurogram, injection of steroid at L5-S1 epidural space under fluoroscopic guidance. ANESTHESIA: Lidocaine 1% subcutaneously. In OR continuous pulse ox, EKG, blood pressure and verbal communication was maintained with the patient. EBL: Minimal PROCEDURE INDICATION: Before the procedure were discussed with the patient detailed procedure, alternatives, complications including infection, bleeding, nerve damage, paralysis all of which could be permanent. Patient understands and all questions were answered. PROCEDURE DESCRIPTION : After getting consent, patient in OR in prone position. Back was prepped with chlorhexidine and draped in sterile fashion. After injecting 10 mL of 1% lidocaine subcutaneously, a 20-gauge Tuohy needle was introduced at L5-S1 interspace with loss of resistance technique using a syringe filled with air. Negative CSF, negative blood, negative paresthesia. Needle position was confirmed with AP and lateral view of the fluoroscope. After repeat negative aspiration 2 mL of Omnipaque 200 water soluble contrast was injected. Contrast was noted in the epidural space. No contrast was noted into intrathecal or intravascular space. After repeat negative aspiration 6 mL solution was injected intermittently which consists of 5 mL of preservative-free normal saline mixed with 1 mL of 80 mg Depo-Medrol. Needle was withdrawn intact. Skin was cleansed and Band-Aids was applied. DISPOSITION / PLANS: The patient tolerated the procedure well. No complication. The patient was placed in a supine position and transferred to the recovery area in a stable condition for observation. There was no evidence of lower extremity motor or sensory deficit after the procedure. Patient was discharged from the recovery room after meeting discharge criteria. Home discharge instructions were given to the patient by the staff. The patient was reexamined prior to discharge. The patient will schedule a follow up in the clinic in 2-4 weeks.
[2024-04-28 10:35] VITALS: RESP 20
[2024-04-28 10:51] VITALS: BP 126/73; PULSE 59
--- NOTE | 2024-04-28 10:54 | FL ---
EXAMINATION TYPE: FL guided pain mgmt statistic DATE OF EXAM: 04/28/2024 HISTORY: Fluoroscopy time Total dose area product (DAP) in uGy*m?, mGy*cm? (or similar): 0.24409 IMPRESSION: 1. Fluoroscopy time. [facility], , 04/28/2024 10:51 AM
== END 2024-04-28 10:53 | disposition home or self-care (01) ==
LOC: ORPAIN 09:21
PROVIDERS: ATTEND Pain Medicine Interventional Pain Medicine
DX: M47.816 Spondylosis without myelopathy or radiculopathy, lumbar region (principal); M48.061 Spinal stenosis, lumbar region without neurogenic claudication; M51.369 Other intervertebral disc degeneration, lumbar region without mention of lumbar back pain or lower extremity pain; E11.9 Type 2 diabetes mellitus without complications; I10 Essential (primary) hypertension; Z79.84 Long term (current) use of oral hypoglycemic drugs; Z79.899 Other long term (current) drug therapy; Z79.82 Long term (current) use of aspirin; Z88.8 Allergy status to other drugs, medicaments and biological substances; Z88.1 Allergy status to other antibiotic agents; Z88.2 Allergy status to sulfonamides
CPT/HCPCS: 62323; Q9967; J2795; J1010

== ENCOUNTER → 2024-05-25 | Outpatient (CLI) | payer MEDICARE ==
[2024-05-25 10:32] LABS: ALT 20 U/L (8-44); AST 18 U/L (13-35); Albumin 4.3 g/dL (3.8-4.9); Albumin/Globulin Ratio 2.53 Ratio (1.60-3.17); Alkaline Phosphatase 43 U/L (41-126); BUN/Creat Ratio 26.57 Ratio (12.00-20.00); Blood Urea Nitrogen 18.6 mg/dL (9.0-27.0); Calcium 9.6 mg/dL (8.7-10.3); Carbon Dioxide 28.3 mmol/L (21.6-31.8); Chloride 102 mmol/L (96-109); Chol/HDL Ratio 2.51 Ratio; Globulin 1.7 g/dL (1.6-3.3); Glucose 105 mg/dL (70-110); LDL Cholesterol,Calculated 53.2 mg/dL (0.0-131.0); Potassium 4.9 mmol/L (3.5-5.5); Sodium 141 mmol/L (135-145); Total Bilirubin 0.7 mg/dL (0.3-1.2)
[2024-05-25 10:43] LABS: Microalbumin Creatinine Ratio <14 mg/g Cr (0-30); Urine Creatinine 85.2 mg/dL (28.0-217.0)
== END | disposition home or self-care (01) ==
LOC: LABWHC1 07:14
PROVIDERS: ATTEND Internal Medicine Geriatric Medicine
DX: E11.65 Type 2 diabetes mellitus with hyperglycemia (principal)
CPT/HCPCS: 36415; 80053; 80061; 82043; 82570; 83036

== ENCOUNTER → 2024-06-02 | Outpatient (CLI) | payer MEDICARE ==
--- NOTE | 2024-06-02 12:18 | XR ---
EXAMINATION TYPE: XR cervical spine comp DATE OF EXAM: 06/02/2024 11:39 AM COMPARISON: None CLINICAL INDICATION: Female, 74 years old with history of M54.2 CERVICALGIA M54.9 BACK PAIN; [facility] TECHNIQUE: The cervical spine was imaged in frontal, lateral, odontoid and bilateral oblique. FINDINGS: The osseous structures show normal alignment without evidence of an acute fracture. There are osteoph ytes noted throughout the cervical spine on the anterior and lateral aspects of the vertebral bodies. The intervertebral disk spaces are narrowed at multiple levels. Pedicles are intact. Soft tissues a re within normal limits. The odontoid appears intact. IMPRESSION: 1. No fracture or dislocation. 2. Mild degenerative disc disease changes of the cervical spine. [facility], , 06/02/2024 12:16 PM
--- NOTE | 2024-06-02 12:20 | XR ---
EXAMINATION TYPE: XR thoracic spine complete DATE OF EXAM: 06/02/2024 11:39 AM COMPARISON: None CLINICAL INDICATION: Female, 74 years old with history of M54.2 CERVICALGIA M54.9 BACK PAIN; [facility] TECHNIQUE: XR thoracic spine complete 3 views. FINDINGS: No evidence of acute fracture. There is scattered multilevel disk space narrowing without loss of ve rtebral body height. There is normal alignment of the thoracic vertebral bodies. Scattered osteophyte formation along the anterior and lateral aspects of the vertebral bodies. Neural foramen are patent given limitations of this exam. Spinal canal appears patent. IMPRESSION: 1. No acute osseous pathology. 2. [id number] multilevel degeneration changes of the spine. [facility], , 06/02/2024 12:18 PM
== END | disposition home or self-care (01) ==
LOC: RADXRMAIN 11:20
PROVIDERS: ATTEND Internal Medicine Geriatric Medicine
DX: M50.30 Other cervical disc degeneration, unspecified cervical region (principal); M47.814 Spondylosis without myelopathy or radiculopathy, thoracic region
CPT/HCPCS: 72050; 72072

== ENCOUNTER → 2024-06-09 | Outpatient (CLI) | payer MEDICARE ==
[2024-06-09 10:57] VITALS: BP 143/80; PULSE 59; RESP 17; TEMP 97.4
--- NOTE | 2024-06-09 15:13 | P.PAINPG ---
Objective - Vital Signs Vital signs: Vital Signs Temp 97.4 F L 06/09/24 10:53 Pulse 59 L 06/09/24 10:53 Resp 17 06/09/24 10:53 BP 143/80 06/09/24 10:53 Pulse Ox 94 L 06/09/24 10:53 FiO2 Intake & Output 06/08/24 06/09/24 06/09/24 18:59 06:59 18:59 Weight 130 kg PQRS Measure Charge Sheet Comment: A 74 yr old female with a history of severe and chronic LBP x years secondary to radiculopathy, spondylosis with facet arthropathy without myelopathy presents today for evaluation s/p KINZA L5-S1 #2. Pt states she experienced 50 % pain relief x 4-5 wks s/p procedure. Pain level is provoked at 5-6 /10 in intensity, constant, localized in the lumbar spine, predominantly axial, achy in character without shooting pain. Pain is provoked by standing for periods > 3 min. Pain is alleviated with PT x 4 wks which she is currently in, physician guided home stretching regimen daily since Sep 2023, walking > 3 mi 5 times weekly, injections in the past, heat, ice, meds, topical, repositioning and rest. Interventional pain procedures completed include LESIs, BL SI injections x3, KINZA L3-L4 x1, L5-S1 x1 Patient is currently on Tylenol ES, Ibu, Lidoderm Patient denies any side effects of the medication(s), denies excessive drowsiness or sleepiness, denies suicidal ideation and reports that the current pain medication is helping to control the pain and improve activities of daily living. Patient denies any motor or sensory deficits. Patient denies any fever or night sweats, denies any change in the bowel movements or urination. Physical Examination: -Constitutional: Cooperative. Not in acute distress . - Neurologic: Cranial nerve II to XII intact. No focal neurological deficits. - Psychatric: Alert & oriented x 3. Matching mood & appropriate affect. Judgment and insight intact. - Musculoskeletal: Cervical spine: Muscle bulk/ tone/ strength in the bilateral upper extremities normal Vertebral body tenderness to palpation over Spurling test positive Distraction test positive Facet loading test positive TTP Thoracic spine Muscle bulk / tone/ strength in the bilateral paraspinal muscles normal Vertebral body tender to palpation over Facet loading test positive TTP Lumbar spine: Motor bulk/ tone/ strength lower extremities , thigh and legs : 5/5 Deep tendon reflexes : Normal Knee Jerk. Normal Ankle Jerk . Vertebral body tenderness to palpation over L5 Neal test positive BL L5-S1 Lumbar Facet Loading Test positive BL L4-L5, L5-S1 Straight Leg Raise: positive at 30 degrees right side/ left side Gaenslen's Test positive Sacral spine : Severe tenderness over the Sacroiliac joint: right side / left side Range of motion: Flexion of the lumbar spine <60 degrees Range of motion: Extension of the lumbar spine <20 degrees Gaenslen's Test positive right side > left side Alex test: positive right side / left side Thigh Thrust Test positive right side / left side Sacral Thrust Test positive right side / left side Imaging: MRI non contrast lumbar spine from 02/04/24 reviewed Assessment and plan: Chronic LBP secondary to radiculopathy, spondylosis with facet arthropathy without myelopathy, BL Sacroiliitis Recommendation of BL MBB L4-l5, L5-S1 #1. Risks, benefits of procedure discussed and pt verbalized understanding. Protocol for discontinuation/ continuation of medications kanchan procedure discussed. Minimal anesthesia including Fentanyl and Versed if clinically indicated. All questions answered. I have spent less than 30 minutes on patient care today. Dr Bailey was available by phone for the evaluation of this patient. The time was used to review the medical records including relevant urine studies and Prescription history (MAPs), review of the available imaging, evaluation and examination of the patient, coordination of care with the medical staff and if applicable referring physicians, as well as creation of the medical record PQRS Narrative: Smoking Status Never smoker Narcotic Agreement Date Signed 06/09/24 Blood Pressure 143/80 Pain Intensity [Lower Back] 6 Scale Used Numeric (1 - 10) Hx Alcohol Use (MH) Yes: social Home Medications: Ambulatory Orders Aspirin EC [Ecotrin Low Dose] 81 mg PO DAILY 03/27/14 Atorvastatin [Lipitor] 20 mg PO HS 03/27/14 Multivitamins, Thera [Multivitamin (formulary)] 1 tab PO DAILY 03/27/14 lisinopriL [Lisinopril] 20 mg PO DAILY 07/24/15 Latanoprost/Pf [Latanoprost 0.005% Eye Drop] 1 drop BOTH EYES HS 09/14/20 Cholecalciferol [Vitamin D3 (25 Mcg = 1000 Iu)] 25 mcg PO DAILY 11/01/22 timoloL maleate [timoloL maleate 0.25%] 1 applic BOTH EYES DAILY 11/01/22 Famotidine [Pepcid] 20 mg PO BID PRN 11/27/23 Fluticasone Nasal [place] [Flonase Nasal [place]] 1 spray EA NOSTRIL DAILY PRN 11/27/23 metFORMIN HCL 250 mg PO BID 03/01/24 Controlled Substance Measures - Controlled Substance Measures Is patient prescribed a controlled substance at discharge?: No
== END ==
LOC: PNWHC3 10:33
PROVIDERS: ATTEND Specialist
DX: M47.26 Other spondylosis with radiculopathy, lumbar region (principal); M46.1 Sacroiliitis, not elsewhere classified; Z88.0 Allergy status to penicillin; Z88.1 Allergy status to other antibiotic agents; Z88.2 Allergy status to sulfonamides; Z88.8 Allergy status to other drugs, medicaments and biological substances
CPT/HCPCS: 99211

== ENCOUNTER → 2024-06-24 | Outpatient (CLI) | payer MEDICARE ==
--- NOTE | 2024-06-24 19:05 | MR ---
EXAMINATION TYPE: MR cspine/tspine wo con DATE OF EXAM: 06/24/2024 COMPARISON: Prior MRI thoracic spine 2015 HISTORY: Cervicalgia, Neck pain with burning into shoulders, Headaches, x2 months, Mid back pain radi ates to ribcage x2 months, TECHNIQUE: Multiplanar, multisequence imaging of cervical and thoracic spine are performed without co ntrast FINDINGS: C-SPINE: Sagittal images of the cervical spine show the craniocervical junction to appear within normal limits . The cervical and upper thoracic spinal cord is normal in course, caliber, and signal. Vertebral a lignment is anatomic. The vertebral body and intravertebral disk heights are normal. The bone marro w signal intensity is within normal limits. Axial images show C2-C3 level to appear within Normal limits. Axial images at C3-C4 level show uncovertebral facet degenerative change bilaterally causing mild to moderate left greater than right bilateral neural foraminal narrowing. Axial images at C4-C5 level showed vertebral facet degenerative change causing mild to moderate bilat eral neural foraminal narrowing. Axial images at C5-C6 level show uncovertebral facet degenerative change causing mild to moderate lef t greater than the right bilateral neural foraminal narrowing. Axial images at C6-C7 levels uncovertebral facet degenerative change causing mild bilateral neural fo raminal narrowing. Axial images at C7-T1 level appear within normal limits IMPRESSION: Multilevel uncovertebral facet degenerative changes bilaterally. No suspicious focal disc herniation. T-SPINE: Spinal cord shows normal course, caliber, and signal as it courses the thoracic spine. Vertebral bod y heights and alignment are stable and satisfactory. Disc space heights are maintained. No signific ant posterior disc herniations are seen on sagittal images. There is redemonstration of hemangioma s uperior T10 vertebral body level. The remainder of the T10 vertebra now shows diffuse diminished T1 a nd T2 signal of uncertain etiology. Mild to moderate multilevel anterior spurring is redemonstrated m ost pronounced in the midthoracic spine is redemonstrated. Review of the axial images shows no significant spinal canal stenosis or neural foraminal narrowing a t any thoracic level. The visualized upper abdomen and thorax show no suspicious abnormality. IMPRESSION: Mild to moderate multilevel spurring redemonstrated, no new disc herniation is evident. [facility], , 06/24/2024 7:02 PM
== END | disposition home or self-care (01) ==
LOC: RADMRIMAIN 16:16
PROVIDERS: ATTEND Internal Medicine Geriatric Medicine
DX: M54.2 Cervicalgia (principal)
CPT/HCPCS: 72141; 72146

== ENCOUNTER 2024-09-27 07:19 | Day surgery (SDC) | payer MEDICARE ==
[2024-09-23 15:52] VITALS: BMI 27.6
[2024-09-27] MEDS: IV FLUID CONTINUATION 1,000 ML IV ONE (07:44)
[2024-09-27] MEDS: LACTATED RINGERS 1,000 ML IV SCH (08:09)
[2024-09-27 08:10] VITALS: RESP 16; TEMP 98
[2024-09-27 08:29] LABS: Glucose,Whole Blood 103 mg/dL (70-110)
[2024-09-27] MEDS ORDERED: MIDAZOLAM 2 MG/2 ML VIAL ONE (08:53)
[2024-09-27] MEDS ORDERED: ROPIVACAINE 5MG/ML 20ML VIAL ONE (08:53)
[2024-09-27] MEDS ORDERED: fentaNYL (PF) 50 MCG/ML 2 ML AMP ONE (08:53)
--- NOTE | 2024-09-27 09:07 | P.PCN ---
Date of Procedure: 09/27/24 Procedure(s) Performed: PREOPERATIVE DIAGNOSIS : 1- Lumbar spondylosis with Facet Arthropathy without myelopathy . 2- Lumber degenerative disc disease POSTOPERATIVE DIAGNOSIS: 1- Lumbar spondylosis with Facet Arthropathy without myelopathy . 2- Lumber degenerative disc disease PROCEDURE: Diagnostic bilateral L3 ,L4 , L5 medial branch block under fluoroscopy guidance(fluoroscopy images available in the radiology Department ) ( To target the facet joint between Bilateral L4-5 , and L5-S1 )#1st ANESTHESIA: moderate sedation with intravenous Versed 2 mg and Fentanyl 50 mcg.(sedation start time 08:53 ,end time 09:04 ) EBL: Minimal COMPLICATION: None PROCEDURE INDICATION: Chronic low back pain secondary to Facet arthropathy unresponsive to conservative treatment. PROCEDURE DESCRIPTION: the patient was seen and identified in the preop holding area , risks and benefits and possible complications of the procedure and alternative were discussed with the patient, and the patient agreed to proceed with the procedure and signed the consent and vital signs monitored during the procedure and fluoroscopy was used to maximize the benefit and accuracy of the needle placement, and sedation was given to decrease patient anxiety, patient was taken to the procedure room and placed in prone position vital signs monitored in the back prepped with chlorhexidine X3 then under strict sterile technique using a right oblique fluoroscopy ,the junction of the transverse process and the superior articulating process of the right L3 , L4 , and L5 vertebra which corresponding to the fluoroscopy image of the eye of the [place] dog on the block side for the medial branches and subsequently , after local infiltration of skin and subcu tissuies with Ropivacaine 0.5 % , one mL at each level ,then 23-gauge Quincke-type needles , 3 needle was used , each one of them placed at the junction of the base of the transverse process and the superior articular process at the appropriate level, and the needle was advanced until the periosteum contacted, needle placement confirmed with AP oblique and lateral view and after appropriate needle placement confirmed, and after negative aspiration for heme and CSF and there was no paresthesia 1-1/2 mL of Ropivacaine 0.5% , then half mL injected at each level after negative aspiration the needle subsequently removed and the same procedure repeated for the left side at left side at L3 , L4 and L5 levels. At the end of the procedure and the needles removed and a bandage applied after the skin was cleaned the cleaning solution patient taken to recovery room in stable condition and monitors in the recovery room for 20-30 minutes and discharged home in stable condition after discharge criteria met and patient will follow up with the pain clinic in 2-4 weeks
[2024-09-27] MEDS: IV FLUID CONTINUATION 700 ML IV ONE (09:11)
--- NOTE | 2024-09-27 09:28 | FL ---
Fluoroscopy INDICATION: Pain FINDINGS: Fluoroscopy time: 17.2 seconds. Total dose area product (DAP) in uGy*m?, mGy*cm? (or similar): 0.42375 Images obtained: 5. Images document [place] directed towards the lumbar spine IMPRESSION: 1. Documentation of fluoroscopy. [facility], , 09/27/2024 9:26 AM
[2024-09-27 09:37] VITALS: BP 111/57; PULSE 67
== END 2024-09-27 09:51 | disposition home or self-care (01) ==
LOC: ORPAIN 07:19
PROVIDERS: ATTEND Specialist
DX: M47.816 Spondylosis without myelopathy or radiculopathy, lumbar region (principal); M51.369 Other intervertebral disc degeneration, lumbar region without mention of lumbar back pain or lower extremity pain; G89.29 Other chronic pain; E11.9 Type 2 diabetes mellitus without complications; Z79.84 Long term (current) use of oral hypoglycemic drugs; Z79.82 Long term (current) use of aspirin; Z88.1 Allergy status to other antibiotic agents; Z88.2 Allergy status to sulfonamides; Z88.0 Allergy status to penicillin; Z88.8 Allergy status to other drugs, medicaments and biological substances
CPT/HCPCS: 64493; 64494; J2250; J3010; J2795; 99152

== ENCOUNTER → 2024-10-19 | Outpatient (CLI) | payer MEDICARE ==
[2024-10-19 10:46] VITALS: BP 128/75; PULSE 58; RESP 16; TEMP 97.8
--- NOTE | 2024-10-19 16:49 | P.PAINPG ---
Objective - Vital Signs Vital signs: Intake & Output 10/18/24 10/19/24 10/19/24 18:59 06:59 18:59 Weight 58.06 kg PQRS Measure Charge Sheet Comment: A 74 yr old female with a history of severe and chronic LBP x years secondary to radiculopathy, spondylosis with facet arthropathy without myelopathy presents today for evaluation s/p BL MBB L4-L5, L5-S1 #1. Pt states she experienced 85 % pain relief x 2 day s/p procedure. Pain level is provoked at 7-8 /10 in in tensity, constant, localized in the lumbar spine, predominantly axial, achy in character without shooting pain. Pain is provoked by standing for periods > 3 min. Pain is alleviated with PT x 4 wks which she is currently in, physician guided home stretching regimen daily since Sep 2023, walking > 3 mi 5 times weekly, injections in the past, heat, ice, meds, topical, repositioning and rest. Interventional pain procedures completed include LESIs, BL SI injections x3, KINZA L3-L4 x1, L5-S1 x1, BL MBB L3-L5 x1 Patient is currently on Tylenol ES, Ibu, Lidoderm Patient denies any side effects of the medication(s), denies excessive drowsiness or sleepiness, denies suicidal ideation and reports that the current pain medication is helping to control the pain and improve activities of daily living. Patient denies any motor or sensory deficits. Patient denies any fever or night sweats, denies any change in the bowel movements or urination. Physical Examination: -Constitutional: Cooperative. Not in acute distress . - Neurologic: Cranial nerve II to XII intact. No focal neurological deficits. - Psychatric: Alert & oriented x 3. Matching mood & appropriate affect. Judgment and insight intact. - Musculoskeletal: Cervical spine: Muscle bulk/ tone/ strength in the bilateral upper extremities normal Vertebral body tenderness to palpation over Spurling test positive Distraction test positive Facet loading test positive TTP Thoracic spine Muscle bulk / tone/ strength in the bilateral paraspinal muscles normal Vertebral body tender to palpation over Facet loading test positive TTP Lumbar spine: Motor bulk/ tone/ strength lower extremities , thigh and legs : 5/5 Deep tendon reflexes : Normal Knee Jerk. Normal Ankle Jerk . Vertebral body tenderness to palpation over L5 Neal test positive BL L5-S1 Lumbar Facet Loading Test positive BL L4-L5, L5-S1 Straight Leg Raise: positive at 30 degrees right side/ left side Gaenslen's Test positive Sacral spine : Severe tenderness over the Sacroiliac joint: right side / left side Range of motion: Flexion of the lumbar spine <60 degrees Range of motion: Extension of the lumbar spine <20 degrees Gaenslen's Test positive right side > left side Alex test: positive right side / left side Thigh Thrust Test positive right side / left side Sacral Thrust Test positive right side / left side Imaging: MRI non contrast lumbar spine from 02/04/24 reviewed Assessment and plan: Chronic LBP secondary to radiculopathy, spondylosis with facet arthropathy without myelopathy, BL Sacroiliitis Recommendation of BL MBB L4-L5, L5-S1 #2. Risks, benefits of procedure discussed and pt verbalized understanding. Protocol for discontinuation/ continuation of medications kanchan procedure discussed. Minimal anesthesia including Fentanyl and Versed if clinically indicated. All questions answered. I have spent less than 30 minutes on patient care today. Dr Bailey was available by phone for the evaluation of this patient. The time was used to review the medical records including relevant urine studies and Prescription history (MAPs), review of the available imaging, evaluation and examination of the patient, coordination of care with the medical staff and if applicable referring physicians, as well as creation of the medical record PQRS Narrative: Smoking Status Never smoker Narcotic Agreement Date Signed 06/09/24 Hx Alcohol Use (MH) Yes: social Home Medications: Ambulatory Orders Aspirin EC [Ecotrin Low Dose] 81 mg PO DAILY 03/27/14 Atorvastatin [Lipitor] 20 mg PO HS 03/27/14 Multivitamins, Thera [Multivitamin (formulary)] 1 tab PO DAILY 03/27/14 lisinopriL [Lisinopril] 20 mg PO DAILY 07/24/15 Latanoprost/Pf [Latanoprost 0.005% Eye Drop] 1 drop BOTH EYES HS 09/14/20 Cholecalciferol [Vitamin D3 (25 Mcg = 1000 Iu)] 25 mcg PO DAILY 11/01/22 timoloL maleate [timoloL maleate 0.25%] 1 applic BOTH EYES DAILY 11/01/22 Famotidine [Pepcid] 20 mg PO BID PRN 11/27/23 Fluticasone Nasal [place] [Flonase Nasal [place]] 1 spray EA NOSTRIL DAILY PRN 11/27/23 metFORMIN HCL 500 mg PO BID 03/01/24 Acetaminophen [Tylenol Extra Strength] 500 - 1,000 mg PO Q4-6H PRN 09/23/24 Controlled Substance Measures - Controlled Substance Measures Is patient prescribed a controlled substance at discharge?: No
== END ==
LOC: PNWHC3 10:16
PROVIDERS: ATTEND Specialist
DX: M47.16 Other spondylosis with myelopathy, lumbar region (principal); M46.1 Sacroiliitis, not elsewhere classified; M54.50 Low back pain, unspecified; G89.29 Other chronic pain; Z88.0 Allergy status to penicillin; Z88.3 Allergy status to other anti-infective agents; Z88.1 Allergy status to other antibiotic agents; Z88.6 Allergy status to analgesic agent; Z88.8 Allergy status to other drugs, medicaments and biological substances; Z88.2 Allergy status to sulfonamides
CPT/HCPCS: 99211

== ENCOUNTER → 2024-10-21 | Outpatient (CLI) | payer MEDICARE ==
[2024-10-21 10:14] LABS: Basophils # (A) 0.01 X 10*3/uL (0.00-0.10); Basophils % (A) 0.2 %; Eosinophils # (A) 0.63 X 10*3/uL (0.04-0.35); Eosinophils % (A) 10.7 %; HCT 43.4 % (37.2-46.3); HGB 13.9 g/dL (12.0-15.0); Lymphocytes # (A) 1.89 X 10*3/uL (0.90-5.00); Lymphocytes % (A) 32.2 %; MCV 96.9 FL (80.0-97.0); Monocytes # (A) 0.53 X 10*3/uL (0.20-1.00); NRBC Per 100 WBC 0 X 10*3/uL (0.00-0.01); Neutrophils # (A) 2.79 X 10*3/uL (1.80-7.70); Neutrophils % (A) 47.6 %; Platelet Count 243 X 10*3/uL (140-440); RBC 4.48 X 10*6/uL (4.10-5.20); RDW 12.4 % (11.5-14.5); WBC 5.87 X 10*3/uL (4.50-10.00)
[2024-10-21 10:44] LABS: ALT 28 U/L (8-44); AST 22 U/L (13-35); Albumin 4.2 g/dL (3.8-4.9); Albumin/Globulin Ratio 2.21 Ratio (1.60-3.17); Alkaline Phosphatase 44 U/L (41-126); BUN/Creat Ratio 23.14 Ratio (12.00-20.00); Blood Urea Nitrogen 16.2 mg/dL (9.0-27.0); Calcium 9.7 mg/dL (8.7-10.3); Carbon Dioxide 28.8 mmol/L (21.6-31.8); Chloride 102 mmol/L (96-109); Globulin 1.9 g/dL (1.6-3.3); Glucose 119 mg/dL (70-110); Potassium 5.1 mmol/L (3.5-5.5); Sodium 140 mmol/L (135-145); T4, Free (Free Thyroxine) 1.36 ng/dL (0.80-1.80); Total Bilirubin 0.7 mg/dL (0.3-1.2); Total Protein 6.1 g/dL (6.2-8.2)
== END | disposition home or self-care (01) ==
LOC: LABWHC1 07:18
PROVIDERS: ATTEND Internal Medicine Geriatric Medicine
DX: E11.65 Type 2 diabetes mellitus with hyperglycemia (principal); E03.9 Hypothyroidism, unspecified; G62.9 Polyneuropathy, unspecified
CPT/HCPCS: 36415; 80053; 80061; 83036; 84439; 84443; 85025

== ENCOUNTER → 2024-11-24 | Outpatient (CLI) | payer MEDICARE ==
[2024-11-24 10:23] VITALS: BP 130/79; PULSE 60; RESP 16; TEMP 97.3
--- NOTE | 2024-11-28 14:23 | P.PAINPG ---
Objective - Vital Signs Vital signs: Intake & Output 11/23/24 11/24/24 11/24/24 18:59 06:59 18:59 Weight 57.606 kg PQRS Measure Charge Sheet Comment: A 74 yr old female with a history of severe and chronic LBP x years secondary to radiculopathy, spondylosis with facet arthropathy without myelopathy presents today for evaluation s/p BL MBB L4-L5, L5-S1 #2. Pt states she experienced 90 % pain relief x 2 days s/p procedure. Pain level is provoked at 7-8 /10 in intensity, constant, localized in the lumbar spine, predominantly axial, achy in character without shooting pain. Pain is provoked by standing for periods > 3 min. Pain is alleviated with PT x 4 wks which she is currently in, physician guided home stretching regimen daily since Sep 2023, walking > 3 mi 5 times weekly, injections in the past, heat, ice, meds, topical, repositioning and rest. Interventional pain procedures completed include LESIs, BL SI injections x3, KINZA L3-L4 x1, L5-S1 x1, BL MBB L3-L5 x2 Patient is currently on Tylenol ES, Ibu, Lidoderm Patient denies any side effects of the medication(s), denies excessive drowsiness or sleepiness, denies suicidal ideation and reports that the current pain medication is helping to control the pain and improve activities of daily living. Patient denies any motor or sensory deficits. Patient denies any fever or night sweats, denies any change in the bowel movements or urination. Physical Examination: -Constitutional: Cooperative. Not in acute distress . - Neurologic: Cranial nerve II to XII intact. No focal neurological deficits. - Psychatric: Alert & oriented x 3. Matching mood & appropriate affect. Judgment and insight intact. - Musculoskeletal: Cervical spine: Muscle bulk/ tone/ strength in the bilateral upper extremities normal Vertebral body tenderness to palpation over Spurling test positive Distraction test positive Facet loading test positive TTP Thoracic spine Muscle bulk / tone/ strength in the bilateral paraspinal muscles normal Vertebral body tender to palpation over Facet loading test positive TTP Lumbar spine: Motor bulk/ tone/ strength lower extremities , thigh and legs : 5/5 Deep tendon reflexes : Normal Knee Jerk. Normal Ankle Jerk . Vertebral body tenderness to palpation over L5 Neal test positive BL L5-S1 Lumbar Facet Loading Test positive BL L4-L5, L5-S1 Straight Leg Raise: positive at 30 degrees right side/ left side Gaenslen's Test positive Sacral spine : Severe tenderness over the Sacroiliac joint: right side / left side Range of motion: Flexion of the lumbar spine <60 degrees Range of motion: Extension of the lumbar spine <20 degrees Gaenslen's Test positive right side > left side Alex test: positive right side / left side Thigh Thrust Test positive right side / left side Sacral Thrust Test positive right side / left side Imaging: MRI non contrast lumbar spine from 02/04/24 reviewed Assessment and plan: Chronic LBP secondary to radiculopathy, spondylosis with facet arthropathy without myelopathy, BL Sacroiliitis Recommendation of BL RFA L4-L5, L5-S1. Risks, benefits of procedure discussed and pt verbalized understanding. Protocol for discontinuation/ continuation of medications kanchan procedure discussed. Minimal anesthesia including Fentanyl and Versed if clinically indicated. All questions answered. I have spent less than 30 minutes on patient care today. Dr Bailey was available by phone for the evaluation of this patient. The time was used to review the medical records including relevant urine studies and Prescription history (MAPs), review of the available imaging, evaluation and examination of the patient, coordination of care with the medical staff and if applicable referring physicians, as well as creation of the medical record PQRS Narrative: Smoking Status Never smoker Narcotic Agreement Date Signed 06/09/24 Hx Alcohol Use (MH) Yes: social Home Medications: Ambulatory Orders Aspirin EC [Ecotrin Low Dose] 81 mg PO DAILY 03/27/14 Atorvastatin [Lipitor] 20 mg PO HS 03/27/14 Multivitamins, Thera [Multivitamin (formulary)] 1 tab PO DAILY 03/27/14 lisinopriL [Lisinopril] 20 mg PO DAILY 07/24/15 Latanoprost/Pf [Latanoprost 0.005% Eye Drop] 1 drop BOTH EYES HS 09/14/20 Cholecalciferol [Vitamin D3 (25 Mcg = 1000 Iu)] 25 mcg PO DAILY 11/01/22 timoloL maleate [timoloL maleate 0.25%] 1 applic BOTH EYES DAILY 11/01/22 Famotidine [Pepcid] 20 mg PO BID PRN 11/27/23 Fluticasone Nasal [place] [Flonase Nasal [place]] 1 spray EA NOSTRIL DAILY PRN 11/27/23 metFORMIN HCL 500 mg PO BID 03/01/24 Acetaminophen [Tylenol Extra Strength] 500 - 1,000 mg PO Q4-6H PRN 09/23/24 Gabapentin [Neurontin] 100 mg PO BID 11/09/24 Controlled Substance Measures - Controlled Substance Measures Is patient prescribed a controlled substance at discharge?: No
== END ==
LOC: PNWHC3 09:34
PROVIDERS: ATTEND Specialist
DX: M47.26 Other spondylosis with radiculopathy, lumbar region (principal); M46.1 Sacroiliitis, not elsewhere classified; Z88.0 Allergy status to penicillin; Z88.1 Allergy status to other antibiotic agents; Z88.2 Allergy status to sulfonamides; Z88.3 Allergy status to other anti-infective agents; Z88.8 Allergy status to other drugs, medicaments and biological substances
CPT/HCPCS: 99211

== ENCOUNTER 2024-12-13 08:17 | Day surgery (SDC) | payer MEDICARE ==
[2024-12-09 08:59] VITALS: BMI 27.0
[~2024-12-13 08:17] MED LIST changes: +LIDOCAINE 1% (10MG/ML) FOR IV START INTRADERMA PRN
[2024-12-13 08:52] VITALS: RESP 16; TEMP 98.2
[2024-12-13 08:58] LABS: Glucose,Whole Blood 104 mg/dL (70-110)
[2024-12-13] MEDS: IV FLUID CONTINUATION 1,000 ML IV ONE (09:04)
[2024-12-13] MEDS ORDERED: PROPOFOL 10 MG/ML 20 ML VIAL IV ONE (09:20)
[2024-12-13] MEDS ORDERED: LIDOCAINE 1% INJ 10MG/ML (20 ML MDV) ONE (09:20)
--- NOTE | 2024-12-13 09:25 | P.GSHP ---
History of Present Illness H&P Date: 12/13/24 Chief Complaint: Screening with history of polyps 74-year-old female here for colonoscopy. History of adenoma in 2013. Underwent sigmoid resection for colovesical fistula 6 years ago. Last colonoscopy prior to the resection. No bowel complaints. No family history of colon cancer. Past Medical History Past Medical History: Diabetes Mellitus, GERD/Reflux, Hyperlipidemia, Hypertension Additional Past Medical History / Comment(s): Diverticulosis, chronic low back pain, pancreatic cyst, hx shingles, hx Vertigo History of Any Multi-Drug Resistant Organisms: None Reported Past Surgical History: Bowel Resection, Hysterectomy, Orthopedic Surgery Additional Past Surgical History / Comment(s): Colonoscopies, R carpal tunnel release/ganglion cystectomy, PAIN CLINIC PROCEDURE Past Anesthesia/Blood Transfusion Reactions: No Reported Reaction Past Psychological History: No Psychological Hx Reported Additional Psychological History / Comment(s): . Smoking Status: Never smoker Past Alcohol Use History: Occasional Additional Past Alcohol Use History / Comment(s): . Past Drug Use History: None Reported - Past Family History Mother Family Medical History: Dementia Additional Family Medical History / Comment(s): Mother of complications from her dementia at the age of 89. Father Family Medical History: Coronary Artery Disease (CAD), Myocardial Infarction ([place]) Additional Family Medical History / Comment(s): Father at the age of 55 from heart complications. Sister(s) Family Medical History: Cancer Medications and Allergies Home Medications Medication Instructions Recorded Confirmed Type Aspirin EC [Ecotrin Low Dose] 81 mg PO DAILY 03/27/14 12/09/24 History Atorvastatin [Lipitor] 20 mg PO HS 03/27/14 12/09/24 History Multivitamins, Thera [Multivitamin 1 tab PO DAILY 03/27/14 12/09/24 History (formulary)] lisinopriL [Lisinopril] 20 mg PO DAILY 07/24/15 12/09/24 History Latanoprost/Pf [Latanoprost 0.005% 1 drop BOTH EYES HS 09/14/20 12/13/24 History Eye Drop] Cholecalciferol [Vitamin D3 (25 25 mcg PO DAILY 11/01/22 12/09/24 History Mcg = 1000 Iu)] timoloL maleate [timoloL maleate 1 applic BOTH EYES DAILY 11/01/22 12/09/24 History 0.25%] Famotidine [Pepcid] 20 mg PO BID PRN 11/27/23 12/13/24 History Fluticasone Nasal [place] [Flonase 1 spray EA NOSTRIL DAILY PRN 11/27/23 12/09/24 History Nasal [place]] metFORMIN HCL 500 mg PO BID 03/01/24 12/13/24 History Acetaminophen [Tylenol Extra 500 - 1,000 mg PO Q4-6H PRN 09/23/24 12/13/24 History Strength] Gabapentin [Neurontin] 100 mg PO BID 11/09/24 12/09/24 History Ibuprofen [Motrin] 200 mg PO Q6HR PRN 12/13/24 12/13/24 History Allergies Allergy/AdvReac Type Severity Reaction Status Date / Time amoxicillin [Amoxicillin] Allergy Unknown Diarrhea Verified 12/13/24 08:41 metronidazole [From Flagyl] Allergy Rash/Hives Verified 12/13/24 08:41 nitrofurantoin Allergy Rash/Hives Verified 12/13/24 08:41 [From Macrobid] amoxicillin trihydrate AdvReac Severe Diarrhea Verified 12/13/24 08:41 [From Augmentin] doxycycline AdvReac Severe Diarrhea Verified 12/13/24 08:41 Penicillins AdvReac Severe Diarrhea Verified 12/13/24 08:41 phenazopyridine HCl AdvReac Severe jittery Verified 12/13/24 08:41 [From Pyridium] feeling potassium clavulanate AdvReac Severe Diarrhea Verified 12/13/24 08:41 [From Augmentin] Sulfa (Sulfonamide AdvReac Severe Diarrhea Verified 12/13/24 08:41 Antibiotics) ciprofloxacin [From Cipro] AdvReac Joint Pain Verified 12/13/24 08:41 Surgical - Exam Vital Signs Temp Pulse Resp BP Pulse Ox 98.2 F 71 16 156/82 97 12/13/24 08:51 12/13/24 08:51 12/13/24 08:51 12/13/24 08:51 12/13/24 08:51 Physical exam: General: Well-developed, well-nourished HEENT: Normocephalic, sclerae nonicteric Abdomen: Nontender, nondistended Extremities: No edema Neuro: Alert and oriented Assessment and Plan (1) Colon cancer screening Narrative/Plan: Will proceed with colonoscopy at this time. Current Visit: Yes Status: Acute Code(s): Z12.11 - ENCOUNTER FOR SCREENING FOR MALIGNANT NEOPLASM OF COLON SNOMED Code(s): 410174794
--- NOTE | 2024-12-13 09:36 | P.PCN ---
Date of Procedure: 12/13/24 Procedure(s) Performed: PREOPERATIVE DIAGNOSIS: Screening with history of colon polyp and previous sigmoid resection POSTOPERATIVE DIAGNOSIS: Small descending colon polyp, diverticulosis, previous sigmoid colectomy PROCEDURE: Colonoscopy with snare polypectomy ANESTHESIA: MAC SURGEON: Albert Reyna M.D. SPECIMENS: Polyp ENDOSCOPIC PROCEDURE: The patient was placed on the endoscopy table in the left decubitus position. The Olympus colonoscope was inserted into the anus and passed under direct visualization to the base of the cecum. The appendiceal orifice was visualized. From that point the scope was slowly withdrawn inspecting all surfaces carefully. There were no neoplastic inflammatory or p olypoid lesions throughout the cecum, ascending, and transverse colon. In the distal descending colon just proximal to the anastomosis there was a small polyp that was removed using snare without cautery. This only measured about 4 mm in size. The anastomosis was widely patent. Patient's rectum appeared normal. There was mild residual diverticulosis proximal to the anastomosis. Digital rectal examination was normal. The patient was taken to the recovery room in stable condition per anesthesia guidelines. RECOMMENDATIONS: Await biopsy results. Tentatively advised repeat colonoscopy 5 years.
[2024-12-13 09:57] VITALS: BP 136/82; PULSE 68
== END 2024-12-13 10:05 | disposition home or self-care (01) ==
LOC: ORWHC2ENDO 08:17
PROVIDERS: ATTEND Surgery
DX: Z12.11 Encounter for screening for malignant neoplasm of colon (principal); K57.30 Diverticulosis of large intestine without perforation or abscess without bleeding; K63.5 Polyp of colon; K21.9 Gastro-esophageal reflux disease without esophagitis; I10 Essential (primary) hypertension; E11.9 Type 2 diabetes mellitus without complications; E78.5 Hyperlipidemia, unspecified; F17.200 Nicotine dependence, unspecified, uncomplicated; M54.50 Low back pain, unspecified; Z90.710 Acquired absence of both cervix and uterus; Z82.49 Family history of ischemic heart disease and other diseases of the circulatory system; Z88.0 Allergy status to penicillin; Z88.1 Allergy status to other antibiotic agents; Z88.2 Allergy status to sulfonamides; Z90.49 Acquired absence of other specified parts of digestive tract; Z79.84 Long term (current) use of oral hypoglycemic drugs; Z79.02 Long term (current) use of antithrombotics/antiplatelets; Z79.82 Long term (current) use of aspirin; Z79.899 Other long term (current) drug therapy
CPT/HCPCS: 88305; 45385; J2003; J2704

== ENCOUNTER 2024-12-20 07:55 | Day surgery (SDC) | payer MEDICARE ==
[2024-12-20 08:52] VITALS: TEMP 98.1
[2024-12-20] MEDS: IV FLUID CONTINUATION 1,000 ML IV ONE ×2 (08:55→10:17)
[2024-12-20] MEDS: LACTATED RINGERS 1,000 ML IV SCH (09:04)
[2024-12-20 09:07] LABS: Glucose,Whole Blood 108 mg/dL (70-110)
[2024-12-20] MEDS ORDERED: ROPIVACAINE 5MG/ML 20ML VIAL ONE (09:39)
[2024-12-20] MEDS ORDERED: MIDAZOLAM 2 MG/2 ML VIAL ONE (09:39)
[2024-12-20] MEDS ORDERED: fentaNYL (PF) 50 MCG/ML 2 ML AMP ONE (09:39)
[2024-12-20 10:22] VITALS: BP 118/55; PULSE 63; RESP 18
--- NOTE | 2024-12-20 10:26 | P.PCN ---
Description of Procedure: Preprocedure diagnosis. 1. Lumbar spondylosis with facet joint arthropathy without myelopathy. 2. Lumbar degenerative disc disease. Procedure diagnosis. 1. Lumbar spondylosis with facet joint arthropathy without myelopathy. Space 2. Lumbar degenerative disc disease. Procedure.Bilateral radiofrequency thermocoagulation L3, L4 and L5 medial branch, with fluoroscopic guidance (fluoroscopy images are available in the radiology department) (to Denervate the facet joint at bilateral L4- 5 and L5-S1 levels) Anesthesia. Moderate sedation with intravenous Versed 2 mg and fentanyl 50 g and local infiltration with Lidocaine. Continuous pulse OX,BP,EKG and verbal communication was maintained with patient. Time. Start 0939. Stop 1010. EBL minimal. Procedure indication. The patient with low back pain secondary to lumbar facet arthropathy who he had more than 50% relief of her pain with previous diagnostic lumbar medial branch block with local anesthetics.The patient was seen and identified in the preoperative area. Risks: Benefits, complications, including but not limited to risk of infection, bleeding, ALLERGIC reaction to the medications and no complete pain relief and alternatives were discussed with the patient, the patient admitted to proceed with the procedure and signed the consent. Procedure description/technique. Patient was taken to the OR and timeout was completed. The patient was placed in prone position on the procedure table. The lumbar area was prepped and draped in the usual sterile fashion. After injecting 5 ml of 1% Lidocaine subcutaneously,using AP and then oblique, lateral view of fluoroscopy, 18-gauge 100 mm radiofrequency cannula with a 10 mm active tip was advanced and guided by fluoroscopy at the junction of supirior articular process with RIGHT ala of the sacrum, transverse process of L4&L5. Each site then underwent positive sensory testing with 50 Hz and 0-1 V and negative motor testing at 2.5 Hz and 0-3 V with local stimulation but no radicular symptoms down the leg. Thereafter each sites underwent radiofrequency thermocoagulation at 80C for 90 seconds after injecting 1 mL of preservative- free 0.5% ropivacaine. Repeat radiofrequency ablation was done at each points after rotating the needle 180 with same setting. This same procedure was repeated twice on the LEFT side at the junction of superior articular process with ala of sacrum,transverse process of L4, L5 with the same settings after positive sensory,negative motor stimulation and infi ltration of 1.0 ml 5% Ropivacaine at each site . RF needles were taken out. At the end of the procedure the skin was cleansed and Band-Aids were applied. Disposition patient tolerated the procedure well. No complication. She was placed in supine position and transferred to the recovery area in stable condition for observation and was discharged home from recovery room after meeting discharge criteria. Discharge instructions given to the patient by the staff. The patient were examined prior to discharge the patient will schedule a follow-up in the clinic in 2-4 weeks.
--- NOTE | 2024-12-20 11:39 | FL ---
EXAMINATION TYPE: FL guided pain mgmt statistic Intraoperative/procedural fluoroscopic services were provided. CLINICAL INDICATION:Female, 74 years old with history of RF LUMBAR; , [facility] FINDINGS: Fluoroscopic images demonstrating RF lumbar. No radiographic evidence for complication. Total fluoroscopy time is 55.3 seconds. DAP: [id number] mGym2 Please see the operative/procedural note for further details. [facility], , 12/20/2024 11:37 AM
== END 2024-12-20 10:57 | disposition home or self-care (01) ==
LOC: ORPAIN 07:55
PROVIDERS: ATTEND Pain Medicine Interventional Pain Medicine
DX: M47.816 Spondylosis without myelopathy or radiculopathy, lumbar region (principal); M51.369 Other intervertebral disc degeneration, lumbar region without mention of lumbar back pain or lower extremity pain; E11.9 Type 2 diabetes mellitus without complications; Z88.2 Allergy status to sulfonamides; Z88.1 Allergy status to other antibiotic agents; Z88.8 Allergy status to other drugs, medicaments and biological substances; Z88.5 Allergy status to narcotic agent; Z79.82 Long term (current) use of aspirin
CPT/HCPCS: 64635; 64636 ×2; J2250; J3010; J2795; 99152; 99153

== ENCOUNTER → 2025-01-11 | Outpatient (CLI) | payer MEDICARE ==
[2025-01-11 09:42] VITALS: BP 158/81; PULSE 64; RESP 16; TEMP 98.2
--- NOTE | 2025-01-11 15:56 | P.PAINPG ---
PQRS Measure Charge Sheet Comment: A 74 yr old female with a history of severe and chronic LBP x years secondary to radiculopathy, spondylosis with facet arthropathy without myelopathy presents today for evaluation s/p BL RFA L4-L5, L5-S1. Pt states she experienced 50 % pain relief s/p procedure. Pain level is provoked at 5-6 /10 in intensity, constant, localized in the lumbar spine, predominantly axial, achy in character w shooting pain to the buttocks. Pain is provoked by sitting for periods > 5 min. Pain is alleviated with PT x 4 wks which ended in Apr 2024, physician guided home stretching regimen daily since Sep 2023, walking > 3 mi 5 times weekly, injections in the past, heat, ice, meds, topical, repositioning and rest. Interventional pain procedures completed include LESIs, BL SI injections x3, KINZA L3-L4 x1, L5-S1 x1, BL MBB L3-L5 x2 Patient is currently on Tylenol ES, Ibu, Lidoderm Patient denies any side effects of the medication(s), denies excessive drowsiness or sleepiness, denies suicidal ideation and reports that the current pain medication is helping to control the pain and improve activities of daily living. Patient denies any motor or sensory deficits. Patient denies any fever or night sweats, denies any change in the bowel movements or urination. Physical Examination: -Constitutional: Cooperative. Not in acute distress . - Neurologic: Cranial nerve II to XII intact. No focal neurological deficits. - Psychatric: Alert & oriented x 3. Matching mood & appropriate affect. Judgment and insight intact. - Musculoskeletal: Cervical spine: Muscle bulk/ tone/ strength in the bilateral upper extremities normal Vertebral body tenderness to palpation over Spurling test positive Distraction test positive Facet loading test positive TTP Thoracic spine Muscle bulk / tone/ strength in the bilateral paraspinal muscles normal Vertebral body tender to palpation over Facet loading test positive TTP Lumbar spine: Motor bulk/ tone/ strength lower extremities , thigh and legs : 5/5 Deep tendon reflexes : Normal Knee Jerk. Normal Ankle Jerk . Vertebral body tenderness to palpation over L5 Neal test positive BL L5-S1 Lumbar Facet Loading Test positive BL L4-L5, L5-S1 Straight Leg Raise: positive at 30 degrees right side/ left side Gaenslen's Test positive Sacral spine : Severe tenderness over the Sacroiliac joint: right side / left side Range of motion: Flexion of the lumbar spine <60 degrees Range of motion: Extension of the lumbar spine <20 degrees Gaenslen's Test positive right side > left side Alex test: positive right side / left side Thigh Thrust Test positive right side / left side Sacral Thrust Test positive right side / left side Imaging: MRI non contrast lumbar spine from 02/04/24 reviewed Assessment and plan: Chronic LBP secondary to radiculopathy, spondylosis with facet arthropathy without myelopathy, BL Sacroiliitis Recommendation of BL SI #1. Risks, benefits of procedure discussed and pt verbalized understanding. All questions answered. I have spent less than 30 minutes on patient care today. Dr Bailey was available by phone for the evaluation of this patient. The time was used to review the medical records including relevant urine studies and Prescription history (MAPs), review of the available imaging, evaluation and examination of the patient, coordination of care with the medical staff and if applicable referring physicians, as well as creation of the medical record PQRS Narrative: Smoking Status Never smoker Narcotic Agreement Date Signed 06/09/24 Hx Alcohol Use (MH) Yes: social Home Medications: Ambulatory Orders Aspirin EC [Ecotrin Low Dose] 81 mg PO DAILY 03/27/14 Atorvastatin [Lipitor] 20 mg PO HS 03/27/14 Multivitamins, Thera [Multivitamin (formulary)] 1 tab PO DAILY 03/27/14 lisinopriL [Lisinopril] 20 mg PO DAILY 07/24/15 Latanoprost/Pf [Latanoprost 0.005% Eye Drop] 1 drop BOTH EYES HS 09/14/20 Cholecalciferol [Vitamin D3 (25 Mcg = 1000 Iu)] 25 mcg PO DAILY 11/01/22 timoloL maleate [timoloL maleate 0.25%] 1 applic BOTH EYES DAILY 11/01/22 Famotidine [Pepcid] 20 mg PO BID PRN 11/27/23 Fluticasone Nasal [place] [Flonase Nasal [place]] 1 spray EA NOSTRIL DAILY PRN 11/27/23 metFORMIN HCL 500 mg PO BID 03/01/24 Acetaminophen [Tylenol Extra Strength] 500 - 1,000 mg PO Q4-6H PRN 09/23/24 Gabapentin [Neurontin] 100 mg PO BID 11/09/24 Ibuprofen [Motrin] 200 mg PO Q6HR PRN 12/13/24 Celecoxib [CeleBREX] 200 mg PO BID 01/11/25 Controlled Substance Measures - Controlled Substance Measures Is patient prescribed a controlled substance at discharge?: No
== END ==
LOC: PNWHC3 09:07
PROVIDERS: ATTEND Specialist
DX: M47.26 Other spondylosis with radiculopathy, lumbar region (principal); M46.1 Sacroiliitis, not elsewhere classified; Z88.0 Allergy status to penicillin; Z88.1 Allergy status to other antibiotic agents; Z88.2 Allergy status to sulfonamides
CPT/HCPCS: 99211

== ENCOUNTER → 2025-01-17 | Outpatient (CLI) | payer MEDICARE ==
[2025-01-17 13:20] VITALS: BP 164/81; PULSE 63; RESP 17
--- NOTE | 2025-01-17 13:45 | P.HPOB ---
History of Present Illness H&P Date: 01/17/25 Chief Complaint: The patient is here for her routine gynecologic exam and ma mmogram. This is a 74-year-old G0 with an LMP of 1999. Patient is status post ROMAIN for uterine fibroids. She is without gynecologic complaints. Review of Systems The patient has lost 12 pounds over the last year. She denies respiratory, cardiac, or G.I. problems. Past Medical History Past Medical History: Diabetes Mellitus, GERD/Reflux, Hyperlipidemia, Hypertension Additional Past Medical History / Comment(s): Diverticulosis, chronic low back pain, pancreatic cyst, hx shingles, hx Vertigo. 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 History of Any Multi-Drug Resistant Organisms: None Reported Past Surgical History: Bowel Resection, Hysterectomy, Orthopedic Surgery Additional Past Surgical History / Comment(s): Colonoscopy 2024(next after 5- 7yr), R carpal tunnel release/ganglion cystectomy, PAIN CLINIC PROCEDURE Past Anesthesia/Blood Transfusion Reactions: No Reported Reaction Past Psychological History: No Psychological Hx Reported Additional Psychological History / Comment(s): . Smoking Status: Never smoker Past Alcohol Use History: Occasional (0-1 drink per month.) Additional Past Alcohol Use History / Comment(s): . Past Drug Use History: None Reported Additional History: She has been since 1970 and is not sexually active. She is retired. - Past Family History Mother Family Medical History: Dementia Additional Family Medical History / Comment(s): Mother of complications from her dementia at the age of 89. Father Family Medical History: Coronary Artery Disease (CAD), Myocardial Infarction ([place]) Additional Family Medical History / Comment(s): Father at the age of 55 from heart complications. Sister(s) Family Medical History: Cancer Medications and Allergies Home Medications Medication Instructions Recorded Confirmed Type Aspirin EC [Ecotrin Low Dose] 81 mg PO DAILY 03/27/14 01/11/25 History Atorvastatin [Lipitor] 20 mg PO HS 03/27/14 01/11/25 History Multivitamins, Thera [Multivitamin 1 tab PO DAILY 03/27/14 01/11/25 History (formulary)] lisinopriL [Lisinopril] 20 mg PO DAILY 07/24/15 01/11/25 History Latanoprost/Pf [Latanoprost 0.005% 1 drop BOTH EYES HS 09/14/20 01/11/25 History Eye Drop] Cholecalciferol [Vitamin D3 (25 25 mcg PO DAILY 11/01/22 01/11/25 History Mcg = 1000 Iu)] timoloL maleate [timoloL maleate 1 applic BOTH EYES DAILY 11/01/22 01/11/25 History 0.25%] Famotidine [Pepcid] 20 mg PO BID PRN 11/27/23 01/11/25 History Fluticasone Nasal [place] [Flonase 1 spray EA NOSTRIL DAILY PRN 11/27/23 01/11/25 History Nasal [place]] metFORMIN HCL 500 mg PO BID 03/01/24 01/11/25 History Acetaminophen [Tylenol Extra 500 - 1,000 mg PO Q4-6H PRN 09/23/24 01/11/25 History Strength] Gabapentin [Neurontin] 100 mg PO BID 11/09/24 01/11/25 History Celecoxib [CeleBREX] 200 mg PO BID 01/11/25 01/11/25 History Allergies Allergy/AdvReac Type Severity Reaction Status Date / Time amoxicillin [Amoxicillin] Allergy Unknown Diarrhea Verified 01/17/25 13:16 metronidazole [From Flagyl] Allergy Rash/Hives Verified 01/17/25 13:16 nitrofurantoin Allergy Rash/Hives Verified 01/17/25 13:16 [From Macrobid] amoxicillin trihydrate AdvReac Severe Diarrhea Verified 01/17/25 13:16 [From Augmentin] doxycycline AdvReac Severe Diarrhea Verified 01/17/25 13:16 Penicillins AdvReac Severe Diarrhea Verified 01/17/25 13:16 phenazopyridine HCl AdvReac Severe jittery Verified 01/17/25 13:16 [From Pyridium] feeling potassium clavulanate AdvReac Severe Diarrhea Verified 01/17/25 13:16 [From Augmentin] Sulfa (Sulfonamide AdvReac Severe Diarrhea Verified 01/17/25 13:16 Antibiotics) ciprofloxacin [From Cipro] AdvReac Joint Pain Verified 01/17/25 13:16 Exam Vital Signs Pulse Resp BP Pulse Ox 01/17/25 13:17 63 17 164/81 97 Intake and Output 01/16/25 01/17/25 01/17/25 22:59 06:59 14:59 Other: Weight 56.699 kg Height 4 feet 8 inches, weight 125 pounds, BMI 28.0. This is a well-nourished short statured white female who is alert and oriented times 3 in no acute distress. HEENT: Within normal limits. NECK: Supple without mass or thyromegaly. CHEST AND LUNGS: Clear to auscultation. HEART: Regular rate and rhythm. BREASTS: Are without mass or discharge. AXILLARY EXAM: Negative for adenopathy. BACK: Negative for CVA tenderness. ABDOMEN: Soft, nontender, without palpable masses. PELVIC EXAM: External genitalia appears normal with mild to moderate atrophy. Vagina appears normal with mild to moderate atrophy. There is no evidence of prolapse. Bimanual examination is negative for mass or tenderness. RECTAL EXAM: Rectovaginal exam is negative for mass or tenderness and is negative for occult blood. EXTREMITIES: Nontender. IMPRESSION: 1. 74-year-old menopausal female status post ROMAIN for benign reasons, with normal gynecologic exam. 2. History of osteopenia. 3. Elevated blood pressure with history of chronic hypertension. PLAN: 1. Pap smears have been discontinued. 2. Self breast awareness was discussed with the patient. We have also discussed symptoms associated with inflammatory breast cancer. 3. Screening mammogram was done today. 4. Osteoporosis prevention was discussed. I have stressed the importance of adequate calcium, vitamin D and regular exercise. Recommended amounts of calcium and vitamin D were also discussed. Her last bone density test was on 04/04/2024. We will repeat this in approximately 2 years. 5. She was advised to return in one year for her annual well woman exam.
--- NOTE | 2025-01-17 17:50 | MM ---
Reason for Exam: Screening (asymptomatic). Last mammogram was performed 1 year(s) and 2 month(s) ago. Patient History: Menarche at age 11. Patient has no children. Hysterectomy at age 49. Postmenopausal. Estrogen for 3 years from age 49 until age 52. 10/25/2007, Benign Cyst Aspiration on the left side. 10/25/2007, Bilateral Benign Core Biopsy. Risk Values: Mary 5 year model risk: 2.5%. NCI Lifetime model risk: 5.8%. Prior Study Comparison: 10/15/2021 Bilateral Screening Mammogram, [facility]. 10/21/2022 Bilateral MG 3D screening mammo w/cad, [facility]. 11/04/2023 Bilateral MG 3D screening mammo w/cad, [facility]. Tissue Density: The breasts are heterogeneously dense, which may obscure small masses. Findings: Analyzed By CAD. Scattered benign round and punctate calcifications are unchanged. Microclip left breast from prior biopsy. Subareolar asymmetric density on the left is unchanged. There is no suspicious group of microcalcifications or new suspicious mass in either breast. Overall Assessment: Benign, BI-RAD 2 Management: Screening Mammogram of both breasts in 1 year. . Patient should continue monthly self-breast exams. A clinical breast exam by your physician is recommended on an annual basis. This exam should not preclude additional follow-up of suspicious palpable abnormalities. Note on Mary scores and lifetime risk: 1. A Mary score greater than 3% is considered moderate risk. If this is the case, consider specialist referral to assess eligibility for a risk reducing agent. 2. If overall lifetime risk for the development of breast cancer is 20% or higher, the patient may qualify for future screening with alternating mammogram and breast MRI. [facility], , 01/17/2025 5:46 PM. Electronically signed and approved by: Stephani Cruz M.D. Radiologist
== END | disposition home or self-care (01) ==
LOC: RADMAMWWP 12:47
PROVIDERS: ATTEND Obstetrics & Gynecology
DX: Z12.31 Encounter for screening mammogram for malignant neoplasm of breast (principal); R92.333 Mammographic heterogeneous density, bilateral breasts; R92.1 Mammographic calcification found on diagnostic imaging of breast; Z78.0 Asymptomatic menopausal state
CPT/HCPCS: 77063; 77067